=== PATIENT | female | born 1940 | race Caucasian/White ===

== ENCOUNTER 2017-01-16 04:03 | Inpatient (IN) | payer MEDICARE, BC ==
--- NOTE | 2017-01-16 04:16 | ED ---
GI Bleed HPI - General Stated complaint: Vertigo Time Seen by Provider: 01/16/17 04:13 Source: patient, EMS Limitations: no limitations - History of Present Illness Initial comments: This patient is a 76-year-old woman with history of previous stroke and atrial fibrillation who presents today after she had an episode of blood with her last bowel movement this morning. The patient states that she had gone to bed as usual around 10:30. She woke up and had the urge to have bowel movement this morning. When she got up she noted that she was somewhat lightheaded and dizzy. The bowel movement then had some blood with it, and the patient did phone EMS. Patient denies chest pain, dyspnea, abdominal pain, nausea or vomiting, diaphoresis. MD complaint: gross hematochezia -: minutes(s) Quality: painless Improves with: none Worsens with: none Associated Symptoms: other (Dizziness) Treatments Prior to Arrival: none - Related Data Home Medications Medication Instructions Recorded Confirmed Cholecalciferol [Vitamin D3] 1,000 unit PO DAILY 07/17/15 08/03/15 Albuterol Nebulized [Ventolin 2.5 mg INHALATION RT-Q6H 07/25/15 08/03/15 Nebulized] Atorvastatin [Lipitor] 40 mg PO HS 07/25/15 08/03/15 Nicotine 21Mg/24Hr Patch [Habitrol] 1 each TRANSDERM DAILY 07/25/15 08/03/15 Previous Rx's Medication Instructions Recorded Apixaban [Eliquis] 5 mg PO BID #60 tab 07/23/15 Aspirin EC [Ecotrin Low Dose] 81 mg PO DAILY #60 tablet.dr 07/23/15 Diltiazem Cd [Cardizem CD] 120 mg PO DAILY #60 cap.er.24h 07/23/15 Metoprolol Tartrate [Lopressor] 50 mg PO TID #90 tab 07/23/15 Budesonide-Formot 160-4.5 Mcg 2 puff INHALATION RT-BID #60 puff 07/29/15 [Symbicort 160-4.5 Mcg Inhaler] Tiotropium 18 Mcg/Puff [Spiriva] 1 puff INHALATION RT-DAILY #1 07/29/15 inhaler Allergies Allergy/AdvReac Type Severity Reaction Status Date / Time No Known Allergies Allergy Verified 01/16/17 04:17 Review of Systems ROS Statement: Those systems with pertinent positive or pertinent negative responses have been documented in the HPI. ROS Other: All systems not noted in ROS Statement are negative. Constitutional: Denies: fever, chills, weakness Respiratory: Denies: cough, dyspnea Cardiovascular: Denies: chest pain, palpitations, orthopnea, edema, syncope Gastrointestinal: Reports: hematochezia. Denies: abdominal pain, nausea, vomiting Genitourinary: Denies: dysuria Musculoskeletal: Denies: back pain Skin: Denies: rash Neurological: Denies: headache, weakness, numbness Past Medical History Past Medical History: Atrial Fibrillation, COPD, CVA/TIA, Hyperlipidemia, Hypertension, Osteoarthritis (OA), Pneumonia Additional Past Medical History / Comment(s): ETOH stated drinks 1-2 a day but has'nt drank in 1.5 weeks. 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 History of Any Multi-Drug Resistant Organisms: None Reported Past Surgical History: Back Surgery, Hysterectomy, Orthopedic Surgery, Tonsillectomy Additional Past Surgical History / Comment(s): BILATERAL HIP replacments, lt KNEE replacment, right SHOULDER SURGERY, hedy cataracts, enucleation of lt eye with implant Past Anesthesia/Blood Transfusion Reactions: No Reported Reaction Past Psychological History: Depression Smoking Status: Former smoker Past Alcohol Use History: None Reported Additional Past Alcohol Use History / Comment(s): STATES HAS 2 WHISKEY AND WATER DRINKS EACH EVENING Past Drug Use History: None Reported - Past Family History Mother Family Medical History: Myocardial Infarction ([place]) Father Family Medical History: Cancer General Exam General appearance: alert, in no apparent distress, obese Head exam: Present: atraumatic, normocephalic Eye exam: Present: normal appearance. Absent: scleral icterus, conjunctival injection Neck exam: Present: normal inspection Respiratory exam: Present: normal lung sounds bilaterally. Absent: respiratory distress, wheezes, rales, rhonchi, stridor Cardiovascular Exam: Present: irregular rhythm, normal heart sounds. Absent: systolic murmur, diastolic murmur, rubs, gallop GI/Abdominal exam: Present: soft. Absent: distended, tenderness, guarding, rebound, mass Extremities exam: Present: normal inspection, normal capillary refill. Absent: pedal edema, calf tenderness Back exam: Present: normal inspection. Absent: CVA tenderness (R), CVA tenderness (L) Neurological exam: Present: alert, oriented X3, other (Left facial droop). Absent: CN II-XII intact Skin exam: Present: warm, dry, intact, normal color. Absent: rash Course Vital Signs 01/16/17 01/16/17 04:08 04:50 Temperature 98.0 F Pulse Rate 105 H 105 H Respiratory 18 18 Rate Blood Pressure 94/54 97/52 O2 Sat by Pulse 97 98 Oximetry Medical Decision Making - Lab Data Result diagrams: 01/16/17 04:16 01/16/17 04:16 Lab Results 01/16/17 01/16/17 01/16/17 Range/Units 04:16 04:16 04:16 WBC 15.2 H (3.8-10.6) k/uL RBC 3.56 L (3.80-5.40) m/uL Hgb 10.2 L (11.4-16.0) gm/dL Hct 31.1 L (34.0-46.0) % MCV 87.5 (80.0-100.0) fL MCH 28.7 (25.0-35.0) pg MCHC 32.8 (31.0-37.0) g/dL RDW 15.9 H (11.5-15.5) % Plt Count 354 (150-450) k/uL Neutrophils % 79 % Lymphocytes % 11 % Monocytes % 6 % Eosinophils % 1 % Basophils % 2 % Neutrophils # 12.1 H (1.3-7.7) k/uL Lymphocytes # 1.6 (1.0-4.8) k/uL Monocytes # 0.9 (0-1.0) k/uL Eosinophils # 0.1 (0-0.7) k/uL Basophils # 0.3 H (0-0.2) k/uL PT (9.0-12.0) sec INR (<1.1) APTT (22.0-30.0) sec Sodium 136 L (137-145) mmol/L Potassium 5.3 H (3.5-5.1) mmol/L Chloride 101 (98-107) mmol/L Carbon Dioxide 26 (22-30) mmol/L Anion Gap 9 mmol/L BUN 58 H (7-17) mg/dL Creatinine 1.40 H (0.52-1.04) mg/dL Est GFR (MDRD) Af Amer 44 (>60 ml/min/1.73 sqM) Est GFR (MDRD) Non-Af 36 (>60 ml/min/1.73 sqM) Glucose 144 H (74-99) mg/dL POC Glucose (mg/dL) (75-99) mg/dL POC Glu Construction Engineer ID Plasma Lactic Acid Faisal (0.7-2.0) mmol/L Calcium 9.3 (8.4-10.2) mg/dL Total Bilirubin 0.4 (0.2-1.3) mg/dL AST 23 (14-36) U/L ALT 30 (9-52) U/L Alkaline Phosphatase 86 (38-126) U/L Total Creatine Kinase 57 (30-135) U/L CK-MB (CK-2) 2.6 H* (0.0-2.4) ng/mL CK-MB (CK-2) Rel Index 4.6 Troponin I <0.012 (0.000-0.034) ng/mL Total Protein 5.9 L (6.3-8.2) g/dL Albumin 3.4 L (3.5-5.0) g/dL Blood Type Blood Type Recheck Antibody Screen Spec Expiration Date 01/16/17 01/16/17 01/16/17 Range/Units 04:16 04:16 04:19 WBC (3.8-10.6) k/uL RBC (3.80-5.40) m/uL Hgb (11.4-16.0) gm/dL Hct (34.0-46.0) % MCV (80.0-100.0) fL MCH (25.0-35.0) pg MCHC (31.0-37.0) g/dL RDW (11.5-15.5) % Plt Count (150-450) k/uL Neutrophils % % Lymphocytes % % Monocytes % % Eosinophils % % Basophils % % Neutrophils # (1.3-7.7) k/uL Lymphocytes # (1.0-4.8) k/uL Monocytes # (0-1.0) k/uL Eosinophils # (0-0.7) k/uL Basophils # (0-0.2) k/uL PT 11.3 (9.0-12.0) sec INR 1.1 (<1.1) APTT 20.3 L (22.0-30.0) sec Sodium (137-145) mmol/L Potassium (3.5-5.1) mmol/L Chloride (98-107) mmol/L Carbon Dioxide (22-30) mmol/L Anion Gap mmol/L BUN (7-17) mg/dL Creatinine (0.52-1.04) mg/dL Est GFR (MDRD) Af Amer (>60 ml/min/1.73 sqM) Est GFR (MDRD) Non-Af (>60 ml/min/1.73 sqM) Glucose (74-99) mg/dL POC Glucose (mg/dL) 154 H (75-99) mg/dL POC Glu Construction Engineer ID [place], [place] Plasma Lactic Acid Faisal (0.7-2.0) mmol/L Calcium (8.4-10.2) mg/dL Total Bilirubin (0.2-1.3) mg/dL AST (14-36) U/L ALT (9-52) U/L Alkaline Phosphatase (38-126) U/L Total Creatine Kinase (30-135) U/L CK-MB (CK-2) (0.0-2.4) ng/mL CK-MB (CK-2) Rel Index Troponin I (0.000-0.034) ng/mL Total Protein (6.3-8.2) g/dL Albumin (3.5-5.0) g/dL Blood Type B Positive Blood Type Recheck No Antibody Screen NEGATIVE Spec Expiration Date 01/19/2017 - 231501/16/17 Range/Units 04:20 WBC (3.8-10.6) k/uL RBC (3.80-5.40) m/uL Hgb (11.4-16.0) gm/dL Hct (34.0-46.0) % MCV (80.0-100.0) fL MCH (25.0-35.0) pg MCHC (31.0-37.0) g/dL RDW (11.5-15.5) % Plt Count (150-450) k/uL Neutrophils % % Lymphocytes % % Monocytes % % Eosinophils % % Basophils % % Neutrophils # (1.3-7.7) k/uL Lymphocytes # (1.0-4.8) k/uL Monocytes # (0-1.0) k/uL Eosinophils # (0-0.7) k/uL Basophils # (0-0.2) k/uL PT (9.0-12.0) sec INR (<1.1) APTT (22.0-30.0) sec Sodium (137-145) mmol/L Potassium (3.5-5.1) mmol/L Chloride (98-107) mmol/L Carbon Dioxide (22-30) mmol/L Anion Gap mmol/L BUN (7-17) mg/dL Creatinine (0.52-1.04) mg/dL Est GFR (MDRD) Af Amer (>60 ml/min/1.73 sqM) Est GFR (MDRD) Non-Af (>60 ml/min/1.73 sqM) Glucose (74-99) mg/dL POC Glucose (mg/dL) (75-99) mg/dL POC Glu Construction Engineer ID Plasma Lactic Acid Faisal 1.3 (0.7-2.0) mmol/L Calcium (8.4-10.2) mg/dL Total Bilirubin (0.2-1.3) mg/dL AST (14-36) U/L ALT (9-52) U/L Alkaline Phosphatase (38-126) U/L Total Creatine Kinase (30-135) U/L CK-MB (CK-2) (0.0-2.4) ng/mL CK-MB (CK-2) Rel Index Troponin I (0.000-0.034) ng/mL Total Protein (6.3-8.2) g/dL Albumin (3.5-5.0) g/dL Blood Type Blood Type Recheck Antibody Screen Spec Expiration Date - EKG Data -: EKG Interpreted by Me EKG shows normal: axis (Normal), intervals (Normal), QRS complexes Rate: tachycardia Interpretation: other (Atrial fibrillation with rapid ventricular rate, rate approximate 110 bpm.) Disposition Clinical Impression: Atrial fibrillation with RVR, Gastrointestinal hemorrhage Disposition: ADMITTED IP TO THIS HOSP Condition: Fair Referrals: Alia Tobar MD [Primary Care Provider] - 1-2 days
[2017-01-16 04:34] LABS: Glucose,Whole Blood 154 mg/dL (75-99)
[2017-01-16 04:36] LABS: Basophils # (A) 0.3 k/uL (0-0.2); Basophils % (A) 2 %; CH 28.7; Eosinophils # (A) 0.1 k/uL (0-0.7); Eosinophils % (A) 1 %; HCT 31.1 % (34.0-46.0); HDW 2.69; HGB 10.2 gm/dL (11.4-16.0); Luc # (Auto) 0.27; Luc % (Auto) 2; Lymphocytes # (A) 1.6 k/uL (1.0-4.8); Lymphocytes % (A) 11 %; MCH 28.7 pg (25.0-35.0); MCHC 32.8 g/dL (31.0-37.0); MCV 87.5 fL (80.0-100.0); Mean Platelet Volume 8.1; Monocytes # (A) 0.9 k/uL (0-1.0); Monocytes % (A) 6 %; Neutrophils # (A) 12.1 k/uL (1.3-7.7); Neutrophils % (A) 79 %; RBC 3.56 m/uL (3.80-5.40); RDW 15.9 % (11.5-15.5); WBC 15.2 k/uL (3.8-10.6)
[2017-01-16] MEDS ORDERED: ONDANSETRON 4 MG/2 ML VIAL IVP STA (04:37)
[2017-01-16] MEDS ORDERED: PANTOPRAZOLE 40 MG/10 ML VIAL IVP STA (04:40)
[2017-01-16 04:45] LABS: INR 1.1 (<1.1); Prothrombin Time 11.3 sec (9.0-12.0)
[2017-01-16 04:49] LABS: Calcium 9.3 mg/dL (8.4-10.2); Potassium 5.3 mmol/L (3.5-5.1); Total Bilirubin 0.4 mg/dL (0.2-1.3); Total Protein 5.9 g/dL (6.3-8.2)
[2017-01-16 04:58] LABS: Creatine Kinase 57 U/L (30-135)
[2017-01-16 05:08] LABS: Partial Thromboplastin Time 20.3 sec (22.0-30.0)
[2017-01-16 05:10] LABS: Troponin I <0.012 ng/mL (0.000-0.034)
[2017-01-16 05:12] LABS: Creatine Kinase MB 2.6 ng/mL (0.0-2.4)
[2017-01-16] MEDS ORDERED: DILTIAZEM 5 MG/ML 5 ML VIAL IVP STA (06:33)
[2017-01-16] MEDS ORDERED: NALOXONE 0.4 MG/ML 1 ML VIAL IV PRN (06:34)
[2017-01-16] MEDS ORDERED: ONDANSETRON 4 MG/2 ML VIAL IVP PRN (06:34)
[2017-01-16] MEDS: SODIUM CHLORIDE 0.9% 1,000 ML IV SCH ×2 (07:05→20:24)
[2017-01-16] MEDS ORDERED: ASPIRIN 81 MG CHEW PO SCH (09:00)
[2017-01-16 09:13] LABS: Glucose,Whole Blood 178 mg/dL (75-99)
[2017-01-16] MEDS ORDERED: RX INFO: IV CONTRAST WAS GIVEN 1 EACH MISC MISCELLANE PRN (09:46)
[2017-01-16] MEDS: CHOLECALCIFEROL 1,000 UNIT TAB PO SCH (10:15)
[2017-01-16] MEDS: METOPROLOL TARTRATE 50 MG TAB PO SCH ×3 (10:15→20:07)
[2017-01-16] MEDS: DILTIAZEM CD 120 MG CAP.ER.24H PO SCH (10:15)
--- NOTE | 2017-01-16 10:18 | P.HPIM ---
History of Present Illness H&P Date: 01/16/17 Chief Complaint: Dizziness lightheadedness black tarry stool 76-year-old female who activated the EMS system after patient stated that she had gone to bed at her usual time at 10:30 at night woke up had a sudden urge to have a bowel movement got up felt dizzy lightheaded noted that there was blood in the toilet bowl with black stool. Patient states that during the day she had been feeling slightly dizzy and lightheaded with a sensation of nausea did not actually have a emesis had poor oral intake. Patient stated that she was not experiencing any chest pain or shortness of breath. Patient states that she does have a cardiac history and sees a automatic corn grinder operator in [facility] dr foote who reportedly treats patient for heart failure additionally patient states her primary ornamental plasterer helper is Dr. Mendez. Patient denies any prior episodes. Patient states that she is on a blood thinner elquist for irregular heartbeat. Patient denies any episodes of chest pain to suggest angina patient denies having any recent scopes done states that she's never had an upper scope done but had a colonoscopy done greater than 5 years ago to her knowledge there were no acute findings. Patient has not had any change in bowel habits no constipation no frequent stooling has not been experiencing any abdominal pain except on the day of the event had been having abdominal cramping. Currently patient did have a bowel movement black stool continues to report feeling dizzy and lightheaded with abdominal cramping persisting Review of Systems Essentially unremarkable except as mentioned in the present illness Past Medical History Past Medical History: Atrial Fibrillation, COPD, CVA/TIA, Hyperlipidemia, Hypertension, Osteoarthritis (OA), Pneumonia Additional Past Medical History / Comment(s): ETOH stated drinks 1-2 a day but has'nt drank in 1.5 weeks. 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 History of Any Multi-Drug Resistant Organisms: None Reported Past Surgical History: Back Surgery, Hysterectomy, Orthopedic Surgery, Tonsillectomy Additional Past Surgical History / Comment(s): BILATERAL HIP replacments, lt KNEE replacment, right SHOULDER SURGERY, hedy cataracts, enucleation of lt eye with implant Past Anesthesia/Blood Transfusion Reactions: No Reported Reaction Past Psychological History: Depression Smoking Status: Former smoker Past Alcohol Use History: None Reported Additional Past Alcohol Use History / Comment(s): STATES HAS 2 WHISKEY AND WATER DRINKS EACH EVENING Past Drug Use History: None Reported - Past Family History Mother Family Medical History: Myocardial Infarction ([place]) Father Family Medical History: Cancer Medications and Allergies Home Medications Medication Instructions Recorded Confirmed Type Cholecalciferol [Vitamin D3] 1,000 unit PO DAILY 07/17/15 08/03/15 History Albuterol Nebulized [Ventolin 2.5 mg INHALATION RT-Q6H 07/25/15 08/03/15 History Nebulized] Atorvastatin [Lipitor] 40 mg PO HS 07/25/15 08/03/15 History Nicotine 21Mg/24Hr Patch [Habitrol] 1 each TRANSDERM DAILY 07/25/15 08/03/15 History Allergies Allergy/AdvReac Type Severity Reaction Status Date / Time No Known Allergies Allergy Verified 01/16/17 04:17 Physical Exam Vitals: Vital Signs Temp Pulse Resp BP Pulse Ox 01/16/17 07:44 97.6 F 97 15 90/62 97 Intake and Output 01/15/17 01/16/17 01/16/17 22:59 06:59 14:59 Intake Total 480 Balance 480 Intake: Oral 480 GENERAL APPEARANCE: 76-year-old female patient is alert, oriented, in no acute distress. Currently is reportedly experiencing abdominal cramping states feels dizzy lightheaded systolic blood pressure in the 80s with heart [id number] VITAL SIGNS: Reviewed HEENT: Head is normocephalic and atraumatic. Pupils are equal and reactive. The nares are patent. Oropharynx is clear without lesions. NECK: Supple without lymphadenopathy. Traches midline. HEART: S1, S2. Irregular monitor currently showing atrial fibrillation heart rate in the 100 LUNGS: No crackles or wheezes are heard. Adequate air movement on room air sats were documented 97% no cough noted ABDOMEN: Obese Soft, slight tenderness, nondistended with good bowel sounds. No peritoneal signs. No palpable organomegaly or masses. A moderate black stool noted soft EXTREMITIES: Normal skin color and turgor. No cyanosis, rash, ulceration, clubbing or edema. Radial pedal pulses are 2/4 bilaterally. NEUROLOGICAL: No focal deficits. Strength and sensation are grossly intact. Results CBC & Chem 7: 01/16/17 04:16 03/26/17 04:16 Labs: Abnormal Lab Results - Last 24 Hours (Table) 01/16/17 Range/Units 08:53 POC Glucose (mg/dL) 178 H (75-99) mg/dL Assessment and Plan Plan: Impression Present on admission dizziness lightheadedness hypotensive systolic blood pressure in the 80s suspect due to episode of gross hematochezia Present on admission atrial fibrillation with a rapid ventricular response heart rate 110 Obesity BMI 43 Depressive disorder nonspecified Daily alcohol 2 whiskey last drink a week and half ago Present on admission leukocytosis Present on admission hyperkalemia suspect due to clinical dehydration poor oral intake Present on admission elevated BUN mildly elevated creatinine suspect due to clinical dehydration History of chronic bronchitis Present on admission abdominal pain unclear etiology History of prior CVA with no deficit 2014 congestive heart failure suspect systolic echocardiogram in 2014 EF 40-45 compensated Plan GI eval noted scheduled tomorrow for an EGD Cardiology eval pending CT abdomen and pelvis follow up on results Dr. Solomon surgical service eval for abdominal pain Pulmonary eval for pulmonary management history of bronchitis no evidence acute exacerbation noted bárbara on hold Resume home meds as appropriate Continue protonix 40 iv every 12 DVT and GI prophylaxis Further recommendations pending will follow IV fluid at 75 an hour to rehydrate repeat labs in the morning The above dictated assessment and findings were discussed with dr julius Duggan and the plan of care have been dictated as directed. Sherlyn Hdez nurse practitioner acting as a scribe for dr madrid
[2017-01-16] MEDS: ALBUTEROL NEBULIZED 2.5 MG/3 ML INHALATION SCH ×3 (10:43→19:35)
[2017-01-16] MEDS: SYMBICORT 160-4.5 MCG INHALER INHALATION SCH ×2 (10:43→19:35)
--- NOTE | 2017-01-16 10:50 | CT ---
EXAMINATION TYPE: CT abdomen pelvis w con DATE OF EXAM: 01/16/2017 10:33 AM COMPARISON: NONE HISTORY: Pain CT DLP: 1735.80 mGycm Automated exposure control for dose reduction was used. TECHNIQUE: Helical acquisition of images was performed from the lung bases through the pelvis. CONTRAST: Performed without Oral Contrast and with IV Contrast, patient injected with 80 ml mL of Visipaque 320 . FINDINGS: Lung bases are clear. There is no pleural effusion. There is no pericardial effusion. Heart is probably enlarged. Liver spleen pancreas appear normal. Stomach is large. There are calcified large gallstones. Bile christopher ts are not dilated. There is no adrenal mass. Kidneys show satisfactory contrast opacification. There is no hydronephrosis. There is a 2 cm cortical cyst on the posterior right kidney. There is no retro peritoneal adenopathy. There is no ascites. There is mild sigmoid diverticulosis. There is no sign of diverticulitis. There is a 5 cm cyst in the pelvis on the right side. Appendix appears normal. There are spondylotic changes in the lumbar spine. IMPRESSION: THE STOMACH IS LARGE AND COULD RELATE TO GASTROPARESIS OR PARTIAL GASTRIC OUTLET OBSTRUCTION. NORMAL APPENDIX. ATHEROSCLEROTIC VASCULAR DISEASE. 5 CM PELVIC CYST COULD BE AN OVARIAN CYST. MODERATE SIGMOID DIVERTICULOSIS WITHOUT EVIDENCE OF DIVERTICULITIS. LARGE CALCIFIED GALLSTONES. CARDIOMEGALY.
[2017-01-16] MEDS: TIOTROPIUM 18 MCG/PUFF INHALER INHALATION SCH (10:57)
--- NOTE | 2017-01-16 11:10 | P.CON ---
Consult Note - . Consult date: 01/16/17 Assessment/Plan:: Thank you very much for asking us to see this patient. She is a 76-year-old white female who awoke last night with the sensation to have a bowel movement. She states the bowel movement was fairly liquid and was dark almost black but also amount of bright red blood in it. She has not been taking while all day yesterday with the feeling of weakness and lethargy and had a dizzy spell last night. She presented to the emergency room. No past history of similar issue in terms of her bowels. Does have a history of constipation mostly. Has had occasional bright red blood on the toilet paper which she has attributed to hemorrhoids. She thinks she had a colonoscopy about 5 years ago with the as far she knows no significant abnormalities. She cannot recall who did it or where it was done was done. When admitted she was found to have rapid ventricular rate with a long history of atrial fibrillation. Past history reviewed and well-documented. Positive for atrial fibrillation with the rapid ventricular rate in the past. On the Eliquis and aspirin. Multiple orthopedic surgeries. History of CVA with the facial weakness. Left enucleation of the eye. Hysterectomy ALLERGIES none known. Social history positive for smoking in the past. Drinks alcohol are daily usually whiskey but states she hadn't had anything to drink more than a week. Systems review as above no definite chest pain or shortness of breath but she feels very lethargic week and tired. Has degenerative joint disease with the aches and pains and some back pain. Some lower abdominal discomfort. On examination the patient is awake alert oriented. Not particularly pale. Vitals are stable heart rate around 108 irregular.. No mass or lymphadenopathy. Heart irregular lungs are clear. Abdomen obese soft no definite tenderness guarding or rebound or rigidity no mass or organomegaly. Rectal reveals some liquid stool , no blood on the examining finger , stool is dark brown in color. No masses palpable. Has mild internal hemorrhoids. Laboratory studies reviewed. Her hemoglobin is stable. WBC slightly elevated. INR is normal. CT of the abdomen and pelvis shows a distended stomach with the possibility of gastroparesis. Large the gallstones. Diverticulosis without the complicating features. Impression GI bleed suspect colonic in view of bright red blood but also she reports it was dark stool as well. Should the rule out upper GI source. Prone to bleeding being on Eliquis.. Suspect asymptomatic cholelithiasis. Possible gastroparesis. Multiple medical issues including atrial fibrillation history of CVA degenerative joint disease obesity. Recommendation continued monitoring medically as well as her hemoglobin. Agree with plans for EGD. Dr. Lopez we will continue to follow .
--- NOTE | 2017-01-16 12:53 | CONS ---
DATE OF CONSULTATION: 01/16/2017 REASON FOR CONSULTATION: Acute GI bleed. HISTORY OF PRESENT ILLNESS: The patient is a 76-year-old pleasant lady who was admitted to the hospital with abdominal pain, nausea and vomiting that started yesterday evening followed by dark-colored stool. She had about 3 episodes of dark-colored stools but denies any melena. Prior to that she had a couple of occasions of mild intermittent bright red blood per rectum that happens when she is constipated. At the time of admission to the hospital her hemoglobin was from 10.4 g/dL. In June of last year she was diagnosed with a CVA as well as atrial fibrillation and since then has been on aspirin and Eliquis. Her last dose of Eliquis was yesterday. She denies any coffee-ground emesis. No prior history of peptic ulcer disease or recent NSAID use. Her past medical history is significant for A. fib, CVA, hypertension, hyperlipidemia, COPD. Medications at home include: 1. Spiriva. 2. Habitrol. 3. Lopressor. 4. Cardizem. 5. Vitamin D3. 6. Symbicort. 7. Eliquis. 8. Ecotrin. 9. Lipitor. 10. Ventolin. ALLERGIES: None. PAST SURGICAL HISTORY: Colonoscopy about 5 years ago, bilateral hip replacement, tonsillectomy, right knee replacement, right shoulder surgery, hysterectomy, back surgery. SOCIAL HISTORY: Occasional alcohol. Former smoker. FAMILY HISTORY: Mother had CO and father had some kind of cancer. REVIEW OF SYSTEMS: CARDIOPULMONARY: No chest pain, shortness of breath. GENITOURINARY: No dysuria or hematuria. MUSCULOSKELETAL: Unremarkable. SKIN: Unremarkable. ENDOCRINE: Unremarkable. PSYCHIATRIC: Unremarkable. NEUROLOGY: Unremarkable. ENT: Vision unremarkable. CONSTITUTIONAL: No recent weight loss. No fever, chills, night sweats. On physical examination, she appears comfortable in no apparent distress. Vitals as are stable. Blood pressure is 94/54, pulse rate 105, temperature 98. HEENT: Unremarkable. Conjunctivae pink. Sclerae anicteric. Oral cavity, no lesions. NECK: No JVD or lymph node enlargement. CHEST: Clear to auscultation. HEART: Regular rate and rhythm. ABDOMEN: Soft. There was tenderness in the epigastric and periumbilical area. Bowel sounds are positive. No organomegaly. EXTREMITIES: No pedal edema. SKIN: No rashes. NEURO: She is alert and oriented x3. No focal deficits. LABS: WBC 15.2, hemoglobin 10.2, platelets are 354, PT 11.3, INR 1.1. BUN is 58, creatinine 1.4, troponin less than 0.12. IMPRESSION: This is a lady who presents with acute onset of abdominal pain followed by nausea and vomiting and since then had 3 episodes of dark-colored stools which started last night. She became somewhat dizzy and hypertensive. Last hemoglobin was 10.4 g/dL. She has been on aspirin and Eliquis for atrial fibrillation/cerebrovascular accident that was diagnosed in June 2016. Most likely we are dealing with an upper gastrointestinal source of bleeding at the present time. Clinically and hemodynamically she is stable, somewhat tachycardic. RECOMMENDATIONS: 1. Start her on Protonix 40 mg every 2 hours. 2. CBC every 8 hours. 3. Clear liquid diet. 4. Proceed with an upper endoscopy tomorrow. 5. Hold off on the Eliquis and aspirin. 6. We will follow the patient closely during her hospital stay. Thank you for this consultation.
[2017-01-16] MEDS: PANTOPRAZOLE 40 MG/10 ML VIAL IVP SCH ×2 (13:55→20:07)
[2017-01-16 20:06] LABS: CH 28.5; CHCM 32.5; HCT 21.7 % (34.0-46.0); HDW 2.61; MCV 87.9 fL (80.0-100.0); Mean Platelet Volume 8.9; RBC 2.47 m/uL (3.80-5.40); RDW 15.9 % (11.5-15.5); WBC 16.9 k/uL (3.8-10.6)
[2017-01-16] MEDS: ATORVASTATIN 40 MG TAB PO SCH (20:07)
[2017-01-16 20:08] LABS: HGB 7.2 gm/dL (11.4-16.0)
[2017-01-16] MEDS ORDERED: ALBUTEROL NEBULIZED 2.5 MG/3 ML INHALATION PRN (20:18)
[2017-01-16 20:51] LABS: Calcium 8.7 mg/dL (8.4-10.2); Potassium 5.7 mmol/L (3.5-5.1)
[2017-01-16] MEDS ORDERED: FUROSEMIDE 10 MG/ML 2 ML VIAL IV ONE (21:15)
[2017-01-16] MEDS: HYDROmorphone 1 MG/ML 1 ML SYRINGE IVP PRN (22:23)
[2017-01-17 03:46] LABS: Glucose,Whole Blood 166 mg/dL (75-99)
[2017-01-17] MEDS: HYDROmorphone 1 MG/ML 1 ML SYRINGE IVP PRN ×3 (06:38→21:18)
[2017-01-17] MEDS: DILTIAZEM CD 120 MG CAP.ER.24H PO SCH (06:52)
--- NOTE | 2017-01-17 06:55 | XR ---
EXAMINATION TYPE: XR chest 1V DATE OF EXAM: 01/17/2017 6:38 AM HISTORY: bronchitis. REFERENCE: Previous study dated 08/03/2015. FINDINGS: There is a right shoulder hemiarthroplasty in place. Heart size is upper limits of normal. The lungs are clear. Pleural spaces are clear. IMPRESSION: BORDERLINE CARDIOMEGALY.
[2017-01-17] MEDS: TIOTROPIUM 18 MCG/PUFF INHALER INHALATION SCH (07:20)
[2017-01-17] MEDS: SYMBICORT 160-4.5 MCG INHALER INHALATION SCH ×2 (07:20→19:34)
[2017-01-17 08:38] LABS: INR 1.2 (<1.1); Prothrombin Time 11.7 sec (9.0-12.0)
[2017-01-17 08:38] LABS: Appearance,Urine Clear (Clear); Bilirubin,Urine Negative (Negative); Glucose,Urine (UA) Negative (Negative); Ketones,Urine Negative (Negative); Leukocyte Esterase,Urine Negative (Negative); Nitrite,Urine Negative (Negative); PH, Urine 6.5 (5.0-8.0); Protein,Urine Negative (Negative); Specific Gravity,Urine 1.009 (1.001-1.035); UA Billing (MACRO vs. MICRO) CHEM; Urobilinogen,Urine <2.0 mg/dL (<2.0)
[2017-01-17] MEDS: METOPROLOL TARTRATE 50 MG TAB PO SCH ×3 (08:49→21:38)
[2017-01-17] MEDS: CHOLECALCIFEROL 1,000 UNIT TAB PO SCH (08:49)
[2017-01-17] MEDS: PANTOPRAZOLE 40 MG/10 ML VIAL IVP SCH ×2 (08:49→21:10)
[2017-01-17 08:53] LABS: Anisocytosis Slight; Basophils % (A) 0 %; CH 28.4; CHCM 33.4; Eosinophils # (A) 0.1 k/uL (0-0.7); Eosinophils % (A) 1 %; HCT 27.5 % (34.0-46.0); HDW 2.95; Luc % (Auto) 1; Lymphocytes # (A) 1.5 k/uL (1.0-4.8); Lymphocytes % (A) 11 %; MCH 28.3 pg (25.0-35.0); MCV 85.8 fL (80.0-100.0); Mean Platelet Volume 8.4; Monocytes # (A) 0.7 k/uL (0-1.0); Monocytes % (A) 5 %; Neutrophils % (A) 81 %; RBC 3.21 m/uL (3.80-5.40); RDW 16.9 % (11.5-15.5); WBC 13.5 k/uL (3.8-10.6)
[2017-01-17 09:03] LABS: HGB 9.1 gm/dL (11.4-16.0)
[2017-01-17 09:05] LABS: Calcium 8.3 mg/dL (8.4-10.2); Phosphorous 4.4 mg/dL (2.5-4.5); Potassium 4.4 mmol/L (3.5-5.1); Total Bilirubin 0.9 mg/dL (0.2-1.3); Total Protein 5.1 g/dL (6.3-8.2)
[2017-01-17] MEDS: SODIUM CHLORIDE 0.9% 1,000 ML IV SCH ×2 (10:00→23:26)
[2017-01-17] MEDS: DILTIAZEM 125 MG in SODIUM CHLORIDE 0.9% 100 ML IV SCH ×2 (10:01→18:55)
[2017-01-17] MEDS ORDERED: LEVALBUTEROL NEB 1.25 MG/3 ML AMP INHALATION PRN (10:15)
--- NOTE | 2017-01-17 10:15 | P.CNPUL ---
History of Present Illness Consult date: 01/17/17 Requesting physician: Nilsa Arellano Reason for consult: other (Critical care management) Chief complaint: Abdominal pain, black tarry stools History of present illness: This is a very pleasant 76-year-old female patient who follows with Dr. Tobar as her primary care physician. She has a history of CVA/TIA with right-sided facial droop, atrial fibrillation, hyperlipidemia, hypertension, chronic obstructive pulmonary disease with a significant smoking history. She is maintained on Symbicort and Spiriva in the outpatient setting. She had presented here yesterday following a episode of nausea vomiting and diarrhea. Her stools were black and tarry. She was also found to be in atrial fibrillation with rapid ventricular response and is treated with liquid as an aspirin in the outpatient setting. She was also dizzy and lightheaded and felt as though this may be related to her previous stroke symptoms and took additional aspirin. Her initial hemoglobin was 10.2 subsequent dropped to 7.2. She was transfused with 2 units of packed red blood cells and her current hemoglobin is 9.1. She has not had any further episodes of active GI bleeding noted thus far. She does remain in atrial fibrillation with a rapid ventricular response and was on Cardizem orally in the outpatient setting. She is on 2 L/m per nasal cannula to maintain O2 saturations in the 90s. She is a 0.9 normal saline at 75 ML's per hour. Her initial creatinine 1.50 improved to 1.25. Stool for occult blood is positive. The plan is for EGD today. Review of Systems 14 point review of system was conducted. All negative other than as mentioned in HPI. Past Medical History Past Medical History: Atrial Fibrillation, COPD, CVA/TIA, Hyperlipidemia, Hypertension, Osteoarthritis (OA), Pneumonia Additional Past Medical History / Comment(s): ETOH stated drinks 1-2 a day but has'nt drank in 1.5 weeks. 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 History of Any Multi-Drug Resistant Organisms: None Reported Past Surgical History: Back Surgery, Hysterectomy, Orthopedic Surgery, Tonsillectomy Additional Past Surgical History / Comment(s): BILATERAL HIP replacments, lt KNEE replacment, right SHOULDER SURGERY, hedy cataracts, enucleation of lt eye with implant Past Anesthesia/Blood Transfusion Reactions: No Reported Reaction Past Psychological History: Depression Smoking Status: Former smoker Past Alcohol Use History: None Reported Additional Past Alcohol Use History / Comment(s): STATES HAS 2 WHISKEY AND WATER DRINKS EACH EVENING Past Drug Use History: None Reported - Past Family History Mother Family Medical History: Myocardial Infarction (NH) Father Family Medical History: Cancer Medications and Allergies Home Medications Medication Instructions Recorded Confirmed Type Cholecalciferol [Vitamin D3] 1,000 unit PO DAILY 07/17/15 01/16/17 History Albuterol Nebulized [Ventolin 2.5 mg INHALATION RT-QID PRN 07/25/15 01/16/17 History Nebulized] Atorvastatin [Lipitor] 40 mg PO HS 07/25/15 01/16/17 History Acetaminophen/Diphenhydramine 1 tab PO HS PRN 01/16/17 01/16/17 History [Tylenol PM 500-25mg] Furosemide [Lasix] 20 mg PO QID 01/16/17 01/16/17 History Gabapentin [Neurontin] 200 mg PO DAILY 01/16/17 01/16/17 History LORazepam [Ativan] 0.5 mg PO Q6H PRN 01/16/17 01/16/17 History Lisinopril [Zestril] 5 mg PO DAILY 01/16/17 01/16/17 History Melatonin 3 mg PO HS 01/16/17 01/16/17 History Potassium Chloride [Klor-Con 10] 10 meq PO MOWEFR@0900,2100 01/16/17 01/16/17 History Potassium Chloride [Klor-Con 10] 10 meq PO SUTUTHSA@0900 01/16/17 01/16/17 History Sulfamethox-Tmp 800-160Mg [Bactrim 1 tab PO Q12HR 01/16/17 01/16/17 History DS 800-160 mg] Tiotropium 18 Mcg/Puff [Spiriva] 1 cap INHALATION RT-DAILY 01/16/17 01/16/17 History predniSONE See Taper PO DAILY 01/16/17 01/17/17 History rOPINIRole HCL [Requip] 0.5 mg PO HS 01/16/17 01/16/17 History Allergies Allergy/AdvReac Type Severity Reaction Status Date / Time No Known Allergies Allergy Verified 01/16/17 11:41 Physical Exam Vitals: Vital Signs Temp Pulse Pulse Pulse Resp BP BP 01/17/17 09:00 161 H 18 101/68 01/17/17 08:00 150 H 31 H 77/50 01/17/17 07:00 98.4 F 163 H 25 H 117/69 01/17/17 06:00 138 H 15 108/60 01/17/17 05:50 145 H 21 108/60 01/17/17 05:41 99.2 F 137 H 20 94/57 01/17/17 05:40 136 H 12 108/60 01/17/17 05:00 99.2 F 147 H 112/76 01/17/17 04:26 141 H 10 L 112/76 01/17/17 03:18 97.2 F L 118 H 18 116/57 01/17/17 02:48 97.7 F 120 H 18 106/63 01/17/17 02:38 98.9 F 129 H 18 104/72 01/17/17 02:28 98.3 F 113 H 18 110/57 01/17/17 02:10 98.6 F 126 H 18 101/78 01/17/17 00:00 136 H 18 01/16/17 23:08 98.6 F 95 95 18 104/55 104/55 01/16/17 22:38 97.7 F 129 H 18 104/57 01/16/17 22:28 98.2 F 134 H 18 101/50 01/16/17 22:10 98.1 F 138 H 18 100/52 01/16/17 20:00 97.2 F L 105 H 18 105/57 01/16/17 15:59 124 H 18 01/16/17 12:00 90 18 BP Pulse Ox 01/17/17 09:00 94 L 01/17/17 08:00 94 L 01/17/17 07:00 94 L 01/17/17 06:00 93 L 01/17/17 05:50 95 01/17/17 05:41 95 01/17/17 05:40 98 01/17/17 05:00 95 01/17/17 04:26 97 01/17/17 03:18 98 01/17/17 02:48 95 01/17/17 02:38 98 01/17/17 02:28 98 01/17/17 02:10 98 01/17/17 00:00 01/16/17 23:08 98 01/16/17 22:38 97 01/16/17 22:28 98 01/16/17 22:10 98 01/16/17 20:00 100 01/16/17 15:59 92/59 96 01/16/17 12:00 89/51 92 L Intake and Output 01/16/17 01/17/17 01/17/17 22:59 06:59 14:59 Intake Total 375 1530 650 Output Total 750 Balance 375 1530 -100 Intake: Intake, IV Titration 375 600 650 Amount Sodium Chloride 0.9% 1, 375 600 650 000 ml @ 75 mls/hr IV . [id number] [facility] Rx#:[id number] Blood Product 0 930 Rc As-1 Unit 310 [id number] Rc As-3 Unit 0 310 [id number] Output: Urine 250 Stool 500 Other: Voiding Method Bedpan Bedpan # Voids 2 1 1 # Bowel Movements 1 Weight 107.9 kg GENERAL EXAM: Alert, active, comfortable in no apparent distress. HEAD: Normocephalic. EYES: Left eye enucleated, implant in place. NOSE: Clear with pink turbinates. THROAT: There is right-sided facial droop. No erythema or exudates. NECK: No masses, no JVD. CHEST: No chest wall deformity. LUNGS: Equal air entry with no crackles, wheeze, rhonchi or dullness. CVS: S1 and S2 normal with no audible murmurs, irregular rhythm. Tachycardic. ABDOMEN: No hepatosplenomegaly, normal bowel sounds, tender to palpation. SPINE: No scoliosis or deformity SKIN: No rashes Extremities: There is trace peripheral edema. No clubbing, no cyanosis. Peripheral pulses are intact. Results - Laboratory Findings CBC and BMP: 01/17/17 08:26 01/17/17 08:26 PT/INR, D-dimer PT 11.7 sec (9.0-12.0) 01/17/17 08:26 INR 1.2 (<1.1) 01/17/17 08:26 Abnormal lab findings: Abnormal Labs 01/16/17 01/16/17 01/16/17 08:53 19:46 19:46 WBC 16.9 H RBC 2.47 L Hgb 7.2 L D Hct 21.7 L RDW 15.9 H Neutrophils # Sodium 136 L Potassium 5.7 H BUN 92 H* Creatinine 1.50 H Glucose 158 H POC Glucose (mg/dL) 178 H Calcium Total Protein Albumin Stool Occult Blood 01/17/17 01/17/17 01/17/17 02:15 03:43 08:26 WBC RBC Hgb Hct RDW Neutrophils # Sodium Potassium BUN 77 H Creatinine 1.25 H Glucose 115 H POC Glucose (mg/dL) 166 H Calcium 8.3 L Total Protein 5.1 L Albumin 2.8 L Stool Occult Blood Positive H 01/17/17 08:26 WBC 13.5 H RBC 3.21 L Hgb 9.1 L D Hct 27.5 L RDW 16.9 H Neutrophils # 11.0 H Sodium Potassium BUN Creatinine Glucose POC Glucose (mg/dL) Calcium Total Protein Albumin Stool Occult Blood - Diagnostic Findings Chest x-ray: image reviewed (No acute cardiopulmonary process) Assessment and Plan Plan: Impression: #1 Acute gastrointestinal bleed in a patient with a known history of diverticulosis, atrial fibrillation anticoagulated with Eliquis and aspirin, daily alcohol use. #2 Acute anemia secondary to above, status post 2 units of packed red blood cell transfusion #3 Atrial fibrillation with a rapid ventricular response, anticoagulated with Eliquis and aspirin in the outpatient setting. #4 History of CVA/TIA with right-sided facial droop. #5 Chronic obstructive pulmonary disease, currently inactive and stable. #6 Chronic tobacco dependence. #7 History of daily alcohol use. #8 Acute renal failure. 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 #10 Hypertension. #11 Hyperlipidemia. #12 Osteoarthritis with multiple joint replacements. Plan: The patient was seen and evaluated by Dr. Mendez. Her chest x-ray and labs were reviewed. We feel the patient is not stable enough for EGD today and will cancel the procedure. We will continue to monitor her here closely in the intensive care unit. We will initiate a Cardizem drip at 10 mg per hour based on her continued A. fib with RVR. We will discontinue the albuterol and initiate Xopenex when necessary. We'll continue to hold the Eliquis and aspirin. We will continue to follow her here closely in the intensive care unit. We'll make further recommendations based on her clinical status. Time with Patient: Greater than 30
--- NOTE | 2017-01-17 11:29 | P.PN ---
Subjective Patient is doing fairly well today. Her heart rate was up in the 150 range this morning and currently in 120s. Patient is hemodynamically stable but blood pressure on the lower side. She is currently on IV Cardizem. She denies any dizziness or lightheadedness at this time. Objective - Vital Signs Vital signs: Vital Signs Temp 98.4 F 01/17/17 07:00 Pulse 124 H 01/17/17 10:00 Resp 14 01/17/17 10:00 BP 98/61 01/17/17 10:00 Pulse Ox 98 01/17/17 10:00 Intake & Output 01/16/17 01/17/17 01/17/17 18:59 06:59 18:59 Intake Total 895 1530 735 Output Total 2150 Balance 895 1530 -1415 Weight 107.9 kg 107.9 kg Intake: Intake, IV Titration 415 600 735 Amount Diltiazem 125 mg In 10 Sodium Chloride 0.9% 100 ml @ 10 MG/HR 10 mls/hr IV .[id number] [facility] Rx#: [id number] Sodium Chloride 0.9% 1, 415 600 725 000 ml @ 75 mls/hr IV . [id number] [facility] Rx#:[id number] Oral 480 0 Blood Product 930 Rc As-1 Unit 310 [id number] Rc As-3 Unit 310 [id number] Output: Urine 650 Stool 1500 Other: Voiding Method Bedpan Indwelling Catheter # Voids 2 1 1 # Bowel Movements 1 - Exam General: The patient is awake and alert, in no distress Eye: there is normal conjunctiva bilaterally. Neck: The neck is supple, there is no JVD. Cardiovascular: Normal S1-S2, no S3-S4, no murmurs. Respiratory: Lungs clear to auscultation bilaterally Gastrointestinal: Abdomen is soft, nontender Musculoskeletal: There is no pedal edema. Neurological:. Speech is normal. Skin: Skin is warm and dry - Labs CBC & Chem 7: 01/17/17 08:26 01/17/17 08:26 Labs: Abnormal Lab Results - Last 24 Hours (Table) 01/16/17 01/16/17 01/17/17 Range/Units 19:46 19:46 02:15 WBC 16.9 H (3.8-10.6) k/uL RBC 2.47 L (3.80-5.40) m/uL Hgb 7.2 L D (11.4-16.0) gm/dL Hct 21.7 L (34.0-46.0) % RDW 15.9 H (11.5-15.5) % Neutrophils # (1.3-7.7) k/uL Sodium 136 L (137-145) mmol/L Potassium 5.7 H (3.5-5.1) mmol/L BUN 92 H* (7-17) mg/dL Creatinine 1.50 H (0.52-1.04) mg/dL Glucose 158 H (74-99) mg/dL POC Glucose (mg/dL) (75-99) mg/dL Calcium (8.4-10.2) mg/dL Total Protein (6.3-8.2) g/dL Albumin (3.5-5.0) g/dL Stool Occult Blood Positive H (Negative) 01/17/17 01/17/17 01/17/17 Range/Units 03:43 08:26 08:26 WBC 13.5 H (3.8-10.6) k/uL RBC 3.21 L (3.80-5.40) m/uL Hgb 9.1 L D (11.4-16.0) gm/dL Hct 27.5 L (34.0-46.0) % RDW 16.9 H (11.5-15.5) % Neutrophils # 11.0 H (1.3-7.7) k/uL Sodium (137-145) mmol/L Potassium (3.5-5.1) mmol/L BUN 77 H (7-17) mg/dL Creatinine 1.25 H (0.52-1.04) mg/dL Glucose 115 H (74-99) mg/dL POC Glucose (mg/dL) 166 H (75-99) mg/dL Calcium 8.3 L (8.4-10.2) mg/dL Total Protein 5.1 L (6.3-8.2) g/dL Albumin 2.8 L (3.5-5.0) g/dL Stool Occult Blood (Negative) Assessment and Plan Plan: Impression Present on admission dizziness lightheadedness hypotensive systolic blood pressure in the 80s suspect due to episode of gross hematochezia and intravascular depletion Present on admission atrial fibrillation with a rapid ventricular response Obesity BMI 43 Depressive disorder nonspecified Daily alcohol 2 whiskey last drink a week and half ago Present on admission leukocytosis Present on admission hyperkalemia suspect due to clinical dehydration poor oral intake Present on admission elevated BUN mildly elevated creatinine suspect due to clinical dehydration History of chronic bronchitis Present on admission abdominal pain unclear etiology History of prior CVA with no deficit 2014 congestive heart failure suspect systolic echocardiogram in 2014 EF 40-45 compensated Acute on chronic anemia Acute blood loss anemia requiring 2 units of packed RBC during this admission Plan GI eval noted scheduled for an EGD Cardiology eval appreciated CT abdomen and pelvis reviewed revealing enlarged stomach with possible gastroparesis or partial outlet obstruction. bárbara on hold Resume home meds as appropriate Continue protonix 40 iv every 12 DVT and GI prophylaxis Further recommendations pending will follow IV fluid at 75 an hour to rehydrate repeat labs in the morning
[2017-01-17 12:03] LABS: Hemoglobin A1C 6.3 % (4.2-6.1)
[2017-01-17] MEDS ORDERED: PROPOFOL 10 MG/ML 20 ML VIAL IV ONE (12:54)
--- NOTE | 2017-01-17 13:18 | P.PCN ---
Date of Procedure: 01/17/17 Procedure(s) Performed: BRIEF HISTORY: Patient is a 76-year-old, pleasant, white female, admitted hospital with black tarry stools of 2 days' duration. She dropped her hemoglobin 27.5 requiring 2 units of PRBC transfusion and over the night became hypotensive and tachycardic and was transferred to the intensive care unit. She is scheduled for an upper endoscopy was suspected upper GI bleed. PROCEDURE PERFORMED: Esophagogastroduodenoscopy with injection epinephrine and cautery and biopsy. PREOPERATIVE DIAGNOSIS: Acute GI bleed. IV sedation per anesthesia. PROCEDURE: After informed consent was obtained, the patient was brought into the endoscopy unit. IV conscious sedation was administered by Anesthesia under continuous monitoring. Initially the Olympus GIF-140 video endoscope was inserted into the mouth. Esophagus intubated without any difficulty. It was gradually advanced into the stomach and duodenum and carefully examined. The bulb and the second part of the duodenum appeared normal. The scope at this time was withdrawn to the stomach, adequately insufflated with air, and upon careful examination, mucosa of the antrum had multiple small superficial ulcerations measuring between 5 mm to 1 cm in size. There was one ulcer along the greater curvature in the antrum of the stomach which measured 2 cm, deep and a small visible vessel in the middle but no active bleeding. This area was injected with epinephrine 1 in 10,000 for a total of 8 mL followed by cautery to ablate. The visible vessel noted in the middle of the ulcer. Also biopsies were done from the antrum to rule out H. pylori infection. The body, cardia and the fundus appeared normal. The scope was then withdrawn into the esophagus. The GE junction was located at 39 cm from the incisors. Therest of thes appeared normal. There weresuperficial erosionsin the distal esophagus consistent with LA grade B reflux esophagitis and the patient tolerated the procedure well. IMPRESSION: 1. Multiple superficial gastric antral ulcers, but one ulcer was 2 cm deep in the antrum with a visible vessel but no active bleeding status post injection epinephrine and cautery as described above . 2. LA grade B reflux esophagitis. RECOMMENDATIONS: The findings of this examination were discussed with the patient patient. At this time will start her on clear liquid diet, continue to monitor hemoglobin every 6 hours and transfuse as needed. Continue Protonix 40 mg every 12 hours..
[2017-01-17] MEDS ORDERED: HYDROmorphone 1 MG/ML 1 ML SYRINGE IVP STA (13:52)
[2017-01-17 14:08] LABS: Anisocytosis Slight; CH 28.7; CHCM 33.4; HCT 28.5 % (34.0-46.0); HDW 3.07; HGB 9.4 gm/dL (11.4-16.0); MCH 28.7 pg (25.0-35.0); MCHC 33.2 g/dL (31.0-37.0); MCV 86.5 fL (80.0-100.0); RBC 3.29 m/uL (3.80-5.40); RDW 17.1 % (11.5-15.5); WBC 14.9 k/uL (3.8-10.6)
--- NOTE | 2017-01-17 17:41 | P.PN ---
Subjective Principal diagnosis: Upper GI bleed Patient underwent upper endoscopy today. She is found have multiple small ulcerations one of which appeared to have a visible vessel. This was in the antrum. This was treated with coagulation and injection. She is doing well at this time. Denies abdominal pain. Labs have been reviewed. Objective - Vital Signs Vital signs: Vital Signs Temp 98.3 F 01/17/17 16:15 Pulse 107 H 01/17/17 16:15 Resp 17 01/17/17 16:15 BP 103/62 01/17/17 16:15 Pulse Ox 97 01/17/17 16:15 Intake & Output 01/16/17 01/17/17 01/17/17 18:59 06:59 18:59 Intake Total 895 1530 1574 Output Total 4550 Balance 895 1530 -2976 Weight 107.9 kg 107.9 kg Intake: Intake, IV Titration 604 987 7762 Amount Diltiazem 125 mg In 99 Sodium Chloride 0.9% 100 ml @ 15 MG/HR 15 mls/hr IV .[id number] [facility] Rx#: [id number] Sodium Chloride 0.9% 1, 538 324 8882 000 ml @ 75 mls/hr IV . [id number] [facility] Rx#:[id number] Oral 480 0 Blood Product 930 Rc As-1 Unit 310 [id number] Rc As-3 Unit 310 [id number] Output: Urine 1550 Stool 3000 Other: Voiding Method Bedpan Indwelling Catheter # Voids 2 1 1 # Bowel Movements 1 1 - Exam Abdomen: Soft, nontender, nondistended - Labs CBC & Chem 7: 01/17/17 14:01 01/17/17 08:26 Labs: Abnormal Lab Results - Last 24 Hours (Table) 01/16/17 01/16/17 01/16/17 Range/Units 19:46 19:46 21:47 WBC 16.9 H (3.8-10.6) k/uL RBC 2.47 L (3.80-5.40) m/uL Hgb 7.2 L D (11.4-16.0) gm/dL Hct 21.7 L (34.0-46.0) % RDW 15.9 H (11.5-15.5) % Neutrophils # (1.3-7.7) k/uL Sodium 136 L (137-145) mmol/L Potassium 5.7 H (3.5-5.1) mmol/L BUN 92 H* (7-17) mg/dL Creatinine 1.50 H (0.52-1.04) mg/dL Glucose 158 H (74-99) mg/dL POC Glucose (mg/dL) (75-99) mg/dL Hemoglobin A1c 6.3 H (4.2-6.1) % Calcium (8.4-10.2) mg/dL Total Protein (6.3-8.2) g/dL Albumin (3.5-5.0) g/dL Stool Occult Blood (Negative) 01/17/17 01/17/17 01/17/17 Range/Units 02:15 03:43 08:26 WBC (3.8-10.6) k/uL RBC (3.80-5.40) m/uL Hgb (11.4-16.0) gm/dL Hct (34.0-46.0) % RDW (11.5-15.5) % Neutrophils # (1.3-7.7) k/uL Sodium (137-145) mmol/L Potassium (3.5-5.1) mmol/L BUN 77 H (7-17) mg/dL Creatinine 1.25 H (0.52-1.04) mg/dL Glucose 115 H (74-99) mg/dL POC Glucose (mg/dL) 166 H (75-99) mg/dL Hemoglobin A1c (4.2-6.1) % Calcium 8.3 L (8.4-10.2) mg/dL Total Protein 5.1 L (6.3-8.2) g/dL Albumin 2.8 L (3.5-5.0) g/dL Stool Occult Blood Positive H (Negative) 01/17/17 01/17/17 Range/Units 08:26 14:01 WBC 13.5 H 14.9 H (3.8-10.6) k/uL RBC 3.21 L 3.29 L (3.80-5.40) m/uL Hgb 9.1 L D 9.4 L (11.4-16.0) gm/dL Hct 27.5 L 28.5 L (34.0-46.0) % RDW 16.9 H 17.1 H (11.5-15.5) % Neutrophils # 11.0 H (1.3-7.7) k/uL Sodium (137-145) mmol/L Potassium (3.5-5.1) mmol/L BUN (7-17) mg/dL Creatinine (0.52-1.04) mg/dL Glucose (74-99) mg/dL POC Glucose (mg/dL) (75-99) mg/dL Hemoglobin A1c (4.2-6.1) % Calcium (8.4-10.2) mg/dL Total Protein (6.3-8.2) g/dL Albumin (3.5-5.0) g/dL Stool Occult Blood (Negative) Microbiology - Last 24 Hours (Table) 01/17/17 08:00 Urine Culture - Preliminary Urine,Catheterized Assessment and Plan (1) Gastric ulcer Narrative/Plan: Continue to follow hemoglobin closely. Continue liquid diet for now. Will remain on surgical standby. Status: Acute
[2017-01-17 19:13] LABS: Anisocytosis Slight; CH 28.6; CHCM 33.5; HDW 3.12; HGB 8.5 gm/dL (11.4-16.0); MCH 28.2 pg (25.0-35.0); MCHC 32.8 g/dL (31.0-37.0); RBC 3.02 m/uL (3.80-5.40)
--- NOTE | 2017-01-17 19:43 | CONS ---
DATE OF CONSULTATION: 76-year-old female. Patient admitted to the hospital with dizziness, lightheadedness and black, tarry stools and sometimes bright red blood per rectum. Patient is known to have chronic atrial fibrillation and history of COPD, history of CVA/TIA, hyperlipidemia, hypertension, morbid exogenous obesity, admitted to the hospital with bright red dark blood per rectum. The patient had an endoscopy, going for an endoscopy to find out the source of the bleeding. Patient is on Eliquis that has been on hold, aspirin has been on hold. Patient is in atrial fibrillation with fast ventricular rate. Patient is on Cardizem drip, running at 10 mg p.o. hour. We will increase it to 15 if necessary as long as the blood pressure remains over 100 mmHg. The patient denies any other symptoms other than some cramping in the abdomen. Past medical history remarkable for chronic atrial fibrillation, COPD, TIAs. CVA, hyperlipidemia, hypertension, osteoarthritis and history of pneumonias in the past. The patient has a history of alcohol use 1 to 2 drinks per day for about 10 days. PAST SURGICAL HISTORY: Includes back surgery, hysterectomy, orthopedic surgery, tonsillectomy. Bilateral hip replacements, left knee replacement. Smoking: Former smoker. Patient's medications at the present time prior to admission include: 1. ( ) 1000 units daily. 2. Albuterol nebulizer q.6 hours. 3. Atorvastatin 40 mg p.o. daily. 4. Nicotine 21 mg patch 24 hours. ALLERGIES: None mentioned. Physical examination revealed a morbidly obese female not in acute distress, oriented x3 with a pulse rate 110 beats per minute, irregularly irregular with a blood pressure of 110/70 mmHg. Respirations 20. Head normocephalic. HEENT unremarkable. Neck is supple. No JVD. CARDIAC EXAMINATION: S1 and S2 with regular rate and rhythm. LUNGS: Clinically clear to auscultation and percussion. ABDOMEN: Soft, no organomegaly. Active bowel sounds. EXTREMITIES: Decreased pedal pulses. No pedal edema. Patient's laboratory data: Creatinine of 1.4, BUN 58 and potassium of 5.3. Random blood glucose is 178. IMPRESSION: 1. Dizziness, lightheadedness secondary to hypotension secondary to gastrointestinal bleed. 2. Chronic atrial fibrillation with rapid ventricular rate, reasonably controlled. 3. Patient's morbid obesity with a BMI of 43. 4. History of alcohol use. 5. Patient had hypokalemia which has been corrected. 6. Patient elevated BUN and creatinine is probably aggravated by gastrointestinal bleeding. 7. History of cerebrovascular accident with no deficits in 2015. 8. Patient history of congestive heart failure ejection fraction around 40% to 45%. RECOMMENDATIONS: Concur with current therapy. We will try to control the ventricular rate with ( ) and the patient is off of the blood thinners Eliquis and aspirin. Continue IV fluids. Thanks again for this kind referral. Will follow with interest.
[2017-01-17] MEDS: ATORVASTATIN 40 MG TAB PO SCH (21:10)
[2017-01-18 00:33] LABS: Anisocytosis Slight; CH 28.2; CHCM 33.2; HCT 23.4 % (34.0-46.0); HDW 3.08; HGB 7.9 gm/dL (11.4-16.0); MCHC 33.9 g/dL (31.0-37.0); MCV 85.6 fL (80.0-100.0); Mean Platelet Volume 7.7; RBC 2.73 m/uL (3.80-5.40); RDW 16.7 % (11.5-15.5); WBC 13.6 k/uL (3.8-10.6)
[2017-01-18] MEDS: HYDROmorphone 1 MG/ML 1 ML SYRINGE IVP PRN ×2 (00:58→22:54)
[2017-01-18] MEDS: SODIUM CHLORIDE 0.9% 1,000 ML IV SCH ×2 (00:58→11:03)
[2017-01-18 04:47] LABS: Anisocytosis Slight; Basophils % (A) 0 %; CH 28.3; CHCM 32.8; Eosinophils # (A) 0.4 k/uL (0-0.7); Eosinophils % (A) 3 %; HCT 24.2 % (34.0-46.0); HDW 3.11; HGB 7.8 gm/dL (11.4-16.0); Luc # (Auto) 0.17; Luc % (Auto) 2; Lymphocytes # (A) 1.4 k/uL (1.0-4.8); Lymphocytes % (A) 12 %; MCH 28.1 pg (25.0-35.0); MCHC 32.3 g/dL (31.0-37.0); Mean Platelet Volume 7.9; Monocytes # (A) 0.6 k/uL (0-1.0); Monocytes % (A) 5 %; Neutrophils # (A) 8.8 k/uL (1.3-7.7); Neutrophils % (A) 78 %; RBC 2.78 m/uL (3.80-5.40); WBC 11.3 k/uL (3.8-10.6); WBC (Perox) 11.85
[2017-01-18 04:53] LABS: INR 1.1 (<1.1); Prothrombin Time 10.9 sec (9.0-12.0)
[2017-01-18 04:57] LABS: ALT 27 U/L (9-52); AST 17 U/L (14-36); Alkaline Phosphatase 47 U/L (38-126); Anion Gap 5 mmol/L; Blood Urea Nitrogen 38 mg/dL (7-17); Calcium 8.1 mg/dL (8.4-10.2); Carbon Dioxide 25 mmol/L (22-30); Chloride 108 mmol/L (98-107); Glucose 92 mg/dL (74-99); Magnesium 2.1 mg/dL (1.6-2.3); Non-African American GFR(MDRD) >60 (>60 ml/min/1.73 sqM); Phosphorous 3.3 mg/dL (2.5-4.5); Potassium 4.3 mmol/L (3.5-5.1); Sodium 138 mmol/L (137-145); Total Bilirubin 0.5 mg/dL (0.2-1.3); Total Protein 4.6 g/dL (6.3-8.2)
[2017-01-18] MEDS: SYMBICORT 160-4.5 MCG INHALER INHALATION SCH ×2 (07:28→19:03)
[2017-01-18] MEDS: TIOTROPIUM 18 MCG/PUFF INHALER INHALATION SCH (07:28)
--- NOTE | 2017-01-18 07:54 | XR ---
EXAMINATION TYPE: XR chest 1V DATE OF EXAM: 01/18/2017 6:22 AM COMPARISON: 01/17/2017 HISTORY: Cough, bronchitis TECHNIQUE: Single frontal view of the chest is obtained. FINDINGS: There is no focal air space opacity, pleural effusion, or pneumothorax seen. The cardiac silhouette size is within normal limits. The osseous structures are intact. Heart size is borderlin e enlarged. Postsurgical change involving the right shoulder. IMPRESSION: No acute process.
[2017-01-18] MEDS: PANTOPRAZOLE 40 MG/10 ML VIAL IVP SCH ×2 (08:21→21:06)
[2017-01-18] MEDS: CHOLECALCIFEROL 1,000 UNIT TAB PO SCH (08:22)
[2017-01-18] MEDS: METOPROLOL TARTRATE 50 MG TAB PO SCH ×3 (08:22→22:54)
--- NOTE | 2017-01-18 09:48 | P.PN ---
Subjective Principal diagnosis: Upper GI bleed Status post EGD yesterday for evaluation of upper GI bleed black tarry stools with findings of multiple superficial gastric antral ulcers 1 measuring 2cm and deep with visible vessel status post injection and cautery/biopsy. Nursing staff reports one small old blood bowel movement last night. Tolerating clear liquids. Denies epigastric pain. Afebrile. Hemoglobin 7.8 and stable over the last 6 hours. Objective - Vital Signs Vital signs: Vital Signs Temp 97.8 F 01/18/17 08:00 Pulse 95 01/18/17 08:00 Resp 21 01/18/17 08:00 BP 95/59 01/18/17 08:00 Pulse Ox 94 L 01/18/17 08:00 Intake & Output 01/17/17 01/18/17 01/18/17 18:59 06:59 18:59 Intake Total 1784 1500 390 Output Total 4825 1910 330 Balance -3041 -410 60 Weight 107.9 kg 108.3 kg 108.3 kg Intake: Intake, IV Titration 1784 900 150 Amount Diltiazem 125 mg In 159 Sodium Chloride 0.9% 100 ml @ 15 MG/HR 15 mls/hr IV .Q8H20M BOO Rx#: [id number] Sodium Chloride 0.9% 1, 1625 900 150 000 ml @ 75 mls/hr IV . [id number] BOO Rx#:[id number] Oral 0 600 240 Output: Urine 1825 1910 330 Stool 3000 Other: Voiding Method Indwelling Catheter Indwelling Catheter Indwelling Catheter # Voids 1 1 # Bowel Movements 1 1 1 - Exam General appearance: The patient is alert, oriented, in no acute distress. Appears pale. HET: Head is normocephalic and atraumatic. Pupils are equal and reactive. Oropharynx is clear without lesions. Neck: Supple without lymphadenopathy. Trachea midline. Heart: S1 S2. Regular rate and rhythm. Lungs: No crackles or wheezes are heard. Abdomen: Soft, very mild midepigastric tenderness, nondistended with bowel sounds. No peritoneal signs. No palpable organomegaly or masses. Extremities: Normal skin color and turgor. No cyanosis, rash, ulceration, clubbing, or edema. Radial and pedal pulses are 2/4 bilaterally. Islas with clear yellow urine. Neurological: No focal deficits. Strength and sensation are grossly intact. - Labs CBC & Chem 7: 01/18/17 04:31 01/18/17 04:31 Labs: Abnormal Lab Results - Last 24 Hours (Table) 01/16/17 01/17/17 01/17/17 Range/Units 21:47 14:01 18:55 WBC 14.9 H 15.0 H (3.8-10.6) k/uL RBC 3.29 L 3.02 L (3.80-5.40) m/uL Hgb 9.4 L 8.5 L (11.4-16.0) gm/dL Hct 28.5 L 26.0 L (34.0-46.0) % RDW 17.1 H 17.0 H (11.5-15.5) % Neutrophils # (1.3-7.7) k/uL Chloride (98-107) mmol/L BUN (7-17) mg/dL Hemoglobin A1c 6.3 H (4.2-6.1) % Calcium (8.4-10.2) mg/dL Total Protein (6.3-8.2) g/dL Albumin (3.5-5.0) g/dL 01/17/17 01/18/17 01/18/17 Range/Units 23:58 04:31 04:31 WBC 13.6 H 11.3 H (3.8-10.6) k/uL RBC 2.73 L 2.78 L (3.80-5.40) m/uL Hgb 7.9 L 7.8 L (11.4-16.0) gm/dL Hct 23.4 L 24.2 L (34.0-46.0) % RDW 16.7 H 17.0 H (11.5-15.5) % Neutrophils # 8.8 H (1.3-7.7) k/uL Chloride 108 H (98-107) mmol/L BUN 38 H (7-17) mg/dL Hemoglobin A1c (4.2-6.1) % Calcium 8.1 L (8.4-10.2) mg/dL Total Protein 4.6 L (6.3-8.2) g/dL Albumin 2.6 L (3.5-5.0) g/dL Microbiology - Last 24 Hours (Table) 01/17/17 08:00 Urine Culture - Preliminary Urine,Catheterized Assessment and Plan (1) Acute upper GI bleed Narrative/Plan: Status post EGD with findings of multiple gastric antral ulcerations, one measuring 2 cm and deep status post injection cautery and biopsy. Status: Acute (2) Acute blood loss anemia Status: Acute Plan: 1. CBC at noon if stable may proceed with daily CBCs unless patient has active bleeding. 2. Continue clear liquid diet until noon CBC can be reviewed; if stable may advance to full liquid diet. 3. Continue with IV Protonix 40 mg twice daily. 4. Blood transfusions as indicated. 5. May transfer out of ICU if CBC remains stable and agreeable with general surgeon/ controls engineer. Assessment and plan a care discussed with Dr. Amaya
--- NOTE | 2017-01-18 10:25 | P.PN ---
Subjective Principal diagnosis: Gastrointestinal bleeding This is a very pleasant 76-year-old female patient who follows with Dr. Tobar as her primary care physician. She has a history of CVA/TIA with right-sided facial droop, atrial fibrillation, hyperlipidemia, hypertension, chronic obstructive pulmonary disease with a significant smoking history. She is maintained on Symbicort and Spiriva in the outpatient setting. She had presented here yesterday following a episode of nausea vomiting and diarrhea. Her stools were black and tarry. She was also found to be in atrial fibrillation with rapid ventricular response and is treated with liquid as an aspirin in the outpatient setting. She was also dizzy and lightheaded and felt as though this may be related to her previous stroke symptoms and took additional aspirin. Her initial hemoglobin was 10.2 subsequent dropped to 7.2. She was transfused with 2 units of packed red blood cells and her current hemoglobin is 9.1. She has not had any further episodes of active GI bleeding noted thus far. She does remain in atrial fibrillation with a rapid ventricular response and was on Cardizem orally in the outpatient setting. She is on 2 L/m per nasal cannula to maintain O2 saturations in the 90s. She is a 0.9 normal saline at 75 ML's per hour. Her initial creatinine 1.50 improved to 1.25. Stool for occult blood is positive. The plan is for EGD today however Dr. Mendez felt the patient was too unstable to proceed. The patient is seen again today 01/18/2017 in follow-up in the intensive care unit. She had undergone EGD with injection of epinephrine and cautery yesterday. Presently, she is resting quite comfortably in bed. Her heart rate is improved, she remains on Cardizem drip at 10 mg per hour. His appointment 9 normal saline at 75 mL per hour. She is maintaining good O2 saturations in the 90s on 2 L/m per nasal cannula. She's not had any further black tarry stools. Her hemoglobin is currently 7.8. She remains hemodynamically stable. Objective - Vital Signs Vital signs: Vital Signs Temp 97.8 F 01/18/17 08:00 Pulse 80 01/18/17 10:00 Resp 25 H 01/18/17 10:00 BP 106/58 01/18/17 10:00 Pulse Ox 96 01/18/17 10:00 Intake & Output 01/17/17 01/18/17 01/18/17 18:59 06:59 18:59 Intake Total 1784 1500 665 Output Total 4825 1910 400 Balance -3041 -410 265 Weight 107.9 kg 108.3 kg 108.3 kg Intake: Intake, IV Titration 178 900 425 Amount Diltiazem 125 mg In 159 125 Sodium Chloride 0.9% 100 ml @ 15 MG/HR 15 mls/hr IV .Q8H20M BOO Rx#: [id number] Sodium Chloride 0.9% 1, 1625 900 300 000 ml @ 75 mls/hr IV . [id number] BOO Rx#:[id number] Oral 0 600 240 Output: Urine 182 1910 400 Stool 3000 Other: Voiding Method Indwelling Catheter Indwelling Catheter Indwelling Catheter # Voids 1 1 # Bowel Movements 1 1 1 - Exam GENERAL EXAM: Alert, active, comfortable in no apparent distress. HEAD: Normocephalic. EYES: Left eye enucleated, implant in place. NOSE: Clear with pink turbinates. THROAT: There is right-sided facial droop. No erythema or exudates. NECK: No masses, no JVD. CHEST: No chest wall deformity. LUNGS: Equal air entry with no crackles, wheeze, rhonchi or dullness. CVS: S1 and S2 normal with no audible murmurs, irregular rhythm. Tachycardic. ABDOMEN: No hepatosplenomegaly, normal bowel sounds, tender to palpation. SPINE: No scoliosis or deformity SKIN: No rashes Extremities: There is trace peripheral edema. No clubbing, no cyanosis. Peripheral pulses are intact. - Labs CBC & Chem 7: 01/18/17 04:31 01/18/17 04:31 Labs: Abnormal Lab Results - Last 24 Hours (Table) 01/16/17 01/17/17 01/17/17 Range/Units 21:47 14:01 18:55 WBC 14.9 H 15.0 H (3.8-10.6) k/uL RBC 3.29 L 3.02 L (3.80-5.40) m/uL Hgb 9.4 L 8.5 L (11.4-16.0) gm/dL Hct 28.5 L 26.0 L (34.0-46.0) % RDW 17.1 H 17.0 H (11.5-15.5) % Neutrophils # (1.3-7.7) k/uL Chloride (98-107) mmol/L BUN (7-17) mg/dL Hemoglobin A1c 6.3 H (4.2-6.1) % Calcium (8.4-10.2) mg/dL Total Protein (6.3-8.2) g/dL Albumin (3.5-5.0) g/dL 01/17/17 01/18/17 01/18/17 Range/Units 23:58 04:31 04:31 WBC 13.6 H 11.3 H (3.8-10.6) k/uL RBC 2.73 L 2.78 L (3.80-5.40) m/uL Hgb 7.9 L 7.8 L (11.4-16.0) gm/dL Hct 23.4 L 24.2 L (34.0-46.0) % RDW 16.7 H 17.0 H (11.5-15.5) % Neutrophils # 8.8 H (1.3-7.7) k/uL Chloride 108 H (98-107) mmol/L BUN 38 H (7-17) mg/dL Hemoglobin A1c (4.2-6.1) % Calcium 8.1 L (8.4-10.2) mg/dL Total Protein 4.6 L (6.3-8.2) g/dL Albumin 2.6 L (3.5-5.0) g/dL Microbiology - Last 24 Hours (Table) 01/17/17 08:00 Urine Culture - Preliminary Urine,Catheterized Assessment and Plan Plan: Impression: #1 Acute gastrointestinal bleed in a patient with a known history of diverticulosis, atrial fibrillation anticoagulated with Eliquis and aspirin, daily alcohol use. She is status post EGD with epinephrine injection and cautery on 01/17/2017. #2 Acute anemia secondary to above, status post 2 units of packed red blood cell transfusion #3 Atrial fibrillation with a rapid ventricular response, anticoagulated with Eliquis and aspirin in the outpatient setting. #4 History of CVA/TIA with right-sided facial droop. #5 Chronic obstructive pulmonary disease, currently inactive and stable. #6 Chronic tobacco dependence. #7 History of daily alcohol use. #8 Acute renal failure. 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 #10 Hypertension. #11 Hyperlipidemia. #12 Osteoarthritis with multiple joint replacements. Plan: The patient was seen and evaluated by Dr. Mendez. He is currently stable from the pulmonary and critical care standpoint. We'll continue to monitor her hemoglobin. Cardiology is on regarding the A. fib with RVR and will reconsider the anticoagulation. We will continue to monitor her here closely in the intensive care unit. We will continue with her Spiriva, Symbicort and Xopenex when necessary. We will continue to follow and make further recommendations based on her clinical status.
[2017-01-18] MEDS: DILTIAZEM 125 MG in SODIUM CHLORIDE 0.9% 100 ML IV SCH ×3 (11:03→21:06)
--- NOTE | 2017-01-18 12:16 | P.PN ---
Subjective Patient is doing fairly well today. She had a small bowel movement earlier that was tarry black. No abdominal pain. Objective - Vital Signs Vital signs: Vital Signs Temp 98.4 F 01/18/17 10:30 Pulse 95 01/18/17 11:59 Resp 14 01/18/17 11:59 BP 111/52 01/18/17 11:30 Pulse Ox 100 01/18/17 11:30 Intake & Output 01/17/17 01/18/17 01/18/17 18:59 06:59 18:59 Intake Total 1784 1500 815 Output Total 4825 1910 1095 Balance -3041 -410 -280 Weight 107.9 kg 108.3 kg 108.3 kg Intake: Intake, IV Titration 1784 900 575 Amount Diltiazem 125 mg In 159 125 Sodium Chloride 0.9% 100 ml @ 15 MG/HR 15 mls/hr IV .Q8H20M BOO Rx#: [id number] Sodium Chloride 0.9% 1, 1625 900 450 000 ml @ 75 mls/hr IV . [id number] BOO Rx#:[id number] Oral 0 600 240 Output: Urine 1825 1910 595 Stool 3000 500 Other: Voiding Method Indwelling Catheter Indwelling Catheter Indwelling Catheter # Voids 1 1 # Bowel Movements 1 1 1 - Exam General: The patient is awake and alert, in no distress Eye: there is normal conjunctiva bilaterally. Neck: The neck is supple, there is no JVD. Cardiovascular: Normal S1-S2, no S3-S4, no murmurs. Respiratory: Lungs clear to auscultation bilaterally Gastrointestinal: Abdomen is soft, nontender Musculoskeletal: There is no pedal edema. Neurological:. Speech is normal. Skin: Skin is warm and dry - Labs CBC & Chem 7: 01/18/17 04:31 01/18/17 04:31 Labs: Abnormal Lab Results - Last 24 Hours (Table) 01/17/17 01/17/17 01/17/17 Range/Units 14:01 18:55 23:58 WBC 14.9 H 15.0 H 13.6 H (3.8-10.6) k/uL RBC 3.29 L 3.02 L 2.73 L (3.80-5.40) m/uL Hgb 9.4 L 8.5 L 7.9 L (11.4-16.0) gm/dL Hct 28.5 L 26.0 L 23.4 L (34.0-46.0) % RDW 17.1 H 17.0 H 16.7 H (11.5-15.5) % Neutrophils # (1.3-7.7) k/uL Chloride (98-107) mmol/L BUN (7-17) mg/dL Calcium (8.4-10.2) mg/dL Total Protein (6.3-8.2) g/dL Albumin (3.5-5.0) g/dL 01/18/17 01/18/17 Range/Units 04:31 04:31 WBC 11.3 H (3.8-10.6) k/uL RBC 2.78 L (3.80-5.40) m/uL Hgb 7.8 L (11.4-16.0) gm/dL Hct 24.2 L (34.0-46.0) % RDW 17.0 H (11.5-15.5) % Neutrophils # 8.8 H (1.3-7.7) k/uL Chloride 108 H (98-107) mmol/L BUN 38 H (7-17) mg/dL Calcium 8.1 L (8.4-10.2) mg/dL Total Protein 4.6 L (6.3-8.2) g/dL Albumin 2.6 L (3.5-5.0) g/dL Microbiology - Last 24 Hours (Table) 01/17/17 08:00 Urine Culture - Preliminary Urine,Catheterized Assessment and Plan Plan: Impression Upper GI bleed secondary to multiple superficial gastric antral ulcers noted on EGD status post epinephrine injection and cautery Present on admission dizziness lightheadedness hypotensive systolic blood pressure in the 80s suspect due to episode of gross hematochezia and intravascular depletion Present on admission atrial fibrillation with a rapid ventricular response Obesity BMI 43 Depressive disorder nonspecified Daily alcohol 2 whiskey last drink a week and half ago Present on admission elevated BUN mildly elevated creatinine suspect due to clinical dehydration History of chronic bronchitis History of prior CVA with residual right facial weakness in 2014 congestive heart failure suspect systolic echocardiogram in 2014 EF 40-45 compensated Acute on chronic anemia Acute blood loss anemia requiring 2 units of packed RBC during this admission Plan Continue ICU care Continue IV Protonix as ordered Wean off IV Cardizem as recommended per cardiology Cardiology eval appreciated CT abdomen and pelvis reviewed revealing enlarged stomach with possible gastroparesis or partial outlet obstruction. Elquis on hold DVT and GI prophylaxis Further recommendations pending will follow IV fluid at 75 an hour to rehydrate repeat labs in the morning
--- NOTE | 2017-01-18 16:22 | P.PN ---
Subjective Principal diagnosis: Upper GI bleed Patient feels well. Hemoglobin did drift down. Additional blood was ordered. Small bowel movement last night. No abdominal pain. Objective - Vital Signs Vital signs: Vital Signs Temp 97.7 F 01/18/17 16:00 Pulse 95 01/18/17 16:00 Resp 18 01/18/17 16:00 BP 120/81 01/18/17 16:00 Pulse Ox 97 01/18/17 16:00 Intake & Output 01/17/17 01/18/17 01/18/17 18:59 06:59 18:59 Intake Total 1784 1500 1115 Output Total 4825 1910 2195 Balance -9378 -841 -6087 Weight 107.9 kg 108.3 kg 108.3 kg Intake: Intake, IV Titration 1784 900 875 Amount Diltiazem 125 mg In 159 125 Sodium Chloride 0.9% 100 ml @ 15 MG/HR 15 mls/hr IV .Q8H20M BOO Rx#: [id number] Sodium Chloride 0.9% 1, 1625 900 750 000 ml @ 75 mls/hr IV . [id number] BOO Rx#:[id number] Oral 0 600 240 Output: Urine 1825 1910 1195 Stool 3000 1000 Other: Voiding Method Indwelling Catheter Indwelling Catheter Indwelling Catheter # Voids 1 1 # Bowel Movements 1 1 1 - Exam Abdomen: Soft, nontender, nondistended - Labs CBC & Chem 7: 01/18/17 04:31 01/18/17 04:31 Labs: Abnormal Lab Results - Last 24 Hours (Table) 01/17/17 01/17/17 01/18/17 Range/Units 18:55 23:58 04:31 WBC 15.0 H 13.6 H (3.8-10.6) k/uL RBC 3.02 L 2.73 L (3.80-5.40) m/uL Hgb 8.5 L 7.9 L (11.4-16.0) gm/dL Hct 26.0 L 23.4 L (34.0-46.0) % RDW 17.0 H 16.7 H (11.5-15.5) % Neutrophils # (1.3-7.7) k/uL Chloride 108 H (98-107) mmol/L BUN 38 H (7-17) mg/dL Calcium 8.1 L (8.4-10.2) mg/dL Total Protein 4.6 L (6.3-8.2) g/dL Albumin 2.6 L (3.5-5.0) g/dL 01/18/17 Range/Units 04:31 WBC 11.3 H (3.8-10.6) k/uL RBC 2.78 L (3.80-5.40) m/uL Hgb 7.8 L (11.4-16.0) gm/dL Hct 24.2 L (34.0-46.0) % RDW 17.0 H (11.5-15.5) % Neutrophils # 8.8 H (1.3-7.7) k/uL Chloride (98-107) mmol/L BUN (7-17) mg/dL Calcium (8.4-10.2) mg/dL Total Protein (6.3-8.2) g/dL Albumin (3.5-5.0) g/dL Microbiology - Last 24 Hours (Table) 01/17/17 08:00 Urine Culture - Preliminary Urine,Catheterized Assessment and Plan (1) Gastric ulcer Narrative/Plan: Continue liquid diet. Continue antacid therapy. Repeat CBC tomorrow. Status: Acute
[2017-01-18 16:37] LABS: Anisocytosis Slight; Basophils % (A) 0 %; CH 28.3; CHCM 33.3; Eosinophils # (A) 0.3 k/uL (0-0.7); Eosinophils % (A) 3 %; HCT 22.5 % (34.0-46.0); HDW 3.12; HGB 7.5 gm/dL (11.4-16.0); Luc # (Auto) 0.14; Luc % (Auto) 1; Lymphocytes # (A) 1.4 k/uL (1.0-4.8); Lymphocytes % (A) 13 %; MCH 28.6 pg (25.0-35.0); MCHC 33.5 g/dL (31.0-37.0); MCV 85.4 fL (80.0-100.0); Monocytes # (A) 0.6 k/uL (0-1.0); Monocytes % (A) 6 %; Neutrophils # (A) 8.4 k/uL (1.3-7.7); Neutrophils % (A) 77 %; RBC 2.63 m/uL (3.80-5.40); RDW 16.8 % (11.5-15.5); WBC 10.9 k/uL (3.8-10.6); WBC (Perox) 11.34
[2017-01-18] MEDS: SUCRALFATE 1 GM TAB PO SCH (17:11)
[2017-01-18] MEDS: ATORVASTATIN 40 MG TAB PO SCH (21:06)
[2017-01-19] MEDS: HYDROmorphone 1 MG/ML 1 ML SYRINGE IVP PRN (02:07)
[2017-01-19] MEDS: DILTIAZEM 125 MG in SODIUM CHLORIDE 0.9% 100 ML IV SCH ×2 (03:50→12:02)
[2017-01-19 04:47] LABS: Anisocytosis Slight; Basophils % (A) 0 %; CH 28.3; CHCM 31.3; Eosinophils # (A) 0.2 k/uL (0-0.7); Eosinophils % (A) 2 %; HCT 23.8 % (34.0-46.0); HDW 2.96; HGB 7.7 gm/dL (11.4-16.0); Hypochromasia Slight; Luc # (Auto) 0.13; Luc % (Auto) 1; Lymphocytes # (A) 1.5 k/uL (1.0-4.8); Lymphocytes % (A) 15 %; MCH 29.6 pg (25.0-35.0); MCHC 32.6 g/dL (31.0-37.0); Monocytes # (A) 0.5 k/uL (0-1.0); Monocytes % (A) 5 %; Neutrophils # (A) 7.1 k/uL (1.3-7.7); Neutrophils % (A) 76 %; RBC 2.62 m/uL (3.80-5.40); RDW 17.1 % (11.5-15.5); WBC 9.5 k/uL (3.8-10.6); WBC (Perox) 10.08
[2017-01-19 04:48] LABS: INR 1.1 (<1.1); Prothrombin Time 10.8 sec (9.0-12.0)
[2017-01-19 04:52] LABS: MCV 90.7 fL (80.0-100.0)
[2017-01-19 05:00] LABS: ALT 28 U/L (9-52); AST 22 U/L (14-36); Alkaline Phosphatase 49 U/L (38-126); Anion Gap 6 mmol/L; Blood Urea Nitrogen 17 mg/dL (7-17); Carbon Dioxide 23 mmol/L (22-30); Chloride 109 mmol/L (98-107); Glucose 95 mg/dL (74-99); Magnesium 2.1 mg/dL (1.6-2.3); Non-African American GFR(MDRD) >60 (>60 ml/min/1.73 sqM); Phosphorous 3.2 mg/dL (2.5-4.5); Potassium 4.2 mmol/L (3.5-5.1); Sodium 138 mmol/L (137-145); Total Bilirubin 0.6 mg/dL (0.2-1.3); Total Protein 5.1 g/dL (6.3-8.2)
--- NOTE | 2017-01-19 07:26 | XR ---
EXAMINATION TYPE: XR chest 1V DATE OF EXAM: 01/19/2017 6:12 AM HISTORY: Shortness of breath. COMPARISON: 01/10/2017 TECHNIQUE: Single view of the chest is submitted. FINDINGS: Demonstrated are scattered senescent parenchymal change. There is no evidence for focal infiltrate. The heart is stable. Hilar and mediastinal structures are within normal limits. Degenerative changes are seen of the dorsal spine. IMPRESSION: 1. Chronic changes without evidence for acute pulmonary disease.
[2017-01-19] MEDS: TIOTROPIUM 18 MCG/PUFF INHALER INHALATION SCH (07:46)
[2017-01-19] MEDS: SYMBICORT 160-4.5 MCG INHALER INHALATION SCH ×2 (07:46→20:24)
[2017-01-19] MEDS: PANTOPRAZOLE 40 MG/10 ML VIAL IVP SCH ×2 (08:46→21:10)
[2017-01-19] MEDS: CHOLECALCIFEROL 1,000 UNIT TAB PO SCH (08:46)
[2017-01-19] MEDS: SUCRALFATE 1 GM TAB PO SCH ×3 (08:46→17:14)
--- NOTE | 2017-01-19 09:55 | P.PN ---
Subjective Principal diagnosis: Upper GI bleed Status post EGD for evaluation of upper GI bleed black tarry stools with findings of multiple superficial gastric antral ulcers 1 measuring 2cm and deep with visible vessel status post injection and cautery/biopsy. No active GI bleeding. Tolerating clear liquids. Denies epigastric pain. Afebrile. HGB stable x 24 hours.. Objective - Vital Signs Vital signs: Vital Signs Temp 98.1 F 01/19/17 08:00 Pulse 108 H 01/19/17 08:00 Resp 25 H 01/19/17 07:00 BP 146/98 01/19/17 08:00 Pulse Ox 96 01/19/17 08:00 Intake & Output 01/18/17 01/19/17 01/19/17 18:59 06:59 18:59 Intake Total 3574.167 8384 150 Output Total 2495 1925 200 Balance -1199.333 -305 -50 Weight 108.3 kg 109.6 kg Intake: IV 75 0.9 nacl 75 Intake, IV Titration 1055.667 900 75 Amount Diltiazem 125 mg In 155.667 0 Sodium Chloride 0.9% 100 ml @ 15 MG/HR 15 mls/hr IV .Q8H20M BOO Rx#: [id number] Sodium Chloride 0.9% 1, 900 900 75 000 ml @ 75 mls/hr IV . [id number] BOO Rx#:[id number] Oral 240 720 Output: Urine 1495 1925 200 Stool 1000 Other: Voiding Method Indwelling Catheter Indwelling Catheter # Voids 1 # Bowel Movements 1 - Exam General appearance: The patient is alert, oriented, in no acute distress. Appears pale. HET: Head is normocephalic and atraumatic. Pupils are equal and reactive. Oropharynx is clear without lesions. Neck: Supple without lymphadenopathy. Trachea midline. Heart: S1 S2. Regular rate and rhythm. Lungs: No crackles or wheezes are heard. Abdomen: Soft, very mild midepigastric tenderness, nondistended with bowel sounds. No peritoneal signs. No palpable organomegaly or masses. Extremities: Normal skin color and turgor. No cyanosis, rash, ulceration, clubbing, or edema. Radial and pedal pulses are 2/4 bilaterally. Islas with clear yellow urine. Neurological: No focal deficits. Strength and sensation are grossly intact. - Labs CBC & Chem 7: 01/19/17 04:15 01/19/17 04:15 Labs: Abnormal Lab Results - Last 24 Hours (Table) 01/18/17 01/19/17 01/19/17 Range/Units 15:52 04:15 04:15 WBC 10.9 H (3.8-10.6) k/uL RBC 2.63 L 2.62 L (3.80-5.40) m/uL Hgb 7.5 L 7.7 L (11.4-16.0) gm/dL Hct 22.5 L 23.8 L (34.0-46.0) % RDW 16.8 H 17.1 H (11.5-15.5) % Neutrophils # 8.4 H (1.3-7.7) k/uL Chloride 109 H (98-107) mmol/L Calcium 8.0 L (8.4-10.2) mg/dL Total Protein 5.1 L (6.3-8.2) g/dL Albumin 2.8 L (3.5-5.0) g/dL Microbiology - Last 24 Hours (Table) 01/17/17 08:00 Urine Culture - Final Urine,Catheterized Assessment and Plan (1) Acute upper GI bleed Narrative/Plan: Status post EGD with findings of multiple gastric antral ulcerations, one measuring 2 cm and deep status post injection cautery and biopsy. Status: Acute (2) Acute blood loss anemia Status: Acute Plan: 1. Daily CBCs unless patient has active bleeding. 2. Full liquid diet. 3. Continue with IV Protonix 40 mg twice daily. 4. Transfer out of ICU. Assessment and plan a care discussed with Dr. Amaya
--- NOTE | 2017-01-19 10:21 | P.PN ---
Subjective Principal diagnosis: Gastrointestinal bleeding This is a very pleasant 76-year-old female patient who follows with Dr. Tobar as her primary care physician. She has a history of CVA/TIA with right-sided facial droop, atrial fibrillation, hyperlipidemia, hypertension, chronic obstructive pulmonary disease with a significant smoking history. She is maintained on Symbicort and Spiriva in the outpatient setting. She had presented here yesterday following a episode of nausea vomiting and diarrhea. Her stools were black and tarry. She was also found to be in atrial fibrillation with rapid ventricular response and is treated with liquid as an aspirin in the outpatient setting. She was also dizzy and lightheaded and felt as though this may be related to her previous stroke symptoms and took additional aspirin. Her initial hemoglobin was 10.2 subsequent dropped to 7.2. She was transfused with 2 units of packed red blood cells and her current hemoglobin is 9.1. She has not had any further episodes of active GI bleeding noted thus far. She does remain in atrial fibrillation with a rapid ventricular response and was on Cardizem orally in the outpatient setting. She is on 2 L/m per nasal cannula to maintain O2 saturations in the 90s. She is a 0.9 normal saline at 75 ML's per hour. Her initial creatinine 1.50 improved to 1.25. Stool for occult blood is positive. The plan is for EGD today however Dr. Mendez felt the patient was too unstable to proceed. The patient is seen again today 01/18/2017 in follow-up in the intensive care unit. She had undergone EGD with injection of epinephrine and cautery yesterday. Presently, she is resting quite comfortably in bed. Her heart rate is improved, she remains on Cardizem drip at 10 mg per hour. His appointment 9 normal saline at 75 mL per hour. She is maintaining good O2 saturations in the 90s on 2 L/m per nasal cannula. She's not had any further black tarry stools. Her hemoglobin is currently 7.8. She remains hemodynamically stable. She is seen again today 01/19/2017 in follow-up in the intensive care unit. She is currently sitting up in a chair at the bedside. She denies any worsening shortness of breath, cough or congestion. No chest pain palpitations lightheadedness or dizziness. She remains in atrial fibrillation. Currently off the Cardizem drip. No further bleeding. Her hemoglobin remains stable at 7.7. We'll continue to follow. Objective - Vital Signs Vital signs: Vital Signs Temp 98.1 F 01/19/17 08:00 Pulse 108 H 01/19/17 08:00 Resp 25 H 01/19/17 07:00 BP 146/98 01/19/17 08:00 Pulse Ox 96 01/19/17 08:00 Intake & Output 01/18/17 01/19/17 01/19/17 18:59 06:59 18:59 Intake Total 5831.342 2525 150 Output Total 2495 1925 200 Balance -1199.333 -305 -50 Weight 108.3 kg 109.6 kg Intake: IV 75 0.9 nacl 75 Intake, IV Titration 1055.667 900 75 Amount Diltiazem 125 mg In 155.667 0 Sodium Chloride 0.9% 100 ml @ 15 MG/HR 15 mls/hr IV .Q8H20M BOO Rx#: [id number] Sodium Chloride 0.9% 1, 900 900 75 000 ml @ 75 mls/hr IV . [id number] BOO Rx#:[id number] Oral 240 720 Output: Urine 1495 1925 200 Stool 1000 Other: Voiding Method Indwelling Catheter Indwelling Catheter # Voids 1 # Bowel Movements 1 - Exam GENERAL EXAM: Alert, active, comfortable in no apparent distress. HEAD: Normocephalic. EYES: Left eye enucleated, implant in place. NOSE: Clear with pink turbinates. THROAT: There is right-sided facial droop. No erythema or exudates. NECK: No masses, no JVD. CHEST: No chest wall deformity. LUNGS: Equal air entry with no crackles, wheeze, rhonchi or dullness. CVS: S1 and S2 normal with no audible murmurs, irregular rhythm. Tachycardic. ABDOMEN: No hepatosplenomegaly, normal bowel sounds, tender to palpation. SPINE: No scoliosis or deformity SKIN: No rashes Extremities: There is trace peripheral edema. No clubbing, no cyanosis. Peripheral pulses are intact. - Labs CBC & Chem 7: 01/19/17 04:15 01/19/17 04:15 Labs: Abnormal Lab Results - Last 24 Hours (Table) 01/18/17 01/19/17 01/19/17 Range/Units 15:52 04:15 04:15 WBC 10.9 H (3.8-10.6) k/uL RBC 2.63 L 2.62 L (3.80-5.40) m/uL Hgb 7.5 L 7.7 L (11.4-16.0) gm/dL Hct 22.5 L 23.8 L (34.0-46.0) % RDW 16.8 H 17.1 H (11.5-15.5) % Neutrophils # 8.4 H (1.3-7.7) k/uL Chloride 109 H (98-107) mmol/L Calcium 8.0 L (8.4-10.2) mg/dL Total Protein 5.1 L (6.3-8.2) g/dL Albumin 2.8 L (3.5-5.0) g/dL Microbiology - Last 24 Hours (Table) 01/17/17 08:00 Urine Culture - Final Urine,Catheterized Assessment and Plan Plan: Impression: #1 Acute gastrointestinal bleed in a patient with a known history of diverticulosis, atrial fibrillation anticoagulated with Eliquis and aspirin, daily alcohol use. She is status post EGD with epinephrine injection and cautery on 01/17/2017. #2 Acute anemia secondary to above, status post 2 units of packed red blood cell transfusion #3 Atrial fibrillation with a rapid ventricular response, anticoagulated with Eliquis and aspirin in the outpatient setting. #4 History of CVA/TIA with right-sided facial droop. #5 Chronic obstructive pulmonary disease, currently inactive and stable. #6 Chronic tobacco dependence. #7 History of daily alcohol use. #8 Acute renal failure. 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 #10 Hypertension. #11 Hyperlipidemia. #12 Osteoarthritis with multiple joint replacements. Plan: The patient was seen and evaluated by Dr. Mendez. She is currently stable from the pulmonary and critical care standpoint. We'll continue to monitor her hemoglobin. Cardiology is on regarding the A. fib with RVR and will reconsider the anticoagulation. She is cleared for transfer out of the intensive care unit. We'll continue to follow.
--- NOTE | 2017-01-19 11:38 | P.PN ---
Subjective Principal diagnosis: Upper GI bleed Patient doing well today. No further bleeding. Her hemoglobin is stable. She is tolerating clear liquids. She's being transferred out of the ICU today. Objective - Vital Signs Vital signs: Vital Signs Temp 98.1 F 01/19/17 08:00 Pulse 128 H 01/19/17 10:00 Resp 18 01/19/17 10:00 BP 112/64 01/19/17 10:00 Pulse Ox 94 L 01/19/17 10:00 Intake & Output 01/18/17 01/19/17 01/19/17 18:59 06:59 18:59 Intake Total 7923.951 4379 375 Output Total 2495 1925 450 Balance -1199.333 -305 -75 Weight 108.3 kg 109.6 kg Intake: IV 300 0.9 nacl 300 Intake, IV Titration 1055.667 900 75 Amount Diltiazem 125 mg In 155.667 0 Sodium Chloride 0.9% 100 ml @ 15 MG/HR 15 mls/hr IV .Q8H20M [facility]OO Rx#: [id number] Sodium Chloride 0.9% 1, 900 900 75 000 ml @ 75 mls/hr IV . [id number] BOO Rx#:[id number] Oral 240 720 Output: Urine 1495 1925 450 Stool 1000 Other: Voiding Method Indwelling Catheter Indwelling Catheter Indwelling Catheter # Voids 1 # Bowel Movements 1 - Exam Abdomen: Soft, nontender, nondistended - Labs CBC & Chem 7: 01/19/17 04:15 01/19/17 04:15 Labs: Abnormal Lab Results - Last 24 Hours (Table) 01/18/17 01/19/17 01/19/17 Range/Units 15:52 04:15 04:15 WBC 10.9 H (3.8-10.6) k/uL RBC 2.63 L 2.62 L (3.80-5.40) m/uL Hgb 7.5 L 7.7 L (11.4-16.0) gm/dL Hct 22.5 L 23.8 L (34.0-46.0) % RDW 16.8 H 17.1 H (11.5-15.5) % Neutrophils # 8.4 H (1.3-7.7) k/uL Chloride 109 H (98-107) mmol/L Calcium 8.0 L (8.4-10.2) mg/dL Total Protein 5.1 L (6.3-8.2) g/dL Albumin 2.8 L (3.5-5.0) g/dL Microbiology - Last 24 Hours (Table) 01/17/17 08:00 Urine Culture - Final Urine,Catheterized Assessment and Plan (1) Gastric ulcer Narrative/Plan: Advance to full liquid diet. Continue antiacids. Status: Acute
[2017-01-19] MEDS: METOPROLOL TARTRATE 50 MG TAB PO SCH ×4 (12:02→21:09)
--- NOTE | 2017-01-19 16:55 | P.PN ---
Subjective Principal diagnosis: gastrointestinal bleeding patient is a 76-year-old female with multiple medical problems, who was admitted to intensive care unit, had gastrointestinal bleeding, underwent EGD was Dr. Singh, was found to had a 2 cm deep ulcer in the stomach and underwent cautery and epinephrine injection. Hemoglobin has been stable since yesterday. Patient was also having significant shortness of breath she has atrial fibrillation she had the rapid ventricular response on presentation currently her heart rate is well-controlled. Today patient is feeling better she was transferred to medical floor she is able to ambulate with minimal shortness of breath She denies any vomiting diarrhea hematemesis or any blood in her stools Objective - Vital Signs Vital signs: Vital Signs Temp 96.7 F L 01/19/17 15:00 Pulse 100 01/19/17 15:00 Resp 18 01/19/17 15:33 BP 132/73 01/19/17 15:00 Pulse Ox 100 01/19/17 15:00 Intake & Output 01/18/17 01/19/17 01/19/17 18:59 06:59 18:59 Intake Total 5453.239 6506 515 Output Total 2495 1925 525 Balance -1199.333 -305 -10 Weight 108.3 kg 109.6 kg Intake: IV 320 0.9 nacl 320 Intake, IV Titration 1055.667 900 75 Amount Diltiazem 125 mg In 155.667 0 Sodium Chloride 0.9% 100 ml @ 15 MG/HR 15 mls/hr IV .Q8H20M [facility]OO Rx#: [id number] Sodium Chloride 0.9% 1, 900 900 75 000 ml @ 75 mls/hr IV . [id number] BOO Rx#:[id number] Oral 240 720 120 Output: Urine 1495 1925 525 Stool 1000 Other: Voiding Method Indwelling Catheter Indwelling Catheter Indwelling Catheter # Voids 1 # Bowel Movements 1 - Exam HEENT head normocephalic and atraumatic Neck is supple no JVD no goiter no lymphadenopathy Chest exam reveals a few scattered rhonchi no wheezing Cardiac exam reveals regular heart sounds no gallops no murmurs Abdomen is soft nontender no organomegaly Extremity exam reveals no edema no cyanosis or clubbing - Labs CBC & Chem 7: 01/19/17 04:15 01/19/17 04:15 Labs: Abnormal Lab Results - Last 24 Hours (Table) 01/19/17 01/19/17 Range/Units 04:15 04:15 RBC 2.62 L (3.80-5.40) m/uL Hgb 7.7 L (11.4-16.0) gm/dL Hct 23.8 L (34.0-46.0) % RDW 17.1 H (11.5-15.5) % Chloride 109 H (98-107) mmol/L Calcium 8.0 L (8.4-10.2) mg/dL Total Protein 5.1 L (6.3-8.2) g/dL Albumin 2.8 L (3.5-5.0) g/dL Microbiology - Last 24 Hours (Table) 01/17/17 08:00 Urine Culture - Final Urine,Catheterized Assessment and Plan Plan: #1 Acute gastrointestinal bleed in a patient with a known history of diverticulosis, atrial fibrillation anticoagulated with Eliquis and aspirin, daily alcohol use. She is status post EGD with epinephrine injection and cautery on 01/17/2017. #2 Acute anemia secondary to above, status post 2 units of packed red blood cell transfusion #3 Atrial fibrillation with a rapid ventricular response, anticoagulated with Eliquis and aspirin in the outpatient setting. now heart rate is well-controlled #4 History of CVA/TIA with right-sided facial droop. #5 Chronic obstructive pulmonary disease, currently inactive and stable. #6 Chronic tobacco dependence. counseled regarding smoking cessation during this admission #7 History of daily alcohol use. #8 Acute renal failure. 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 #10 underlying history of Hypertension. #11 underlying history of Hyperlipidemia. patient is improving continue was current management possible discharge to home in the next 1-2 days
[2017-01-19] MEDS: ATORVASTATIN 40 MG TAB PO SCH (21:10)
[2017-01-19] MEDS: ALPRAZolam 0.5 MG TAB PO PRN (22:34)
[2017-01-20] MEDS: PANTOPRAZOLE 40 MG/10 ML VIAL IVP SCH ×2 (08:27→21:05)
[2017-01-20] MEDS: SUCRALFATE 1 GM TAB PO SCH ×3 (08:27→17:33)
[2017-01-20] MEDS: METOPROLOL TARTRATE 50 MG TAB PO SCH ×3 (08:27→23:12)
[2017-01-20] MEDS: SYMBICORT 160-4.5 MCG INHALER INHALATION SCH ×2 (08:55→20:02)
[2017-01-20] MEDS: TIOTROPIUM 18 MCG/PUFF INHALER INHALATION SCH (08:55)
[2017-01-20 09:16] LABS: Anisocytosis Slight; Basophils % (A) 0 %; CH 28.3; CHCM 31.4; Eosinophils # (A) 0.2 k/uL (0-0.7); Eosinophils % (A) 2 %; HDW 3.07; HGB 8.6 gm/dL (11.4-16.0); Hypochromasia Slight; Luc # (Auto) 0.15; Luc % (Auto) 2; Lymphocytes # (A) 1.4 k/uL (1.0-4.8); Lymphocytes % (A) 14 %; MCHC 32.1 g/dL (31.0-37.0); MCV 90.5 fL (80.0-100.0); Mean Platelet Volume 7.3; Monocytes # (A) 0.5 k/uL (0-1.0); Monocytes % (A) 5 %; Neutrophils # (A) 7.6 k/uL (1.3-7.7); Neutrophils % (A) 77 %; RBC 2.98 m/uL (3.80-5.40); RDW 17.1 % (11.5-15.5); WBC 9.9 k/uL (3.8-10.6); WBC (Perox) 10.36
[2017-01-20 09:21] LABS: Magnesium 2.1 mg/dL (1.6-2.3); Phosphorous 3.3 mg/dL (2.5-4.5)
--- NOTE | 2017-01-20 10:07 | P.PN ---
Subjective Principal diagnosis: Upper GI bleed Status post EGD for evaluation of upper GI bleed black tarry stools with findings of multiple superficial gastric antral ulcers 1 measuring 2cm and deep with visible vessel status post injection and cautery/biopsy. No active GI bleeding. Tolerating full liquids. Denies epigastric pain. Afebrile. Hemoglobin improved today 8.6. Objective - Vital Signs Vital signs: Vital Signs Temp 97.3 F L 01/20/17 07:00 Pulse 99 01/20/17 07:00 Resp 20 01/20/17 07:00 BP 118/64 01/20/17 07:00 Pulse Ox 92 L 01/20/17 07:00 Intake & Output 01/19/17 01/20/17 01/20/17 18:59 06:59 18:59 Intake Total 515 240 Output Total 525 Balance -10 240 Intake: IV 320 0.9 nacl 320 Intake, IV Titration 75 Amount Sodium Chloride 0.9% 1, 75 000 ml @ 75 mls/hr IV . [id number] BOO Rx#:[id number] Oral 120 240 Output: Urine 525 Other: Voiding Method Indwelling Catheter # Voids 2 # Bowel Movements 0 - Exam General appearance: The patient is alert, oriented, in no acute distress. Appears pale. HET: Head is normocephalic and atraumatic. Pupils are equal and reactive. Oropharynx is clear without lesions. Neck: Supple without lymphadenopathy. Trachea midline. Heart: S1 S2. Regular rate and rhythm. Lungs: No crackles or wheezes are heard. Abdomen: Soft, nontender, nondistended with bowel sounds. No peritoneal signs. No palpable organomegaly or masses. Extremities: Normal skin color and turgor. No cyanosis, rash, ulceration, clubbing, or edema. Radial and pedal pulses are 2/4 bilaterally. Neurological: No focal deficits. Strength and sensation are grossly intact. - Labs CBC & Chem 7: 01/20/17 08:24 01/19/17 04:15 Labs: Abnormal Lab Results - Last 24 Hours (Table) 01/20/17 Range/Units 08:24 RBC 2.98 L (3.80-5.40) m/uL Hgb 8.6 L (11.4-16.0) gm/dL Hct 27.0 L (34.0-46.0) % RDW 17.1 H (11.5-15.5) % Assessment and Plan (1) Acute upper GI bleed Narrative/Plan: Status post EGD with findings of multiple gastric antral ulcerations, one measuring 2 cm and deep status post injection cautery and biopsy. Status: Acute (2) Acute blood loss anemia Status: Acute Plan: 1. Daily CBCs unless patient has active bleeding. 2. Low-residue soft diet. 3. Continue with Protonix 40 mg twice daily. 4. Return to GI office 2 weeks after discharge. We'll follow as needed. Assessment and plan of care discussed with Dr. Amaya
[2017-01-20] MEDS: CHOLECALCIFEROL 1,000 UNIT TAB PO SCH (10:32)
--- NOTE | 2017-01-20 12:43 | P.PN ---
Subjective gastrointestinal bleeding patient is a 76-year-old female with multiple medical problems, who was admitted to intensive care unit, had gastrointestinal bleeding, underwent EGD was Dr. Singh, was found to had a 2 cm deep ulcer in the stomach and underwent cautery and epinephrine injection. Hemoglobin has been stable since yesterday. Patient was also having significant shortness of breath she has atrial fibrillation she had the rapid ventricular response on presentation currently her heart rate is well-controlled. Patient was transferred out of the ICU yesterday. GI has evaluated patient and advance diet to soft. Patient denies any nausea or vomiting. She's had no bowel movement since the EGD. She denies any chest pain. Does admit to some shortness of breath that is improving Objective - Vital Signs Vital signs: Vital Signs Temp 97.3 F L 01/20/17 07:00 Pulse 99 01/20/17 07:00 Resp 20 01/20/17 08:00 BP 118/64 01/20/17 07:00 Pulse Ox 92 L 01/20/17 07:00 Intake & Output 01/19/17 01/20/17 01/20/17 18:59 06:59 18:59 Intake Total 515 240 Output Total 525 Balance -10 240 Intake: IV 320 0.9 nacl 320 Intake, IV Titration 75 Amount Sodium Chloride 0.9% 1, 75 000 ml @ 75 mls/hr IV . [id number] BOO Rx#:[id number] Oral 120 240 Output: Urine 525 Other: Voiding Method Indwelling Catheter Indwelling Catheter # Voids 2 # Bowel Movements 0 - Exam Head normocephalic Neck supple Lungs clear to auscultation bilaterally no wheezing or crackles Heart regular rate and rhythm S1-S2, no rub or gallop Abdomen is soft nontender nondistended positive bowel sounds no hepatosplenomegaly Extremities no edema Neuro alert and orientated to 3 - Labs CBC & Chem 7: 01/20/17 08:24 01/19/17 04:15 Labs: Abnormal Lab Results - Last 24 Hours (Table) 01/20/17 Range/Units 08:24 RBC 2.98 L (3.80-5.40) m/uL Hgb 8.6 L (11.4-16.0) gm/dL Hct 27.0 L (34.0-46.0) % RDW 17.1 H (11.5-15.5) % Assessment and Plan Plan: #1 Acute gastrointestinal bleed : Secondary to gastric antral ulcers. Patient is status post EGD showing multiple gastric antral ulcers which required cautery and biopsy. GI service has advanced diet to us low residual soft diet. Continue Protonix. Continue monitoring hemoglobin. Anticipate discharge possibly tomorrow. Patient's with a known history of diverticulosis, atrial fibrillation anticoagulated with Eliquis and aspirin, daily alcohol use. She is status post EGD with epinephrine injection and cautery on 01/17/2017. Eliquis and aspirin currently on hold #2 Acute anemia secondary to above, status post 2 units of packed red blood cell transfusion #3 Atrial fibrillation with a rapid ventricular response, anticoagulated with Eliquis and aspirin in the outpatient setting. now heart rate is well-controlled #4 History of CVA/TIA with right-sided facial droop. #5 Chronic obstructive pulmonary disease, currently inactive and stable. #6 Chronic tobacco dependence. counseled regarding smoking cessation during this admission #7 History of daily alcohol use. #8 Acute renal failure. 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 #10 underlying history of Hypertension. #11 underlying history of Hyperlipidemia. Discharge possibly tomorrow
--- NOTE | 2017-01-20 13:16 | P.PN ---
Subjective 76-year-old female who was admitted to the hospital with a diagnosis of GI bleed. Doing much better. Had an EGD in the ICU. She has gastric ulcers. They were treated with injections of epinephrine and thermocoagulation. She also has a history of CVA COPD and also history of atrial fibrillation with RVR. Doing much better today. She got on the fourth floor for 16. Possible discharge tomorrow. She does have an appointment to see me in the office. The patient ask about a sleep study. Apparently she snores at night and she stops breathing. Objective - Vital Signs Vital signs: Vital Signs Temp 97.3 F L 01/20/17 07:00 Pulse 99 01/20/17 07:00 Resp 20 01/20/17 08:00 BP 118/64 01/20/17 07:00 Pulse Ox 92 L 01/20/17 07:00 Intake & Output 01/19/17 01/20/17 01/20/17 18:59 06:59 18:59 Intake Total 515 240 Output Total 525 Balance -10 240 Intake: IV 320 0.9 nacl 320 Intake, IV Titration 75 Amount Sodium Chloride 0.9% 1, 75 000 ml @ 75 mls/hr IV . [id number] BOO Rx#:[id number] Oral 120 240 Output: Urine 525 Other: Voiding Method Indwelling Catheter Indwelling Catheter # Voids 2 # Bowel Movements 0 - Exam No acute distress, oriented 3. Sitting at the bedside. Nasal O2 in place. HEENT examination is grossly unremarkable. She has a left facial droop from her previous CVA. Neck supple. Full range of motion. No adenopathy. Cardiovascular examination reveals a irregular rhythm and rate. S1 and S2 normal. No murmur. Lungs reveal few scattered wheezes. No rhonchi. No crackles. Breath sounds equal. Abdomen soft bowel sounds are heard. Extremities are intact. - Labs CBC & Chem 7: 01/20/17 08:24 01/19/17 04:15 Labs: Abnormal Lab Results - Last 24 Hours (Table) 01/20/17 Range/Units 08:24 RBC 2.98 L (3.80-5.40) m/uL Hgb 8.6 L (11.4-16.0) gm/dL Hct 27.0 L (34.0-46.0) % RDW 17.1 H (11.5-15.5) % Assessment and Plan (1) COPD (chronic obstructive pulmonary disease) Status: Acute (2) Acute upper GI bleed Status: Acute (3) Atrial fibrillation with RVR Status: Acute (4) Gastrointestinal hemorrhage Status: Acute (5) CVA (cerebral infarction) Status: Acute (6) Hyperlipidemia Status: Acute (7) Obesity Status: Acute Plan: Plan dated 01/20/2017 Pulp full discharge in the morning. No additional recommendations are made. We 'll continue to follow. The patient doesn't need to see me in the office for follow-up. In addition, we'll get the patient to see Dr. Mcneal for evaluation of potential sleep apnea syndrome. She gets typical symptoms including excessive daytime sleepiness and loud snoring and stopping breathing at nighttime. Time with Patient: Less than 30
--- NOTE | 2017-01-20 15:29 | P.PN ---
Subjective Principal diagnosis: Upper GI bleed Patient doing well today. No abdominal pain. No Stools. Tolerating her soft diet. Objective - Vital Signs Vital signs: Vital Signs Temp 97.3 F L 01/20/17 07:00 Pulse 99 01/20/17 07:00 Resp 20 01/20/17 08:00 BP 118/64 01/20/17 07:00 Pulse Ox 92 L 01/20/17 07:00 Intake & Output 01/19/17 01/20/17 01/20/17 18:59 06:59 18:59 Intake Total 515 240 Output Total 525 Balance -10 240 Intake: IV 320 0.9 nacl 320 Intake, IV Titration 75 Amount Sodium Chloride 0.9% 1, 75 000 ml @ 75 mls/hr IV . [id number] [facility] Rx#:[id number] Oral 120 240 Output: Urine 525 Other: Voiding Method Indwelling Catheter Indwelling Catheter # Voids 2 3 # Bowel Movements 0 - Exam Abdomen: Soft, nondistended, nontender - Labs CBC & Chem 7: 01/20/17 08:24 01/19/17 04:15 Labs: Abnormal Lab Results - Last 24 Hours (Table) 01/20/17 Range/Units 08:24 RBC 2.98 L (3.80-5.40) m/uL Hgb 8.6 L (11.4-16.0) gm/dL Hct 27.0 L (34.0-46.0) % RDW 17.1 H (11.5-15.5) % Assessment and Plan (1) Gastric ulcer Narrative/Plan: Hemoglobin has remained stable. No evidence of bleeding. We'll sign off at this point. Continue antiacid therapy. Status: Acute
[2017-01-20] MEDS: ATORVASTATIN 40 MG TAB PO SCH (20:49)
[2017-01-20] MEDS: ALPRAZolam 0.5 MG TAB PO PRN (23:10)
[2017-01-21 07:43] VITALS: RESP 20
[2017-01-21] MEDS: PANTOPRAZOLE 40 MG/10 ML VIAL IVP SCH (07:54)
[2017-01-21] MEDS: METOPROLOL TARTRATE 50 MG TAB PO SCH (07:54)
[2017-01-21] MEDS: CHOLECALCIFEROL 1,000 UNIT TAB PO SCH (07:54)
[2017-01-21] MEDS: SUCRALFATE 1 GM TAB PO SCH ×2 (07:54→11:10)
[2017-01-21] MEDS: TIOTROPIUM 18 MCG/PUFF INHALER INHALATION SCH (08:38)
[2017-01-21] MEDS: SYMBICORT 160-4.5 MCG INHALER INHALATION SCH (08:38)
[2017-01-21 08:57] LABS: ALT 31 U/L (9-52); AST 26 U/L (14-36); Alkaline Phosphatase 66 U/L (38-126); Anion Gap 11 mmol/L; Blood Urea Nitrogen 14 mg/dL (7-17); Calcium 8.8 mg/dL (8.4-10.2); Carbon Dioxide 21 mmol/L (22-30); Chloride 110 mmol/L (98-107); Glucose 138 mg/dL (74-99); Non-African American GFR(MDRD) >60 (>60 ml/min/1.73 sqM); Phosphorous 3.4 mg/dL (2.5-4.5); Potassium 3.9 mmol/L (3.5-5.1); Sodium 142 mmol/L (137-145); Total Bilirubin 0.5 mg/dL (0.2-1.3); Total Protein 5.5 g/dL (6.3-8.2)
[2017-01-21 09:22] LABS: Anisocytosis Slight; Basophils % (A) 0 %; CH 28.5; CHCM 31.5; Eosinophils # (A) 0.2 k/uL (0-0.7); Eosinophils % (A) 2 %; HCT 25.7 % (34.0-46.0); HDW 3.17; HGB 8.2 gm/dL (11.4-16.0); Hypochromasia Slight; Luc # (Auto) 0.14; Luc % (Auto) 2; Lymphocytes # (A) 1.4 k/uL (1.0-4.8); Lymphocytes % (A) 15 %; MCHC 31.8 g/dL (31.0-37.0); MCV 91.1 fL (80.0-100.0); Monocytes # (A) 0.4 k/uL (0-1.0); Monocytes % (A) 5 %; Neutrophils # (A) 7.1 k/uL (1.3-7.7); Neutrophils % (A) 77 %; RBC 2.82 m/uL (3.80-5.40); RDW 17.3 % (11.5-15.5); WBC 9.2 k/uL (3.8-10.6); WBC (Perox) 9.32
--- NOTE | 2017-01-21 10:39 | P.PN ---
Subjective 76-year-old female who was admitted to the hospital with a diagnosis of GI bleed. Doing much better. Had an EGD in the ICU. She has gastric ulcers. They were treated with injections of epinephrine and thermocoagulation. She also has a history of CVA COPD and also history of atrial fibrillation with RVR. Doing much better today. She got on the fourth floor for 16. Possible discharge tomorrow. She does have an appointment to see me in the office. The patient ask about a sleep study. Apparently she snores at night and she stops breathing. Progress note dated 01/21/2017 This is a 76-year-old female admitted to the ICU with a diagnosis of GI bleed. Had an EGD which revealed evidence of some gastric ulcers. There were treated with epinephrine injections and thermal cautery. No additional GI bleeding. Also has a history of COPD CVA and atrial fibrillation. Doing much better now. She was told by her primary doctor that she might be discharged home today. From the pulmonary standpoint, certainly stable. Shesee me back in the office. Objective - Vital Signs Vital signs: Vital Signs Temp 96.8 F L 01/21/17 07:00 Pulse 98 01/21/17 07:00 Resp 20 01/21/17 07:00 BP 97/64 01/21/17 07:00 Pulse Ox 94 L 01/21/17 07:00 Intake & Output 01/20/17 01/21/17 01/21/17 18:59 06:59 18:59 Intake Total 240 480 Output Total 575 Balance -335 480 Weight 109.6 kg Intake: Oral 240 480 Output: Urine 75 Stool 500 Other: Voiding Method Indwelling Catheter Toilet # Voids 3 1 # Bowel Movements 0 0 - Exam No acute distress, oriented 3. Sitting at the bedside. Nasal O2 in place. HEENT examination is grossly unremarkable. She has a left facial droop from her previous CVA. Neck supple. Full range of motion. No adenopathy. Cardiovascular examination reveals a irregular rhythm and rate. S1 and S2 normal. No murmur. Lungs reveal few scattered wheezes. No rhonchi. No crackles. Breath sounds equal. Abdomen soft bowel sounds are heard. Extremities are intact. - Labs CBC & Chem 7: 01/21/17 08:25 01/21/17 08:28 Labs: Abnormal Lab Results - Last 24 Hours (Table) 01/21/17 01/21/17 Range/Units 08:25 08:28 RBC 2.82 L (3.80-5.40) m/uL Hgb 8.2 L (11.4-16.0) gm/dL Hct 25.7 L (34.0-46.0) % RDW 17.3 H (11.5-15.5) % Chloride 110 H (98-107) mmol/L Carbon Dioxide 21 L (22-30) mmol/L Glucose 138 H (74-99) mg/dL Total Protein 5.5 L (6.3-8.2) g/dL Albumin 3.1 L (3.5-5.0) g/dL Assessment and Plan (1) COPD (chronic obstructive pulmonary disease) Status: Acute (2) Acute upper GI bleed Status: Acute (3) Atrial fibrillation with RVR Status: Acute (4) Gastrointestinal hemorrhage Status: Acute (5) CVA (cerebral infarction) Status: Acute (6) Hyperlipidemia Status: Acute (7) Obesity Status: Acute Plan: Plan dated 01/20/2017 Pulp full discharge in the morning. No additional recommendations are made. We 'll continue to follow. The patient doesn't need to see me in the office for follow-up. In addition, we'll get the patient to see Dr. Mcneal for evaluation of potential sleep apnea syndrome. She gets typical symptoms including excessive daytime sleepiness and loud snoring and stopping breathing at nighttime. Plan dated 01/21/2017 The patient's doing well. Her diet has been advanced. A bit constipated stay. Possible discharge home today. She'll follow with me in the office for her COPD. Also has a history of atrial fibrillation CVA and of course a GI bleed. We'll continue to follow as needed. Time with Patient: Less than 30
--- NOTE | 2017-01-21 14:35 | P.DS ---
Providers Date of admission: 01/16/17 06:45 Expected date of discharge: 01/21/17 Attending physician: Dar Sung Consults: 01/16/17 09:24 Consult Physician Routine Consulting Provider: Dary Lott Consult Reason/Comments: Broncitis Do you want consulting provider notified?: Yes Consult Physician Urgent Consulting Provider: Thuy Conde Consult Reason/Comments: A. Fib RVR Do you want consulting provider notified?: Yes 01/16/17 09:48 Consult Physician Urgent Consulting Provider: Sergey Solomon Consult Reason/Comments: adb pain Do you want consulting provider notified?: Yes Primary care physician: Alia Tobar Hospital Course: Discharge diagnosis #1 Acute gastrointestinal bleed : Secondary to gastric antral ulcers. Patient is status post EGD showing multiple gastric antral ulcers which required cautery and biopsy. GI service has advanced diet to us low residual soft diet. Continue Protonix. Continue monitoring hemoglobin. Anticipate discharge possibly tomorrow. Patient's with a known history of diverticulosis, atrial fibrillation anticoagulated with Eliquis and aspirin, daily alcohol use. She is status post EGD with epinephrine injection and cautery on 01/17/2017. #2 Acute anemia secondary to above, status post 2 units of packed red blood cell transfusion #3 Atrial fibrillation with a rapid ventricular response, anticoagulated with Eliquis and aspirin in the outpatient setting. now heart rate is well-controlled #4 History of CVA/TIA with right-sided facial droop. #5 Chronic obstructive pulmonary disease, currently inactive and stable. #6 Chronic tobacco dependence. counseled regarding smoking cessation during this admission #7 History of daily alcohol use. #8 Acute renal failure related to dehydration and diuretics. 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 #10 underlying history of Hypertension. #11 underlying history of Hyperlipidemia. Hospital course patient is a 76-year-old female with multiple medical problems, who was admitted to intensive care unit, had gastrointestinal bleeding, underwent EGD was Dr. Amaya, was found to had a 2 cm deep ulcer in the stomach and underwent cautery and epinephrine injection. Hemoglobin has been stable since yesterday.Patient was also having significant shortness of breath she has atrial fibrillation she had the rapid ventricular response on presentation currently her heart rate is well-controlled. Patient did have evidence of acute kidney injury as well as hypotension on admission. Did require a stay in the ICU. Patient GI bleed did improve. She was tolerating advancement of diet. GI services recommending Protonix and Carafate. Also low fiber diet. She'll follow-up with GI service in 2 weeks. Patient will have her Lasix decreased to 20 g twice a day she presented with dehydration on admission. She' s also having lower blood pressures. Heart rate is controlled we'll continue metoprolol and discontinue the Cardizem. We'll patient follow-up with her PCP for a CBC and BMP as well as check on blood pressure and heart rate in the office on Tuesday. Patient is stable for discharge. She'll follow-up with consulting physicians in the outpatient setting. Please refer to chart for any further details. Also note she is following up with Dr. Mcneal for sleep study. Patient Condition at Discharge: Stable Plan - Discharge Summary New Discharge Prescriptions: Furosemide [Lasix] 20 mg PO BID #60 tablet Pantoprazole [Protonix] 40 mg PO BID #60 tablet. Potassium Chloride ER [K-Dur 20] 20 meq PO DAILY #30 tab Sucralfate [Carafate] 1 gm PO AC-TID #42 tab Discharge Medication List Cholecalciferol [Vitamin D3] 1,000 unit PO DAILY 07/17/15 [History] Aspirin EC [Ecotrin Low Dose] 81 mg PO DAILY #60 tablet. 07/23/15 [Rx] Metoprolol Tartrate [Lopressor] 50 mg PO TID #90 tab 07/23/15 [Rx] Albuterol Nebulized [Ventolin Nebulized] 2.5 mg INHALATION RT-QID PRN 07/25/15 [ History] Atorvastatin [Lipitor] 40 mg PO HS 07/25/15 [History] Budesonide-Formot 160-4.5 Mcg [Symbicort 160-4.5 Mcg Inhaler] 2 puff INHALATION RT-BID #60 puff 07/29/15 [Rx] Acetaminophen/Diphenhydramine [Tylenol PM 500-25mg] 1 tab PO HS PRN 01/16/17 [ History] Gabapentin [Neurontin] 200 mg PO DAILY 01/16/17 [History] LORazepam [Ativan] 0.5 mg PO Q6H PRN 01/16/17 [History] Lisinopril [Zestril] 5 mg PO DAILY 01/16/17 [History] Melatonin 3 mg PO HS 01/16/17 [History] Tiotropium 18 Mcg/Puff [Spiriva] 1 cap INHALATION RT-DAILY 01/16/17 [History] rOPINIRole HCL [Requip] 0.5 mg PO HS 01/16/17 [History] Furosemide [Lasix] 20 mg PO BID #60 tablet 01/21/17 [Rx] Pantoprazole [Protonix] 40 mg PO BID #60 tablet. 01/21/17 [Rx] Potassium Chloride ER [K-Dur 20] 20 meq PO DAILY #30 tab 01/21/17 [Rx] Sucralfate [Carafate] 1 gm PO AC-TID #42 tab 01/21/17 [Rx] Tiotropium 18 Mcg/Puff [Spiriva] 1 puff INHALATION RT-DAILY inhaler 01/21/17 [ Rx] Follow up Appointment(s)/Referral(s): Suzy Amaya MD [STAFF PHYSICIAN] - 2 Weeks [facility], [NON-STAFF] - Alia Tobar MD [Primary Care Provider] - 3 Days Barbara Mcneal MD [STAFF PHYSICIAN] - 1 Week Patient Instructions/Handouts: Gastrointestinal Bleeding (DC), Diet for Stomach Ulcers and Gastritis (GEN), Anemia (DC) Activity/Diet/Wound Care/Special Instructions: Diet: low fiber, soft Activity: as tolerated Do no take Eliquis for 2 weeks Discharge Disposition: HOME SELF-CARE
[2017-01-21 14:45] VITALS: BP 121/66; PULSE 95; TEMP 97
[2017-01-22] MEDS ORDERED: PANTOPRAZOLE 40 MG TABLET PO SCH (09:00)
== END 2017-01-21 15:39 | disposition home health service (06) | DRG 378 ==
LOC: EC 04:03 → 6SEL 06:45 → 6ICU 01-17 04:31 → 4MS4W 01-19 13:05
PROVIDERS: ADMIT Internal Medicine; ATTEND Internal Medicine
PROC: 30233N1 Transfusion of Nonautologous Red Blood Cells into Peripheral Vein, Percutaneous Approach (ICD-10-PCS; principal; 2017-01-16)
PROC: 0DB68ZX Excision of Stomach, Via Natural or Artificial Opening Endoscopic, Diagnostic (ICD-10-PCS; 2017-01-17 07:30)
PROC: 3E0G8GC Introduction of Other Therapeutic Substance into Upper GI, Via Natural or Artificial Opening Endoscopic (ICD-10-PCS; 2017-01-17 07:30)
DX: K25.4 Chronic or unspecified gastric ulcer with hemorrhage (principal); D62 Acute posthemorrhagic anemia; N17.9 Acute kidney failure, unspecified; I50.22 Chronic systolic (congestive) heart failure; Z68.41 Body mass index [BMI] 40.0-44.9, adult; E66.01 Morbid (severe) obesity due to excess calories; I95.9 Hypotension, unspecified; E87.5 Hyperkalemia; I11.0 Hypertensive heart disease with heart failure; I48.2 Chronic atrial fibrillation; E86.0 Dehydration; J44.9 Chronic obstructive pulmonary disease, unspecified; E78.5 Hyperlipidemia, unspecified; F32.9 Major depressive disorder, single episode, unspecified; F17.200 Nicotine dependence, unspecified, uncomplicated; I69.392 Facial weakness following cerebral infarction; K64.8 Other hemorrhoids; K80.20 Calculus of gallbladder without cholecystitis without obstruction; K21.0 Gastro-esophageal reflux disease with esophagitis; M19.91 Primary osteoarthritis, unspecified site; Z90.710 Acquired absence of both cervix and uterus; Z96.653 Presence of artificial knee joint, bilateral; Z96.643 Presence of artificial hip joint, bilateral; Z98.49 Cataract extraction status, unspecified eye; Z96.611 Presence of right artificial shoulder joint; Z90.01 Acquired absence of eye; Z79.01 Long term (current) use of anticoagulants; Z79.82 Long term (current) use of aspirin; Z79.51 Long term (current) use of inhaled steroids; Z79.52 Long term (current) use of systemic steroids; Z79.899 Other long term (current) drug therapy
CPT/HCPCS: 36415; 43239; 43243; 43270; 71010; 74177; 80048; 80053; 81003; 82272; 82550; 82553; 83036; 83605; 83735; 84100; 84484; 85025; 85027; 85610; 85730; 86850; 86900; 86901; 86920; 87086; 88305; 88342; 93005; 94640; 94760; 96361; 96374; 96375; 99285

== ENCOUNTER 2018-11-17 14:36 | Emergency (ER) | payer MEDICARE, BC ==
[2018-11-17 14:41] VITALS: TEMP 97.7
--- NOTE | 2018-11-17 15:33 | XR ---
EXAMINATION TYPE: XR knee 4V RT DATE OF EXAM: 11/17/2018 CLINICAL HISTORY: pain TECHNIQUE: Three views of the right knee are obtained. Patellar sunrise views also submitted. COMPARISON: None. FINDINGS: There is no acute fracture/dislocation. Severe degenerative narrowing involving all compar tments of the right knee. Bony spur formation. Bone infarct distal right femur. The overlying soft ti ssue appears unremarkable. IMPRESSION: There is no acute fracture or dislocation. ICD 10 NO FRACTURE, INITIAL EVALUATION
--- NOTE | 2018-11-17 15:39 | ED ---
Fall HPI - General Chief Complaint: Fall Stated Complaint: Fall Time Seen by Provider: 11/17/18 14:47 Source: patient, RN notes reviewed Mode of arrival: wheelchair Limitations: no limitations - History of Present Illness Initial Comments: 78-year-old female presents emergency Department chief complaint trip and fall, right knee pain. Patient states she tripped in her house yesterday fell onto her right knee. She's had increased swelling, bruising noted today. She states it has been more painful. She also states that she noticed some blistering on her knee. She states are clear in nature. Patient states she did ice it for a long period time yesterday. Denies any other complaints from the fall. Denies head, neck pain. Patient denies any loss conscious. - Related Data Home Medications Medication Instructions Recorded Confirmed Cholecalciferol [Vitamin D3] 1,000 unit PO DAILY 07/17/15 01/16/17 Albuterol Nebulized [Ventolin 2.5 mg INHALATION RT-QID PRN 07/25/15 01/16/17 Nebulized] Atorvastatin [Lipitor] 40 mg PO HS 07/25/15 01/16/17 Acetaminophen/Diphenhydramine 1 tab PO HS PRN 01/16/17 01/16/17 [Tylenol PM 500-25mg] Gabapentin [Neurontin] 200 mg PO DAILY 01/16/17 01/16/17 LORazepam [Ativan] 0.5 mg PO Q6H PRN 01/16/17 01/16/17 Lisinopril [Zestril] 5 mg PO DAILY 01/16/17 01/16/17 Melatonin 3 mg PO HS 01/16/17 01/16/17 Tiotropium 18 Mcg/Puff [Spiriva] 1 cap INHALATION RT-DAILY 01/16/17 01/16/17 rOPINIRole HCL [Requip] 0.5 mg PO HS 01/16/17 01/16/17 Previous Rx's Medication Instructions Recorded Aspirin EC [Ecotrin Low Dose] 81 mg PO DAILY #60 tablet. 07/23/15 Metoprolol Tartrate [Lopressor] 50 mg PO TID #90 tab 07/23/15 Budesonide-Formot 160-4.5 Mcg 2 puff INHALATION RT-BID #60 puff 07/29/15 [Symbicort 160-4.5 Mcg Inhaler] Furosemide [Lasix] 20 mg PO BID #60 tablet 01/21/17 Pantoprazole [Protonix] 40 mg PO BID #60 tablet. 01/21/17 Potassium Chloride ER [K-Dur 20] 20 meq PO DAILY #30 tab 01/21/17 Sucralfate [Carafate] 1 gm PO AC-TID #42 tab 01/21/17 Tiotropium 18 Mcg/Puff [Spiriva] 1 puff INHALATION RT-DAILY inhaler 01/21/17 Allergies Allergy/AdvReac Type Severity Reaction Status Date / Time No Known Allergies Allergy Verified 11/17/18 14:41 Review of Systems ROS Statement: Those systems with pertinent positive or pertinent negative responses have been documented in the HPI. ROS Other: All systems not noted in ROS Statement are negative. Past Medical History Past Medical History: Atrial Fibrillation, COPD, CVA/TIA, Hyperlipidemia, Hypertension, Osteoarthritis (OA), Pneumonia Additional Past Medical History / Comment(s): ETOH stated drinks 1-2 a day but has'nt drank in 1.5 weeks. 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 History of Any Multi-Drug Resistant Organisms: None Reported Past Surgical History: Back Surgery, Hysterectomy, Orthopedic Surgery, Tonsillectomy Additional Past Surgical History / Comment(s): BILATERAL HIP replacments, lt KNEE replacment, right SHOULDER SURGERY, hedy cataracts, enucleation of lt eye with implant Past Anesthesia/Blood Transfusion Reactions: No Reported Reaction Past Psychological History: Depression Smoking Status: Former smoker Past Alcohol Use History: None Reported Past Drug Use History: None Reported - Past Family History Mother Family Medical History: Myocardial Infarction ([place]) Father Family Medical History: Cancer General Exam Limitations: no limitations General appearance: alert, in no apparent distress Head exam: Present: atraumatic, normocephalic, normal inspection Respiratory exam: Present: normal lung sounds bilaterally. Absent: respiratory distress, wheezes, rales, rhonchi, stridor Cardiovascular Exam: Present: regular rate, normal rhythm, normal heart sounds. Absent: systolic murmur, diastolic murmur, rubs, gallop, clicks Extremities exam: Present: other (Right knee ecchymotic, edematous, limited range of motion secondary to pain. Leg is neurovascularly intact there is no proximal or distal leg tenderness, there are clear vesicles noted on anterior surface of the knee.) Skin exam: Present: warm, dry, intact, normal color. Absent: rash Course Vital Signs 11/17/18 14:38 Temperature 97.7 F Pulse Rate 78 Respiratory 22 Rate Blood Pressure 140/89 O2 Sat by Pulse 99 Oximetry Medical Decision Making - Medical Decision Making 78-year-old female presented for a fall, right knee pain. X-ray was obtained no acute fracture there is evidence of old bony infarct. Patient will be given pain medication and discharge. Disposition Clinical Impression: Fall, Contusion of right knee Disposition: HOME SELF-CARE Condition: Stable Instructions (If sedation given, give patient instructions): Knee Pain (ED) Additional Instructions: Please return to the Emergency Department if symptoms worsen or any other concerns. Is patient prescribed a controlled substance at d/c from ED?: No Referrals: Alia Tobar MD [Primary Care Provider] - 1-2 days Kris Hurtado DO [Medical Doctor] - 1-2 days Time of Disposition: 16:05
[2018-11-17] MEDS ORDERED: ACET/COD 300 MG/30 MG STARTER PACK 6 TAB BTL PO STA (16:03)
[2018-11-17] MEDS ORDERED: HYDROcodone/APAP 5-325MG 1 EACH TAB PO STA (16:03)
[2018-11-17 16:26] VITALS: BP 152/72; PULSE 68; RESP 18
== END 2018-11-17 16:22 | disposition home or self-care (01) ==
LOC: EC 14:36
DX: S80.01XA Contusion of right knee, initial encounter (principal); R93.7 Abnormal findings on diagnostic imaging of other parts of musculoskeletal system; Q13.81 Rieger anomaly; E78.5 Hyperlipidemia, unspecified; I10 Essential (primary) hypertension; J44.9 Chronic obstructive pulmonary disease, unspecified; I69.392 Facial weakness following cerebral infarction; M19.90 Unspecified osteoarthritis, unspecified site; Z87.891 Personal history of nicotine dependence; Z79.899 Other long term (current) drug therapy; Z96.643 Presence of artificial hip joint, bilateral; Z96.652 Presence of left artificial knee joint; Z86.69 Personal history of other diseases of the nervous system and sense organs; Z96.89 Presence of other specified functional implants; W01.0XXA Fall on same level from slipping, tripping and stumbling without subsequent striking against object, initial encounter; Y92.009 Unspecified place in unspecified non-institutional (private) residence as the place of occurrence of the external cause
CPT/HCPCS: 99283

== ENCOUNTER 2018-11-25 15:14 | Emergency (ER) | payer MEDICARE, BC ==
[2018-11-25] MEDS ORDERED: IPRATROPIUM-ALBUTEROL 3 ML NEB INHALATION STA (16:08)
--- NOTE | 2018-11-25 16:13 | ED ---
General Adult HPI - General Chief complaint: Recheck/Abnormal Lab/Rx Stated complaint: Fell-knee pain Time Seen by Provider: 11/25/18 16:00 Source: patient, family, RN notes reviewed Mode of arrival: wheelchair Limitations: physical limitation - History of Present Illness Initial comments: Patient is a pleasant 78-year-old female presenting to the emergency Department with complaints of right lower leg pain. Patient states she fell proximal 1 week ago. Patient states he had x-rays that were reported as normal. Patient has had increased pain and swelling since that time. Patient has increase her Lasix without improvement. Patient does agree that appears somewhat red and is warm. Patient does admit to having some discomfort on Exam. No fevers. Patient does have cough and dyspnea however this is chronic and unchanged for her. Patient does have history of COPD. - Related Data Home Medications Medication Instructions Recorded Confirmed Albuterol Nebulized [Ventolin 2.5 mg INHALATION RT-QID PRN 07/25/15 11/25/18 Nebulized] Atorvastatin [Lipitor] 40 mg PO HS 07/25/15 11/25/18 Acetaminophen/Diphenhydramine 1 tab PO HS PRN 01/16/17 11/25/18 [Tylenol PM 500-25mg] Lisinopril [Zestril] 5 mg PO DAILY 01/16/17 11/25/18 Melatonin 3 mg PO HS 01/16/17 11/25/18 Apixaban [Eliquis] 5 mg PO BID 11/17/18 11/25/18 Cholecalciferol [Vitamin D3] 1,000 unit PO DAILY 11/17/18 11/25/18 Ferrous Sulfate [Feosol] 325 mg PO DAILY 11/17/18 11/25/18 Montelukast [Singulair] 10 mg PO HS 11/17/18 11/25/18 Furosemide [Lasix] 40 mg PO BID 11/25/18 11/25/18 traMADol HCL [Ultram] 50 mg PO Q6HR PRN 11/25/18 11/25/18 Previous Rx's Medication Instructions Recorded Aspirin EC [Ecotrin Low Dose] 81 mg PO DAILY #60 tablet. 07/23/15 Metoprolol Tartrate [Lopressor] 50 mg PO TID #90 tab 07/23/15 Budesonide-Formot 160-4.5 Mcg 2 puff INHALATION RT-BID #60 puff 07/29/15 [Symbicort 160-4.5 Mcg Inhaler] Pantoprazole [Protonix] 40 mg PO BID #60 tablet. 01/21/17 Potassium Chloride ER [K-Dur 20] 20 meq PO DAILY #30 tab 01/21/17 Tiotropium 18 Mcg/Puff [Spiriva] 1 puff INHALATION RT-DAILY inhaler 01/21/17 Sulfamethox-Tmp 800-160Mg [Bactrim 2 each PO Q12HR #40 tab 11/25/18 DS 800-160 mg] Allergies Allergy/AdvReac Type Severity Reaction Status Date / Time No Known Allergies Allergy Verified 11/25/18 15:58 Review of Systems ROS Statement: Those systems with pertinent positive or pertinent negative responses have been documented in the HPI. ROS Other: All systems not noted in ROS Statement are negative. Constitutional: Denies: fever, chills Eyes: Denies: eye pain ENT: Denies: ear pain Respiratory: Reports: as per HPI Cardiovascular: Denies: chest pain, palpitations Endocrine: Denies: fatigue Gastrointestinal: Denies: abdominal pain Genitourinary: Denies: dysuria Musculoskeletal: Denies: back pain Skin: Reports: as per HPI, rash Neurological: Denies: headache Past Medical History Past Medical History: Atrial Fibrillation, COPD, CVA/TIA, Hyperlipidemia, Hypertension, Osteoarthritis (OA), Pneumonia Additional Past Medical History / Comment(s): ETOH stated drinks 1-2 a day but has'nt drank in 1.5 weeks. 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 History of Any Multi-Drug Resistant Organisms: None Reported Past Surgical History: Back Surgery, Hysterectomy, Orthopedic Surgery, Tonsillectomy Additional Past Surgical History / Comment(s): BILATERAL HIP replacments, lt KNEE replacment, right SHOULDER SURGERY, hedy cataracts, enucleation of lt eye with implant Past Anesthesia/Blood Transfusion Reactions: No Reported Reaction Past Psychological History: No Psychological Hx Reported Smoking Status: Former smoker Past Alcohol Use History: None Reported Past Drug Use History: None Reported - Past Family History Mother Family Medical History: Myocardial Infarction ([place]) Father Family Medical History: Cancer General Exam Limitations: physical limitation General appearance: alert, in no apparent distress Head exam: Present: atraumatic Eye exam: Present: other (Prosthetic left eye) ENT exam: Present: normal oropharynx Neck exam: Present: normal inspection Respiratory exam: Present: wheezes (Mild expiratory wheeze) Cardiovascular Exam: Present: regular rate, normal rhythm Expanded Peripheral pulses: 2+: Dorsalis Pedis (R), Dorsalis Pedis (L) GI/Abdominal exam: Present: soft. Absent: tenderness Extremities exam: Present: other (Right leg from the ankle to the knee with swelling and mild erythema. Mild warmth is present. There is associated calf tenderness. There are 2 areas of blister type formation is below the knee.) Neurological exam: Present: alert Psychiatric exam: Present: normal affect, normal mood Skin exam: Present: erythema Course Vital Signs 11/25/18 11/25/18 11/25/18 15:24 17:26 17:32 Temperature 98 F Pulse Rate 102 H 96 99 Respiratory 18 Rate Blood Pressure 118/79 O2 Sat by Pulse 93 L Oximetry Medical Decision Making - Medical Decision Making Patient reevaluated and resting comfortably in bed. Patient and family updated on results. Patient would like to try outpatient treatment. Patient will be started on antibiotics and provided prescription to get filled in the morning. Patient is advised to return for worsening symptoms or fevers or other concerns. Patient is advised follow-up on Tuesday. - Lab Data Result diagrams: 11/25/18 17:07 11/25/18 17:07 Lab Results 11/25/18 11/25/18 11/25/18 Range/Units 16:58 17:07 17:07 WBC 9.0 (3.8-10.6) k/uL RBC 3.64 L (3.80-5.40) m/uL Hgb 11.5 (11.4-16.0) gm/dL Hct 35.1 (34.0-46.0) % MCV 96.4 (80.0-100.0) fL MCH 31.6 (25.0-35.0) pg MCHC 32.7 (31.0-37.0) g/dL RDW 14.9 (11.5-15.5) % Plt Count 407 (150-450) k/uL Neutrophils % 70 % Lymphocytes % 18 % Monocytes % 6 % Eosinophils % 3 % Basophils % 0 % Neutrophils # 6.3 (1.3-7.7) k/uL Lymphocytes # 1.6 (1.0-4.8) k/uL Monocytes # 0.6 (0-1.0) k/uL Eosinophils # 0.3 (0-0.7) k/uL Basophils # 0.0 (0-0.2) k/uL PT 10.8 (9.0-12.0) sec INR 1.0 (<1.2) APTT 25.5 (22.0-30.0) sec Sodium (137-145) mmol/L Potassium (3.5-5.1) mmol/L Chloride (98-107) mmol/L Carbon Dioxide (22-30) mmol/L Anion Gap mmol/L BUN (7-17) mg/dL Creatinine (0.52-1.04) mg/dL Est GFR (CKD-EPI)AfAm (>60 ml/min/1.73 sqM) Est GFR (CKD-EPI)NonAf (>60 ml/min/1.73 sqM) Glucose (74-99) mg/dL Plasma Lactic Acid Faisal 1.2 (0.7-2.0) mmol/L Calcium (8.4-10.2) mg/dL Total Bilirubin (0.2-1.3) mg/dL AST (14-36) U/L ALT (9-52) U/L Alkaline Phosphatase (38-126) U/L Total Protein (6.3-8.2) g/dL Albumin (3.5-5.0) g/dL 11/25/18 Range/Units 17:07 WBC (3.8-10.6) k/uL RBC (3.80-5.40) m/uL Hgb (11.4-16.0) gm/dL Hct (34.0-46.0) % MCV (80.0-100.0) fL MCH (25.0-35.0) pg MCHC (31.0-37.0) g/dL RDW (11.5-15.5) % Plt Count (150-450) k/uL Neutrophils % % Lymphocytes % % Monocytes % % Eosinophils % % Basophils % % Neutrophils # (1.3-7.7) k/uL Lymphocytes # (1.0-4.8) k/uL Monocytes # (0-1.0) k/uL Eosinophils # (0-0.7) k/uL Basophils # (0-0.2) k/uL PT (9.0-12.0) sec INR (<1.2) APTT (22.0-30.0) sec Sodium 137 (137-145) mmol/L Potassium 4.3 (3.5-5.1) mmol/L Chloride 96 L (98-107) mmol/L Carbon Dioxide 33 H (22-30) mmol/L Anion Gap 8 mmol/L BUN 24 H (7-17) mg/dL Creatinine 0.98 (0.52-1.04) mg/dL Est GFR (CKD-EPI)AfAm 63 (>60 ml/min/1.73 sqM) Est GFR (CKD-EPI)NonAf 55 (>60 ml/min/1.73 sqM) Glucose 103 H (74-99) mg/dL Plasma Lactic Acid Faisal (0.7-2.0) mmol/L Calcium 9.1 (8.4-10.2) mg/dL Total Bilirubin 1.5 H (0.2-1.3) mg/dL AST 37 H (14-36) U/L ALT 32 (9-52) U/L Alkaline Phosphatase 95 (38-126) U/L Total Protein 6.5 (6.3-8.2) g/dL Albumin 3.8 (3.5-5.0) g/dL - Radiology Data Radiology results: report reviewed (Ultrasound negative for DVT.), image reviewed (Right leg x-ray shows some soft tissue edema, otherwise no acute abnormality. Chest x-ray shows no acute process.) Disposition Clinical Impression: Cellulitis Disposition: HOME SELF-CARE Condition: Stable Instructions (If sedation given, give patient instructions): Cellulitis (ED) Additional Instructions: Please follow-up with primary care physician Tuesday. Return for fever, increased redness, increased swelling, pain, worsening symptoms or other concerns. Prescriptions: Sulfamethox-Tmp 800-160Mg [Bactrim DS 800-160 mg] 2 each PO Q12HR #40 tab Is patient prescribed a controlled substance at d/c from ED?: No Referrals: Alia Tobar MD [Primary Care Provider] - 1-2 days Time of Disposition: 19:11
--- NOTE | 2018-11-25 16:58 | US ---
EXAMINATION TYPE: US venous doppler duplex LE RT DATE OF EXAM: 11/25/2018 4:09 PM COMPARISON: NONE CLINICAL HISTORY: Pain. Pt fell, having rt leg/knee pain SIDE PERFORMED: Right TECHNIQUE: The lower extremity deep venous system is examined utilizing real time linear array sonog russell with graded compression, doppler sonography and color-flow sonography. VESSELS IMAGED: External Iliac Vein (EIV) Common Femoral Vein Deep Femoral Vein Greater Saphenous Vein * Femoral Vein Popliteal Vein Small Saphenous Vein * Proximal Calf Veins (* superficial vessels) Right Leg: Negative for DVT, only color and doppler images obtained, pt unable to tolerate compressions entire right leg IMPRESSION: Suboptimal study without convincing evidence of acute DVT in the right lower extremity, s ubcutaneous edema is noted popliteal region towards end of study.
[2018-11-25 17:37] LABS: Basophils % (A) 0 %; Eosinophils # (A) 0.3 k/uL (0-0.7); Eosinophils % (A) 3 %; HCT 35.1 % (34.0-46.0); HGB 11.5 gm/dL (11.4-16.0); Lymphocytes # (A) 1.6 k/uL (1.0-4.8); Lymphocytes % (A) 18 %; MCH 31.6 pg (25.0-35.0); MCHC 32.7 g/dL (31.0-37.0); MCV 96.4 fL (80.0-100.0); Mean Platelet Volume 6.3; Monocytes # (A) 0.6 k/uL (0-1.0); Monocytes % (A) 6 %; Neutrophils # (A) 6.3 k/uL (1.3-7.7); Neutrophils % (A) 70 %; Platelet Count 407 k/uL (150-450); RBC 3.64 m/uL (3.80-5.40); RDW 14.9 % (11.5-15.5)
[2018-11-25 17:45] LABS: Partial Thromboplastin Time 25.5 sec (22.0-30.0); Prothrombin Time 10.8 sec (9.0-12.0)
[2018-11-25 17:50] LABS: Albumin 3.8 g/dL (3.5-5.0); Calcium 9.1 mg/dL (8.4-10.2); Potassium 4.3 mmol/L (3.5-5.1); Total Bilirubin 1.5 mg/dL (0.2-1.3); Total Protein 6.5 g/dL (6.3-8.2)
--- NOTE | 2018-11-25 18:13 | XR ---
EXAMINATION TYPE: XR tibia fibula RT DATE OF EXAM: 11/25/2018 CLINICAL HISTORY: Right leg pain. TECHNIQUE: Two views of the right leg are obtained. COMPARISON: Right knee x-ray November 17, 2018. FINDINGS: There is no acute fracture or dislocation seen in the right tibia or fibula. Severe medial tibiofemoral compartment narrowing with moderate spurring is redemonstrated. There is mild to modera te lateral tibiofemoral compartment narrowing with moderate spurring redemonstrated. Moderate diffuse subcutaneous edema is again seen. Visualized portion of right ankle joint is unremarkable. IMPRESSION: As above.
--- NOTE | 2018-11-25 18:14 | XR ---
EXAMINATION TYPE: XR chest 2V DATE OF EXAM: 11/25/2018 COMPARISON: Chest x-ray January 19, 2017 HISTORY: COPD and heart failure with cough. TECHNIQUE: Frontal and lateral views of the chest are obtained. FINDINGS: There is some chronic parenchymal change without suspicious new focal air space opacity, p leural effusion, or pneumothorax seen. The cardiac silhouette size remains enlarged. Metallic hardwa re from right shoulder surgery is partially imaged. Chronic deformity left shoulder level is noted. IMPRESSION: Cardiomegaly without acute pulmonary process.
[2018-11-25] MEDS ORDERED: SULFAMETH-TMP DS STARTER PACK 2 TAB BTL PO STA (19:07)
[2018-11-25 19:43] VITALS: BP 112/79; PULSE 87; RESP 22; TEMP 98.3
== END 2018-11-25 19:20 | disposition home or self-care (01) ==
LOC: EC 15:14
DX: L03.115 Cellulitis of right lower limb (principal); J44.9 Chronic obstructive pulmonary disease, unspecified; I48.91 Unspecified atrial fibrillation; E78.5 Hyperlipidemia, unspecified; I10 Essential (primary) hypertension; I69.392 Facial weakness following cerebral infarction; Q13.81 Rieger anomaly; M19.90 Unspecified osteoarthritis, unspecified site; Z87.891 Personal history of nicotine dependence; Z79.01 Long term (current) use of anticoagulants; Z79.899 Other long term (current) drug therapy; Z87.01 Personal history of pneumonia (recurrent); Z97.0 Presence of artificial eye; Z86.69 Personal history of other diseases of the nervous system and sense organs; Z96.643 Presence of artificial hip joint, bilateral; Z96.652 Presence of left artificial knee joint; Z91.81 History of falling
CPT/HCPCS: 36415; 71046; 80053; 83605; 85025; 85610; 85730; 87040; 94640; 99284

== ENCOUNTER 2018-11-27 12:29 | Inpatient (IN) | payer MEDICARE, BC ==
--- NOTE | 2018-11-27 14:09 | ED ---
General Adult HPI <Emerson Kemp - Last Filed: 11/27/18 16:08> - General Source: patient, RN notes reviewed, old records reviewed Mode of arrival: ambulatory Limitations: no limitations <Marty Raines - Last Filed: 11/28/18 00:15> - General Chief complaint: Extremity Injury, Lower Stated complaint: bilat leg swelling Time Seen by Provider: 11/27/18 13:54 - History of Present Illness Initial comments: 78-year-old female patient presents to ED for right lower extremity swelling, redness. Patient states this has been present for approximately 10 days, stemming from a mechanical fall in which she is evaluated in the ED and shown to have no osseous abnormality. Patient has had persistent right lower extremity swelling and redness for this time. Patient is a past history of CVA , CHF, atrial fibrillation on eliquis. Patient was seen on 11/25/18 for this problem and diagnosed with cellulitis and started on Bactrim. Patient has been taking Bactrim and states that the redness has not improved. Patient states that otherwise her symptoms have been the same approximately 10 days including her right lower extremity swelling and pain. Patient has increased her Lasix per her primary care providers recommendation, however has not been seen by her primary care provider. Patient did have a negative lower extremity venous duplex ultrasound at the visit on 11/25. Patient denies other complaints. Systemic: Pt denies fatigue, myalgia, fever/chills. Pt denies weakness, night sweats, weight loss. Neuro: Pt denies headache, visual disturbances, syncope or pre-syncope. HEENT: Pt denies ocular discharge or irritation, otalgia, rhinorrhea, pharyngitis or notable lymphadenopathy. Cardiopulmonary: Pt denies chest pain, SOB, heart palpitations, dyspnea on exertion. Abdominal/GI: Pt denies abdominal pain, n/v/d. : Pt denies dysuria, burning w/ urination, frequency/urgency. Denies new onset urinary or bowel incontinence. MSK: Pt denies myalgia, loss of strength or function in extremities. Neuro: Pt denies new onset weakness, paresthesias. (Marty Raines) - Related Data Home Medications Medication Instructions Recorded Confirmed Albuterol Nebulized [Ventolin 2.5 mg INHALATION RT-QID PRN 07/25/15 11/27/18 Nebulized] Atorvastatin [Lipitor] 40 mg PO HS 07/25/15 11/27/18 Acetaminophen/Diphenhydramine 1 tab PO HS PRN 01/16/17 11/27/18 [Tylenol PM 500-25mg] Lisinopril [Zestril] 5 mg PO DAILY 01/16/17 11/27/18 Melatonin 3 mg PO HS 01/16/17 11/27/18 Apixaban [Eliquis] 5 mg PO BID 11/17/18 11/27/18 Cholecalciferol [Vitamin D3] 1,000 unit PO DAILY 11/17/18 11/27/18 Ferrous Sulfate [Feosol] 325 mg PO DAILY 11/17/18 11/27/18 Montelukast [Singulair] 10 mg PO HS 11/17/18 11/27/18 Furosemide [Lasix] 40 mg PO BID 11/25/18 11/27/18 traMADol HCL [Ultram] 50 mg PO Q6HR PRN 11/25/18 11/27/18 Previous Rx's Medication Instructions Recorded Aspirin EC [Ecotrin Low Dose] 81 mg PO DAILY #60 tablet. 07/23/15 Metoprolol Tartrate [Lopressor] 50 mg PO TID #90 tab 07/23/15 Budesonide-Formot 160-4.5 Mcg 2 puff INHALATION RT-BID #60 puff 07/29/15 [Symbicort 160-4.5 Mcg Inhaler] Pantoprazole [Protonix] 40 mg PO BID #60 tablet. 01/21/17 Potassium Chloride ER [K-Dur 20] 20 meq PO DAILY #30 tab 01/21/17 Tiotropium 18 Mcg/Puff [Spiriva] 1 puff INHALATION RT-DAILY inhaler 01/21/17 Sulfamethox-Tmp 800-160Mg [Bactrim 2 each PO Q12HR #40 tab 11/25/18 DS 800-160 mg] Allergies Allergy/AdvReac Type Severity Reaction Status Date / Time No Known Allergies Allergy Verified 11/25/18 15:58 Review of Systems ROS Other: All systems not noted in ROS Statement are negative. <Emerson Kemp - Last Filed: 11/27/18 16:08> ROS Other: All systems not noted in ROS Statement are negative. <Marty Raines - Last Filed: 11/28/18 00:15> ROS Statement: Those systems with pertinent positive or pertinent negative responses have been documented in the HPI. Past Medical History Past Medical History: Atrial Fibrillation, COPD, CVA/TIA, Hyperlipidemia, Hypertension, Osteoarthritis (OA), Pneumonia Additional Past Medical History / Comment(s): ETOH stated drinks 1-2 a day but has'nt drank in 1.5 weeks. 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 History of Any Multi-Drug Resistant Organisms: None Reported Past Surgical History: Back Surgery, Hysterectomy, Orthopedic Surgery, Tonsillectomy Additional Past Surgical History / Comment(s): BILATERAL HIP replacments, lt KNEE replacment, right SHOULDER SURGERY, hedy cataracts, enucleation of lt eye with implant Past Anesthesia/Blood Transfusion Reactions: No Reported Reaction Past Psychological History: No Psychological Hx Reported Smoking Status: Former smoker Past Alcohol Use History: Rare Past Drug Use History: None Reported - Past Family History Mother Family Medical History: Myocardial Infarction ([place]) Father Family Medical History: Cancer <Marty Raines - Last Filed: 11/28/18 00:15> General Exam <Emerson Kemp - Last Filed: 11/27/18 16:08> Limitations: no limitations <Marty Raines - Last Filed: 11/28/18 00:15> - General Exam Comments Initial Comments: Constitutional: NAD, AOX3, Pt has pleasant affect. HEENT: NC/AT, trachea midline, neck supple, no lymphadenopathy. Posterior pharynx non erythematous, without exudates. External ears appear normal, without discharge. Mucous membranes moist. Eyes PERRLA, EOM intact. There is no scleral icterus. No pallor noted. Cardiopulmonary: RRR, no murmurs, rubs or gallops, no JVD noted. Lungs CTAB in anterior and posterior partida. Abdominal exam: Abdomen soft and non-distended. Abdomen non-tender to palpation in all 4 quadrants. Bowel sounds active in LLQ. No hepatosplenomegaly. No ecchymosis Neuro: CN II-XII grossly intact. No nuchal rigidity. MSK: Right lower extremity swelling, +1 pitting edema. Anterior aspect of tibia is mildly erythematous. Mildly warm to touch. Healing ecchymosis from fall. Posterior calf is nontender to palpation. Posterior knee mildly tender to palpation. Anterior tibia mildly tender to palpation. Patient has a full range of motion right lower extremity. Patient is ambulatory. Distal pulses intact. Sensation intact. (Marty Raines) Vital Signs 11/27/18 11/27/18 11/27/18 12:54 15:33 20:11 Temperature 97.9 F Pulse Rate 100 97 94 Respiratory 18 18 20 Rate Blood Pressure 107/67 120/58 154/89 O2 Sat by Pulse 98 100 94 L Oximetry Medical Decision Making - Lab Data Result diagrams: 11/27/18 14:27 11/27/18 14:27 <Emerson Kemp - Last Filed: 11/27/18 16:08> - Lab Data Result diagrams: 11/27/18 14:27 11/27/18 14:27 <Marty Raines - Last Filed: 11/28/18 00:15> - Medical Decision Making Chart reviewed. Case discussed in detail with Dr. Sung, covering for Dr. nicole, who will admit. (Emerson Kemp) 78-year-old female patient presents to ED for right lower extremity swelling, redness. Patient states this has been present for approximately 10 days, stemming from a mechanical fall in which she is evaluated in the ED and shown to have no osseous abnormality. Patient has had persistent right lower extremity swelling and redness for this time. Patient is a past history of CVA , CHF, atrial fibrillation on eliquis. Patient was seen on 11/25/18 for this problem and diagnosed with cellulitis and started on Bactrim. Patient has been taking Bactrim and states that the redness has not improved. She denies other symptoms. Patient vital signs stable afebrile. Physical exam displayed: Right lower extremity swelling, +1 pitting edema. Anterior aspect of tibia is mildly erythematous. Mildly warm to touch. Healing ecchymosis from fall. Posterior calf is nontender to palpation. Posterior knee mildly tender to palpation. Anterior tibia mildly tender to palpation. Patient states that symptoms have remained the same since her last visit the hospital, did not worsen. O2 investigations revealed a mild increase in white blood cell count of 11.4. Coagulation studies were within normal limits. CMP revealed a mildly increased creatinine from prior visit. BNP was wnl. UA displayed UTI. Patient to be admitted for cellulitis. Patient began on 1 g 3 times a day. This will also cover patient urinary tract infection. Case discussed in depth with Dr. Kemp and pt admissted to Dr. Sims. (Marty Raines) - Lab Data Lab Results 11/27/18 11/27/18 11/27/18 Range/Units 14:27 14:27 14:27 WBC 11.4 H (3.8-10.6) k/uL RBC 3.62 L (3.80-5.40) m/uL Hgb 11.2 L (11.4-16.0) gm/dL Hct 34.3 (34.0-46.0) % MCV 94.8 (80.0-100.0) fL MCH 30.8 (25.0-35.0) pg MCHC 32.5 (31.0-37.0) g/dL RDW 14.8 (11.5-15.5) % Plt Count 462 H (150-450) k/uL Neutrophils % 79 % Lymphocytes % 12 % Monocytes % 6 % Eosinophils % 2 % Basophils % 0 % Neutrophils # 8.9 H (1.3-7.7) k/uL Lymphocytes # 1.4 (1.0-4.8) k/uL Monocytes # 0.6 (0-1.0) k/uL Eosinophils # 0.2 (0-0.7) k/uL Basophils # 0.0 (0-0.2) k/uL PT (9.0-12.0) sec INR (<1.2) APTT (22.0-30.0) sec Sodium 136 L (137-145) mmol/L Potassium 4.0 (3.5-5.1) mmol/L Chloride 97 L (98-107) mmol/L Carbon Dioxide 29 (22-30) mmol/L Anion Gap 10 mmol/L BUN 21 H (7-17) mg/dL Creatinine 1.21 H (0.52-1.04) mg/dL Est GFR (CKD-EPI)AfAm 49 (>60 ml/min/1.73 sqM) Est GFR (CKD-EPI)NonAf 43 (>60 ml/min/1.73 sqM) Glucose 111 H (74-99) mg/dL Calcium 9.2 (8.4-10.2) mg/dL Total Bilirubin 1.1 (0.2-1.3) mg/dL AST 43 H (14-36) U/L ALT 25 (9-52) U/L Alkaline Phosphatase 93 (38-126) U/L NT-Pro-B Natriuret Pep 3210 pg/mL Total Protein 6.5 (6.3-8.2) g/dL Albumin 3.8 (3.5-5.0) g/dL 11/27/18 Range/Units 14:27 WBC (3.8-10.6) k/uL RBC (3.80-5.40) m/uL Hgb (11.4-16.0) gm/dL Hct (34.0-46.0) % MCV (80.0-100.0) fL MCH (25.0-35.0) pg MCHC (31.0-37.0) g/dL RDW (11.5-15.5) % Plt Count (150-450) k/uL Neutrophils % % Lymphocytes % % Monocytes % % Eosinophils % % Basophils % % Neutrophils # (1.3-7.7) k/uL Lymphocytes # (1.0-4.8) k/uL Monocytes # (0-1.0) k/uL Eosinophils # (0-0.7) k/uL Basophils # (0-0.2) k/uL PT 10.9 (9.0-12.0) sec INR 1.0 (<1.2) APTT 25.7 (22.0-30.0) sec Sodium (137-145) mmol/L Potassium (3.5-5.1) mmol/L Chloride (98-107) mmol/L Carbon Dioxide (22-30) mmol/L Anion Gap mmol/L BUN (7-17) mg/dL Creatinine (0.52-1.04) mg/dL Est GFR (CKD-EPI)AfAm (>60 ml/min/1.73 sqM) Est GFR (CKD-EPI)NonAf (>60 ml/min/1.73 sqM) Glucose (74-99) mg/dL Calcium (8.4-10.2) mg/dL Total Bilirubin (0.2-1.3) mg/dL AST (14-36) U/L ALT (9-52) U/L Alkaline Phosphatase (38-126) U/L NT-Pro-B Natriuret Pep pg/mL Total Protein (6.3-8.2) g/dL Albumin (3.5-5.0) g/dL Disposition <Emerson Kemp - Last Filed: 11/27/18 16:08> Is patient prescribed a controlled substance at d/c from ED?: No <Marty Raines - Last Filed: 11/28/18 00:15> Clinical Impression: Cellulitis Disposition: ADMITTED IP TO THIS HOSP Condition: Serious
[2018-11-27] MEDS ORDERED: ceFAZolin 1,000 MG in DEXTROSE/WATER 1 50ML.BAG IVPB STA (14:10)
[2018-11-27 14:54] LABS: Basophils % (A) 0 %; Eosinophils # (A) 0.2 k/uL (0-0.7); Eosinophils % (A) 2 %; HCT 34.3 % (34.0-46.0); HGB 11.2 gm/dL (11.4-16.0); Lymphocytes # (A) 1.4 k/uL (1.0-4.8); Lymphocytes % (A) 12 %; MCH 30.8 pg (25.0-35.0); MCHC 32.5 g/dL (31.0-37.0); MCV 94.8 fL (80.0-100.0); Mean Platelet Volume 6.8; Monocytes # (A) 0.6 k/uL (0-1.0); Monocytes % (A) 6 %; Neutrophils # (A) 8.9 k/uL (1.3-7.7); Neutrophils % (A) 79 %; Platelet Count 462 k/uL (150-450); RBC 3.62 m/uL (3.80-5.40); RDW 14.8 % (11.5-15.5); WBC 11.4 k/uL (3.8-10.6)
[2018-11-27 15:04] LABS: Albumin 3.8 g/dL (3.5-5.0); Calcium 9.2 mg/dL (8.4-10.2); Total Bilirubin 1.1 mg/dL (0.2-1.3); Total Protein 6.5 g/dL (6.3-8.2)
[2018-11-27 15:05] LABS: Partial Thromboplastin Time 25.7 sec (22.0-30.0); Prothrombin Time 10.9 sec (9.0-12.0)
--- NOTE | 2018-11-27 15:07 | XR ---
EXAMINATION TYPE: XR chest 2V DATE OF EXAM: 11/27/2018 COMPARISON: Chest x-ray from 2 days ago. HISTORY: Chest pain with bilateral leg swelling TECHNIQUE: Frontal and lateral views of the chest are obtained. FINDINGS: There is chronic change without suspicious new focal air space opacity, pleural effusion, or pneumothorax seen. The cardiac silhouette size remains enlarged. The osseous structures remain demineralized. There is partial visualization of surgical change right shoulder level. Degenerative c hanges left shoulder are noted. IMPRESSION: Chronic parenchymal change and cardiomegaly without acute pulmonary process. No signific ant change from prior.
--- NOTE | 2018-11-27 16:49 | US ---
EXAMINATION TYPE: US venous doppler duplex LE DATE OF EXAM: 11/27/2018 4:35 PM COMPARISON: US 2019 CLINICAL HISTORY: Pain. Right leg pain, patient on blood thinners SIDE PERFORMED: Bilateral TECHNIQUE: The lower extremity deep venous system is examined utilizing real time linear array sonog russell with graded compression, doppler sonography and color-flow sonography. VESSELS IMAGED: External Iliac Vein (EIV) Common Femoral Vein Deep Femoral Vein Greater Saphenous Vein * Femoral Vein Popliteal Vein Small Saphenous Vein * Proximal Calf Veins (* superficial vessels) Difficult and limited study due to patient body habitus Right and left mid and distal femoral vein compression images not done due to patient unable to jose a ate probe pressure. Right popliteal vein only imaged with transverse color images due to swelling behind knee unable to t urn probe into sagittal plane and right popliteal vein compression images not done due to patient deborah ble to tolerate probe pressure. Right Leg: Visualized portions appear negative for DVT Left Leg: Visualized portions appear negative for DVT IMPRESSION: Suboptimal exam as the patient was unable to tolerate compression on the right. Otherwis e the exam demonstrates no evidence of deep venous thrombosis within the bilateral lower extremities.
[2018-11-27] MEDS ORDERED: NALOXONE 0.4 MG/ML 1 ML VIAL IV PRN (16:56)
[2018-11-27] MEDS ORDERED: ACETAMINOPHEN TAB 325 MG TAB PO PRN (16:56)
[2018-11-27 18:09] LABS: Appearance,Urine Clear (Clear); Bilirubin,Urine Negative (Negative); Blood,Urine Negative (Negative); Color,Urine Yellow; Glucose,Urine (UA) Negative (Negative); Ketones,Urine Negative (Negative); Leukocyte Esterase,Urine Large (Negative); Nitrite,Urine Negative (Negative); PH, Urine 6.5 (5.0-8.0); Protein,Urine Negative (Negative); RBC,Urine 2 /hpf (0-5); Squamous Epithelial Cell,Urine 1 /hpf (0-4)
[2018-11-27] MEDS: SODIUM CHLORIDE 0.9% 1,000 ML IV SCH (23:36)
[2018-11-27] MEDS: ceFAZolin 1,000 MG in DEXTROSE/WATER 1 50ML.BAG IVPB SCH (23:36)
[2018-11-28] MEDS ORDERED: ALBUTEROL NEBULIZED 2.5 MG/3 ML INHALATION PRN (01:35)
[2018-11-28] MEDS: METOPROLOL TARTRATE 50 MG TAB PO SCH ×4 (02:04→22:24)
[2018-11-28] MEDS: MONTELUKAST 10 MG TAB PO SCH ×2 (02:04→22:27)
[2018-11-28] MEDS: MELATONIN 3 MG TABLET PO SCH ×2 (02:04→22:26)
[2018-11-28] MEDS: traMADol 50 MG TAB PO PRN ×3 (02:05→22:04)
[2018-11-28] MEDS: LISINOPRIL 5 MG TAB PO SCH (07:17)
[2018-11-28] MEDS: APIXABAN 5 MG TAB PO SCH ×2 (07:17→22:26)
[2018-11-28] MEDS: PANTOPRAZOLE 40 MG TABLET PO SCH ×2 (07:18→22:24)
[2018-11-28] MEDS: CHOLECALCIFEROL 1,000 UNIT TAB PO SCH (07:18)
[2018-11-28] MEDS: POTASSIUM CHLORIDE ER 20 MEQ TAB.ER PO SCH (07:18)
[2018-11-28] MEDS: ASPIRIN 81 MG PO SCH (07:19)
[2018-11-28] MEDS: FERROUS SULFATE 325 MG TAB PO SCH (07:19)
[2018-11-28] MEDS: ceFAZolin 1,000 MG in DEXTROSE/WATER 1 50ML.BAG IVPB SCH ×2 (07:24→16:28)
[2018-11-28 07:48] LABS: Basophils % (A) 0 %; Eosinophils # (A) 0.2 k/uL (0-0.7); Eosinophils % (A) 2 %; HCT 32.6 % (34.0-46.0); HGB 10.1 gm/dL (11.4-16.0); Lymphocytes % (A) 12 %; MCHC 31.1 g/dL (31.0-37.0); MCV 96.4 fL (80.0-100.0); Mean Platelet Volume 6.8; Monocytes # (A) 0.6 k/uL (0-1.0); Monocytes % (A) 7 %; Neutrophils # (A) 6.5 k/uL (1.3-7.7); Neutrophils % (A) 77 %; Platelet Count 412 k/uL (150-450); RBC 3.38 m/uL (3.80-5.40); RDW 14.8 % (11.5-15.5); WBC 8.5 k/uL (3.8-10.6)
[2018-11-28 07:49] LABS: Albumin 3.3 g/dL (3.5-5.0); Potassium 4.1 mmol/L (3.5-5.1); Total Protein 5.7 g/dL (6.3-8.2)
[2018-11-28] MEDS: SYMBICORT 160-4.5 MCG INHALER INHALATION SCH ×2 (08:44→19:26)
[2018-11-28] MEDS ORDERED: FUROSEMIDE 40 MG TAB PO SCH (09:00)
--- NOTE | 2018-11-28 12:51 | P.HPIM ---
History of Present Illness H&P Date: 11/28/18 Chief Complaint: Right leg cellulitis and bruising This is a 78-year-old female, patient of Dr. Tobar. 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 Patient presents to the emergency room with complaints of right leg pain and swelling. Patient reports symptoms started about 2 weeks ago after a fall. She reports she was walking in her house and was rushing to get her things together to go visit her son in the hospital. She fell landing on her right knee. She initially went to the ER and had x-rays obtained which were negative for any fracture. And then she had to go back to the ER because she started having increasing's redness in the area as well as bruising and blisterlike formation with edema. At that time they started her on Bactrim also her PCP had given her increase in her Lasix. Patient took the Bactrim for 2 days with no improvement. She reports increase in swelling in her knee bruising and redness down in from the knee and into the tibia area. She came into the emergency room for further evaluation and treatment. Dopplers were obtained of the legs and there were negative bilaterally for any DVTs with suboptimal imaging. X-ray of the right tibia fibula every second showed no fracture. White count on admission was 11.4 which has normalized to 8.5. Hemoglobin is 11.2-10.1 and creatinine 1.21 down to 1.13. Bactrim was discontinued just was started on Kefzol in the ER. Infectious disease will be consulted. Patient does report a history of COPD and has been having a cough chest x-ray is negative for any acute changes. She is requesting pulmonary consult she usually sees Dr. Mendez in the office. Consult has been placed for Dr. Mcneal who is on-call this week. Patient denies any fever, chills, sweats, nausea or vomiting, bowel movement changes or urinary symptoms. Denies any chest pain or shortness of breath. She was found have evidence of a urinary tract infection culture has been obtained. Review of Systems Please refer to HPI otherwise unremarkable Past Medical History Past Medical History: Atrial Fibrillation, COPD, CVA/TIA, Hyperlipidemia, Hypertension, Osteoarthritis (OA), Pneumonia Additional Past Medical History / Comment(s): ETOH stated drinks 1-2 a day but has'nt drank in 1.5 weeks. 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 History of Any Multi-Drug Resistant Organisms: None Reported Past Surgical History: Back Surgery, Hysterectomy, Orthopedic Surgery, Tonsillectomy Additional Past Surgical History / Comment(s): BILATERAL HIP replacments, lt KNEE replacment, right SHOULDER SURGERY, hedy cataracts, enucleation of lt eye with implant Past Anesthesia/Blood Transfusion Reactions: No Reported Reaction Past Psychological History: No Psychological Hx Reported Smoking Status: Former smoker Past Alcohol Use History: Rare Past Drug Use History: None Reported - Past Family History Mother Family Medical History: Myocardial Infarction ([place]) Father Family Medical History: Cancer Medications and Allergies Home Medications Medication Instructions Recorded Confirmed Type Aspirin EC [Ecotrin Low Dose] 81 mg PO DAILY #60 tablet. 07/23/15 11/27/18 Rx Metoprolol Tartrate [Lopressor] 50 mg PO TID #90 tab 07/23/15 11/27/18 Rx Albuterol Nebulized [Ventolin 2.5 mg INHALATION RT-QID PRN 07/25/15 11/27/18 History Nebulized] Atorvastatin [Lipitor] 40 mg PO HS 07/25/15 11/27/18 History Budesonide-Formot 160-4.5 Mcg 2 puff INHALATION RT-BID #60 puff 07/29/15 Rx [Symbicort 160-4.5 Mcg Inhaler] Acetaminophen/Diphenhydramine 1 tab PO HS PRN 01/16/17 11/27/18 History [Tylenol PM 500-25mg] Lisinopril [Zestril] 5 mg PO DAILY 01/16/17 11/27/18 History Melatonin 3 mg PO HS 01/16/17 11/27/18 History Pantoprazole [Protonix] 40 mg PO BID #60 tablet. 01/21/17 11/27/18 Rx Potassium Chloride ER [K-Dur 20] 20 meq PO DAILY #30 tab 01/21/17 11/27/18 Rx Tiotropium 18 Mcg/Puff [Spiriva] 1 puff INHALATION RT-DAILY inhaler 01/21/17 Rx Apixaban [Eliquis] 5 mg PO BID 11/17/18 11/27/18 History Cholecalciferol [Vitamin D3] 1,000 unit PO DAILY 11/17/18 11/27/18 History Ferrous Sulfate [Feosol] 325 mg PO DAILY 11/17/18 11/27/18 History Montelukast [Singulair] 10 mg PO HS 11/17/18 11/27/18 History Furosemide [Lasix] 40 mg PO BID 11/25/18 11/27/18 History Sulfamethox-Tmp 800-160Mg [Bactrim 2 each PO Q12HR #40 tab 11/25/18 11/27/18 Rx DS 800-160 mg] traMADol HCL [Ultram] 50 mg PO Q6HR PRN 11/25/18 11/27/18 History Allergies Allergy/AdvReac Type Severity Reaction Status Date / Time No Known Allergies Allergy Verified 11/25/18 15:58 Physical Exam Vitals: Vital Signs Temp Pulse Pulse Resp BP BP Pulse Ox 11/28/18 09:03 98 11/28/18 08:45 100 11/28/18 08:00 17 11/28/18 07:00 97.7 F 105 H 17 130/87 94 L 11/27/18 23:00 98.1 F 118 H 18 113/74 93 L 11/27/18 21:35 97.9 F 117 H 14 111/70 94 L 11/27/18 20:11 94 20 154/89 94 L 11/27/18 15:33 97 18 120/58 100 11/27/18 12:54 97.9 F 100 18 107/67 98 Intake and Output 11/27/18 11/28/18 11/28/18 22:59 06:59 14:59 Intake Total 80 150 296 Balance 80 150 296 Intake: Amount of Fluid Infused ( 80 ml) Intake, IV Titration 150 Amount Sodium Chloride 0.9% 1, 100 000 ml @ 20 mls/hr IV . Q24H [facility] Rx#:[id number] ceFAZolin 1,000 mg In 50 Dextrose/Water 1 50ml.bag @ 100 mls/hr IVPB Q8HR [facility] Rx#:[id number] Oral 296 Other: Voiding Method Toilet Toilet # Voids 1 3 Head normocephalic Neck supple Lungs a few scattered wheezes noted bilaterally Heart regular rate and rhythm S1-S2, no rub or gallop Abdomen is soft nontender nondistended positive bowel sounds no hepatosplenomegaly Extremities right leg is edematous. Swelling noted in the right knee large hematoma on the right knee. Tender with palpation and movement. Neuro alert and orientated to 3 Results CBC & Chem 7: 11/28/18 06:57 11/28/18 06:57 Labs: Abnormal Lab Results - Last 24 Hours (Table) 11/27/18 11/27/18 11/27/18 Range/Units 14:27 14:27 17:43 WBC 11.4 H (3.8-10.6) k/uL RBC 3.62 L (3.80-5.40) m/uL Hgb 11.2 L (11.4-16.0) gm/dL Hct (34.0-46.0) % Plt Count 462 H (150-450) k/uL Neutrophils # 8.9 H (1.3-7.7) k/uL Sodium 136 L (137-145) mmol/L Chloride 97 L (98-107) mmol/L Carbon Dioxide (22-30) mmol/L BUN 21 H (7-17) mg/dL Creatinine 1.21 H (0.52-1.04) mg/dL Glucose 111 H (74-99) mg/dL AST 43 H (14-36) U/L Total Protein (6.3-8.2) g/dL Albumin (3.5-5.0) g/dL Ur Leukocyte Esterase Large H (Negative) Urine WBC 17 H (0-5) /hpf 11/28/18 11/28/18 Range/Units 06:57 06:57 WBC (3.8-10.6) k/uL RBC 3.38 L (3.80-5.40) m/uL Hgb 10.1 L (11.4-16.0) gm/dL Hct 32.6 L (34.0-46.0) % Plt Count (150-450) k/uL Neutrophils # (1.3-7.7) k/uL Sodium 135 L (137-145) mmol/L Chloride (98-107) mmol/L Carbon Dioxide 32 H (22-30) mmol/L BUN 18 H (7-17) mg/dL Creatinine 1.13 H (0.52-1.04) mg/dL Glucose (74-99) mg/dL AST 40 H (14-36) U/L Total Protein 5.7 L (6.3-8.2) g/dL Albumin 3.3 L (3.5-5.0) g/dL Ur Leukocyte Esterase (Negative) Urine WBC (0-5) /hpf Microbiology - Last 24 Hours (Table) 11/27/18 17:43 Urine Culture - Preliminary Urine,Voided Thrombosis Risk Factor Assmnt - Choose All That Apply Each Factor Represents 1 point: Abnormal pulmonary function (COPD), Obesity ( BMI >25), Swollen legs (current) Each Risk Factor Represents 3 Points: Age 75 years or older Thrombosis Risk Factor Assessment Total Risk Factor Score: 6 Thrombosis Risk Factor Assessment Level: High Risk Assessment and Plan Assessment: 1. Right leg cellulitis and hematoma of the knee after a fall: Keep legs elevated. Continue the IV Kefzol 1 g every 8 hours. Consult infectious disease. X-ray of the right tibia fibula on ferrous echo was negative for any fractures. Venous Doppler bilateral lower extremities was suboptimal, findings negative for DVT 2. Acute kidney injury: Creatinine 1.21 on admission down to 1.13. Likely related to increase in diuretics and Bactrim. Bactrim was discontinued. Continue to monitor closely while on her home dose of Lasix. Fluids are currently KVO 3. UTI: Continue current antibiotics. Check urine culture. Patient asymptomatic. 4. Mild COPD exacerbation: Patient does have wheezing on exam. She does report cough. Chest x-ray showing no acute changes. Patient requesting pulmonary consult. She is a patient of Dr. Mendez. Resume inhalers. Add nebulizer treatments 5. History of chronic atrial fibrillation: Anticoagulated with eliquis 6. History of CVA 7. Prior history of daily alcohol use. Patient reports she does not drink as often anymore. Last alcoholic beverage was around Dhiraj time per patient 8. Hypertension 9. Hyperlipidemia 10. History of gastric antral ulcers requiring cauterization. Continue Protonix GI prophylaxis Protonix and DVT prophylaxis Eliquis Time with Patient: Greater than 30 (Greater than 50% of the total time spent in counseling and coordination of care.I performed an examination of the patient and discussed their management with the physician Pipe Foreman. I have reviewed the Physician Pipe Foreman's notes and agree with the documented findings and plan of care)
[2018-11-28] MEDS: IPRATROPIUM-ALBUTEROL 3 ML NEB INHALATION SCH ×2 (16:16→19:26)
[2018-11-28] MEDS: DOCUSATE 100 MG CAP PO SCH (22:23)
[2018-11-28] MEDS: ATORVASTATIN 40 MG TAB PO SCH (22:26)
[2018-11-29] MEDS ORDERED: ceFAZolin 2,000 MG in DEXTROSE/WATER 1 50ML.BAG IVPB SCH
[2018-11-29] MEDS: ceFAZolin IN SWFI 2 GM/20 ML SYRINGE IVP SCH ×3 (00:16→16:45)
[2018-11-29] MEDS: HYDROmorphone 0.5 MG/0.5 ML SYRINGE IVP PRN ×3 (00:16→22:52)
[2018-11-29] MEDS: SODIUM CHLORIDE 0.9% 1,000 ML IV SCH ×2 (01:08→17:18)
[2018-11-29] MEDS: LISINOPRIL 5 MG TAB PO SCH (08:46)
[2018-11-29] MEDS: PANTOPRAZOLE 40 MG TABLET PO SCH ×2 (08:46→22:16)
[2018-11-29] MEDS: METOPROLOL TARTRATE 50 MG TAB PO SCH ×3 (08:46→22:15)
[2018-11-29] MEDS: FERROUS SULFATE 325 MG TAB PO SCH (08:46)
[2018-11-29] MEDS: FUROSEMIDE 40 MG TAB PO SCH (08:46)
[2018-11-29] MEDS: DOCUSATE 100 MG CAP PO SCH ×2 (08:46→22:14)
[2018-11-29] MEDS: CHOLECALCIFEROL 1,000 UNIT TAB PO SCH (08:46)
[2018-11-29] MEDS: ASPIRIN 81 MG PO SCH (08:47)
[2018-11-29] MEDS: APIXABAN 5 MG TAB PO SCH ×2 (08:47→22:16)
[2018-11-29] MEDS: POTASSIUM CHLORIDE ER 20 MEQ TAB.ER PO SCH (08:47)
[2018-11-29] MEDS: SYMBICORT 160-4.5 MCG INHALER INHALATION SCH ×2 (08:57→19:23)
[2018-11-29] MEDS: IPRATROPIUM-ALBUTEROL 3 ML NEB INHALATION SCH ×4 (08:57→19:23)
[2018-11-29 09:55] LABS: Basophils % (A) 0 %; Eosinophils # (A) 0.2 k/uL (0-0.7); Eosinophils % (A) 3 %; Hypochromasia Slight; Lymphocytes % (A) 14 %; MCH 30.9 pg (25.0-35.0); MCHC 31.4 g/dL (31.0-37.0); MCV 98.3 fL (80.0-100.0); Macrocytosis Slight; Mean Platelet Volume 6.7; Monocytes # (A) 0.4 k/uL (0-1.0); Monocytes % (A) 5 %; Neutrophils # (A) 5.5 k/uL (1.3-7.7); Neutrophils % (A) 76 %; Platelet Count 405 k/uL (150-450); RBC 3.55 m/uL (3.80-5.40); RDW 15.1 % (11.5-15.5); WBC 7.2 k/uL (3.8-10.6)
[2018-11-29 10:35] LABS: Albumin 3.4 g/dL (3.5-5.0); Calcium 9.1 mg/dL (8.4-10.2); Potassium 3.8 mmol/L (3.5-5.1); Total Bilirubin 0.8 mg/dL (0.2-1.3)
[2018-11-29] MEDS: traMADol 50 MG TAB PO PRN ×2 (11:36→19:00)
[2018-11-29] MEDS ORDERED: LACTULOSE 20 GM/30 ML CUP PO ONE (11:45)
[2018-11-29] MEDS ORDERED: HYDROcodone/APAP 7.5-325MG 1 EACH TAB PO PRN (11:47)
--- NOTE | 2018-11-29 12:35 | P.PN ---
Subjective Progress Note Date: 11/29/18 This is a 78-year-old female, patient of Dr. Tobar. 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 Patient presents to the emergency room with complaints of right leg pain and swelling. Patient reports symptoms started about 2 weeks ago after a fall. She reports she was walking in her house and was rushing to get her things together to go visit her son in the hospital. She fell landing on her right knee. She initially went to the ER and had x-rays obtained which were negative for any fracture. And then she had to go back to the ER because she started having increasing's redness in the area as well as bruising and blisterlike formation with edema. At that time they started her on Bactrim also her PCP had given her increase in her Lasix. Patient took the Bactrim for 2 days with no improvement. She reports increase in swelling in her knee bruising and redness down in from the knee and into the tibia area. She came into the emergency room for further evaluation and treatment. Dopplers were obtained of the legs and there were negative bilaterally for any DVTs with suboptimal imaging. X-ray of the right tibia fibula every second showed no fracture. White count on admission was 11.4 which has normalized to 8.5. Hemoglobin is 11.2-10.1 and creatinine 1.21 down to 1.13. Bactrim was discontinued just was started on Kefzol in the ER. Infectious disease will be consulted. Patient does report a history of COPD and has been having a cough chest x-ray is negative for any acute changes. She is requesting pulmonary consult she usually sees Dr. Mendez in the office. Consult has been placed for Dr. Mcneal who is on-call this week. Patient denies any fever, chills, sweats, nausea or vomiting, bowel movement changes or urinary symptoms. Denies any chest pain or shortness of breath. She was found have evidence of a urinary tract infection culture has been obtained. On 11/29/2018 patient is currently alert and oriented 3 sitting up in chair. This time patient is still complaining of some leg discomfort. Patient denies chest pain or shortness breath. Patient denies nausea vomiting or diarrhea. Patient denies any urinary burning or frequency. Will add lactulose one-time order for constipation. Objective - Vital Signs Vital signs: Vital Signs Temp 98.0 F 11/29/18 07:45 Pulse 94 11/29/18 12:19 Resp 16 11/29/18 07:45 BP 103/58 11/29/18 07:45 Pulse Ox 92 L 11/29/18 07:45 Intake & Output 11/28/18 11/29/18 11/29/18 18:59 06:59 18:59 Intake Total 948 200 Output Total 1 Balance 948 199 Weight 111.4 kg Intake: Intake, IV Titration 200 Amount Sodium Chloride 0.9% 1, 200 000 ml @ 20 mls/hr IV . Q24H [facility] Rx#:[id number] Oral 948 Output: Urine 1 Other: Voiding Method Toilet Toilet Toilet # Voids 2 # Bowel Movements 0 - Exam Head normocephalic Neck supple Lungs a few scattered wheezes noted bilaterally Heart regular rate and rhythm S1-S2, no rub or gallop Abdomen is soft nontender nondistended positive bowel sounds no hepatosplenomegaly Extremities right leg is edematous. Swelling noted in the right knee large hematoma on the right knee. Tender with palpation and movement. Neuro alert and orientated to 3 - Labs CBC & Chem 7: 11/29/18 09:36 11/29/18 09:36 Labs: Abnormal Lab Results - Last 24 Hours (Table) 11/29/18 11/29/18 Range/Units 09:36 09:36 RBC 3.55 L (3.80-5.40) m/uL Hgb 11.0 L (11.4-16.0) gm/dL Sodium 136 L (137-145) mmol/L Glucose 155 H (74-99) mg/dL AST 38 H (14-36) U/L Total Protein 6.0 L (6.3-8.2) g/dL Albumin 3.4 L (3.5-5.0) g/dL Microbiology - Last 24 Hours (Table) 11/27/18 17:43 Urine Culture - Final Urine,Voided 11/27/18 14:27 Blood Culture - Preliminary Blood No Growth after 24 hours Assessment and Plan Assessment: 1. Right leg cellulitis and hematoma of the knee after a fall: Keep legs elevated. Continue the IV Kefzol 1 g every 8 hours. Consult infectious disease. X-ray of the right tibia fibula on ferrous echo was negative for any fractures. Venous Doppler bilateral lower extremities was suboptimal, findings negative for DVT 2. Acute kidney injury: Creatinine 1.21 on admission down to 1.13. Likely related to increase in diuretics and Bactrim. Bactrim was discontinued. Continue to monitor closely while on her home dose of Lasix. Fluids are currently KVO 3. UTI: Continue current antibiotics. Check urine culture. Patient asymptomatic. 4. Mild COPD exacerbation: Patient does have wheezing on exam. She does report cough. Chest x-ray showing no acute changes. Patient requesting pulmonary consult. She is a patient of Dr. Mendez. Resume inhalers. Add nebulizer treatments 5. History of chronic atrial fibrillation: Anticoagulated with eliquis 6. History of CVA 7. Prior history of daily alcohol use. Patient reports she does not drink as often anymore. Last alcoholic beverage was around Dhiraj time per patient 8. Hypertension 9. Hyperlipidemia 10. History of gastric antral ulcers requiring cauterization. Continue Protonix GI prophylaxis Protonix and DVT prophylaxis Eliquis Physical therapy consulted I performed an examination of the patient and discussed their management with the Nurse Practitioner. I have reviewed the Nurse Practitioner's notes and agree with the documented findings and plan of care
--- NOTE | 2018-11-29 17:02 | P.CNPUL ---
History of Present Illness Consult date: 11/29/18 Requesting physician: Dar Sung Reason for consult: other Chief complaint: Right knee cellulitis, swelling and pain History of present illness: This is a 78-year-old white female patient of Dr. Tobar, past medical history of hypertension, hyperlipidemia, COPD, previous history of CVA/TIA, atrial fibrillation, previous episodes of pneumonia, osteoarthritis. Patient presents to the hospital on 11/27/2018 for evaluation of right knee and right lower leg swelling, redness. Patient sustained a fall at home a week ago, he was mechanical in nature, no loss of consciousness, no lightheadedness or dizziness. Patient was rushing to the phone, she usually walks with a walker, and she lost her balance and fell on her right knee, sustaining an injury. The next day patient did come into the ER for evaluation, x-rays of the right knee were taken, which showed no acute fracture/dislocation, there was severe degenerative narrowing involving all components of the right knee. Overlying soft tissue appeared unremarkable. She and was sent home with some pain medications. That was on 11/17/2018. Patient came back to the emergency department on 11/25/2018 with complaints of worsening swelling of the right knee , and blister development. She was also having increased pain. Primary care physician increased patient's Lasix with the hopes of decreasing the swelling with no improvement. Patient denied any fevers, chills. No cough, no chest pain or dyspnea. Ultrasound was negative for any evidence of DVT in the right leg. Repeat x-ray of the right leg showed some soft tissue edema otherwise no acute abnormality. Chest x-ray showed no acute process. Patient was sent home on oral Bactrim DS for the cellulitis in the right lower extremity. Despite the treatment the pain and swelling in the right leg not improve, and patient came back for further evaluation. Venous Doppler of bilateral lower extremities were negative for DVTs. Chest x-ray on cardiomegaly without acute pulmonary process. Lab work on admission showed white blood cell count of 11.4 , hemoglobin of 11.2, sodium was 136, potassium is 4.0, chloride is 97, B1 is 21 and creatinine was 1.21, proBNP was 3210. Patient was started on IV Kefzol, and admitted for inpatient treatment. She does have a mild cough, and some wheezing, in no acute distress, room air pulse ox is 92%, a baseline patient is not oxygen dependent. Her maintenance inhalers include Spiriva and Symbicort and nebulilzed treatments. Review of Systems All systems: negative Constitutional: Denies chills, Denies fever Eyes: denies blurred vision, denies pain Ears, nose, mouth and throat: Denies headache, Denies sore throat Cardiovascular: Denies chest pain, Denies shortness of breath Respiratory: Reports cough with sputum, Reports wheezing, Denies cough Gastrointestinal: Denies abdominal pain, Denies diarrhea, Denies nausea, Denies vomiting Genitourinary: Denies dysuria, Denies hematuria Musculoskeletal: Denies myalgias Integumentary: Denies pruritus, Denies rash Neurological: Denies numbness, Denies weakness Psychiatric: Denies anxiety, Denies depression Endocrine: Denies fatigue, Denies weight change Past Medical History Past Medical History: Atrial Fibrillation, COPD, CVA/TIA, Hyperlipidemia, Hypertension, Osteoarthritis (OA), Pneumonia Additional Past Medical History / Comment(s): ETOH stated drinks 1-2 a day but has'nt drank in 1.5 weeks. 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 History of Any Multi-Drug Resistant Organisms: None Reported Past Surgical History: Back Surgery, Hysterectomy, Orthopedic Surgery, Tonsillectomy Additional Past Surgical History / Comment(s): BILATERAL HIP replacments, lt KNEE replacment, right SHOULDER SURGERY, hedy cataracts, enucleation of lt eye with implant Past Anesthesia/Blood Transfusion Reactions: No Reported Reaction Past Psychological History: No Psychological Hx Reported Smoking Status: Former smoker Past Alcohol Use History: Rare Past Drug Use History: None Reported - Past Family History Mother Family Medical History: Myocardial Infarction ([place]) Father Family Medical History: Cancer Medications and Allergies Home Medications Medication Instructions Recorded Confirmed Type Aspirin EC [Ecotrin Low Dose] 81 mg PO DAILY #60 tablet. 07/23/15 11/27/18 Rx Metoprolol Tartrate [Lopressor] 50 mg PO TID #90 tab 07/23/15 11/27/18 Rx Albuterol Nebulized [Ventolin 2.5 mg INHALATION RT-QID PRN 07/25/15 11/27/18 History Nebulized] Atorvastatin [Lipitor] 40 mg PO HS 07/25/15 11/27/18 History Budesonide-Formot 160-4.5 Mcg 2 puff INHALATION RT-BID #60 puff 07/29/15 Rx [Symbicort 160-4.5 Mcg Inhaler] Acetaminophen/Diphenhydramine 1 tab PO HS PRN 01/16/17 11/27/18 History [Tylenol PM 500-25mg] Lisinopril [Zestril] 5 mg PO DAILY 01/16/17 11/27/18 History Melatonin 3 mg PO HS 01/16/17 11/27/18 History Pantoprazole [Protonix] 40 mg PO BID #60 tablet.dr 01/21/17 11/27/18 Rx Potassium Chloride ER [K-Dur 20] 20 meq PO DAILY #30 tab 01/21/17 11/27/18 Rx Tiotropium 18 Mcg/Puff [Spiriva] 1 puff INHALATION RT-DAILY inhaler 01/21/17 Rx Apixaban [Eliquis] 5 mg PO BID 11/17/18 11/27/18 History Cholecalciferol [Vitamin D3] 1,000 unit PO DAILY 11/17/18 11/27/18 History Ferrous Sulfate [Feosol] 325 mg PO DAILY 11/17/18 11/27/18 History Montelukast [Singulair] 10 mg PO HS 11/17/18 11/27/18 History Furosemide [Lasix] 40 mg PO BID 11/25/18 11/27/18 History Sulfamethox-Tmp 800-160Mg [Bactrim 2 each PO Q12HR #40 tab 11/25/18 11/27/18 Rx DS 800-160 mg] traMADol HCL [Ultram] 50 mg PO Q6HR PRN 11/25/18 11/27/18 History Allergies Allergy/AdvReac Type Severity Reaction Status Date / Time No Known Allergies Allergy Verified 11/25/18 15:58 Physical Exam Vitals: Vital Signs Temp Pulse Pulse Resp BP Pulse Ox 11/29/18 16:09 97.8 F 108 H 16 106/59 11/29/18 12:19 94 11/29/18 12:12 93 11/29/18 09:07 92 11/29/18 08:58 90 11/29/18 07:45 98.0 F 103 H 16 103/58 92 L 11/28/18 23:00 97.8 F 99 17 115/59 94 L 11/28/18 19:37 89 11/28/18 19:30 98.0 F 100 18 111/76 93 L 11/28/18 19:29 98 Intake and Output 11/29/18 11/29/18 11/29/18 06:59 14:59 22:59 Intake Total 200 Balance 200 Intake: Intake, IV Titration 200 Amount Sodium Chloride 0.9% 1, 200 000 ml @ 20 mls/hr IV . Q24H [facility] Rx#:[id number] Other: Voiding Method Toilet Toilet # Voids 3 Weight 111.4 kg GENERAL EXAM: Alert, pleasant, 78-year-old white female patient, comfortable in no apparent distress. HEAD: Normocephalic/atraumatic. EYES: Normal reaction of pupils, equal size. Conjunctiva pink, sclera white. NOSE: Clear with pink turbinates. THROAT: No erythema or exudates. NECK: No masses, no JVD, no thyroid enlargement, no adenopathy. CHEST: No chest wall deformity. Symmetrical expansion. LUNGS: Equal air entry with a few scattered wheezes and rhonchi CVS: Irregular rate and rhythm, normal S1 and S2, no gallops, no murmurs, no rubs ABDOMEN: Soft, nontender. No hepatosplenomegaly, normal bowel sounds, no guarding or rigidity. EXTREMITIES: No clubbing, edema in the right knee and right lower extremity, with bruising, redness, on the right knee MUSCULOSKELETAL: Muscle strength and tone normal. SPINE: No scoliosis or deformity SKIN: No rashes CENTRAL NERVOUS SYSTEM: Alert and oriented -3. No focal deficits, tone is normal in all 4 extremities. PSYCHIATRIC: Alert and oriented -3. Appropriate affect. Intact judgment and insight. Results - Laboratory Findings CBC and BMP: 11/29/18 09:36 11/29/18 09:36 PT/INR, D-dimer PT 10.9 sec (9.0-12.0) 11/27/18 14:27 INR 1.0 (<1.2) 11/27/18 14:27 Abnormal lab findings: Abnormal Labs 11/27/18 11/27/18 11/27/18 14:27 14:27 17:43 WBC 11.4 H RBC 3.62 L Hgb 11.2 L Hct Plt Count 462 H Neutrophils # 8.9 H Sodium 136 L Chloride 97 L Carbon Dioxide BUN 21 H Creatinine 1.21 H Glucose 111 H AST 43 H Total Protein Albumin Ur Leukocyte Esterase Large H Urine WBC 17 H 11/28/18 11/28/18 11/29/18 06:57 06:57 09:36 WBC RBC 3.38 L 3.55 L Hgb 10.1 L 11.0 L Hct 32.6 L Plt Count Neutrophils # Sodium 135 L Chloride Carbon Dioxide 32 H BUN 18 H Creatinine 1.13 H Glucose AST 40 H Total Protein 5.7 L Albumin 3.3 L Ur Leukocyte Esterase Urine WBC 11/29/18 09:36 WBC RBC Hgb Hct Plt Count Neutrophils # Sodium 136 L Chloride Carbon Dioxide BUN Creatinine Glucose 155 H AST 38 H Total Protein 6.0 L Albumin 3.4 L Ur Leukocyte Esterase Urine WBC - Diagnostic Findings Chest x-ray: report reviewed, image reviewed Additional studies: Venous Dopplers of bilateral lower extremities reviewed Assessment and Plan Plan: Assessment: #1. Right leg and knee cellulitis, failed outpatient treatment #2. Mechanical fall a week ago sustaining injury to the right leg #3. Mild exacerbation of COPD #4. Chronic A. fib on oral anticoagulation #5. Acute kidney injury improving #6. History of CVA/TIA #7. Hypertension, hyperlipidemia #8. History of chronic congestive heart failure #9. History of bleeding gastric ulcers, status post cauterization Plan: Continue with current medical treatment, antibiotics, nebulized bronchodilators , Symbicort. And is anticoagulated for her A. fib, vital signs are stable, no fever or chill. ID service is managing the antibiotics. She is on oral diuretics, renal profile is improving. We'll continue to follow I performed a history & physical examination of the patient and discussed their management with my nurse practitioner, Meena Clark. I reviewed the nurse practitioner's note and agree with the documented findings and plan of care. Lung sounds are positive for some scattered wheezes. The findings and the impression was discussed with the patient. I attest to the documentation by the nurse practitioner. Time with Patient: Greater than 30
--- NOTE | 2018-11-29 17:08 | P.CONS ---
History of Present Illness - Reason for Consult Consult date: 11/28/18 Right leg cellulitis Requesting physician: Dar Sung - Chief Complaint Right leg pain and redness x 1 week - History of Present Illness Patient is a 78-year-old female with a past medical history significant for atrial fibrillation on anti-Coagulation in the form of Eliquis, the patient did have a fall about 2 weeks ago and the patient was trying to hurry things up patient did land on her right leg with significant bruising to the left leg and knee area, patient says she has been seen in the ER and has been treated with an oral antibiotic in the form of Bactrim DS however the patient did not have any improvement she continued to have more swelling redness and pain of the right leg that prompted her to come back into the ER, patient currently denies having any high-grade fever or chills she's been complaining of pain to the right leg is mostly dull aching 4-5 out of 10 and no radiation she did have significant swelling as well as bruising but no open skin or any drainage patient has been evaluated by the ER physician, on arrival to the ER the patient has been afebrile and remains to be afebrile the patient did have elevated white count of 11.4 creatinine was 1.21 the patient was started on cefazolin infectious disease was consulted for further recommendation regarding antibiotic therapy Review of Systems Review of system Constitutional: The patient denies any fever or rigors or chills, the patient does complain of weakness. Eyes: No complaint ENT: No complaint Respiratory: No complaint Cardiovascular: No complaint Gastrointestinal: No complaint Genitourinary: No complaint Musculoskeletal: As per history of present illness Integumentary: As per history of present illness Endocrine : No complaint Psycologial : No complaint Neurological: No complaint. Past Medical History Past Medical History: Atrial Fibrillation, COPD, CVA/TIA, Hyperlipidemia, Hypertension, Osteoarthritis (OA), Pneumonia Additional Past Medical History / Comment(s): ETOH stated drinks 1-2 a day but has'nt drank in 1.5 weeks. 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 History of Any Multi-Drug Resistant Organisms: None Reported Past Surgical History: Back Surgery, Hysterectomy, Orthopedic Surgery, Tonsillectomy Additional Past Surgical History / Comment(s): BILATERAL HIP replacments, lt KNEE replacment, right SHOULDER SURGERY, hedy cataracts, enucleation of lt eye with implant Past Anesthesia/Blood Transfusion Reactions: No Reported Reaction Past Psychological History: No Psychological Hx Reported Smoking Status: Former smoker Past Alcohol Use History: Rare Past Drug Use History: None Reported - Past Family History Mother Family Medical History: Myocardial Infarction ([place]) Father Family Medical History: Cancer Medications and Allergies Home Medications Medication Instructions Recorded Confirmed Type Aspirin EC [Ecotrin Low Dose] 81 mg PO DAILY #60 tablet. 07/23/15 11/27/18 Rx Metoprolol Tartrate [Lopressor] 50 mg PO TID #90 tab 07/23/15 11/27/18 Rx Albuterol Nebulized [Ventolin 2.5 mg INHALATION RT-QID PRN 07/25/15 11/27/18 History Nebulized] Atorvastatin [Lipitor] 40 mg PO HS 07/25/15 11/27/18 History Budesonide-Formot 160-4.5 Mcg 2 puff INHALATION RT-BID #60 puff 07/29/15 Rx [Symbicort 160-4.5 Mcg Inhaler] Acetaminophen/Diphenhydramine 1 tab PO HS PRN 01/16/17 11/27/18 History [Tylenol PM 500-25mg] Lisinopril [Zestril] 5 mg PO DAILY 01/16/17 11/27/18 History Melatonin 3 mg PO HS 01/16/17 11/27/18 History Pantoprazole [Protonix] 40 mg PO BID #60 tablet. 01/21/17 11/27/18 Rx Potassium Chloride ER [K-Dur 20] 20 meq PO DAILY #30 tab 01/21/17 11/27/18 Rx Tiotropium 18 Mcg/Puff [Spiriva] 1 puff INHALATION RT-DAILY inhaler 01/21/17 Rx Apixaban [Eliquis] 5 mg PO BID 11/17/18 11/27/18 History Cholecalciferol [Vitamin D3] 1,000 unit PO DAILY 11/17/18 11/27/18 History Ferrous Sulfate [Feosol] 325 mg PO DAILY 11/17/18 11/27/18 History Montelukast [Singulair] 10 mg PO HS 11/17/18 11/27/18 History Furosemide [Lasix] 40 mg PO BID 11/25/18 11/27/18 History Sulfamethox-Tmp 800-160Mg [Bactrim 2 each PO Q12HR #40 tab 11/25/18 11/27/18 Rx DS 800-160 mg] traMADol HCL [Ultram] 50 mg PO Q6HR PRN 11/25/18 11/27/18 History Allergies Allergy/AdvReac Type Severity Reaction Status Date / Time No Known Allergies Allergy Verified 11/25/18 15:58 Physical Exam Vitals: Vital Signs Temp Pulse Pulse Resp BP Pulse Ox 11/28/18 19:37 89 11/28/18 19:30 98.0 F 100 18 111/76 93 L 11/28/18 19:29 98 11/28/18 16:27 99 11/28/18 16:17 97 11/28/18 16:05 98.2 F 108 H 18 102/54 96 11/28/18 16:00 97.7 F 83 16 103/65 92 L 11/28/18 09:03 98 11/28/18 08:45 100 11/28/18 08:00 17 11/28/18 07:00 97.7 F 105 H 17 130/87 94 L Intake and Output 11/28/18 11/28/18 11/29/18 14:59 22:59 06:59 Intake Total 622 326 Output Total 1 Balance 622 325 Intake: Oral 622 326 Output: Urine 1 Other: Voiding Method Toilet # Voids 2 # Bowel Movements 0 General: The patient is awake and alert, in no distress. Skin: Right leg did have significant swelling minimal redness with the bruise to the right knee area no open area or any drainage. Eye: Pupils are equal, round, there is normal conjunctiva bilaterally. Ears, nose, mouth and throat: There are moist mucous membranes and no oral lesions. Neck: The neck is supple, there is no thyromegaly. Cardiovascular: S1-S2 regular rate and rhythm. No murmur. Respiratory: Unlabored breathing clear to auscultation bilaterally Gastrointestinal: Soft, non-distended, non-tender abdomen without masses or organomegaly noted. Neurological: There are no obvious motor or sensory deficits. Coordination appears grossly intact. Speech is normal. Psychiatric: Patient is awake and alert and oriented 3, appropriate mood & affect, normal judgment. Results CBC & Chem 7: 11/29/18 09:36 11/29/18 09:36 Labs: Abnormal Lab Results - Last 24 Hours (Table) 11/28/18 11/28/18 Range/Units 06:57 06:57 RBC 3.38 L (3.80-5.40) m/uL Hgb 10.1 L (11.4-16.0) gm/dL Hct 32.6 L (34.0-46.0) % Sodium 135 L (137-145) mmol/L Carbon Dioxide 32 H (22-30) mmol/L BUN 18 H (7-17) mg/dL Creatinine 1.13 H (0.52-1.04) mg/dL AST 40 H (14-36) U/L Total Protein 5.7 L (6.3-8.2) g/dL Albumin 3.3 L (3.5-5.0) g/dL Microbiology - Last 24 Hours (Table) 11/27/18 17:43 Urine Culture - Final Urine,Voided 11/27/18 14:27 Blood Culture - Preliminary Blood No Growth after 24 hours Assessment and Plan Assessment: Patient with acute right lower extremity cellulitis this started with a fall the patient did have a bruise to the right knee area in a patient who do have a diffuse swelling and redness likely representing a streptococcal cellulitis this seemed to have not responded very well to the outpatient Bactrim DS therapy patient did have borderline kidney function and high risk of nephrotoxicity from the vancomycin, currently with no evidence of any abscess Plan: 1- cefazolin dose to be adjusted up to 2 g every 8 hours 2- miguel the area of the redness 3- Krishna wrap from just above the toe to below the knee to be changed daily We will follow on clinical condition to further adjust medication if needed Time with Patient: Greater than 30
[2018-11-29] MEDS: MONTELUKAST 10 MG TAB PO SCH (22:15)
[2018-11-29] MEDS: MELATONIN 3 MG TABLET PO SCH (22:15)
[2018-11-29] MEDS: ATORVASTATIN 40 MG TAB PO SCH (22:16)
--- NOTE | 2018-11-29 23:17 | PN ---
PROGRESS NOTE DATE OF SERVICE: 11/29/2018. REASON FOR FOLLOWUP: Right lower extremity cellulitis. INTERVAL HISTORY: The patient is currently afebrile. She is breathing comfortably. Still complaining of pain to the right leg area. The patient still unable to tolerate the Krishna wrap to right . No chest pain, and shortness of breath, occasional cough. PHYSICAL EXAMINATION: Blood pressure 106/71 with a pulse of 108, temperature 97.9. She is 98% on room air. General description is an elderly female up in the chair in no distress. Respiratory system: Unlabored breathing. Clear to auscultation anteriorly. Heart S1-S2 regular rate and rhythm. Abdomen soft, no tenderness. Right leg with some swelling with minimal redness drainage. LABS: Hemoglobin 11, white count 7.2 with a BUN of 17, creatinine 1.1. DIAGNOSTIC IMPRESSION AND PLAN: Patient with right lower extremity cellulitis with bruise after the patient did have a fall. The patient is currently covered with Cefazolin. Krishna wrap to be applied not as tight for patient discomfort and . Continue supportive care. MMODL / IJN: [id number] /
[2018-11-30] MEDS: ceFAZolin IN SWFI 2 GM/20 ML SYRINGE IVP SCH ×3 (00:16→16:01)
[2018-11-30] MEDS: CHOLECALCIFEROL 1,000 UNIT TAB PO SCH (08:43)
[2018-11-30] MEDS: FERROUS SULFATE 325 MG TAB PO SCH (08:43)
[2018-11-30] MEDS: METOPROLOL TARTRATE 50 MG TAB PO SCH ×3 (08:43→20:22)
[2018-11-30] MEDS: APIXABAN 5 MG TAB PO SCH ×2 (08:44→20:19)
[2018-11-30] MEDS: ASPIRIN 81 MG PO SCH (08:44)
[2018-11-30] MEDS: POTASSIUM CHLORIDE ER 20 MEQ TAB.ER PO SCH (08:44)
[2018-11-30] MEDS: PANTOPRAZOLE 40 MG TABLET PO SCH ×2 (08:44→20:19)
[2018-11-30] MEDS: DOCUSATE 100 MG CAP PO SCH ×2 (08:44→20:19)
[2018-11-30] MEDS: LISINOPRIL 5 MG TAB PO SCH (08:44)
[2018-11-30] MEDS: FUROSEMIDE 40 MG TAB PO SCH (08:52)
[2018-11-30] MEDS: SYMBICORT 160-4.5 MCG INHALER INHALATION SCH ×2 (08:52→19:40)
[2018-11-30] MEDS: IPRATROPIUM-ALBUTEROL 3 ML NEB INHALATION SCH ×4 (08:52→19:40)
[2018-11-30] MEDS ORDERED: LACTULOSE 20 GM/30 ML CUP PO ONE (09:00)
[2018-11-30 09:52] LABS: Basophils % (A) 0 %; Eosinophils # (A) 0.2 k/uL (0-0.7); Eosinophils % (A) 2 %; HCT 33.9 % (34.0-46.0); HGB 10.5 gm/dL (11.4-16.0); Hypochromasia Slight; Lymphocytes # (A) 1.1 k/uL (1.0-4.8); Lymphocytes % (A) 13 %; MCH 30.8 pg (25.0-35.0); MCHC 31.1 g/dL (31.0-37.0); MCV 99.2 fL (80.0-100.0); Macrocytosis Slight; Mean Platelet Volume 7.1; Monocytes # (A) 0.5 k/uL (0-1.0); Monocytes % (A) 6 %; Neutrophils # (A) 6.5 k/uL (1.3-7.7); Neutrophils % (A) 78 %; Platelet Count 400 k/uL (150-450); RBC 3.42 m/uL (3.80-5.40); RDW 15.3 % (11.5-15.5); WBC 8.4 k/uL (3.8-10.6)
[2018-11-30 10:20] LABS: Albumin 3.2 g/dL (3.5-5.0); Potassium 4.6 mmol/L (3.5-5.1); Total Bilirubin 0.9 mg/dL (0.2-1.3); Total Protein 5.8 g/dL (6.3-8.2)
[2018-11-30] MEDS: traMADol 50 MG TAB PO PRN ×2 (10:33→22:40)
--- NOTE | 2018-11-30 12:09 | P.PN ---
Subjective Progress Note Date: 11/30/18 This is a 78-year-old female, patient of Dr. Tobar. 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 Patient presents to the emergency room with complaints of right leg pain and swelling. Patient reports symptoms started about 2 weeks ago after a fall. She reports she was walking in her house and was rushing to get her things together to go visit her son in the hospital. She fell landing on her right knee. She initially went to the ER and had x-rays obtained which were negative for any fracture. And then she had to go back to the ER because she started having increasing's redness in the area as well as bruising and blisterlike formation with edema. At that time they started her on Bactrim also her PCP had given her increase in her Lasix. Patient took the Bactrim for 2 days with no improvement. She reports increase in swelling in her knee bruising and redness down in from the knee and into the tibia area. She came into the emergency room for further evaluation and treatment. Dopplers were obtained of the legs and there were negative bilaterally for any DVTs with suboptimal imaging. X-ray of the right tibia fibula every second showed no fracture. White count on admission was 11.4 which has normalized to 8.5. Hemoglobin is 11.2-10.1 and creatinine 1.21 down to 1.13. Bactrim was discontinued just was started on Kefzol in the ER. Infectious disease will be consulted. Patient does report a history of COPD and has been having a cough chest x-ray is negative for any acute changes. She is requesting pulmonary consult she usually sees Dr. Mendez in the office. Consult has been placed for Dr. Mcneal who is on-call this week. Patient denies any fever, chills, sweats, nausea or vomiting, bowel movement changes or urinary symptoms. Denies any chest pain or shortness of breath. She was found have evidence of a urinary tract infection culture has been obtained. On 11/29/2018 patient is currently alert and oriented 3 sitting up in chair. This time patient is still complaining of some leg discomfort. Patient denies chest pain or shortness breath. Patient denies nausea vomiting or diarrhea. Patient denies any urinary burning or frequency. Will add lactulose one-time order for constipation. 11/30/2018 patient reporting some minimal improvement in her right leg swelling. Still remains on IV antibiotics. She is complaining of pain in the skinfold area behind the right knee. Evidence of yeast. Nystatin powder has been ordered. Patient did have a bowel movement with lactulose yesterday. Denies any chest pain or worsening shortness breath. Objective - Vital Signs Vital signs: Vital Signs Temp 97.9 F 11/30/18 07:00 Pulse 100 11/30/18 09:10 Resp 14 11/30/18 07:02 BP 108/54 11/30/18 07:00 Pulse Ox 95 11/30/18 07:00 Intake & Output 11/29/18 11/30/18 11/30/18 18:59 06:59 18:59 Intake Total 200 Balance 200 Intake: Intake, IV Titration 200 Amount Sodium Chloride 0.9% 1, 200 000 ml @ 20 mls/hr IV . Q24H [facility] Rx#:[id number] Other: Voiding Method Toilet Toilet # Voids 3 2 - Exam Head normocephalic Neck supple Lungs a few scattered wheezes noted bilaterally Heart regular rate and rhythm S1-S2, no rub or gallop Abdomen is soft nontender nondistended positive bowel sounds no hepatosplenomegaly Extremities right leg is edematous. Swelling noted in the right knee large hematoma on the right knee. Tender with palpation and movement. Neuro alert and orientated to 3 - Labs CBC & Chem 7: 11/30/18 08:16 11/30/18 08:16 Labs: Abnormal Lab Results - Last 24 Hours (Table) 11/30/18 11/30/18 Range/Units 08:16 08:16 RBC 3.42 L (3.80-5.40) m/uL Hgb 10.5 L (11.4-16.0) gm/dL Hct 33.9 L (34.0-46.0) % Glucose 141 H (74-99) mg/dL AST 38 H (14-36) U/L Total Protein 5.8 L (6.3-8.2) g/dL Albumin 3.2 L (3.5-5.0) g/dL Microbiology - Last 24 Hours (Table) 11/27/18 14:27 Blood Culture - Preliminary Blood No Growth after 48 hours Assessment and Plan Assessment: 1. Right leg cellulitis and hematoma of the knee after a fall: Keep legs elevated. Continue the IV Kefzol 1 g every 8 hours. Consult infectious disease. X-ray of the right tibia fibula on ferrous echo was negative for any fractures. Venous Doppler bilateral lower extremities was suboptimal, findings negative for DVT. Add nystatin powder for skin folds behind right knee 2. Acute kidney injury: Creatinine 1.21 on admission down to 1.13. Likely related to increase in diuretics and Bactrim. Bactrim was discontinued. Continue to monitor closely while on her home dose of Lasix. Fluids are currently KVO. Kidney function has normalized 3. UTI: Urine culture negative. Patient asymptomatic. 4. Mild COPD exacerbation: Patient does have wheezing on exam. She does report cough. Chest x-ray showing no acute changes. Patient requesting pulmonary consult. She is a patient of Dr. Mendez. Resume inhalers. Add nebulizer treatments 5. History of chronic atrial fibrillation: Anticoagulated with eliquis 6. History of CVA 7. Prior history of daily alcohol use. Patient reports she does not drink as often anymore. Last alcoholic beverage was around [place] time per patient 8. Hypertension 9. Hyperlipidemia 10. History of gastric antral ulcers requiring cauterization. Continue Protonix 11. Mild protein calorie malnutrition: Add ensure 1 can twice a day 12. Anemia check iron studies GI prophylaxis Protonix and DVT prophylaxis Eliquis I performed an examination of the patient and discussed their management with the physician Manager Trade Marketing. I have reviewed the Physician Manager Trade Marketing's notes and agree with the documented findings and plan of care
--- NOTE | 2018-11-30 15:26 | P.PN ---
Subjective Progress Note Date: 11/30/18 Principal diagnosis: Right leg and knee cellulitis, mild exacerbation of COPD This is a 78-year-old white female patient of Dr. Tobar, past medical history of hypertension, hyperlipidemia, COPD, previous history of CVA/TIA, atrial fibrillation, previous episodes of pneumonia, osteoarthritis. Patient presents to the hospital on 11/27/2018 for evaluation of right knee and right lower leg swelling, redness. Patient sustained a fall at home a week ago, he was mechanical in nature, no loss of consciousness, no lightheadedness or dizziness. Patient was rushing to the phone, she usually walks with a walker, and she lost her balance and fell on her right knee, sustaining an injury. The next day patient did come into the ER for evaluation, x-rays of the right knee were taken, which showed no acute fracture/dislocation, there was severe degenerative narrowing involving all components of the right knee. Overlying soft tissue appeared unremarkable. She and was sent home with some pain medications. That was on 11/17/2018. Patient came back to the emergency department on 11/25/2018 with complaints of worsening swelling of the right knee , and blister development. She was also having increased pain. Primary care physician increased patient's Lasix with the hopes of decreasing the swelling with no improvement. Patient denied any fevers, chills. No cough, no chest pain or dyspnea. Ultrasound was negative for any evidence of DVT in the right leg. Repeat x-ray of the right leg showed some soft tissue edema otherwise no acute abnormality. Chest x-ray showed no acute process. Patient was sent home on oral Bactrim DS for the cellulitis in the right lower extremity. Despite the treatment the pain and swelling in the right leg not improve, and patient came back for further evaluation. Venous Doppler of bilateral lower extremities were negative for DVTs. Chest x-ray on cardiomegaly without acute pulmonary process. Lab work on admission showed white blood cell count of 11.4 , hemoglobin of 11.2, sodium was 136, potassium is 4.0, chloride is 97, B1 is 21 and creatinine was 1.21, proBNP was 3210. Patient was started on IV Kefzol, and admitted for inpatient treatment. She does have a mild cough, and some wheezing, in no acute distress, room air pulse ox is 92%, a baseline patient is not oxygen dependent. Her maintenance inhalers include Spiriva and Symbicort and nebulilzed treatments. On Nov 30 2018 patient seen in follow-up on medical surgical floor. She is resting in the recliner, she has been ambulating, the right knee swelling seems to be stable, but right knee cellulitis is slightly less red and warm to touch. There is a scab on the right knee. No difficulty breathing, patient is on room air, sats is 94-95%, she is afebrile, respirations are nonlabored, minimal end expiratory wheezes, no rhonchi on today's exam. She is breathing comfortably, today's labs have been reviewed, white blood cell count is 8.4, hemoglobin is 10.5, electrodes and renal profile are within normal limits. Current any antibiotic coverage includes cefazolin, she is on breathing treatments, and Symbicort. Blood and urine cultures showed no growth. Objective - Vital Signs Vital signs: Vital Signs Temp 97.9 F 11/30/18 07:00 Pulse 100 11/30/18 12:17 Resp 14 11/30/18 07:02 BP 108/54 11/30/18 07:00 Pulse Ox 95 11/30/18 07:00 Intake & Output 11/29/18 11/30/18 11/30/18 18:59 06:59 18:59 Intake Total 200 160 Balance 200 160 Intake: Intake, IV Titration 200 160 Amount Sodium Chloride 0.9% 1, 200 160 000 ml @ 20 mls/hr IV . Q24H [facility] Rx#:[id number] Other: Voiding Method Toilet Toilet # Voids 3 2 2 - Exam GENERAL EXAM: Alert, pleasant, 78-year-old white female patient, comfortable in no apparent distress. HEAD: Normocephalic/atraumatic. EYES: Normal reaction of pupils, equal size. Conjunctiva pink, sclera white. NOSE: Clear with pink turbinates. THROAT: No erythema or exudates. NECK: No masses, no JVD, no thyroid enlargement, no adenopathy. CHEST: No chest wall deformity. Symmetrical expansion. LUNGS: Equal air entry with a minimal end expiratory wheezes CVS: Irregular rate and rhythm, normal S1 and S2, no gallops, no murmurs, no rubs ABDOMEN: Soft, nontender. No hepatosplenomegaly, normal bowel sounds, no guarding or rigidity. EXTREMITIES: No clubbing, edema in the right knee and right lower extremity, with bruising, redness, on the right knee MUSCULOSKELETAL: Muscle strength and tone normal. SPINE: No scoliosis or deformity SKIN: No rashes CENTRAL NERVOUS SYSTEM: Alert and oriented -3. No focal deficits, tone is normal in all 4 extremities. PSYCHIATRIC: Alert and oriented -3. Appropriate affect. Intact judgment and insight. - Labs CBC & Chem 7: 11/30/18 08:16 11/30/18 08:16 Labs: Abnormal Lab Results - Last 24 Hours (Table) 11/30/18 11/30/18 Range/Units 08:16 08:16 RBC 3.42 L (3.80-5.40) m/uL Hgb 10.5 L (11.4-16.0) gm/dL Hct 33.9 L (34.0-46.0) % Glucose 141 H (74-99) mg/dL AST 38 H (14-36) U/L Total Protein 5.8 L (6.3-8.2) g/dL Albumin 3.2 L (3.5-5.0) g/dL Microbiology - Last 24 Hours (Table) 11/27/18 14:27 Blood Culture - Preliminary Blood No Growth after 48 hours Assessment and Plan Plan: Assessment: #1. Right leg and knee cellulitis, failed outpatient treatment #2. Mechanical fall a week ago sustaining injury to the right leg #3. Mild exacerbation of COPD, improving #4. Chronic A. fib on oral anticoagulation #5. Acute kidney injury improving #6. History of CVA/TIA #7. Hypertension, hyperlipidemia #8. History of chronic congestive heart failure #9. History of bleeding gastric ulcers, status post cauterization Plan: Continue oral diuretics, continue with antibiotics per ID service recommendation , right knee appears to be slightly less red and warm, less tender to touch. Continue nebulized bronchodilators, Symbicort, minimal wheezing on today's exam , patient is on room air, no fever or chills, she is tolerating ambulation within the room, will continue to follow. I performed a history & physical examination of the patient and discussed their management with my nurse practitioner, Meena Clark. I reviewed the nurse practitioner's note and agree with the documented findings and plan of care. Lung sounds are positive for some scattered wheezes. The findings and the impression was discussed with the patient. I attest to the documentation by the nurse practitioner. Time with Patient: Less than 30
[2018-11-30] MEDS: FUROSEMIDE 20 MG TAB PO SCH (16:01)
[2018-11-30] MEDS: NYSTATIN 100,000 UNIT/GM POWD 15 GM TOPICAL SCH ×2 (16:01→22:40)
[2018-11-30] MEDS: SODIUM CHLORIDE 0.9% 1,000 ML IV SCH (17:25)
[2018-11-30 19:13] LABS: Iron Saturation 14.81 (12.00-45.00)
[2018-11-30] MEDS: MONTELUKAST 10 MG TAB PO SCH (20:19)
[2018-11-30] MEDS: ATORVASTATIN 40 MG TAB PO SCH (20:34)
[2018-11-30] MEDS: MELATONIN 3 MG TABLET PO SCH (22:42)
[2018-12-01] MEDS: ceFAZolin IN SWFI 2 GM/20 ML SYRINGE IVP SCH ×4 (00:59→23:39)
[2018-12-01] MEDS: HYDROmorphone 0.5 MG/0.5 ML SYRINGE IVP PRN (03:24)
[2018-12-01 07:37] LABS: Basophils % (A) 0 %; Eosinophils # (A) 0.2 k/uL (0-0.7); Eosinophils % (A) 2 %; HCT 33.3 % (34.0-46.0); HGB 10.4 gm/dL (11.4-16.0); Hypochromasia Slight; Lymphocytes # (A) 1.2 k/uL (1.0-4.8); Lymphocytes % (A) 14 %; MCH 30.9 pg (25.0-35.0); MCHC 31.3 g/dL (31.0-37.0); MCV 98.7 fL (80.0-100.0); Macrocytosis Slight; Mean Platelet Volume 6.9; Monocytes # (A) 0.6 k/uL (0-1.0); Monocytes % (A) 7 %; Neutrophils # (A) 6.6 k/uL (1.3-7.7); Neutrophils % (A) 75 %; Platelet Count 392 k/uL (150-450); RBC 3.38 m/uL (3.80-5.40); RDW 15.3 % (11.5-15.5); WBC 8.9 k/uL (3.8-10.6)
[2018-12-01 07:53] LABS: Albumin 3.1 g/dL (3.5-5.0); Potassium 4.3 mmol/L (3.5-5.1); Total Bilirubin 0.7 mg/dL (0.2-1.3); Total Protein 5.6 g/dL (6.3-8.2)
--- NOTE | 2018-12-01 07:55 | PN ---
PROGRESS NOTE DATE OF SERVICE: 11/30/2018 REASON FOR FOLLOWUP: Acute right leg hematoma and cellulitis. INTERVAL HISTORY: The patient is afebrile. The patient did mention slight improvement of pain. Patient denies having any chest pain or shortness of breath, no cough. No abdominal pain and no diarrhea. PHYSICAL EXAMINATION: Blood pressure 104/65 with a pulse of 93, temperature 98.2, she is 97% on room air. General description is an elderly female, up in the chair in no distress. RESPIRATORY SYSTEM: Unlabored breathing clear to auscultation anteriorly. HEART: S1, S2. Regular rate and rhythm. ABDOMEN: Soft, no tenderness. Right leg swelling is slightly decreased and still have an evidence of a hematoma. LABS: Hemoglobin is 10.5, white count 8.4 with a BUN of 16, creatinine 0.83. Blood culture has been negative. DIAGNOSTIC IMPRESSION AND PLAN: Patient with right lower extremity cellulitis with hematoma to the right knee area after a fall. The patient is slowly responding to IV antibiotic therapy, seems to be not able tolerate the Krishna wrap which would have helped cut some of the swelling down. If the pain persists, then clinically will discuss with the admitting team whether ortho evaluation is possible. Drainage of that hematoma will benefit the patient. Continue supportive care. MMODL / IJN: [id number] /
[2018-12-01] MEDS: SYMBICORT 160-4.5 MCG INHALER INHALATION SCH ×2 (08:13→20:03)
[2018-12-01] MEDS: IPRATROPIUM-ALBUTEROL 3 ML NEB INHALATION SCH ×2 (08:13→11:49)
[2018-12-01] MEDS: DOCUSATE 100 MG CAP PO SCH ×2 (08:37→20:26)
[2018-12-01] MEDS: NYSTATIN 100,000 UNIT/GM POWD 15 GM TOPICAL SCH ×3 (08:37→23:39)
[2018-12-01] MEDS: FUROSEMIDE 40 MG TAB PO SCH (08:37)
[2018-12-01] MEDS: CHOLECALCIFEROL 1,000 UNIT TAB PO SCH (08:37)
[2018-12-01] MEDS: POTASSIUM CHLORIDE ER 20 MEQ TAB.ER PO SCH (08:37)
[2018-12-01] MEDS: PANTOPRAZOLE 40 MG TABLET PO SCH ×2 (08:37→20:26)
[2018-12-01] MEDS: METOPROLOL TARTRATE 50 MG TAB PO SCH ×3 (08:37→20:26)
[2018-12-01] MEDS: ASPIRIN 81 MG PO SCH (08:37)
[2018-12-01] MEDS: APIXABAN 5 MG TAB PO SCH ×2 (08:38→20:26)
[2018-12-01] MEDS: LISINOPRIL 5 MG TAB PO SCH (08:38)
[2018-12-01] MEDS: FERROUS SULFATE 325 MG TAB PO SCH (08:38)
--- NOTE | 2018-12-01 09:16 | PN ---
PROGRESS NOTE DATE OF SERVICE: 11/30/2018 REASON FOR FOLLOWUP: Right leg hematoma and cellulitis. INTERVAL HISTORY: The patient is afebrile. The patient did mention slight improvement in her pain. The patient denies having any chest pain. No shortness of breath or cough. No abdominal pain and no diarrhea. PHYSICAL EXAMINATION: On examination, blood pressure 104/65 with a pulse of 93, temperature 98.2. She is 97% on room air. General description is an elderly female up in the chair in no distress. RESPIRATORY SYSTEM: Unlabored breathing, clear to auscultation anteriorly. HEART: S1, S2. Regular rate and rhythm. ABDOMEN: Soft, no tenderness. Right leg swelling slightly decreased and still have evidence of hematoma. LABS: Hemoglobin 10.5, white count 8.4 with a BUN of 16, creatinine 0.83. Blood culture has been negative. DIAGNOSTIC IMPRESSION AND PLAN: Patient with right lower extremity cellulitis with hematoma to the right knee area after a fall. The patient is slowly responding to IV antibiotic therapy seems to be not able to tolerate the Krishna wrap which have helped cut some of the swelling down. If the pain persists in recover will discuss with the primary admitting team whether ortho evaluation and and possible drainage of the that hematoma will benefit the patient. Continue with supportive care. MMODL / IJN: [id number] /
[2018-12-01] MEDS: traMADol 50 MG TAB PO PRN ×2 (11:52→20:42)
[2018-12-01 11:53] VITALS: BMI 46.4
[2018-12-01] MEDS ORDERED: methylPREDNISolone SOD SUCCI 125 MG/2 ML VIAL IV STA (15:07)
--- NOTE | 2018-12-01 15:12 | P.PN ---
Subjective Progress Note Date: 12/01/18 This is a 78-year-old female, patient of Dr. Tobar. 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 Patient presents to the emergency room with complaints of right leg pain and swelling. Patient reports symptoms started about 2 weeks ago after a fall. She reports she was walking in her house and was rushing to get her things together to go visit her son in the hospital. She fell landing on her right knee. She initially went to the ER and had x-rays obtained which were negative for any fracture. And then she had to go back to the ER because she started having increasing's redness in the area as well as bruising and blisterlike formation with edema. At that time they started her on Bactrim also her PCP had given her increase in her Lasix. Patient took the Bactrim for 2 days with no improvement. She reports increase in swelling in her knee bruising and redness down in from the knee and into the tibia area. She came into the emergency room for further evaluation and treatment. Dopplers were obtained of the legs and there were negative bilaterally for any DVTs with suboptimal imaging. X-ray of the right tibia fibula every second showed no fracture. White count on admission was 11.4 which has normalized to 8.5. Hemoglobin is 11.2-10.1 and creatinine 1.21 down to 1.13. Bactrim was discontinued just was started on Kefzol in the ER. Infectious disease will be consulted. Patient does report a history of COPD and has been having a cough chest x-ray is negative for any acute changes. She is requesting pulmonary consult she usually sees Dr. Mendez in the office. Consult has been placed for Dr. Mcneal who is on-call this week. Patient denies any fever, chills, sweats, nausea or vomiting, bowel movement changes or urinary symptoms. Denies any chest pain or shortness of breath. She was found have evidence of a urinary tract infection culture has been obtained. On 11/29/2018 patient is currently alert and oriented 3 sitting up in chair. This time patient is still complaining of some leg discomfort. Patient denies chest pain or shortness breath. Patient denies nausea vomiting or diarrhea. Patient denies any urinary burning or frequency. Will add lactulose one-time order for constipation. 11/30/2018 patient reporting some minimal improvement in her right leg swelling. Still remains on IV antibiotics. She is complaining of pain in the skinfold area behind the right knee. Evidence of yeast. Nystatin powder has been ordered. Patient did have a bowel movement with lactulose yesterday. Denies any chest pain or worsening shortness breath. 12/01/2018 patient complaining of right great toe pain. There is some redness in the knuckle area. Uric acid level is normal. However this is still likely gout. She'll be started on IV Solu-Medrol 125 mg IV 1 and then colchicine 0.6 mg twice a day. Patient has been tachycardic heart rate in the high 120s during nebulizer treatments. Nebulized treatments will be switched as needed. She remains on telemetry. Last heart rate was 93. Patient denies any chest pain. Shortness of breath is improving. Denies any bowel movement changes or urinary symptoms. Objective - Vital Signs Vital signs: Vital Signs Temp 97.9 F 12/01/18 14:56 Pulse 93 12/01/18 14:56 Resp 14 12/01/18 14:56 BP 104/68 12/01/18 14:56 Pulse Ox 92 L 12/01/18 14:56 Intake & Output 11/30/18 12/01/18 12/01/18 18:59 06:59 18:59 Intake Total 160 240 Balance 160 240 Weight 111.4 kg Intake: Intake, IV Titration 160 Amount Sodium Chloride 0.9% 1, 160 000 ml @ 20 mls/hr IV . Q24H [facility] Rx#:[id number] Oral 240 Other: Voiding Method Toilet # Voids 2 1 1 - Exam Head normocephalic Neck supple Lungs a few scattered wheezes noted bilaterally Heart regular rate and rhythm S1-S2, no rub or gallop Abdomen is soft nontender nondistended positive bowel sounds no hepatosplenomegaly Extremities right leg is edematous. Swelling noted in the right knee large hematoma on the right knee. Tender with palpation and movement. Right great toe redness and pain Neuro alert and orientated to 3 - Labs CBC & Chem 7: 12/01/18 07:01 12/01/18 07:01 Labs: Abnormal Lab Results - Last 24 Hours (Table) 11/30/18 12/01/18 12/01/18 Range/Units 08:16 07:01 07:01 RBC 3.38 L (3.80-5.40) m/uL Hgb 10.4 L (11.4-16.0) gm/dL Hct 33.3 L (34.0-46.0) % Sodium 136 L (137-145) mmol/L Glucose 108 H (74-99) mg/dL Iron 44 L (50-170) ug/dL Total Protein 5.6 L (6.3-8.2) g/dL Albumin 3.1 L (3.5-5.0) g/dL Microbiology - Last 24 Hours (Table) 11/27/18 14:27 Blood Culture - Preliminary Blood No Growth after 72 hours Assessment and Plan Assessment: 1. Right leg cellulitis and hematoma of the knee after a fall: Keep legs elevated. Continue the IV Kefzol 1 g every 8 hours. Consult infectious disease. X-ray of the right tibia fibula on ferrous echo was negative for any fractures. Venous Doppler bilateral lower extremities was suboptimal, findings negative for DVT. Add nystatin powder for skin folds behind right knee 2. Acute kidney injury: Creatinine 1.21 on admission down to 1.13. Likely related to increase in diuretics and Bactrim. Bactrim was discontinued. Continue to monitor closely while on her home dose of Lasix. Fluids are currently KVO. Kidney function has normalized 3. UTI: Urine culture negative. Patient asymptomatic. 4. Mild COPD exacerbation: Patient does have wheezing on exam. She does report cough. Chest x-ray showing no acute changes. Patient requesting pulmonary consult. She is a patient of Dr. Mendez. Resume inhalers. Change nebulizers to as needed 5. History of chronic atrial fibrillation: Anticoagulated with eliquis. Continue metoprolol. Heart rate has been around 129 during nebulizer treatments. Again nebulizer treatments have been adjusted to just as needed. Continue with telemetry monitoring. 6. History of CVA 7. Prior history of daily alcohol use. Patient reports she does not drink as often anymore. Last alcoholic beverage was around [place] time per patient 8. Hypertension 9. Hyperlipidemia 10. History of gastric antral ulcers requiring cauterization. Continue Protonix 11. Mild protein calorie malnutrition: Add ensure 1 can twice a day 12. Iron deficiency anemia continue iron supplement 13. Acute gout in the right great toe. Give Solu-Medrol 125 mg IV 1 and start colchicine 0.6 mg twice a day GI prophylaxis Protonix and DVT prophylaxis Sy I performed an examination of the patient and discussed their management with the physician Medical Office Receptionist Assistant. I have reviewed the Physician Medical Office Receptionist Assistant's notes and agree with the documented findings and plan of care
[2018-12-01] MEDS: FUROSEMIDE 20 MG TAB PO SCH (15:26)
--- NOTE | 2018-12-01 16:16 | P.PN ---
Subjective Progress Note Date: 12/01/18 Principal diagnosis: Right leg and knee cellulitis, mild exacerbation of COPD This is a 78-year-old white female patient of Dr. Tobar, past medical history of hypertension, hyperlipidemia, COPD, previous history of CVA/TIA, atrial fibrillation, previous episodes of pneumonia, osteoarthritis. Patient presents to the hospital on 11/27/2018 for evaluation of right knee and right lower leg swelling, redness. Patient sustained a fall at home a week ago, he was mechanical in nature, no loss of consciousness, no lightheadedness or dizziness. Patient was rushing to the phone, she usually walks with a walker, and she lost her balance and fell on her right knee, sustaining an injury. The next day patient did come into the ER for evaluation, x-rays of the right knee were taken, which showed no acute fracture/dislocation, there was severe degenerative narrowing involving all components of the right knee. Overlying soft tissue appeared unremarkable. She and was sent home with some pain medications. That was on 11/17/2018. Patient came back to the emergency department on 11/25/2018 with complaints of worsening swelling of the right knee , and blister development. She was also having increased pain. Primary care physician increased patient's Lasix with the hopes of decreasing the swelling with no improvement. Patient denied any fevers, chills. No cough, no chest pain or dyspnea. Ultrasound was negative for any evidence of DVT in the right leg. Repeat x-ray of the right leg showed some soft tissue edema otherwise no acute abnormality. Chest x-ray showed no acute process. Patient was sent home on oral Bactrim DS for the cellulitis in the right lower extremity. Despite the treatment the pain and swelling in the right leg not improve, and patient came back for further evaluation. Venous Doppler of bilateral lower extremities were negative for DVTs. Chest x-ray on cardiomegaly without acute pulmonary process. Lab work on admission showed white blood cell count of 11.4 , hemoglobin of 11.2, sodium was 136, potassium is 4.0, chloride is 97, B1 is 21 and creatinine was 1.21, proBNP was 3210. Patient was started on IV Kefzol, and admitted for inpatient treatment. She does have a mild cough, and some wheezing, in no acute distress, room air pulse ox is 92%, a baseline patient is not oxygen dependent. Her maintenance inhalers include Spiriva and Symbicort and nebulilzed treatments. On Nov 30 2018 patient seen in follow-up on medical surgical floor. She is resting in the recliner, she has been ambulating, the right knee swelling seems to be stable, but right knee cellulitis is slightly less red and warm to touch. There is a scab on the right knee. No difficulty breathing, patient is on room air, sats is 94-95%, she is afebrile, respirations are nonlabored, minimal end expiratory wheezes, no rhonchi on today's exam. She is breathing comfortably, today's labs have been reviewed, white blood cell count is 8.4, hemoglobin is 10.5, electrodes and renal profile are within normal limits. Current any antibiotic coverage includes cefazolin, she is on breathing treatments, and Symbicort. Blood and urine cultures showed no growth. On 12/01/2018 patient seen in follow-up. patient is seen in follow-up on medical surgical floor. She is sitting up in the recliner, in no acute distress , no difficulties breathing, no chest pain, vital signs are stable, her right knee still remains red, and swollen, and she developed redness, swelling and tenderness over right second metatarsal joint of the great toe. uric acid was within normal limits at 6.4. colchicine was added by the attending physician, patient remains on oral Lasix, she is receiving IV Kefzol, urine and blood cultures are negative. Objective - Vital Signs Vital signs: Vital Signs Temp 97.9 F 12/01/18 14:56 Pulse 93 12/01/18 14:56 Resp 14 12/01/18 14:56 BP 104/68 12/01/18 14:56 Pulse Ox 92 L 12/01/18 14:56 Intake & Output 11/30/18 12/01/18 12/01/18 18:59 06:59 18:59 Intake Total 160 240 Balance 160 240 Weight 111.4 kg Intake: Intake, IV Titration 160 Amount Sodium Chloride 0.9% 1, 160 000 ml @ 20 mls/hr IV . Q24H BOO Rx#:[id number] Oral 240 Other: Voiding Method Toilet # Voids 2 1 1 - Exam GENERAL EXAM: Alert, pleasant, 78-year-old white female patient, comfortable in no apparent distress. HEAD: Normocephalic/atraumatic. EYES: Normal reaction of pupils, equal size. Conjunctiva pink, sclera white. NOSE: Clear with pink turbinates. THROAT: No erythema or exudates. NECK: No masses, no JVD, no thyroid enlargement, no adenopathy. CHEST: No chest wall deformity. Symmetrical expansion. LUNGS: Equal air entry, with no wheezing, no rhonchi CVS: Irregular rate and rhythm, normal S1 and S2, no gallops, no murmurs, no rubs ABDOMEN: Soft, nontender. No hepatosplenomegaly, normal bowel sounds, no guarding or rigidity. EXTREMITIES: No clubbing, edema in the right knee and right lower extremity, with bruising, redness, on the right knee MUSCULOSKELETAL: Muscle strength and tone normal. SPINE: No scoliosis or deformity SKIN: No rashes CENTRAL NERVOUS SYSTEM: Alert and oriented -3. No focal deficits, tone is normal in all 4 extremities. PSYCHIATRIC: Alert and oriented -3. Appropriate affect. Intact judgment and insight. - Labs CBC & Chem 7: 12/01/18 07:01 12/01/18 07:01 Labs: Abnormal Lab Results - Last 24 Hours (Table) 11/30/18 12/01/18 12/01/18 Range/Units 08:16 07:01 07:01 RBC 3.38 L (3.80-5.40) m/uL Hgb 10.4 L (11.4-16.0) gm/dL Hct 33.3 L (34.0-46.0) % Sodium 136 L (137-145) mmol/L Glucose 108 H (74-99) mg/dL Iron 44 L (50-170) ug/dL Total Protein 5.6 L (6.3-8.2) g/dL Albumin 3.1 L (3.5-5.0) g/dL Microbiology - Last 24 Hours (Table) 11/27/18 14:27 Blood Culture - Preliminary Blood No Growth after 72 hours Assessment and Plan Plan: Assessment: #1. Right leg and knee cellulitis, failed outpatient treatment #2. Mechanical fall a week ago sustaining injury to the right leg #3. Mild exacerbation of COPD, improving #4. Chronic A. fib on oral anticoagulation #5. Acute kidney injury improving #6. History of CVA/TIA #7. Hypertension, hyperlipidemia #8. History of chronic congestive heart failure #9. History of bleeding gastric ulcers, status post cauterization Plan: Continue with current medical treatment, no difficulty breathing, and knee pain is better controlled, patient is able to ambulate bathroom, tolerated activity fairly well. Still has some swelling, redness and tenderness, patient is being started on oral colchicine. Continue with nebulized bronchodilators and Symbicort. I performed a history & physical examination of the patient and discussed their management with my nurse practitioner, Meena Clark. I reviewed the nurse practitioner's note and agree with the documented findings and plan of care. Lung sounds are clear. The findings and the impression was discussed with the patient. I attest to the documentation by the nurse practitioner. Time with Patient: Less than 30
[2018-12-01] MEDS: MONTELUKAST 10 MG TAB PO SCH (20:26)
[2018-12-01] MEDS: ATORVASTATIN 40 MG TAB PO SCH (20:26)
[2018-12-01] MEDS: COLCHICINE 0.6 MG EACH PO SCH (20:29)
[2018-12-01] MEDS: MELATONIN 3 MG TABLET PO SCH (20:42)
[2018-12-02] MEDS: traMADol 50 MG TAB PO PRN ×2 (02:46→20:32)
--- NOTE | 2018-12-02 04:46 | PN ---
PROGRESS NOTE DATE OF SERVICE: 12/01/2018 REASON FOR FOLLOWUP: Right leg hematoma and cellulitis. INTERVAL HISTORY: The patient is afebrile. She is feeling better. Breathing comfortably. The right leg swelling and redness has slightly decreased. Denies having any chest pain, shortness of breath or cough. PHYSICAL EXAMINATION: Blood pressure 126/70 with a pulse of 105, temperature 98.1, she is 93% on room air. GENERAL DESCRIPTION: An elderly female up in the chair in no distress. RESPIRATORY SYSTEM: Unlabored breathing. Clear to auscultation anteriorly. HEART: S1, S2. Regular rate and rhythm. ABDOMEN: Soft, no tenderness. Right knee area with a bruise. The leg redness is improved. LABS: Hemoglobin is 10.4, white count 8.9 with a BUN of 16, creatinine 0.78. DIAGNOSTIC IMPRESSION AND PLAN: Patient with a right leg hematoma with cellulitis. Patient at this time slowly responding to the cephazolin. Will continue ( ) with oral Keflex along with Krishna wrap to keep swelling down. Continue supportive care thank condition. MMODL / IJN: [id number] /
[2018-12-02] MEDS: IPRATROPIUM-ALBUTEROL 3 ML NEB INHALATION PRN (08:02)
[2018-12-02] MEDS: SYMBICORT 160-4.5 MCG INHALER INHALATION SCH ×2 (08:02→20:41)
[2018-12-02 08:34] LABS: Basophils % (A) 0 %; Eosinophils % (A) 0 %; HCT 35.6 % (34.0-46.0); HGB 11.2 gm/dL (11.4-16.0); Hypochromasia Slight; Lymphocytes # (A) 0.6 k/uL (1.0-4.8); Lymphocytes % (A) 6 %; MCH 30.5 pg (25.0-35.0); MCHC 31.4 g/dL (31.0-37.0); MCV 97.4 fL (80.0-100.0); Mean Platelet Volume 6.7; Monocytes # (A) 0.2 k/uL (0-1.0); Monocytes % (A) 2 %; Neutrophils # (A) 10.1 k/uL (1.3-7.7); Neutrophils % (A) 92 %; Platelet Count 474 k/uL (150-450); RBC 3.66 m/uL (3.80-5.40)
[2018-12-02 08:44] LABS: Albumin 3.8 g/dL (3.5-5.0); Calcium 9.7 mg/dL (8.4-10.2); Potassium 4.5 mmol/L (3.5-5.1); Total Bilirubin 0.9 mg/dL (0.2-1.3); Total Protein 6.6 g/dL (6.3-8.2)
[2018-12-02] MEDS: ceFAZolin IN SWFI 2 GM/20 ML SYRINGE IVP SCH ×3 (08:46→23:38)
[2018-12-02] MEDS: COLCHICINE 0.6 MG EACH PO SCH ×2 (08:47→20:34)
[2018-12-02] MEDS: POTASSIUM CHLORIDE ER 20 MEQ TAB.ER PO SCH (08:48)
[2018-12-02] MEDS: ASPIRIN 81 MG PO SCH (08:48)
[2018-12-02] MEDS: METOPROLOL TARTRATE 50 MG TAB PO SCH ×3 (08:48→21:24)
[2018-12-02] MEDS: DOCUSATE 100 MG CAP PO SCH ×2 (08:48→20:34)
[2018-12-02] MEDS: APIXABAN 5 MG TAB PO SCH ×2 (08:48→20:33)
[2018-12-02] MEDS: PANTOPRAZOLE 40 MG TABLET PO SCH ×2 (08:48→20:34)
[2018-12-02] MEDS: FUROSEMIDE 40 MG TAB PO SCH (08:48)
[2018-12-02] MEDS: CHOLECALCIFEROL 1,000 UNIT TAB PO SCH (08:48)
[2018-12-02] MEDS: NYSTATIN 100,000 UNIT/GM POWD 15 GM TOPICAL SCH ×3 (08:51→20:32)
[2018-12-02] MEDS: LISINOPRIL 5 MG TAB PO SCH (08:52)
[2018-12-02] MEDS: FERROUS SULFATE 325 MG TAB PO SCH (08:53)
[2018-12-02 13:09] LABS: Magnesium 1.8 mg/dL (1.6-2.3); Potassium 4.5 mmol/L (3.5-5.1)
[2018-12-02] MEDS ORDERED: MAGNESIUM SULFATE-D5W PMX 1 GM in DEXTROSE/WATER 1 100ML.BAG IVPB ONE (15:23)
[2018-12-02] MEDS: FUROSEMIDE 20 MG TAB PO SCH (15:25)
--- NOTE | 2018-12-02 15:30 | P.CRDCN ---
History of Present Illness Consult date: 12/02/18 Requesting physician: Dar Sung Reason for Consult (text): 8 beat run VT, Afib Chief complaint: s/p fall History of present illness: This is a pleasant 78-year-old female patient who follows with for cardiology. She has a past medical history of hypertension, hyperlipidemia, CVA in the past, chronic atrial fibrillation. She Was initially admitted after falling and developing right lower extremity cellulitis. She was noted to have acute kidney injury which has improved. We were asked to see the patient in consultation due to a 8 beat run of nonsustained ventricular tachycardia this morning. Potassium is 4.5 today and magnesium 1.8. Her BUN and creatinine have improved at 20 and 0.77. She was asymptomatic at the time of the arrhythmia. She's had no complaints of palpitations, dizziness, lightheadedness , near syncope or syncope. She's had no chest discomfort. She does have stable mild dyspnea on exertion. She also has occasional lower extremity edema. Blood pressure is stable but her heart rate is not very well controlled running 100 to 120s. She is currently on Eliquis 5 mg by mouth twice a day, aspirin 81 mg by mouth daily, Lasix 40 mg in the morning and 20 mg in the afternoon, lisinopril 5 mg by mouth daily and Lopressor 50 mg by mouth 3 times a day. Past Medical History Past Medical History: Atrial Fibrillation, COPD, CVA/TIA, Hyperlipidemia, Hypertension, Osteoarthritis (OA), Pneumonia Additional Past Medical History / Comment(s): ETOH stated drinks 1-2 a day but has'nt drank in 1.5 weeks. 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 History of Any Multi-Drug Resistant Organisms: None Reported Past Surgical History: Back Surgery, Hysterectomy, Orthopedic Surgery, Tonsillectomy Additional Past Surgical History / Comment(s): BILATERAL HIP replacments, lt KNEE replacment, right SHOULDER SURGERY, hedy cataracts, enucleation of lt eye with implant Past Anesthesia/Blood Transfusion Reactions: No Reported Reaction Past Psychological History: No Psychological Hx Reported Smoking Status: Former smoker Past Alcohol Use History: Rare Past Drug Use History: None Reported - Past Family History Mother Family Medical History: Myocardial Infarction (MD) Father Family Medical History: Cancer Medications and Allergies Home Medications Medication Instructions Recorded Confirmed Type Aspirin EC [Ecotrin Low Dose] 81 mg PO DAILY #60 tablet. 07/23/15 11/27/18 Rx Metoprolol Tartrate [Lopressor] 50 mg PO TID #90 tab 07/23/15 11/27/18 Rx Albuterol Nebulized [Ventolin 2.5 mg INHALATION RT-QID PRN 07/25/15 11/27/18 History Nebulized] Atorvastatin [Lipitor] 40 mg PO HS 07/25/15 11/27/18 History Budesonide-Formot 160-4.5 Mcg 2 puff INHALATION RT-BID #60 puff 07/29/15 Rx [Symbicort 160-4.5 Mcg Inhaler] Acetaminophen/Diphenhydramine 1 tab PO HS PRN 01/16/17 11/27/18 History [Tylenol PM 500-25mg] Lisinopril [Zestril] 5 mg PO DAILY 01/16/17 11/27/18 History Melatonin 3 mg PO HS 01/16/17 11/27/18 History Pantoprazole [Protonix] 40 mg PO BID #60 tablet. 01/21/17 11/27/18 Rx Potassium Chloride ER [K-Dur 20] 20 meq PO DAILY #30 tab 01/21/17 11/27/18 Rx Tiotropium 18 Mcg/Puff [Spiriva] 1 puff INHALATION RT-DAILY inhaler 01/21/17 Rx Apixaban [Eliquis] 5 mg PO BID 11/17/18 11/27/18 History Cholecalciferol [Vitamin D3] 1,000 unit PO DAILY 11/17/18 11/27/18 History Ferrous Sulfate [Feosol] 325 mg PO DAILY 11/17/18 11/27/18 History Montelukast [Singulair] 10 mg PO HS 11/17/18 11/27/18 History Furosemide [Lasix] 40 mg PO BID 11/25/18 11/27/18 History Sulfamethox-Tmp 800-160Mg [Bactrim 2 each PO Q12HR #40 tab 11/25/18 11/27/18 Rx DS 800-160 mg] traMADol HCL [Ultram] 50 mg PO Q6HR PRN 11/25/18 11/27/18 History Allergies Allergy/AdvReac Type Severity Reaction Status Date / Time No Known Allergies Allergy Verified 11/25/18 15:58 Physical Exam Vitals: Vital Signs Temp Pulse Pulse Pulse Resp BP Pulse Ox 12/02/18 14:44 98.4 F 93 16 121/82 95 12/02/18 08:44 112 H 16 105/68 93 L 12/02/18 08:13 110 H 12/02/18 08:02 104 H 12/02/18 08:00 115 H 12/02/18 07:00 97.7 F 115 H 16 99/63 93 L 12/02/18 03:56 95 17 12/01/18 23:45 95 17 12/01/18 23:00 97.5 F L 95 17 112/69 92 L 12/01/18 20:37 98.1 F 105 H 18 126/70 93 L Intake and Output 12/02/18 12/02/18 12/02/18 06:59 14:59 22:59 Intake Total 480 Balance 480 Intake: Oral 480 Other: # Voids 2 3 PHYSICAL EXAMINATION: HEENT: Head is atraumatic, normocephalic. Pupils equal, round. Neck is supple. There is no elevated jugular venous pressure. HEART EXAMINATION: Heart sounds irregularly irregular, S1 and S2 with a systolic murmur. CHEST EXAMINATION: Lungs reveal diminished air entry bilateral lower lobes. No chest wall tenderness is noted on palpation or with deep breathing. ABDOMEN: Soft, obese, nontender. Bowel sounds are heard. No organomegaly noted. EXTREMITIES: 2+ peripheral pulses with trace bilateral ankle edema. Right lower extremity with evidence of cellulitis. Right foot and ankle wrapped with Krishna wrap. NEUROLOGIC patient is awake, alert and oriented x3. . Results 12/02/18 07:45 12/02/18 12:18 Cardiac Enzymes 12/02/18 Range/Units 07:45 AST 34 (14-36) U/L CBC 12/02/18 Range/Units 07:45 WBC 11.0 H (3.8-10.6) k/uL RBC 3.66 L (3.80-5.40) m/uL Hgb 11.2 L (11.4-16.0) gm/dL Hct 35.6 (34.0-46.0) % Plt Count 474 H (150-450) k/uL Comprehensive Metabolic Panel 12/02/18 12/02/18 Range/Units 07:45 12:18 Sodium 137 (137-145) mmol/L Potassium 4.5 4.5 (3.5-5.1) mmol/L Chloride 101 (98-107) mmol/L Carbon Dioxide 28 (22-30) mmol/L BUN 20 H (7-17) mg/dL Creatinine 0.77 (0.52-1.04) mg/dL Glucose 174 H (74-99) mg/dL Calcium 9.7 (8.4-10.2) mg/dL AST 34 (14-36) U/L ALT 20 (9-52) U/L Alkaline Phosphatase 107 (38-126) U/L Total Protein 6.6 (6.3-8.2) g/dL Albumin 3.8 (3.5-5.0) g/dL Current Medications Generic Name Dose Route Start Last Admin Trade Name Freq PRN Reason Stop Dose Admin Acetaminophen 650 mg 11/27/18 16:56 Tylenol Tab PO Q6HR PRN Mild Pain or Fever > 100.5 Albuterol/Ipratropium 3 ml 11/28/18 12:44 12/02/18 08:02 Duoneb 0.5 Mg-3 Mg/3 Ml Soln INHALATION 3 ml RT-Q2H PRN Administration Shortness Of Breath Or Wheezing Apixaban 5 mg 11/28/18 09:00 12/02/18 08:48 Eliquis PO 5 mg BID BOO Administration Aspirin 81 mg 11/28/18 09:00 12/02/18 08:48 Aspirin PO 81 mg DAILY BOO Administration Atorvastatin Calcium 40 mg 11/28/18 21:00 12/01/18 20:26 Lipitor PO 40 mg HS BOO Administration Budesonide/Formoterol Fumarate 2 puff 11/28/18 08:00 12/02/18 08:02 Symbicort 160-4.5 Mcg Inhaler INHALATION 2 puff RT-BID BOO Administration Cefazolin Sodium 2 gm 11/29/18 00:00 12/02/18 08:46 Kefzol IVP 2 gm Q8HR BOO Administration Cholecalciferol 1,000 unit 11/28/18 09:00 12/02/18 08:48 Vitamin D3 PO 1,000 unit DAILY [facility] Administration Colchicine 0.6 mg 12/01/18 21:00 12/02/18 08:47 Colcrys PO 0.6 mg BID [facility] Administration Docusate Sodium 100 mg 11/28/18 21:00 12/02/18 08:48 Colace PO 100 mg BID BOO Administration Ferrous Sulfate 325 mg 11/28/18 09:00 12/02/18 08:53 Feosol PO 325 mg DAILY BOO Administration Furosemide 40 mg 11/29/18 09:00 12/02/18 08:48 Lasix PO 40 mg DAILY BOO Administration Furosemide 20 mg 11/30/18 16:00 12/01/18 15:26 Lasix PO 20 mg DAILY@1600 [facility] Administration Hydromorphone HCl 0.5 mg 11/28/18 20:42 12/01/18 03:24 Dilaudid IVP 0.5 mg Q3HR PRN Administration Pain Lisinopril 5 mg 11/28/18 09:00 12/02/18 08:52 Zestril PO Not Given DAILY [facility] Melatonin 3 mg 11/28/18 01:36 12/01/18 20:42 Melatonin PO 3 mg HS [facility] Administration Metoprolol Tartrate 75 mg 12/02/18 16:00 Lopressor PO TID BOO Montelukast Sodium 10 mg 11/28/18 01:37 12/01/18 20:26 Singulair PO 10 mg HS [facility] Administration Naloxone HCl 0.2 mg 11/27/18 16:56 Narcan IV Q2M PRN Opioid Reversal Nystatin 1 applic 11/30/18 16:00 12/02/18 08:51 Mycostatin Powder TOPICAL 1 applic TID [facility] Administration Pantoprazole Sodium 40 mg 11/28/18 09:00 12/02/18 08:48 Protonix PO 40 mg BID [facility] Administration Potassium Chloride 20 meq 11/28/18 09:00 12/02/18 08:48 K-Dur 20 PO 20 meq DAILY [facility] Administration Tramadol HCl 50 mg 11/28/18 01:35 12/02/18 02:46 Ultram PO 50 mg Q6HR PRN Administration Pain Intake and Output 12/02/18 12/02/18 12/02/18 06:59 14:59 22:59 Intake Total 480 Balance 480 Intake: Oral 480 Other: # Voids 2 3 12/02/18 07:45 12/02/18 12:18 Assessment and Plan Assessment: #1 brief nonsustained ventricular tachycardia #2 lower extremity cellulitis #3 acute kidney injury, improved #4 chronic atrial fibrillation #5 hypertension #6 hyperlipidemia #7 obesity Plan: From cardiology's perspective, we will increase metoprolol to 75 mg by mouth 3 times a day. We will give 1 g of magnesium sulfate. We will obtain a 2-D echo with Doppler to assess LV systolic function. We will get a BMP and magnesium level in the morning. Further recommendations to follow. REGISTERED NURSE RENAL note has been reviewed, I agree with a documented findings and plan of care. Patient was seen and examined.
--- NOTE | 2018-12-02 15:32 | P.PN ---
Subjective Progress Note Date: 12/02/18 This is a 78-year-old female, patient of Dr. Tobar. 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 Patient presents to the emergency room with complaints of right leg pain and swelling. Patient reports symptoms started about 2 weeks ago after a fall. She reports she was walking in her house and was rushing to get her things together to go visit her son in the hospital. She fell landing on her right knee. She initially went to the ER and had x-rays obtained which were negative for any fracture. And then she had to go back to the ER because she started having increasing's redness in the area as well as bruising and blisterlike formation with edema. At that time they started her on Bactrim also her PCP had given her increase in her Lasix. Patient took the Bactrim for 2 days with no improvement. She reports increase in swelling in her knee bruising and redness down in from the knee and into the tibia area. She came into the emergency room for further evaluation and treatment. Dopplers were obtained of the legs and there were negative bilaterally for any DVTs with suboptimal imaging. X-ray of the right tibia fibula every second showed no fracture. White count on admission was 11.4 which has normalized to 8.5. Hemoglobin is 11.2-10.1 and creatinine 1.21 down to 1.13. Bactrim was discontinued just was started on Kefzol in the ER. Infectious disease will be consulted. Patient does report a history of COPD and has been having a cough chest x-ray is negative for any acute changes. She is requesting pulmonary consult she usually sees Dr. Mendez in the office. Consult has been placed for Dr. Mcneal who is on-call this week. Patient denies any fever, chills, sweats, nausea or vomiting, bowel movement changes or urinary symptoms. Denies any chest pain or shortness of breath. She was found have evidence of a urinary tract infection culture has been obtained. On 11/29/2018 patient is currently alert and oriented 3 sitting up in chair. This time patient is still complaining of some leg discomfort. Patient denies chest pain or shortness breath. Patient denies nausea vomiting or diarrhea. Patient denies any urinary burning or frequency. Will add lactulose one-time order for constipation. 11/30/2018 patient reporting some minimal improvement in her right leg swelling. Still remains on IV antibiotics. She is complaining of pain in the skinfold area behind the right knee. Evidence of yeast. Nystatin powder has been ordered. Patient did have a bowel movement with lactulose yesterday. Denies any chest pain or worsening shortness breath. 12/01/2018 patient complaining of right great toe pain. There is some redness in the knuckle area. Uric acid level is normal. However this is still likely gout. She'll be started on IV Solu-Medrol 125 mg IV 1 and then colchicine 0.6 mg twice a day. Patient has been tachycardic heart rate in the high 120s during nebulizer treatments. Nebulized treatments will be switched as needed. She remains on telemetry. Last heart rate was 93. Patient denies any chest pain. Shortness of breath is improving. Denies any bowel movement changes or urinary symptoms. On 12/02/2018 patient is improving gradually redness in the right lower extremity knee and pretibial area is improving pain in the right big toe is improving patient still having significant tachycardia at rest cardiology consultation was requested again to reevaluate Objective - Vital Signs Vital signs: Vital Signs Temp 98.4 F 12/02/18 14:44 Pulse 93 12/02/18 14:44 Resp 16 12/02/18 14:44 BP 121/82 12/02/18 14:44 Pulse Ox 95 12/02/18 14:44 Intake & Output 12/01/18 12/02/18 12/02/18 18:59 06:59 18:59 Intake Total 480 Balance 480 Weight 111.4 kg Intake: Oral 480 Other: Voiding Method Toilet # Voids 1 2 3 - Exam Head normocephalic and atraumatic Neck supple no JVD no goiter Lungs a few scattered wheezes noted bilaterally Heart regular rate and rhythm S1-S2, no rub or gallop Abdomen is soft nontender nondistended positive bowel sounds no hepatosplenomegaly Extremities right leg is edematous. Swelling noted in the right knee large hematoma on the right knee. Tender with palpation and movement. Right great toe redness and pain Neuro alert and orientated to 3 - Labs CBC & Chem 7: 12/02/18 07:45 12/02/18 12:18 Labs: Abnormal Lab Results - Last 24 Hours (Table) 12/02/18 12/02/18 Range/Units 07:45 07:45 WBC 11.0 H (3.8-10.6) k/uL RBC 3.66 L (3.80-5.40) m/uL Hgb 11.2 L (11.4-16.0) gm/dL Plt Count 474 H (150-450) k/uL Neutrophils # 10.1 H (1.3-7.7) k/uL Lymphocytes # 0.6 L (1.0-4.8) k/uL BUN 20 H (7-17) mg/dL Glucose 174 H (74-99) mg/dL Microbiology - Last 24 Hours (Table) 11/27/18 14:27 Blood Culture - Preliminary Blood No Growth after 96 hours Assessment and Plan Plan: 1. Right leg cellulitis and hematoma of the knee after a fall: Keep legs elevated. Continue the IV Kefzol 1 g every 8 hours. Consult infectious disease. X-ray of the right tibia fibula on ferrous echo was negative for any fractures. Venous Doppler bilateral lower extremities was suboptimal, findings negative for DVT. Add nystatin powder for skin folds behind right knee 2. Acute kidney injury: Creatinine 1.21 on admission down to 1.13. Likely related to increase in diuretics and Bactrim. Bactrim was discontinued. Continue to monitor closely while on her home dose of Lasix. Fluids are currently KVO. Kidney function has normalized 3. UTI: Urine culture negative. Patient asymptomatic. 4. Mild COPD exacerbation: Patient does have wheezing on exam. She does report cough. Chest x-ray showing no acute changes. Patient requesting pulmonary consult. She is a patient of Dr. Mendez. Resume inhalers. Change nebulizers to as needed 5. History of chronic atrial fibrillation: Anticoagulated with eliquis. Continue metoprolol. Heart rate has been around 129 during nebulizer treatments. Again nebulizer treatments have been adjusted to just as needed. Continue with telemetry monitoring. 6. History of CVA 7. Prior history of daily alcohol use. Patient reports she does not drink as often anymore. Last alcoholic beverage was around Dhiraj time per patient 8. Hypertension 9. Hyperlipidemia 10. History of gastric antral ulcers requiring cauterization. Continue Protonix 11. Mild protein calorie malnutrition: Add ensure 1 can twice a day 12. Iron deficiency anemia continue iron supplement 13. Acute gout in the right great toe. Give Solu-Medrol 125 mg IV 1 and start colchicine 0.6 mg twice a day GI prophylaxis Protonix and DVT prophylaxis Eliquis
--- NOTE | 2018-12-02 15:53 | PN ---
PROGRESS NOTE DATE OF SERVICE: 12/02/2018. REASON FOR FOLLOWUP: Right leg cellulitis. INTERVAL HISTORY: The patient is currently afebrile. She is breathing comfortably. Denies having any chest pain or any cough. No abdominal pain or diarrhea. PHYSICAL EXAMINATION: Blood pressure is 121/82 with a pulse of 93, temperature 98.4. She is 95% on room air. General description is an elderly female up in the chair in no distress. Respiratory system: Unlabored breathing. Clear to auscultation anteriorly. Heart: S1, S2. Regular rate and rhythm. Abdomen soft, no tenderness. Right leg swelling and redness improved. She did have a hematoma on the right knee area with no worsening. DIAGNOSTIC IMPRESSION AND PLAN: Patient with right leg cellulitis. The patient did have evidence of a hematoma of the right knee. PLAN: At this time is to continue the patient on cefazolin with a plan to finish therapy with oral Keflex, mild Krishna to keep the swelling down. Continue supportive care. MMODL / IJN: [id number] /
[2018-12-02] MEDS: MONTELUKAST 10 MG TAB PO SCH (20:32)
[2018-12-02] MEDS: ATORVASTATIN 40 MG TAB PO SCH (20:33)
[2018-12-02] MEDS: MELATONIN 3 MG TABLET PO SCH (20:34)
[2018-12-02] MEDS: HYDROmorphone 0.5 MG/0.5 ML SYRINGE IVP PRN (22:42)
[2018-12-03] MEDS: traMADol 50 MG TAB PO PRN ×2 (03:56→14:49)
[2018-12-03 07:18] LABS: Basophils % (A) 0 %; Eosinophils # (A) 0.2 k/uL (0-0.7); Eosinophils % (A) 2 %; HCT 33.9 % (34.0-46.0); HGB 10.9 gm/dL (11.4-16.0); Hypochromasia Slight; Lymphocytes # (A) 1.9 k/uL (1.0-4.8); Lymphocytes % (A) 18 %; MCH 31.7 pg (25.0-35.0); MCHC 32.1 g/dL (31.0-37.0); MCV 98.6 fL (80.0-100.0); Macrocytosis Slight; Mean Platelet Volume 6.4; Monocytes # (A) 0.6 k/uL (0-1.0); Monocytes % (A) 6 %; Neutrophils # (A) 7.4 k/uL (1.3-7.7); Neutrophils % (A) 73 %; Platelet Count 460 k/uL (150-450); RBC 3.43 m/uL (3.80-5.40); RDW 15.6 % (11.5-15.5); WBC 10.2 k/uL (3.8-10.6)
[2018-12-03 07:40] LABS: Albumin 3.4 g/dL (3.5-5.0); Calcium 9.1 mg/dL (8.4-10.2); Magnesium 1.9 mg/dL (1.6-2.3); Potassium 4.2 mmol/L (3.5-5.1); Total Bilirubin 0.6 mg/dL (0.2-1.3)
[2018-12-03] MEDS: SYMBICORT 160-4.5 MCG INHALER INHALATION SCH ×2 (08:08→19:51)
[2018-12-03] MEDS: ceFAZolin IN SWFI 2 GM/20 ML SYRINGE IVP SCH ×2 (08:16→14:49)
[2018-12-03] MEDS: APIXABAN 5 MG TAB PO SCH ×2 (08:17→21:19)
[2018-12-03] MEDS: FERROUS SULFATE 325 MG TAB PO SCH (08:17)
[2018-12-03] MEDS: POTASSIUM CHLORIDE ER 20 MEQ TAB.ER PO SCH (08:17)
[2018-12-03] MEDS: PANTOPRAZOLE 40 MG TABLET PO SCH ×2 (08:17→21:20)
[2018-12-03] MEDS: CHOLECALCIFEROL 1,000 UNIT TAB PO SCH (08:18)
[2018-12-03] MEDS: NYSTATIN 100,000 UNIT/GM POWD 15 GM TOPICAL SCH ×3 (08:18→21:20)
[2018-12-03] MEDS: FUROSEMIDE 40 MG TAB PO SCH (08:18)
[2018-12-03] MEDS: ASPIRIN 81 MG PO SCH (08:18)
[2018-12-03] MEDS: DOCUSATE 100 MG CAP PO SCH ×2 (08:18→21:07)
[2018-12-03] MEDS: LISINOPRIL 5 MG TAB PO SCH (08:18)
[2018-12-03] MEDS: COLCHICINE 0.6 MG EACH PO SCH ×2 (08:26→21:20)
[2018-12-03] MEDS: METOPROLOL TARTRATE 50 MG TAB PO SCH ×3 (08:26→21:20)
[2018-12-03] MEDS ORDERED: methylPREDNISolone SOD SUCCI 125 MG/2 ML VIAL IV STA (12:38)
--- NOTE | 2018-12-03 12:38 | P.PN ---
Subjective Progress Note Date: 12/03/18 This is a 78-year-old female, patient of Dr. Tobar. 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 Patient presents to the emergency room with complaints of right leg pain and swelling. Patient reports symptoms started about 2 weeks ago after a fall. She reports she was walking in her house and was rushing to get her things together to go visit her son in the hospital. She fell landing on her right knee. She initially went to the ER and had x-rays obtained which were negative for any fracture. And then she had to go back to the ER because she started having increasing's redness in the area as well as bruising and blisterlike formation with edema. At that time they started her on Bactrim also her PCP had given her increase in her Lasix. Patient took the Bactrim for 2 days with no improvement. She reports increase in swelling in her knee bruising and redness down in from the knee and into the tibia area. She came into the emergency room for further evaluation and treatment. Dopplers were obtained of the legs and there were negative bilaterally for any DVTs with suboptimal imaging. X-ray of the right tibia fibula every second showed no fracture. White count on admission was 11.4 which has normalized to 8.5. Hemoglobin is 11.2-10.1 and creatinine 1.21 down to 1.13. Bactrim was discontinued just was started on Kefzol in the ER. Infectious disease will be consulted. Patient does report a history of COPD and has been having a cough chest x-ray is negative for any acute changes. She is requesting pulmonary consult she usually sees Dr. Mendez in the office. Consult has been placed for Dr. Mcneal who is on-call this week. Patient denies any fever, chills, sweats, nausea or vomiting, bowel movement changes or urinary symptoms. Denies any chest pain or shortness of breath. She was found have evidence of a urinary tract infection culture has been obtained. On 11/29/2018 patient is currently alert and oriented 3 sitting up in chair. This time patient is still complaining of some leg discomfort. Patient denies chest pain or shortness breath. Patient denies nausea vomiting or diarrhea. Patient denies any urinary burning or frequency. Will add lactulose one-time order for constipation. 11/30/2018 patient reporting some minimal improvement in her right leg swelling. Still remains on IV antibiotics. She is complaining of pain in the skinfold area behind the right knee. Evidence of yeast. Nystatin powder has been ordered. Patient did have a bowel movement with lactulose yesterday. Denies any chest pain or worsening shortness breath. 12/01/2018 patient complaining of right great toe pain. There is some redness in the knuckle area. Uric acid level is normal. However this is still likely gout. She'll be started on IV Solu-Medrol 125 mg IV 1 and then colchicine 0.6 mg twice a day. Patient has been tachycardic heart rate in the high 120s during nebulizer treatments. Nebulized treatments will be switched as needed. She remains on telemetry. Last heart rate was 93. Patient denies any chest pain. Shortness of breath is improving. Denies any bowel movement changes or urinary symptoms. On 12/02/2018 patient is improving gradually redness in the right lower extremity knee and pretibial area is improving pain in the right big toe is improving patient still having significant tachycardia at rest cardiology consultation was requested again to reevaluate On 12/03/2018 patient is complaining of more pain in the right foot with redness in the base of the right big to she is also complaining of generalized malaise and poor sleep last night, otherwise no complaints, cardiology increased dose of metoprolol yesterday to 75 mg by mouth 3 times daily, heart rate is down to 80-85 today Objective - Vital Signs Vital signs: Vital Signs Temp 97.5 F L 12/03/18 06:52 Pulse 80 12/03/18 07:03 Resp 14 12/03/18 06:52 BP 122/73 12/03/18 06:52 Pulse Ox 93 L 12/03/18 06:52 Intake & Output 12/02/18 12/03/18 12/03/18 18:59 06:59 18:59 Intake Total 480 300 Balance 480 300 Intake: Intake, IV Titration 100 Amount Magnesium Sulfate-D5w Pmx 100 1 gm In Dextrose/Water 1 100ml.bag @ 100 mls/hr IVPB ONCE ONE Rx#: [id number] Oral 480 200 Other: # Voids 3 1 - Exam Head normocephalic and atraumatic Neck supple no JVD no goiter Lungs a few scattered wheezes noted bilaterally Heart regular rate and rhythm S1-S2, no rub or gallop Abdomen is soft nontender nondistended positive bowel sounds no hepatosplenomegaly Extremities right leg is edematous. Swelling noted in the right knee large hematoma on the right knee. Tender with palpation and movement. Right great toe redness and pain Neuro alert and orientated to 3 - Labs CBC & Chem 7: 12/03/18 06:30 12/03/18 06:30 Labs: Abnormal Lab Results - Last 24 Hours (Table) 12/03/18 12/03/18 Range/Units 06:30 06:30 RBC 3.43 L (3.80-5.40) m/uL Hgb 10.9 L (11.4-16.0) gm/dL Hct 33.9 L (34.0-46.0) % RDW 15.6 H (11.5-15.5) % Plt Count 460 H (150-450) k/uL BUN 26 H (7-17) mg/dL Total Protein 6.0 L (6.3-8.2) g/dL Albumin 3.4 L (3.5-5.0) g/dL Microbiology - Last 24 Hours (Table) 11/27/18 14:27 Blood Culture - Preliminary Blood No Growth after 120 hours Assessment and Plan Plan: 1. Right leg cellulitis and hematoma of the knee after a fall: Keep legs elevated. Continue the IV Kefzol 1 g every 8 hours. Consult infectious disease. X-ray of the right tibia fibula on ferrous echo was negative for any fractures. Venous Doppler bilateral lower extremities was suboptimal, findings negative for DVT. Add nystatin powder for skin folds behind right knee 2. Acute kidney injury: Creatinine 1.21 on admission down to 1.13. Likely related to increase in diuretics and Bactrim. Bactrim was discontinued. Continue to monitor closely while on her home dose of Lasix. Fluids are currently KVO. Kidney function has normalized 3. UTI: Urine culture negative. Patient asymptomatic. 4. Mild COPD exacerbation: Patient does have wheezing on exam. She does report cough. Chest x-ray showing no acute changes. Patient requesting pulmonary consult. She is a patient of Dr. Mendez. Resume inhalers. Change nebulizers to as needed 5. History of chronic atrial fibrillation: Anticoagulated with eliquis. Continue metoprolol. Heart rate has been around 129 during nebulizer treatments. Again nebulizer treatments have been adjusted to just as needed. Continue with telemetry monitoring. 6. History of CVA 7. Prior history of daily alcohol use. Patient reports she does not drink as often anymore. Last alcoholic beverage was around Dhiraj time per patient 8. Hypertension 9. Hyperlipidemia 10. History of gastric antral ulcers requiring cauterization. Continue Protonix 11. Mild protein calorie malnutrition: Add ensure 1 can twice a day 12. Iron deficiency anemia continue iron supplement 13. Acute gout in the right great toe. Give Solu-Medrol 125 mg IV 1 and start colchicine 0.6 mg twice a day, patient is having pain again will give 1 more dose of IV Solu-Medrol and monitor patient may be switched to prednisone for a few days after that GI prophylaxis Protonix and DVT prophylaxis Eliquis
--- NOTE | 2018-12-03 13:30 | PN ---
PROGRESS NOTE Mrs. Blankenship is a 78-year-old female who presented with cellulitis of the right leg, had a history of chronic atrial fibrillation and had a run of nonsustained ventricular tachycardia yesterday. She is feeling well this morning. She denies any chest pain. She still has some soreness in the right leg. Her breathing is stable. No dizziness. No palpitation. No nausea. She continued on metoprolol tartrate 75 mg three times a day, Lipitor 40 mg daily, Eliquis 5 mg twice a day, lisinopril 5 mg daily in addition to her antibiotics. PHYSICAL EXAMINATION: Blood pressure 122/70 with a heart rate in the 80s. LUNGS: Clear. HEART: Irregular regular. S1, S2. No S3. No rub. ABDOMEN: Soft, obese, nontender. EXTREMITIES: Erythema noted on the right side. Dressing in place. LAB DATA: Revealed BUN and creatinine 26 and 0.82. Potassium 4.2, hemoglobin of 10.9. IMPRESSION: 1. Cellulitis, being treated. 2. Atrial fibrillation, chronic, persistent, rate control, anticoagulated. 3. One episode of nonsustained ventricular tachycardia. 4. Hyperlipidemia. 5. History of stroke. RECOMMENDATION: Will proceed with an echocardiogram tomorrow. If her rate is stable and she has no further arrhythmia, then no further cardiac workup will be needed. She will follow with her primary catalogue maker as an outpatient. GRICELDA / CALEB: [id number] /
[2018-12-03] MEDS: FUROSEMIDE 20 MG TAB PO SCH (14:49)
[2018-12-03] MEDS: MELATONIN 3 MG TABLET PO SCH (21:20)
[2018-12-03] MEDS: ATORVASTATIN 40 MG TAB PO SCH (21:20)
[2018-12-03] MEDS: MONTELUKAST 10 MG TAB PO SCH (21:20)
[2018-12-03] MEDS: HYDROmorphone 0.5 MG/0.5 ML SYRINGE IVP PRN (22:23)
[2018-12-04] MEDS: ceFAZolin IN SWFI 2 GM/20 ML SYRINGE IVP SCH ×3 (00:10→16:52)
--- NOTE | 2018-12-04 01:09 | PN ---
PROGRESS NOTE DATE OF SERVICE: 12/03/2017. REASON FOR FOLLOWUP: Right knee wound hematoma and right leg cellulitis. INTERVAL HISTORY: The patient is currently afebrile. She is breathing comfortably. Denies any chest pain or any cough. Right leg swelling. Pain has improved. No abdominal pain. No diarrhea. PHYSICAL EXAMINATION: Her blood pressure is 123/80 with a pulse of 89, temperature 98 she is 94% on room air description is elderly female up in the chair in no distress. Respiratory system: Unlabored breathing clear to auscultation anteriorly heart S1, S2 , regular rate and rhythm in this patient who falls with bruise to the right knee area. The patient seems to have shown clinical improvement LABS: Hemoglobin is 10.9, white count 10.2 with a BUN of 22, creatinine 0.82. DIAGNOSTIC IMPRESSION AND PLAN: Patient with acute right lower extremity cellulitis in this patient who did have a fall with bruise to the right knee area. The patient seemed to have shown clinical improvement with Cefazolin. Cefazolin to continue for now. Continue with supportive care. MMODL / IJN: [id number] /
[2018-12-04] MEDS: traMADol 50 MG TAB PO PRN ×2 (05:05→16:57)
[2018-12-04 07:48] LABS: Basophils % (A) 0 %; Eosinophils # (A) 0.1 k/uL (0-0.7); Eosinophils % (A) 1 %; HCT 35.3 % (34.0-46.0); HGB 11.1 gm/dL (11.4-16.0); Hypochromasia Slight; Lymphocytes # (A) 0.9 k/uL (1.0-4.8); Lymphocytes % (A) 8 %; MCHC 31.6 g/dL (31.0-37.0); MCV 98.2 fL (80.0-100.0); Macrocytosis Slight; Mean Platelet Volume 6.9; Monocytes # (A) 0.5 k/uL (0-1.0); Monocytes % (A) 5 %; Neutrophils # (A) 9.7 k/uL (1.3-7.7); Neutrophils % (A) 86 %; Platelet Count 464 k/uL (150-450); RBC 3.59 m/uL (3.80-5.40); WBC 11.3 k/uL (3.8-10.6)
[2018-12-04 07:51] LABS: Albumin 3.8 g/dL (3.5-5.0); Calcium 9.5 mg/dL (8.4-10.2); Potassium 4.6 mmol/L (3.5-5.1); Total Bilirubin 0.6 mg/dL (0.2-1.3); Total Protein 6.6 g/dL (6.3-8.2)
[2018-12-04] MEDS: SYMBICORT 160-4.5 MCG INHALER INHALATION SCH (07:55)
[2018-12-04] MEDS: IPRATROPIUM-ALBUTEROL 3 ML NEB INHALATION PRN (07:55)
[2018-12-04] MEDS ORDERED: predniSONE 20 MG TAB PO SCH (09:00)
--- NOTE | 2018-12-04 10:48 | ECHOF ---
Referral Reason:NSVT MEASUREMENTS -------- HEIGHT: 154.9 cm WEIGHT: 111.1 kg BP: 123/83 RVIDd: 3.2 cm (< 3.3) IVSd: 1.2 cm (0.6 - 1.1) LVIDd: 4.7 cm (3.9 - 5.3) LVPWd: 1.1 cm (0.6 - 1.1) IVSs: 1.5 cm LVIDs: 3.6 cm LVPWs: 1.4 cm LA Diam: 4.2 cm (2.7 - 3.8) LAESV Index (A-L): 37.08 ml/m Ao Diam: 3.3 cm (2.0 - 3.7) AV Cusp: 1.9 cm (1.5 - 2.6) MV EXCURSION: 22.560 mm (> 18.000) MV EF SLOPE: 74 mm/s (70 - 150) EPSS: 1.0 cm RAP: 15.00 mmHg RVSP: 44.70 mmHg FINDINGS -------- Atrial fibrillation. This was a technically adequate study. The left ventricular size is normal. There is borderline concentric left ventricular hypertrophy. Overall left ventricular systolic function is mild-moderately impaired with, an EF between 40 - 45 % . The right ventricle is normal in size. LA is moderately dilated 34-39 ml/m2 The right atrium is normal in size. There is mild aortic valve sclerosis. Mild mitral annular calcification present. Mild mitral regurgitation is present. Mild tricuspid regurgitation present. There is mild pulmonary hypertension. The right ventricular systolic pressure, as measured by Doppler, is 44.70mmHg. Trace/mild (physiologic) pulmonic regurgitation. The aortic root size is normal. The inferior vena cava is dilated with no significant inspiratory collapse which is consistent estima adrianna right atrial pressure of >15 mmHg. There is no pericardial effusion. CONCLUSIONS -------- 1. Atrial fibrillation. 2. This was a technically adequate study. 3. The left ventricular size is normal. 4. There is borderline concentric left ventricular hypertrophy. 5. Overall left ventricular systolic function is mild-moderately impaired with, an EF between 40 - 45 %. 6. The right ventricle is normal in size. 7. LA is moderately dilated 34-39 ml/m2 8. The right atrium is normal in size. 9. There is mild aortic valve sclerosis. 10. Mild mitral annular calcification present. 11. Mild mitral regurgitation is present. 12. Mild tricuspid regurgitation present. 13. There is mild pulmonary hypertension. 14. The right ventricular systolic pressure, as measured by Doppler, is 44.70mmHg. 15. Trace/mild (physiologic) pulmonic regurgitation. 16. The aortic root size is normal. 17. The inferior vena cava is dilated with no significant inspiratory collapse which is consistent es timated right atrial pressure of >15 mmHg. 18. There is no pericardial effusion. TEAM MANAGER: Jocelyn Rodas RDCS
[2018-12-04] MEDS: POTASSIUM CHLORIDE ER 20 MEQ TAB.ER PO SCH (12:03)
[2018-12-04] MEDS: LISINOPRIL 5 MG TAB PO SCH (12:03)
[2018-12-04] MEDS: APIXABAN 5 MG TAB PO SCH (12:03)
[2018-12-04] MEDS: COLCHICINE 0.6 MG EACH PO SCH (12:03)
[2018-12-04] MEDS: FERROUS SULFATE 325 MG TAB PO SCH (12:03)
[2018-12-04] MEDS: DOCUSATE 100 MG CAP PO SCH (12:03)
[2018-12-04] MEDS: PANTOPRAZOLE 40 MG TABLET PO SCH (12:03)
[2018-12-04] MEDS: METOPROLOL TARTRATE 50 MG TAB PO SCH ×2 (12:04→16:57)
[2018-12-04] MEDS: CHOLECALCIFEROL 1,000 UNIT TAB PO SCH (12:04)
[2018-12-04] MEDS: FUROSEMIDE 40 MG TAB PO SCH (12:04)
[2018-12-04] MEDS: NYSTATIN 100,000 UNIT/GM POWD 15 GM TOPICAL SCH ×2 (12:10→16:56)
--- NOTE | 2018-12-04 12:27 | P.DS ---
Providers Date of admission: 11/27/18 16:09 Expected date of discharge: 12/04/18 Attending physician: Dar Sung Consults: 11/28/18 12:01 Consult Physician Routine Consulting Provider: Barbara Mcneal Consult Reason/Comments: COPD, patient known to Dr. Mendez Do you want consulting provider notified?: Yes Consult Physician Routine Consulting Provider: Radha Lamb Consult Reason/Comments: right leg cellulitis Do you want consulting provider notified?: Yes 12/02/18 11:34 Consult Physician Routine Consulting Provider: Radha Cruz Consult Reason/Comments: run of 8 PVC's, atrial fibrillation Do you want consulting provider notified?: Yes Primary care physician: Alia Tobar Hospital Course: Discharge diagnosis 1. Right leg cellulitis and hematoma of the knee after a fall: Keep legs elevated. X-ray of the right tibia fibula on ferrous echo was negative for any fractures. Venous Doppler bilateral lower extremities was suboptimal, findings negative for DVT. Add nystatin powder for skin folds behind right knee. Infectious diseases recommending Keflex 500 mg 3 times a day for 7 more days 2. Acute kidney injury: Creatinine 1.21 on admission down to 1.13. Likely related to increase in diuretics and Bactrim. Bactrim was discontinued. Continue to monitor closely while on her home dose of Lasix. Fluids are currently KVO. Kidney function has normalized 3. UTI: Urine culture negative. Patient asymptomatic. 4. Mild COPD exacerbation: Patient does have wheezing on exam. She does report cough. Chest x-ray showing no acute changes. Patient requesting pulmonary consult. She is a patient of Dr. Mendez. Resume inhalers. Change nebulizers to as needed 5. History of chronic atrial fibrillation: Anticoagulated with eliquis. Continue metoprolol. Heart rate has been around 129 during nebulizer treatments. Again nebulizer treatments have been adjusted to just as needed. Continue with telemetry monitoring. 6. History of CVA 7. Prior history of daily alcohol use. Patient reports she does not drink as often anymore. Last alcoholic beverage was around Dhiraj time per patient 8. Hypertension 9. Hyperlipidemia 10. History of gastric antral ulcers requiring cauterization. Continue Protonix 11. Mild protein calorie malnutrition: Add ensure 1 can twice a day 12. Iron deficiency anemia continue iron supplement 13. Acute gout in the right great toe. Give Solu-Medrol 125 mg IV 1 and start colchicine 0.6 mg twice a day, patient is having pain again will give 1 more dose of IV Solu-Medrol and monitor patient may be switched to prednisone for a few days after that 14. One episode of nonsustained ventricular tachycardia. Evaluated by cardiology. They've increased her metoprolol to 75 mg 3 times a day. Echo shows an EF of 40-45%. Hospital course This is a 78-year-old female, patient of Dr. Tobar. 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 Patient presents to the emergency room with complaints of right leg pain and swelling. Patient reports symptoms started about 2 weeks ago after a fall. She reports she was walking in her house and was rushing to get her things together to go visit her son in the hospital. She fell landing on her right knee. She initially went to the ER and had x-rays obtained which were negative for any fracture. And then she had to go back to the ER because she started having increasing's redness in the area as well as bruising and blisterlike formation with edema. At that time they started her on Bactrim also her PCP had given her increase in her Lasix. Patient took the Bactrim for 2 days with no improvement. She reports increase in swelling in her knee bruising and redness down in from the knee and into the tibia area. She came into the emergency room for further evaluation and treatment. Dopplers were obtained of the legs and there were negative bilaterally for any DVTs with suboptimal imaging. X-ray of the right tibia fibula every second showed no fracture. White count on admission was 11.4 which has normalized to 8.5. Hemoglobin is 11.2-10.1 and creatinine 1.21 down to 1.13. Bactrim was discontinued just was started on Kefzol in the ER. Infectious disease will be consulted. Patient does report a history of COPD and has been having a cough chest x-ray is negative for any acute changes. She is requesting pulmonary consult she usually sees Dr. Mendez in the office. Consult has been placed for Dr. Mcneal who is on-call this week. Patient denies any fever, chills, sweats, nausea or vomiting, bowel movement changes or urinary symptoms. Denies any chest pain or shortness of breath. She was found have evidence of a urinary tract infection culture has been obtained. On 11/29/2018 patient is currently alert and oriented 3 sitting up in chair. This time patient is still complaining of some leg discomfort. Patient denies chest pain or shortness breath. Patient denies nausea vomiting or diarrhea. Patient denies any urinary burning or frequency. Will add lactulose one-time order for constipation. 11/30/2018 patient reporting some minimal improvement in her right leg swelling. Still remains on IV antibiotics. She is complaining of pain in the skinfold area behind the right knee. Evidence of yeast. Nystatin powder has been ordered. Patient did have a bowel movement with lactulose yesterday. Denies any chest pain or worsening shortness breath. 12/01/2018 patient complaining of right great toe pain. There is some redness in the knuckle area. Uric acid level is normal. However this is still likely gout. She'll be started on IV Solu-Medrol 125 mg IV 1 and then colchicine 0.6 mg twice a day. Patient has been tachycardic heart rate in the high 120s during nebulizer treatments. Nebulized treatments will be switched as needed. She remains on telemetry. Last heart rate was 93. Patient denies any chest pain. Shortness of breath is improving. Denies any bowel movement changes or urinary symptoms. On 12/02/2018 patient is improving gradually redness in the right lower extremity knee and pretibial area is improving pain in the right big toe is improving patient still having significant tachycardia at rest cardiology consultation was requested again to reevaluate On 12/03/2018 patient is complaining of more pain in the right foot with redness in the base of the right big to she is also complaining of generalized malaise and poor sleep last night, otherwise no complaints, cardiology increased dose of metoprolol yesterday to 75 mg by mouth 3 times daily, heart rate is down to 80-85 today 12/04/2018 patient is medically stable for discharge. She's been cleared by consulting physicians. Her heart rate has improved with increasing the metoprolol. Cardiology would like her to follow-up with her securities dealer within a week. She's had no further episodes of nonsustained atrial tachycardia. Patient aspirin was also discontinued by cardiology during this session. She was treated for a right leg cellulitis and hematoma. Hemoglobin has remained stable. She was treated with IV Kefzol. Infectious diseases recommending Keflex for one more week. Swelling and redness have improved greatly. Patient also developed gout in the right great toe was treated with steroids and colchicine. We'll continue the treatment. She's been educated on the gout appropriate diet. She's up and ambulating without difficulty. Home care has been arranged. She is medically stable for discharge. Please refer to chart for any further details. I performed an examination of the patient and discussed their management with the physician Desktop Publishing Operator. I have reviewed the Physician Desktop Publishing Operator's notes and agree with the documented findings and plan of care Patient Condition at Discharge: Stable Plan - Discharge Summary Discharge Rx Participant: No New Discharge Prescriptions: New Cephalexin [Keflex] 500 mg PO Q8HR #21 cap Colchicine [Colcrys] 0.6 mg PO BID #60 each Furosemide [Lasix] 40 mg PO DAILY tab Furosemide [Lasix] 20 mg PO DAILY@1600 tab Metoprolol Tartrate [Lopressor] 75 mg PO TID #90 tab Nystatin 100,000 Unit/gm Powd [Mycostatin Powder] 1 applic TOPICAL TID #1 can predniSONE 10 mg PO DIRECTED #21 tab Continue Albuterol Nebulized [Ventolin Nebulized] 2.5 mg INHALATION RT-QID PRN PRN Reason: Shortness Of Breath Atorvastatin [Lipitor] 40 mg PO HS Budesonide-Formot 160-4.5 Mcg [Symbicort 160-4.5 Mcg Inhaler] 2 puff INHALATION RT-BID #60 puff Acetaminophen/Diphenhydramine [Tylenol PM 500-25mg] 1 tab PO HS PRN PRN Reason: Insomnia Lisinopril [Zestril] 5 mg PO DAILY Melatonin 3 mg PO HS Pantoprazole [Protonix] 40 mg PO BID #60 tablet.dr Potassium Chloride ER [K-Dur 20] 20 meq PO DAILY #30 tab Tiotropium 18 Mcg/Puff [Spiriva] 1 puff INHALATION RT-DAILY inhaler Cholecalciferol [Vitamin D3] 1,000 unit PO DAILY Montelukast [Singulair] 10 mg PO HS Apixaban [Eliquis] 5 mg PO BID Ferrous Sulfate [Feosol] 325 mg PO DAILY traMADol HCL [Ultram] 50 mg PO Q6HR PRN #12 tablet PRN Reason: Pain Discontinued Metoprolol Tartrate [Lopressor] 50 mg PO TID #90 tab Aspirin EC [Ecotrin Low Dose] 81 mg PO DAILY #60 tablet. Furosemide [Lasix] 40 mg PO BID Sulfamethox-Tmp 800-160Mg [Bactrim DS 800-160 mg] 2 each PO Q12HR #40 tab Discharge Medication List Albuterol Nebulized [Ventolin Nebulized] 2.5 mg INHALATION RT-QID PRN 07/25/15 [ History] Atorvastatin [Lipitor] 40 mg PO HS 07/25/15 [History] Budesonide-Formot 160-4.5 Mcg [Symbicort 160-4.5 Mcg Inhaler] 2 puff INHALATION RT-BID #60 puff 07/29/15 [Rx] Acetaminophen/Diphenhydramine [Tylenol PM 500-25mg] 1 tab PO HS PRN 01/16/17 [ History] Lisinopril [Zestril] 5 mg PO DAILY 01/16/17 [History] Melatonin 3 mg PO HS 01/16/17 [History] Pantoprazole [Protonix] 40 mg PO BID #60 tablet. 01/21/17 [Rx] Potassium Chloride ER [K-Dur 20] 20 meq PO DAILY #30 tab 01/21/17 [Rx] Tiotropium 18 Mcg/Puff [Spiriva] 1 puff INHALATION RT-DAILY inhaler 01/21/17 [ Rx] Apixaban [Eliquis] 5 mg PO BID 11/17/18 [History] Cholecalciferol [Vitamin D3] 1,000 unit PO DAILY 11/17/18 [History] Ferrous Sulfate [Feosol] 325 mg PO DAILY 11/17/18 [History] Montelukast [Singulair] 10 mg PO HS 11/17/18 [History] Cephalexin [Keflex] 500 mg PO Q8HR #21 cap 12/04/18 [Rx] Colchicine [Colcrys] 0.6 mg PO BID #60 each 12/04/18 [Rx] Furosemide [Lasix] 20 mg PO DAILY@1600 tab 12/04/18 [Rx] Furosemide [Lasix] 40 mg PO DAILY tab 12/04/18 [Rx] Metoprolol Tartrate [Lopressor] 75 mg PO TID #90 tab 12/04/18 [Rx] Nystatin 100,000 Unit/gm Powd [Mycostatin Powder] 1 applic TOPICAL TID #1 can [Rx] predniSONE 10 mg PO DIRECTED #21 tab 12/04/18 [Rx] traMADol HCL [Ultram] 50 mg PO Q6HR PRN #12 tablet 12/04/18 [Rx] Follow up Appointment(s)/Referral(s): [facility], [NON-STAFF] - Alia Tobar MD [Primary Care Provider] - 3 Days Patient Instructions/Handouts: Gout (GEN) Activity/Diet/Wound Care/Special Instructions: Follow up with her securities dealer in 1 week Diet cardiac Activity as tolerated Discharge Disposition: HOME WITH HOME HEALTH SERVICES
--- NOTE | 2018-12-04 12:37 | P.PN ---
Subjective This is a pleasant 78-year-old female past medical history significant for chronic persistent atrial fibrillation on residential anti- coagulation, hypertension, dyslipidemia and chronic systolic heart failure. She follows with Dr. Ovalles in [facility] for cardiology. We are following her for a run of non-sustained VT noted on telemetry. Echocardiogram obtained reveals impaired LV systolic function with EF 40-45%, moderate mitral calcification and mildly thickened aortic valve. No change from previous echo. Telemetry tracings reviewed, no further VT. laboratory data reviewed, WBC 11.3, hemoglobin 11.1, platelets 464, sodium 138, potassium 4.6, creatinine 0.78, magnesium yesterday 1.9. Blood pressure 131/86 herat rate 100 afebrile. She is seen and examined sitting up in the chair in no acute distress. She denies chest pain, shortness of breath, dizziness or palpitations. She is hoping for discharge home today. GENERAL: Well-appearing, well-nourished and in no acute distress. NECK: Supple without JVD or thyromegaly. LUNGS: Breath sounds clear to auscultation bilaterally. Respiration equal and unlabored. No wheezes, rales or rhonchi. HEART: Irregular rate and rhythm without murmurs, rubs or gallops. S1 and S2 heard. EXTREMITIES: Normal range of motion, erythema to right lower extremity with scabbing noted to the right knee and lower anterior leg, dressings in place. Left leg with no redness or edema. ASSESSMENT Lower extremity cellulitis, right Chronic persistent atrial fibrillation on long-term anticoagulation with controlled ventricular response Nonsustained ventricular tachycardia Hypertension Dyslipidemia Chronic systolic heart failure currently euvolemic History of CVA in the past PLAN Stable from a cardiac perspective. Continue Lopressor, Lipitor, Eliquis and lisinopril. Follow-up with her primary senior java j2ee developer upon discharge. Recommend she undergo stress testing as an outpatient once her cellulitis has resolved. Patient has been updated on the plan of care. Nurse Practitioner note has been reviewed, I agree with a documented findings and plan of care. Patient was seen and examined. Objective - Vital Signs Vital signs: Vital Signs Temp 97.5 F L 12/04/18 11:08 Pulse 100 12/04/18 11:08 Resp 18 12/04/18 11:08 BP 131/86 02/11/19 11:08 Pulse Ox 96 12/04/18 11:08 Intake & Output 12/03/18 12/04/18 12/04/18 18:59 06:59 18:59 Intake Total 250 Balance 250 Intake: Oral 250 Other: # Voids 2 1 - Labs CBC & Chem 7: 12/04/18 06:48 12/04/18 06:48 Labs: Abnormal Lab Results - Last 24 Hours (Table) 12/04/18 12/04/18 Range/Units 06:48 06:48 WBC 11.3 H (3.8-10.6) k/uL RBC 3.59 L (3.80-5.40) m/uL Hgb 11.1 L (11.4-16.0) gm/dL Plt Count 464 H (150-450) k/uL Neutrophils # 9.7 H (1.3-7.7) k/uL Lymphocytes # 0.9 L (1.0-4.8) k/uL Carbon Dioxide 32 H (22-30) mmol/L BUN 27 H (7-17) mg/dL Glucose 120 H (74-99) mg/dL Microbiology - Last 24 Hours (Table) 11/27/18 14:27 Blood Culture - Final Blood No Growth after 144 hours
[2018-12-04 16:44] VITALS: BP 132/86; PULSE 97; RESP 12; TEMP 98.1
[2018-12-04] MEDS: FUROSEMIDE 20 MG TAB PO SCH (16:57)
--- NOTE | 2018-12-04 17:22 | PN ---
PROGRESS NOTE DATE OF SERVICE: 12/04/2018 REASON FOR FOLLOWUP: Right lower extremity cellulitis. INTERVAL HISTORY: The patient is currently afebrile. She is breathing comfortably. The patient denies having any chest pain or any cough. No abdominal pain or any diarrhea. PHYSICAL EXAMINATION: Blood pressure is 131/86, pulse of 100, temperature 97.5. She is 96% on room air. General description is an elderly female up in the bed in no distress. RESPIRATORY SYSTEM: Unlabored breathing. Clear to auscultation anteriorly. HEART: S1, S2. Regular rate and rhythm. ABDOMEN: Soft. No tenderness. Right knee with the area of the bruise, but the leg's redness has improved. LABS: Hemoglobin 11.1, white count 11.3. DIAGNOSTIC IMPRESSION AND PLAN: Patient with acute right lower extremity cellulitis in this patient who did have a right knee bruise after a fall. Patient at this time to be switched over to Keflex 500 mg 3 times a day for another week with close outpatient followup, with Krishna wrap to keep the swelling down. Continue with supportive care. MMODL / IJN: [id number] /
== END 2018-12-04 18:35 | disposition home health service (06) | DRG 603 ==
LOC: EC 12:29 → 4SSUR 16:09
PROVIDERS: ADMIT Internal Medicine; ATTEND Internal Medicine
DX: L03.115 Cellulitis of right lower limb (principal); E44.1 Mild protein-calorie malnutrition; I47.2 Ventricular tachycardia; I48.1 Persistent atrial fibrillation; I50.22 Chronic systolic (congestive) heart failure; J44.1 Chronic obstructive pulmonary disease with (acute) exacerbation; N17.9 Acute kidney failure, unspecified; N39.0 Urinary tract infection, site not specified; Z68.42 Body mass index [BMI] 45.0-49.9, adult; I11.0 Hypertensive heart disease with heart failure; D50.9 Iron deficiency anemia, unspecified; E66.9 Obesity, unspecified; E78.5 Hyperlipidemia, unspecified; I49.3 Ventricular premature depolarization; K59.00 Constipation, unspecified; M10.9 Gout, unspecified; S80.01XA Contusion of right knee, initial encounter; M19.90 Unspecified osteoarthritis, unspecified site; N39.3 Stress incontinence (female) (male); Q13.81 Rieger anomaly; Z79.01 Long term (current) use of anticoagulants; Z79.51 Long term (current) use of inhaled steroids; Z79.82 Long term (current) use of aspirin; Z79.899 Other long term (current) drug therapy; Z87.11 Personal history of peptic ulcer disease; Z87.891 Personal history of nicotine dependence; Z90.710 Acquired absence of both cervix and uterus; Z87.01 Personal history of pneumonia (recurrent); I69.992 Facial weakness following unspecified cerebrovascular disease; Z96.643 Presence of artificial hip joint, bilateral; Z96.652 Presence of left artificial knee joint; Z98.42 Cataract extraction status, left eye; Z98.41 Cataract extraction status, right eye; Z96.1 Presence of intraocular lens; Z80.9 Family history of malignant neoplasm, unspecified; Z82.49 Family history of ischemic heart disease and other diseases of the circulatory system; W01.0XXA Fall on same level from slipping, tripping and stumbling without subsequent striking against object, initial encounter; Y92.009 Unspecified place in unspecified non-institutional (private) residence as the place of occurrence of the external cause
CPT/HCPCS: 36415; 71046; 80053; 81001; 82728; 83540; 83550; 83605; 83735; 83880; 84132; 84550; 85025; 85610; 85730; 87040; 87086; 93306; 93970; 94640; 96365; 99284; 99285

== ENCOUNTER 2018-12-12 11:25 | Inpatient (IN) | payer MEDICARE, BC ==
[2018-12-12] MEDS ORDERED: SODIUM CHLORIDE 0.9% 1,000 ML IV STA (11:44)
[2018-12-12] MEDS ORDERED: SODIUM CHLORIDE 0.9% 500 ML 500 ML IV STA (11:44)
[2018-12-12] MEDS ORDERED: methylPREDNISolone SOD SUCCI 125 MG/2 ML VIAL IV STA (11:44)
[2018-12-12] MEDS ORDERED: IPRATROPIUM-ALBUTEROL 3 ML NEB INHALATION STA (11:44)
--- NOTE | 2018-12-12 11:47 | ED ---
General Adult HPI - General Chief complaint: Shortness of Breath Stated complaint: YADIRA Time Seen by Provider: 12/12/18 11:30 Source: patient, RN notes reviewed, old records reviewed Mode of arrival: wheelchair Limitations: no limitations - History of Present Illness Initial comments: Patient is a 78-year-old female who presents emergency Department today with complaints of difficulty in breathing. She has history of COPD. She states that she sees Dr. Moreno. She reports that last night she develop worsening coughing and shortness of breath. Patient states that she was scared to go to sleep at night fear for difficulty breathing and she would not wake up. She does not typically wear oxygen. She is a former smoker. She has a history of heart disease and CHF. Patient reports that she was recently discharged from the hospital for right leg cellulitis after a fall. She reports that her leg is doing better. Patient states that she has been using her pain medication as prescribed from discharge. Patient states that she called her gas adjuster and advised her to come in here. - Related Data Home Medications Medication Instructions Recorded Confirmed Albuterol Nebulized [Ventolin 2.5 mg INHALATION RT-QID PRN 07/25/15 12/12/18 Nebulized] Atorvastatin [Lipitor] 40 mg PO HS 07/25/15 12/12/18 Acetaminophen/Diphenhydramine 1 tab PO HS PRN 01/16/17 12/12/18 [Tylenol PM 500-25mg] Lisinopril [Zestril] 5 mg PO DAILY 01/16/17 12/12/18 Melatonin 3 mg PO HS 01/16/17 12/12/18 Apixaban [Eliquis] 5 mg PO BID 11/17/18 12/12/18 Cholecalciferol [Vitamin D3] 1,000 unit PO DAILY 11/17/18 12/12/18 Ferrous Sulfate [Feosol] 325 mg PO DAILY 11/17/18 12/12/18 Montelukast [Singulair] 10 mg PO HS 11/17/18 12/12/18 Previous Rx's Medication Instructions Recorded Budesonide-Formot 160-4.5 Mcg 2 puff INHALATION RT-BID #60 puff 07/29/15 [Symbicort 160-4.5 Mcg Inhaler] Pantoprazole [Protonix] 40 mg PO BID #60 tablet. 01/21/17 Potassium Chloride ER [K-Dur 20] 20 meq PO DAILY #30 tab 01/21/17 Tiotropium 18 Mcg/Puff [Spiriva] 1 puff INHALATION RT-DAILY inhaler 01/21/17 Cephalexin [Keflex] 500 mg PO Q8HR #21 cap 12/04/18 Colchicine [Colcrys] 0.6 mg PO BID #60 each 12/04/18 Furosemide [Lasix] 20 mg PO DAILY@1600 tab 12/04/18 Furosemide [Lasix] 40 mg PO DAILY tab 12/04/18 Metoprolol Tartrate [Lopressor] 75 mg PO TID #90 tab 12/04/18 Nystatin 100,000 Unit/gm Powd 1 applic TOPICAL TID #1 can 12/04/18 [Mycostatin Powder] predniSONE 10 mg PO DIRECTED #21 tab 12/04/18 traMADol HCL [Ultram] 50 mg PO Q6HR PRN #12 tablet 12/04/18 Allergies Allergy/AdvReac Type Severity Reaction Status Date / Time No Known Allergies Allergy Verified 12/12/18 11:51 Review of Systems ROS Statement: Those systems with pertinent positive or pertinent negative responses have been documented in the HPI. ROS Other: All systems not noted in ROS Statement are negative. Past Medical History Past Medical History: Atrial Fibrillation, COPD, CVA/TIA, Hyperlipidemia, Hypertension, Osteoarthritis (OA), Pneumonia Additional Past Medical History / Comment(s): ETOH stated drinks 1-2 a day but has'nt drank in 1.5 weeks. 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 History of Any Multi-Drug Resistant Organisms: None Reported Past Surgical History: Back Surgery, Hysterectomy, Orthopedic Surgery, Tonsillectomy Additional Past Surgical History / Comment(s): BILATERAL HIP replacments, lt KNEE replacment, right SHOULDER SURGERY, hedy cataracts, enucleation of lt eye with implant Past Anesthesia/Blood Transfusion Reactions: No Reported Reaction Past Psychological History: No Psychological Hx Reported Smoking Status: Former smoker Past Alcohol Use History: Rare Past Drug Use History: None Reported - Past Family History Mother Family Medical History: Myocardial Infarction ([place]) Father Family Medical History: Cancer General Exam - General Exam Comments Initial Comments: 78-year-old female. Alert and oriented. No significant distress. Limitations: no limitations General appearance: alert, in no apparent distress Head exam: Present: atraumatic, normocephalic, normal inspection Eye exam: Present: normal appearance, PERRL, EOMI. Absent: scleral icterus, conjunctival injection, periorbital swelling ENT exam: Present: normal exam, mucous membranes moist. Absent: normal oropharynx Neck exam: Present: normal inspection. Absent: tenderness, meningismus, lymphadenopathy Respiratory exam: Present: wheezes (Diffuse wheezing and rhonchi throughout bilateral lung partida), rhonchi. Absent: normal lung sounds bilaterally, respiratory distress, rales, stridor Cardiovascular Exam: Present: regular rate, normal rhythm, normal heart sounds. Absent: systolic murmur, diastolic murmur, rubs, gallop, clicks GI/Abdominal exam: Present: soft, normal bowel sounds. Absent: distended, tenderness, guarding, rebound, rigid Extremities exam: Present: normal inspection, full ROM, normal capillary refill , other (Patient has healing cellulitic changes over the right lower leg. No signs of active infection. No skin drainage. Bilateral 2+ pitting edema ). Absent: tenderness, pedal edema, joint swelling, calf tenderness Back exam: Present: normal inspection Neurological exam: Present: alert, oriented X3, CN II-XII intact Psychiatric exam: Present: normal affect, normal mood Skin exam: Present: warm, dry, intact, normal color. Absent: rash Course Vital Signs 12/12/18 12/12/18 12/12/18 11:28 12:34 12:36 Temperature 97.7 F Pulse Rate 77 72 Respiratory 18 20 24 Rate Blood Pressure 113/70 O2 Sat by Pulse 96 Oximetry 12/12/18 12/12/18 12:59 13:00 Temperature Pulse Rate 88 74 Respiratory 22 Rate Blood Pressure 106/75 O2 Sat by Pulse 97 Oximetry Medical Decision Making - Medical Decision Making 78-year-old female presents to return today with worsening shortness of breath. Recently admitted for right leg cellulitis. At this time Patient has diffuse wheezing and rhonchi noted throughout all lung partida. On ambulation patient's pulse ox was 89-90% on room air upon arrival. Patient was started on IV fluids and lab work was obtained. Lab work was reviewed relatively normal. BNP is mildly elevated 2830. Patient chest x-ray shows no significant changes. She is also currently on Lasix. Due to the significant wheezing and rhonchi Patient was given a double DuoNeb treatment and IV steroids. After treatment she continues to have significant wheezing. Patient's case discussed with Dr. Rodríguez who discussed the case with Dr. Sung. He agrees for admission with consults to Dr. Mendez. On reevaluation Patient was being evaluated by Alexandra Enamorado, PAC. Continue IV steroids and breathing treatments. - Lab Data Result diagrams: 12/12/18 12:35 12/12/18 12:35 Lab Results 12/12/18 12/12/18 12/12/18 Range/Units 12:35 12:35 12:35 WBC 6.1 (3.8-10.6) k/uL RBC 4.08 (3.80-5.40) m/uL Hgb 12.8 (11.4-16.0) gm/dL Hct 40.1 (34.0-46.0) % MCV 98.2 (80.0-100.0) fL MCH 31.4 (25.0-35.0) pg MCHC 32.0 (31.0-37.0) g/dL RDW 15.1 (11.5-15.5) % Plt Count 337 (150-450) k/uL Neutrophils % (Manual) 67 % Band Neutrophils % 2 % Lymphocytes % (Manual) 14 % Monocytes % (Manual) 16 % Eosinophils % (Manual) 1 % Neutrophils # (Manual) 4.20 (1.3-7.7) k/uL Lymphocytes # (Manual) 0.85 L (1.0-4.8) k/uL Monocytes # (Manual) 0.98 (0-1.0) k/uL Eosinophils # (Manual) 0.06 (0-0.7) k/uL Nucleated RBCs 0 (0-0) /100 WBC Manual Slide Review Performed RBC Morphology Normal Macrocytosis Slight PT (9.0-12.0) sec INR (<1.2) APTT (22.0-30.0) sec Sodium 138 (137-145) mmol/L Potassium 3.7 (3.5-5.1) mmol/L Chloride 98 (98-107) mmol/L Carbon Dioxide 32 H (22-30) mmol/L Anion Gap 8 mmol/L BUN 17 (7-17) mg/dL Creatinine 0.87 (0.52-1.04) mg/dL Est GFR (CKD-EPI)AfAm 73 (>60 ml/min/1.73 sqM) Est GFR (CKD-EPI)NonAf 64 (>60 ml/min/1.73 sqM) Glucose 116 H (74-99) mg/dL Calcium 9.3 (8.4-10.2) mg/dL Magnesium 1.8 (1.6-2.3) mg/dL Total Bilirubin 0.8 (0.2-1.3) mg/dL AST 39 H (14-36) U/L ALT 38 (9-52) U/L Alkaline Phosphatase 108 (38-126) U/L Total Creatine Kinase 59 (30-135) U/L CK-MB (CK-2) 2.7 H (0.0-2.4) ng/mL CK-MB (CK-2) Rel Index 4.6 Troponin I <0.012 (0.000-0.034) ng/mL NT-Pro-B Natriuret Pep pg/mL Total Protein 6.5 (6.3-8.2) g/dL Albumin 4.0 (3.5-5.0) g/dL 12/12/18 12/12/18 Range/Units 12:35 12:35 WBC (3.8-10.6) k/uL RBC (3.80-5.40) m/uL Hgb (11.4-16.0) gm/dL Hct (34.0-46.0) % MCV (80.0-100.0) fL MCH (25.0-35.0) pg MCHC (31.0-37.0) g/dL RDW (11.5-15.5) % Plt Count (150-450) k/uL Neutrophils % (Manual) % Band Neutrophils % % Lymphocytes % (Manual) % Monocytes % (Manual) % Eosinophils % (Manual) % Neutrophils # (Manual) (1.3-7.7) k/uL Lymphocytes # (Manual) (1.0-4.8) k/uL Monocytes # (Manual) (0-1.0) k/uL Eosinophils # (Manual) (0-0.7) k/uL Nucleated RBCs (0-0) /100 WBC Manual Slide Review RBC Morphology Macrocytosis PT 11.0 (9.0-12.0) sec INR 1.0 (<1.2) APTT 24.6 (22.0-30.0) sec Sodium (137-145) mmol/L Potassium (3.5-5.1) mmol/L Chloride (98-107) mmol/L Carbon Dioxide (22-30) mmol/L Anion Gap mmol/L BUN (7-17) mg/dL Creatinine (0.52-1.04) mg/dL Est GFR (CKD-EPI)AfAm (>60 ml/min/1.73 sqM) Est GFR (CKD-EPI)NonAf (>60 ml/min/1.73 sqM) Glucose (74-99) mg/dL Calcium (8.4-10.2) mg/dL Magnesium (1.6-2.3) mg/dL Total Bilirubin (0.2-1.3) mg/dL AST (14-36) U/L ALT (9-52) U/L Alkaline Phosphatase (38-126) U/L Total Creatine Kinase (30-135) U/L CK-MB (CK-2) (0.0-2.4) ng/mL CK-MB (CK-2) Rel Index Troponin I (0.000-0.034) ng/mL NT-Pro-B Natriuret Pep 2830 pg/mL Total Protein (6.3-8.2) g/dL Albumin (3.5-5.0) g/dL - Radiology Data Radiology results: report reviewed EKG shows atrial fibrillation, inferior infarct age undetermined. Anteroseptal infarct. Abnormal EKG. Ventricular rate of 71 beats were minute period. Vitals and sex. QRS ration 84. QT QTc is 46/441 ms. No evidence of ST elevation. Disposition Clinical Impression: COPD exacerbation, Shortness of breath dyspnea Disposition: ADMITTED IP TO THIS HOSP Condition: Stable Is patient prescribed a controlled substance at d/c from ED?: No Referrals: Alia Tobar MD [Primary Care Provider] - 1-2 days Time of Disposition: 14:31
--- NOTE | 2018-12-12 13:11 | XR ---
EXAMINATION TYPE: XR chest 2V DATE OF EXAM: 12/12/2018 COMPARISON: 11/27/2018 HISTORY: Difficulty breathing with cough and shortness of breath since last night. History of COPD. TECHNIQUE: Frontal and lateral views of the chest are obtained. FINDINGS: There is an enlarged cardiac mediastinal silhouette is seen on the prior. Chronic parenchy mal change is similar to the prior. No new suspicious consolidation, pleural effusion or pneumothorax is seen. Partial visualization of a right shoulder arthroplasty and moderate left shoulder arthropat hy are seen. Moderate multilevel degenerative changes of the spine are also noted. IMPRESSION: No acute cardiopulmonary process.
[2018-12-12 13:29] LABS: Calcium 9.3 mg/dL (8.4-10.2); Magnesium 1.8 mg/dL (1.6-2.3); Potassium 3.7 mmol/L (3.5-5.1); Total Bilirubin 0.8 mg/dL (0.2-1.3); Total Protein 6.5 g/dL (6.3-8.2)
[2018-12-12 13:40] LABS: Creatine Kinase 59 U/L (30-135)
[2018-12-12 13:41] LABS: HCT 40.1 % (34.0-46.0); HGB 12.8 gm/dL (11.4-16.0); MCH 31.4 pg (25.0-35.0); MCV 98.2 fL (80.0-100.0); Macrocytosis Slight; Mean Platelet Volume 7.1; Partial Thromboplastin Time 24.6 sec (22.0-30.0); Platelet Count 337 k/uL (150-450); RBC 4.08 m/uL (3.80-5.40); RDW 15.1 % (11.5-15.5); WBC 6.1 k/uL (3.8-10.6)
[2018-12-12 13:54] LABS: Creatine Kinase MB 2.7 ng/mL (0.0-2.4); Troponin I <0.012 ng/mL (0.000-0.034)
[2018-12-12 14:03] LABS: Band Neutrophils % 2 %; Eosinophils # (M) 0.06 k/uL (0-0.7); Lymphocytes # (M) 0.85 k/uL (1.0-4.8); Monocytes # (M) 0.98 k/uL (0-1.0); Neutrophils % (M) 67 %; Nucleated Red Blood Cells 0 /100 WBC (0-0); Total Cells Counted 100
[2018-12-12] MEDS ORDERED: IPRATROPIUM-ALBUTEROL 3 ML NEB INHALATION PRN (14:31)
[2018-12-12] MEDS ORDERED: diphenhydrAMINE 25 MG CAP PO PRN (14:33)
[2018-12-12] MEDS ORDERED: ALBUTEROL NEBULIZED 2.5 MG/3 ML INHALATION PRN (14:33)
[2018-12-12] MEDS ORDERED: traMADol 50 MG TAB PO PRN (14:33)
[2018-12-12 14:36] LABS: Appearance,Urine Clear (Clear); Bilirubin,Urine Negative (Negative); Blood,Urine Negative (Negative); Color,Urine Colorless; Glucose,Urine (UA) Negative (Negative); Ketones,Urine Negative (Negative); Leukocyte Esterase,Urine Negative (Negative); Nitrite,Urine Negative (Negative); Protein,Urine Negative (Negative); Specific Gravity,Urine 1.003 (1.001-1.035); Urobilinogen,Urine <2.0 mg/dL (<2.0)
[2018-12-12] MEDS ORDERED: ACETAMINOPHEN TAB 500 MG TAB PO PRN (14:37)
[2018-12-12] MEDS ORDERED: predniSONE 10 MG TAB PO SCH (14:45)
--- NOTE | 2018-12-12 15:46 | P.HPIM ---
History of Present Illness H&P Date: 12/12/18 Chief Complaint: Shortness of breath This is a 78-year-old female, patient of Dr. Tobar. 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 Patient was just hospitalized earlier in November at [facility] for a right leg cellulitis and hematoma after a fall. She was discharged home with Keflex. Also at that time she had a mild COPD exacerbation. Her metoprolol was increased to 75 mg 3 times a day cardiology due to an episode of nonsustained ventricular tachycardia. Patient reports that the metoprolol was then again increased by her PCP up to 100 mg. She reports he last night she had sudden coughing and shortness of breath. Cough was slightly productive. She was worried to go to sleep. She denies any chest pain, fever, chills or sweats. She came into the emergency room for further evaluation and treatment. Chest x-ray was negative EKG had shown atrial fibrillation with a controlled heart rate 71. She is wheezy with coarse breath sounds. She was started on IV Solu-Medrol and nebulizer treatments in the ER. Her heel splitter, Dr. Mendez has been consulted. Patient also noted that she's been on Ultram which is also a new medication that can cause respiratory depression. Patient denies any fever, chills, sweats, nausea or vomiting, bowel movement changes or urinary symptoms. Troponins negative Review of Systems Please refer to HPI otherwise unremarkable Past Medical History Past Medical History: Atrial Fibrillation, COPD, CVA/TIA, Hyperlipidemia, Hypertension, Osteoarthritis (OA), Pneumonia Additional Past Medical History / Comment(s): ETOH history, she reports she has not had alcoholic beverage since around [place]. 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 History of Any Multi-Drug Resistant Organisms: None Reported Past Surgical History: Back Surgery, Hysterectomy, Orthopedic Surgery, Tonsillectomy Additional Past Surgical History / Comment(s): BILATERAL HIP replacments, lt KNEE replacment, right SHOULDER SURGERY, hedy cataracts, enucleation of lt eye with implant Past Anesthesia/Blood Transfusion Reactions: No Reported Reaction Past Psychological History: No Psychological Hx Reported Smoking Status: Former smoker Past Alcohol Use History: Rare Past Drug Use History: None Reported - Past Family History Mother Family Medical History: Myocardial Infarction ([place]) Father Family Medical History: Cancer Medications and Allergies Home Medications Medication Instructions Recorded Confirmed Type Albuterol Nebulized [Ventolin 2.5 mg INHALATION RT-QID PRN 07/25/15 12/12/18 History Nebulized] Atorvastatin [Lipitor] 40 mg PO HS 07/25/15 12/12/18 History Budesonide-Formot 160-4.5 Mcg 2 puff INHALATION RT-BID #60 puff 07/29/15 Rx [Symbicort 160-4.5 Mcg Inhaler] Acetaminophen/Diphenhydramine 1 tab PO HS PRN 01/16/17 12/12/18 History [Tylenol PM 500-25mg] Lisinopril [Zestril] 5 mg PO DAILY 01/16/17 12/12/18 History Melatonin 3 mg PO HS 01/16/17 12/12/18 History Pantoprazole [Protonix] 40 mg PO BID #60 tablet.dr 01/21/17 12/12/18 Rx Potassium Chloride ER [K-Dur 20] 20 meq PO DAILY #30 tab 01/21/17 12/12/18 Rx Tiotropium 18 Mcg/Puff [Spiriva] 1 puff INHALATION RT-DAILY inhaler 01/21/17 Rx Apixaban [Eliquis] 5 mg PO BID 11/17/18 12/12/18 History Cholecalciferol [Vitamin D3] 1,000 unit PO DAILY 11/17/18 12/12/18 History Ferrous Sulfate [Feosol] 325 mg PO DAILY 11/17/18 12/12/18 History Montelukast [Singulair] 10 mg PO HS 11/17/18 12/12/18 History Cephalexin [Keflex] 500 mg PO Q8HR #21 cap 12/04/18 12/12/18 Rx Colchicine [Colcrys] 0.6 mg PO BID #60 each 12/04/18 12/12/18 Rx Furosemide [Lasix] 20 mg PO DAILY@1600 tab 12/04/18 12/12/18 Rx Furosemide [Lasix] 40 mg PO DAILY tab 12/04/18 12/12/18 Rx Metoprolol Tartrate [Lopressor] 75 mg PO TID #90 tab 12/04/18 12/12/18 Rx Nystatin 100,000 Unit/gm Powd 1 applic TOPICAL TID #1 can 12/04/18 12/12/18 Rx [Mycostatin Powder] predniSONE 10 mg PO DIRECTED #21 tab 12/04/18 12/12/18 Rx traMADol HCL [Ultram] 50 mg PO Q6HR PRN #12 tablet 12/04/18 12/12/18 Rx Allergies Allergy/AdvReac Type Severity Reaction Status Date / Time No Known Allergies Allergy Verified 12/12/18 11:51 Physical Exam Vitals: Vital Signs Temp Pulse Resp BP Pulse Ox 12/12/18 14:54 98.2 F 85 20 110/72 93 L 12/12/18 13:00 74 22 106/75 97 12/12/18 12:59 88 12/12/18 12:36 24 12/12/18 12:34 72 20 12/12/18 11:28 97.7 F 77 18 113/70 96 Intake and Output 12/12/18 12/12/18 12/12/18 06:59 14:59 22:59 Other: Weight 107.955 kg Head normocephalic Neck supple Lungs scattered wheezing with few coarse breath sounds Heart regular rate and rhythm S1-S2, no rub or gallop Abdomen is soft nontender nondistended positive bowel sounds no hepatosplenomegaly Extremities right knee improving hematoma and cellulitis. Decrease in swelling. Right great toe gout improving Neuro alert and orientated to 3 Results CBC & Chem 7: 12/12/18 12:35 12/12/18 12:35 Labs: Abnormal Lab Results - Last 24 Hours (Table) 12/12/18 12/12/18 12/12/18 Range/Units 12:35 12:35 12:35 Lymphocytes # (Manual) 0.85 L (1.0-4.8) k/uL Carbon Dioxide 32 H (22-30) mmol/L Glucose 116 H (74-99) mg/dL AST 39 H (14-36) U/L CK-MB (CK-2) 2.7 H (0.0-2.4) ng/mL Assessment and Plan Assessment: 1. Acute COPD exacerbation: Patient started on Solu-Medrol 60 mg IV every 6 hours and nebulizer treatments. Consult pulmonary service. Concerns that her beta mihaela and Ultram may have exacerbated her COPD. At this time, cut the metoprolol back to 75 mg 3 times a day from 100 mg 3 times a day. Also discontinue the Ultram. We'll add [place] for pain control 2. Acute tracheobronchitis: No evidence of pneumonia on chest x-ray. Add Rocephin 1 g daily 3. Chronic persistent atrial fibrillation anticoagulated with Eliquis 4. Right leg cellulitis and hematoma of the knee after a fall with recent hospitalization earlier in November. Patient completed antibiotics of Keflex 5. History of CVA 6. Prior history of daily alcohol use. Patient reports she does not drink as often anymore. Last alcoholic beverage was around [place] 7. Hypertension 8. Hyperlipidemia 9. History of gastric antral ulcers requiring cauterization. Continue Protonix 10. Iron deficiency anemia continue iron supplement 11. Recent gout attack in the right great toe continue colchicine 12. Previous episode of nonsustained ventricular tachycardia tachycardia on last admission cardiology had increased metoprolol to 75 mg 3 times a day. 13. Known history of chronic systolic congestive heart failure. No evidence of exacerbation. Previous echo November had shown EF of 40-45 GI prophylaxis Protonix and DVT prophylaxis Eliquis Time with Patient: Greater than 30 (Greater than 50% of the total time spent in counseling and coordination of care. I performed an examination of the patient and discussed their management with the physician Senior Principal Software Engineer. I have reviewed the Physician Senior Principal Software Engineer's notes and agree with the documented findings and plan of care)
[2018-12-12] MEDS ORDERED: CEPHALEXIN 500 MG CAP PO SCH (16:00)
[2018-12-12] MEDS: NYSTATIN 100,000 UNIT/GM POWD 15 GM TOPICAL SCH ×2 (16:42→21:44)
[2018-12-12] MEDS: METOPROLOL TARTRATE 25 MG TAB PO SCH ×2 (17:41→21:47)
[2018-12-12] MEDS: methylPREDNISolone SOD SUCCI 125 MG/2 ML VIAL IV SCH (17:41)
[2018-12-12] MEDS: PANTOPRAZOLE 40 MG TABLET PO SCH (17:42)
[2018-12-12] MEDS: FUROSEMIDE 20 MG TAB PO SCH (17:42)
[2018-12-12] MEDS: SYMBICORT 160-4.5 MCG INHALER INHALATION SCH (20:05)
[2018-12-12 21:30] LABS: Glucose,Whole Blood 234 mg/dL (75-99)
[2018-12-12] MEDS: COLCHICINE 0.6 MG EACH PO SCH (21:46)
[2018-12-12] MEDS: APIXABAN 5 MG TAB PO SCH (21:46)
[2018-12-12] MEDS: ATORVASTATIN 40 MG TAB PO SCH (21:46)
[2018-12-12] MEDS: MONTELUKAST 10 MG TAB PO SCH (21:46)
[2018-12-12] MEDS: guaiFENesin 600 MG TABLET.ER PO SCH (21:46)
[2018-12-12] MEDS: MELATONIN 3 MG TABLET PO SCH (21:47)
[2018-12-12] MEDS: INSULIN ASPART (NovoLOG) 100 UNIT/ML VIAL SQ SCH (21:48)
[2018-12-12] MEDS: HYDROcodone/APAP 5-325MG 1 EACH TAB PO PRN (21:50)
[2018-12-13] MEDS: methylPREDNISolone SOD SUCCI 125 MG/2 ML VIAL IV SCH ×6 (00:02→23:57)
[2018-12-13 01:23] LABS: Hemoglobin A1C 6.2 % (4.0-6.0)
[2018-12-13] MEDS: HYDROcodone/APAP 5-325MG 1 EACH TAB PO PRN ×3 (05:06→23:44)
[2018-12-13 07:12] LABS: Basophils % (A) 0 %; Eosinophils % (A) 1 %; HCT 38.2 % (34.0-46.0); Hypochromasia Slight; Lymphocytes # (A) 0.4 k/uL (1.0-4.8); Lymphocytes % (A) 9 %; MCH 31.5 pg (25.0-35.0); MCHC 31.4 g/dL (31.0-37.0); MCV 100.1 fL (80.0-100.0); Macrocytosis Slight; Monocytes # (A) 0.1 k/uL (0-1.0); Monocytes % (A) 3 %; Neutrophils # (A) 3.7 k/uL (1.3-7.7); Neutrophils % (A) 86 %; Platelet Count 322 k/uL (150-450); RBC 3.81 m/uL (3.80-5.40); RDW 14.9 % (11.5-15.5); WBC 4.3 k/uL (3.8-10.6)
[2018-12-13 07:26] LABS: Glucose,Whole Blood 176 mg/dL (75-99)
[2018-12-13 07:26] LABS: Albumin 3.5 g/dL (3.5-5.0); Calcium 8.5 mg/dL (8.4-10.2); Potassium 3.8 mmol/L (3.5-5.1); Total Bilirubin 0.8 mg/dL (0.2-1.3)
[2018-12-13] MEDS: INSULIN ASPART (NovoLOG) 100 UNIT/ML VIAL SQ SCH ×4 (07:37→21:05)
[2018-12-13] MEDS: PANTOPRAZOLE 40 MG TABLET PO SCH ×2 (07:39→17:38)
[2018-12-13] MEDS: SYMBICORT 160-4.5 MCG INHALER INHALATION SCH ×2 (09:06→20:51)
[2018-12-13] MEDS: IPRATROPIUM 0.5 MG/2.5 ML NEBU INHALATION SCH ×4 (09:06→20:51)
[2018-12-13] MEDS: LISINOPRIL 5 MG TAB PO SCH (10:49)
[2018-12-13] MEDS: FUROSEMIDE 40 MG TAB PO SCH (10:49)
[2018-12-13] MEDS: FERROUS SULFATE 325 MG TAB PO SCH (10:49)
[2018-12-13] MEDS: METOPROLOL TARTRATE 25 MG TAB PO SCH ×3 (10:49→21:05)
[2018-12-13] MEDS: POTASSIUM CHLORIDE ER 20 MEQ TAB.ER PO SCH (10:49)
[2018-12-13] MEDS: CHOLECALCIFEROL 1,000 UNIT TAB PO SCH (10:49)
[2018-12-13] MEDS: guaiFENesin 600 MG TABLET.ER PO SCH ×2 (10:49→21:05)
[2018-12-13] MEDS: APIXABAN 5 MG TAB PO SCH ×2 (10:49→21:05)
[2018-12-13] MEDS: COLCHICINE 0.6 MG EACH PO SCH ×2 (10:50→21:05)
[2018-12-13] MEDS: NYSTATIN 100,000 UNIT/GM POWD 15 GM TOPICAL SCH ×3 (10:53→21:06)
[2018-12-13 11:33] LABS: Glucose,Whole Blood 231 mg/dL (75-99)
--- NOTE | 2018-12-13 13:02 | P.PN ---
Subjective Progress Note Date: 12/13/18 This is a 78-year-old female, patient of Dr. Tobar. 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 Patient was just hospitalized earlier in November at [facility] for a right leg cellulitis and hematoma after a fall. She was discharged home with Keflex. Also at that time she had a mild COPD exacerbation. Her metoprolol was increased to 75 mg 3 times a day cardiology due to an episode of nonsustained ventricular tachycardia. Patient reports that the metoprolol was then again increased by her PCP up to 100 mg. She reports he last night she had sudden coughing and shortness of breath. Cough was slightly productive. She was worried to go to sleep. She denies any chest pain, fever, chills or sweats. She came into the emergency room for further evaluation and treatment. Chest x-ray was negative EKG had shown atrial fibrillation with a controlled heart rate 71. She is wheezy with coarse breath sounds. She was started on IV Solu-Medrol and nebulizer treatments in the ER. Her billboard installer, Dr. Mendez has been consulted. Patient also noted that she's been on Ultram which is also a new medication that can cause respiratory depression. Patient denies any fever, chills, sweats, nausea or vomiting, bowel movement changes or urinary symptoms. Troponins negative On 12/13/2018 patient is alert and oriented 3 currently sitting up in chair. Patient reports significant improvement with breathing. Patient remains on IV steroids and IV antibiotics. Pulmonary services are following. At this time patient denies chest pain or shortness of breath. Patient denies nausea vomiting or diarrhea. Patient denies any urinary burning or frequency Objective - Vital Signs Vital signs: Vital Signs Temp 98.5 F 12/13/18 10:55 Pulse 84 12/13/18 09:23 Resp 16 12/13/18 07:30 BP 135/93 12/13/18 07:30 Pulse Ox 95 12/13/18 09:09 Intake & Output 12/12/18 12/13/18 12/13/18 18:59 06:59 18:59 Intake Total 1250 480 Balance 1250 480 Weight 107.955 kg Intake: Intake, IV Titration 1250 Amount Sodium Chloride 0.9% 1, 1250 000 ml @ 100 mls/hr IV . Q10H STA Rx#:[id number] Oral 480 Other: Voiding Method Toilet Toilet Toilet # Voids 2 - Exam Head normocephalic Neck supple Lungs scattered wheezing with few coarse breath sounds Heart regular rate and rhythm S1-S2, no rub or gallop Abdomen is soft nontender nondistended positive bowel sounds no hepatosplenomegaly Extremities right knee improving hematoma and cellulitis. Decrease in swelling. Right great toe gout improving Neuro alert and orientated to 3 - Labs CBC & Chem 7: 12/13/18 06:33 12/13/18 06:33 Labs: Abnormal Lab Results - Last 24 Hours (Table) 12/12/18 12/12/18 12/12/18 Range/Units 12:35 12:35 12:35 MCV (80.0-100.0) fL Lymphocytes # (1.0-4.8) k/uL Lymphocytes # (Manual) 0.85 L (1.0-4.8) k/uL Carbon Dioxide 32 H (22-30) mmol/L BUN (7-17) mg/dL Glucose 116 H (74-99) mg/dL POC Glucose (mg/dL) (75-99) mg/dL Hemoglobin A1c (4.0-6.0) % AST 39 H (14-36) U/L CK-MB (CK-2) 2.7 H (0.0-2.4) ng/mL Total Protein (6.3-8.2) g/dL 12/12/18 12/12/18 12/13/18 Range/Units 18:21 21:29 06:33 MCV 100.1 H (80.0-100.0) fL Lymphocytes # 0.4 L (1.0-4.8) k/uL Lymphocytes # (Manual) (1.0-4.8) k/uL Carbon Dioxide (22-30) mmol/L BUN (7-17) mg/dL Glucose (74-99) mg/dL POC Glucose (mg/dL) 234 H (75-99) mg/dL Hemoglobin A1c 6.2 H (4.0-6.0) % AST (14-36) U/L CK-MB (CK-2) (0.0-2.4) ng/mL Total Protein (6.3-8.2) g/dL 12/13/18 12/13/18 12/13/18 Range/Units 06:33 07:14 11:29 MCV (80.0-100.0) fL Lymphocytes # (1.0-4.8) k/uL Lymphocytes # (Manual) (1.0-4.8) k/uL Carbon Dioxide (22-30) mmol/L BUN 21 H (7-17) mg/dL Glucose 157 H (74-99) mg/dL POC Glucose (mg/dL) 176 H 231 H (75-99) mg/dL Hemoglobin A1c (4.0-6.0) % AST (14-36) U/L CK-MB (CK-2) (0.0-2.4) ng/mL Total Protein 6.0 L (6.3-8.2) g/dL Assessment and Plan Assessment: 1. Acute COPD exacerbation: Patient started on Solu-Medrol 60 mg IV every 6 hours and nebulizer treatments. Consult pulmonary service. Concerns that her beta mihaela and Ultram may have exacerbated her COPD. At this time, cut the metoprolol back to 75 mg 3 times a day from 100 mg 3 times a day. Also discontinue the Ultram. We'll add [place] for pain control. The stem patient remains on IV steroids and antibiotic 2. Acute tracheobronchitis: No evidence of pneumonia on chest x-ray. Add Rocephin 1 g daily 3. Chronic persistent atrial fibrillation anticoagulated with Eliquis 4. Right leg cellulitis and hematoma of the knee after a fall with recent hospitalization earlier in November. Patient completed antibiotics of Keflex 5. History of CVA 6. Prior history of daily alcohol use. Patient reports she does not drink as often anymore. Last alcoholic beverage was around [place] 7. Hypertension 8. Hyperlipidemia 9. History of gastric antral ulcers requiring cauterization. Continue Protonix 10. Iron deficiency anemia continue iron supplement 11. Recent gout attack in the right great toe continue colchicine 12. Previous episode of nonsustained ventricular tachycardia tachycardia on last admission cardiology had increased metoprolol to 75 mg 3 times a day. 13. Known history of chronic systolic congestive heart failure. No evidence of exacerbation. Previous echo November had shown EF of 40-45 GI prophylaxis Protonix and DVT prophylaxis Eliquis I performed an examination of the patient and discussed their management with the Nurse Practitioner. I have reviewed the Nurse Practitioner's notes and agree with the documented findings and plan of care
[2018-12-13 17:15] LABS: Glucose,Whole Blood 119 mg/dL (75-99)
[2018-12-13] MEDS: FUROSEMIDE 20 MG TAB PO SCH (17:19)
--- NOTE | 2018-12-13 18:02 | P.CNPUL ---
History of Present Illness Consult date: 12/13/18 Reason for consult: dyspnea, COPD History of present illness: This is 78-year-old female patient, morbidly obese with known history of COPD, previous history of CVA with right facial droop, chronic atrial fibrillation, hypertension, hyperlipidemia, who is coming in for some increased shortness of breath. Note that the patient has been maintained on a combination of Symbicort and Spiriva on outpatient basis. She was in the hospital back in November 2018. At that time the patient had a fall and she had increased swelling in the right lower extremity and surrounding cellulitis. Note that she usually walks without a walker and she lost her balance and she fell on her knee and she sustained injury to her knee and the right lower extremity. The x- ray of the knee that was taken showed no acute dislocation or fracture. The patient was found to have severe degenerative arthritis and narrowing all of the components of the right knee. The overlying soft tissue appeared unremarkable. She was treated with antibiotics and she was sent home with some pain killers. Note that during the earlier hospitalization, the patient did not have any respiratory distress. Also, the ultrasound Doppler of the right lower extremity was negative for DVT. X-ray of the right lower extremity showed some soft tissue edema. The chest x-ray was negative for an acute process. The patient reports that the right lower extremity cellulitis and swelling is improved. She is also taking allopurinol knowing that she had some pain in the metatarsophalangeal joint corresponding with an acute gouty attack. At the time of discharge, the patient was given Keflex 500 mg 3 times a day. She was asked to continue the Lasix 40 mg in the morning and 20 mg naps are normal. She was given a prednisone burst taper. She was also asked to continue her routine respiratory medications. Note that the patient is also on long-term and to coagulation with Eliquis. Currently she is having increased dyspnea cough chest tightness and wheezing. No acute processes on the most recent chest x-ray. The patient has right shoulder arthroplasty and moderate left shoulder arthroplasty and moderate multilevel degenerative changes involving the spine. Review of Systems All systems: negative Constitutional: Denies chills, Denies fever Eyes: denies blurred vision, denies pain Ears, nose, mouth and throat: Denies headache, Denies sore throat Cardiovascular: Denies chest pain, inrease shortness of breath Respiratory: Reports cough with sputum, Reports wheezing and cough Gastrointestinal: Denies abdominal pain, Denies diarrhea, Denies nausea, Denies vomiting Genitourinary: Denies dysuria, Denies hematuria Musculoskeletal: Denies myalgias Integumentary: Denies pruritus, Denies rash Neurological: Denies numbness, Denies weakness Psychiatric: Denies anxiety, Denies depression Endocrine: Denies fatigue, Denies weight change Past Medical History Past Medical History: Atrial Fibrillation, COPD, CVA/TIA, Hyperlipidemia, Hypertension, Osteoarthritis (OA), Pneumonia Additional Past Medical History / Comment(s): COPD, CVA, hypertension, hyperlipidemia, osteoarthritis, chronic atrial fibrillation, gout, history of fall, right lower extremity cellulitis, history of alcoholism, history of right facial droop, urinary incontinence, 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 History of Any Multi-Drug Resistant Organisms: None Reported Past Surgical History: Back Surgery, Hysterectomy, Orthopedic Surgery, Tonsillectomy Additional Past Surgical History / Comment(s): BILATERAL HIP replacments, lt KNEE replacment, right SHOULDER SURGERY, hedy cataracts, enucleation of lt eye with implant Past Anesthesia/Blood Transfusion Reactions: No Reported Reaction Past Psychological History: No Psychological Hx Reported Smoking Status: Former smoker Past Alcohol Use History: Rare Additional Past Alcohol Use History / Comment(s): STATES HAS 2 WHISKEY AND WATER DRINKS EACH EVENING Past Drug Use History: None Reported - Past Family History Mother Family Medical History: Myocardial Infarction ([place]) Father Family Medical History: Cancer Medications and Allergies Home Medications Medication Instructions Recorded Confirmed Type Albuterol Nebulized [Ventolin 2.5 mg INHALATION RT-QID PRN 07/25/15 12/12/18 History Nebulized] Atorvastatin [Lipitor] 40 mg PO HS 07/25/15 12/12/18 History Budesonide-Formot 160-4.5 Mcg 2 puff INHALATION RT-BID #60 puff 07/29/15 Rx [Symbicort 160-4.5 Mcg Inhaler] Acetaminophen/Diphenhydramine 1 tab PO HS PRN 01/16/17 12/12/18 History [Tylenol PM 500-25mg] Lisinopril [Zestril] 5 mg PO DAILY 01/16/17 12/12/18 History Melatonin 3 mg PO HS 01/16/17 12/12/18 History Pantoprazole [Protonix] 40 mg PO BID #60 tablet. 01/21/17 12/12/18 Rx Potassium Chloride ER [K-Dur 20] 20 meq PO DAILY #30 tab 01/21/17 12/12/18 Rx Tiotropium 18 Mcg/Puff [Spiriva] 1 puff INHALATION RT-DAILY inhaler 01/21/17 Rx Apixaban [Eliquis] 5 mg PO BID 11/17/18 12/12/18 History Cholecalciferol [Vitamin D3] 1,000 unit PO DAILY 11/17/18 12/12/18 History Ferrous Sulfate [Feosol] 325 mg PO DAILY 11/17/18 12/12/18 History Montelukast [Singulair] 10 mg PO HS 11/17/18 12/12/18 History Cephalexin [Keflex] 500 mg PO Q8HR #21 cap 12/04/18 12/12/18 Rx Colchicine [Colcrys] 0.6 mg PO BID #60 each 12/04/18 12/12/18 Rx Furosemide [Lasix] 20 mg PO DAILY@1600 tab 12/04/18 12/12/18 Rx Furosemide [Lasix] 40 mg PO DAILY tab 12/04/18 12/12/18 Rx Metoprolol Tartrate [Lopressor] 75 mg PO TID #90 tab 12/04/18 12/12/18 Rx Nystatin 100,000 Unit/gm Powd 1 applic TOPICAL TID #1 can 12/04/18 12/12/18 Rx [Mycostatin Powder] predniSONE 10 mg PO DIRECTED #21 tab 12/04/18 12/12/18 Rx traMADol HCL [Ultram] 50 mg PO Q6HR PRN #12 tablet 12/04/18 12/12/18 Rx Allergies Allergy/AdvReac Type Severity Reaction Status Date / Time No Known Allergies Allergy Verified 12/12/18 11:51 Physical Exam Vitals: Vital Signs Temp Pulse Pulse Resp BP Pulse Ox 12/13/18 17:30 80 12/13/18 17:20 84 12/13/18 14:28 98.7 F 72 16 125/71 102 H 12/13/18 10:55 98.5 F 12/13/18 09:23 84 12/13/18 09:09 80 95 12/13/18 07:30 81 16 135/93 95 12/12/18 23:00 97.7 F 72 17 108/73 95 12/12/18 20:17 84 12/12/18 20:08 86 12/12/18 19:05 97.4 F L 115 H 17 121/78 95 Intake and Output 12/13/18 12/13/18 12/13/18 06:59 14:59 22:59 Intake Total 900 960 Balance 900 960 Intake: Intake, IV Titration 900 Amount Sodium Chloride 0.9% 1, 900 000 ml @ 100 mls/hr IV . Q10H STA Rx#:[id number] Oral 960 Other: Voiding Method Toilet Toilet # Voids 2 GENERAL EXAM: Alert, pleasant, 78-year-old white female patient, comfortable in no apparent distress. HEAD: Normocephalic/atraumatic. EYES: Normal reaction of pupils, equal size. Conjunctiva pink, sclera white. NOSE: Clear with pink turbinates. THROAT: No erythema or exudates. NECK: No masses, no JVD, no thyroid enlargement, no adenopathy. CHEST: No chest wall deformity. Symmetrical expansion. LUNGS: Equal air entry with a few scattered wheezes and rhonchi CVS: Irregular rate and rhythm, normal S1 and S2, no gallops, no murmurs, no rubs ABDOMEN: Soft, nontender. No hepatosplenomegaly, normal bowel sounds, no guarding or rigidity. EXTREMITIES: No clubbing, edema in the right knee and right lower extremity, with bruising, redness, on the right knee and the cellulitis is also improving. MUSCULOSKELETAL: Muscle strength and tone normal. SPINE: No scoliosis or deformity SKIN: No rashes CENTRAL NERVOUS SYSTEM: Alert and oriented -3. No focal deficits, tone is normal in all 4 extremities. PSYCHIATRIC: Alert and oriented -3. Appropriate affect. Intact judgment and insight. Results - Laboratory Findings CBC and BMP: 12/13/18 06:33 12/13/18 06:33 PT/INR, D-dimer PT 11.0 sec (9.0-12.0) 12/12/18 12:35 INR 1.0 (<1.2) 12/12/18 12:35 Abnormal lab findings: Abnormal Labs 12/12/18 12/12/18 12/12/18 12:35 12:35 12:35 MCV Lymphocytes # Lymphocytes # (Manual) 0.85 L Carbon Dioxide 32 H BUN Glucose 116 H POC Glucose (mg/dL) Hemoglobin A1c AST 39 H CK-MB (CK-2) 2.7 H Total Protein 12/12/18 12/12/18 12/13/18 18:21 21:29 06:33 MCV 100.1 H Lymphocytes # 0.4 L Lymphocytes # (Manual) Carbon Dioxide BUN Glucose POC Glucose (mg/dL) 234 H Hemoglobin A1c 6.2 H AST CK-MB (CK-2) Total Protein 12/13/18 12/13/18 12/13/18 06:33 07:14 11:29 MCV Lymphocytes # Lymphocytes # (Manual) Carbon Dioxide BUN 21 H Glucose 157 H POC Glucose (mg/dL) 176 H 231 H Hemoglobin A1c AST CK-MB (CK-2) Total Protein 6.0 L 12/13/18 17:03 MCV Lymphocytes # Lymphocytes # (Manual) Carbon Dioxide BUN Glucose POC Glucose (mg/dL) 119 H Hemoglobin A1c AST CK-MB (CK-2) Total Protein - Diagnostic Findings Chest x-ray: image reviewed Assessment and Plan Plan: Assessment 1 acute COPD exacerbation with secondary shortness of breath 2 right lower extremity cellulitis, improving 3 mechanical injury/fall to the right lower extremity 4 chronic atrial fibrillation maintained on long-term and to coagulation with Eliquis 5 history of CVA/TIA 6 hypertension 7 hyperlipidemia 8 CHF, mildly impaired LV function with an ejection fraction of 40-45% and moderate pulmonary hypertension with a PA pressure of 44. 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 11 gout involving the right foot Plan DuoNeb nebulized treatments around the clock. IV Solu Medrol 60 every 6 hours. Cystic antibiotics IV Rocephin. Continue oral Lasix. Chest x-ray was reviewed and there is no acute abnormalities. Resume outpatient medications. We'll continue to follow.
[2018-12-13 20:31] LABS: Glucose,Whole Blood 153 mg/dL (75-99)
[2018-12-13] MEDS: MONTELUKAST 10 MG TAB PO SCH (21:05)
[2018-12-13] MEDS: MELATONIN 3 MG TABLET PO SCH (21:05)
[2018-12-13] MEDS: ATORVASTATIN 40 MG TAB PO SCH (21:05)
[2018-12-14] MEDS: methylPREDNISolone SOD SUCCI 125 MG/2 ML VIAL IV SCH ×3 (05:16→17:45)
[2018-12-14 07:35] LABS: Glucose,Whole Blood 169 mg/dL (75-99)
[2018-12-14] MEDS: SYMBICORT 160-4.5 MCG INHALER INHALATION SCH ×2 (07:42→20:16)
[2018-12-14] MEDS: IPRATROPIUM 0.5 MG/2.5 ML NEBU INHALATION SCH ×4 (07:44→20:16)
[2018-12-14 08:09] LABS: Basophils % (A) 0 %; Eosinophils # (A) 0.1 k/uL (0-0.7); Eosinophils % (A) 1 %; HCT 39.9 % (34.0-46.0); HGB 12.8 gm/dL (11.4-16.0); Hypochromasia Slight; Lymphocytes # (A) 0.4 k/uL (1.0-4.8); Lymphocytes % (A) 4 %; MCH 32.1 pg (25.0-35.0); MCHC 32.2 g/dL (31.0-37.0); MCV 99.8 fL (80.0-100.0); Macrocytosis Slight; Mean Platelet Volume 7.3; Monocytes # (A) 0.2 k/uL (0-1.0); Monocytes % (A) 2 %; Neutrophils % (A) 92 %; Platelet Count 330 k/uL (150-450); RBC 3.99 m/uL (3.80-5.40); WBC 9.8 k/uL (3.8-10.6)
[2018-12-14 08:13] LABS: Total Bilirubin 0.7 mg/dL (0.2-1.3); Total Protein 6.7 g/dL (6.3-8.2)
[2018-12-14] MEDS: INSULIN ASPART (NovoLOG) 100 UNIT/ML VIAL SQ SCH ×4 (08:29→21:58)
[2018-12-14] MEDS: POTASSIUM CHLORIDE ER 20 MEQ TAB.ER PO SCH (08:30)
[2018-12-14] MEDS: guaiFENesin 600 MG TABLET.ER PO SCH ×2 (08:30→22:07)
[2018-12-14] MEDS: PANTOPRAZOLE 40 MG TABLET PO SCH ×2 (08:30→18:24)
[2018-12-14] MEDS: LISINOPRIL 5 MG TAB PO SCH (08:30)
[2018-12-14] MEDS: COLCHICINE 0.6 MG EACH PO SCH ×2 (08:30→22:06)
[2018-12-14] MEDS: APIXABAN 5 MG TAB PO SCH ×2 (08:30→22:07)
[2018-12-14] MEDS: FUROSEMIDE 40 MG TAB PO SCH (08:30)
[2018-12-14] MEDS: CHOLECALCIFEROL 1,000 UNIT TAB PO SCH (08:30)
[2018-12-14] MEDS: METOPROLOL TARTRATE 25 MG TAB PO SCH ×3 (08:30→22:06)
[2018-12-14] MEDS: FERROUS SULFATE 325 MG TAB PO SCH (08:31)
[2018-12-14] MEDS: NYSTATIN 100,000 UNIT/GM POWD 15 GM TOPICAL SCH ×3 (08:35→22:45)
--- NOTE | 2018-12-14 12:25 | P.PN ---
Subjective Progress Note Date: 12/14/18 This is a 78-year-old female, patient of Dr. Tobar. 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 Patient was just hospitalized earlier in November at [facility] for a right leg cellulitis and hematoma after a fall. She was discharged home with Keflex. Also at that time she had a mild COPD exacerbation. Her metoprolol was increased to 75 mg 3 times a day cardiology due to an episode of nonsustained ventricular tachycardia. Patient reports that the metoprolol was then again increased by her PCP up to 100 mg. She reports he last night she had sudden coughing and shortness of breath. Cough was slightly productive. She was worried to go to sleep. She denies any chest pain, fever, chills or sweats. She came into the emergency room for further evaluation and treatment. Chest x-ray was negative EKG had shown atrial fibrillation with a controlled heart rate 71. She is wheezy with coarse breath sounds. She was started on IV Solu-Medrol and nebulizer treatments in the ER. Her carrier packer, Dr. Mendez has been consulted. Patient also noted that she's been on Ultram which is also a new medication that can cause respiratory depression. Patient denies any fever, chills, sweats, nausea or vomiting, bowel movement changes or urinary symptoms. Troponins negative On 12/13/2018 patient is alert and oriented 3 currently sitting up in chair. Patient reports significant improvement with breathing. Patient remains on IV steroids and IV antibiotics. Pulmonary services are following. At this time patient denies chest pain or shortness of breath. Patient denies nausea vomiting or diarrhea. Patient denies any urinary burning or frequency 12/14/2018 patient reporting some improvement in her shortness of breath. She is still having some wheezing. She is on IV steroids and breathing treatments. She has been up and ambulating in the hallway. She doesn't feel quite ready for discharge. She's also complaining of muscle cramping in her right leg. Muscle relaxer ordered. She's complaining of thrush-like discomfort in her mouth nystatin swish and swallow ordered. Patient complaining of a left molar pain no evidence of any abscess. She knows that the tooth needs to be pulled she'll be following up with dentist outpatient. Also complaining of a fleshy finding in the right eye no vision changes. Objective - Vital Signs Vital signs: Vital Signs Temp 97.7 F 12/14/18 07:06 Pulse 84 12/14/18 11:28 Resp 16 12/14/18 07:06 BP 150/90 12/14/18 07:06 Pulse Ox 96 12/14/18 07:44 Intake & Output 12/13/18 12/14/18 12/14/18 18:59 06:59 18:59 Intake Total 1183 Balance 1183 Intake: Oral 1183 Other: Voiding Method Toilet Toilet # Voids 1 - Exam Head normocephalic Neck supple Lungs scattered expiratory wheezing noted bilaterally Heart irregular rhythm Abdomen is soft nontender nondistended positive bowel sounds no hepatosplenomegaly Extremities no edema. Right knee hematoma Neuro alert and orientated to 3 - Labs CBC & Chem 7: 12/14/18 07:24 12/14/18 07:24 Labs: Abnormal Lab Results - Last 24 Hours (Table) 12/13/18 12/13/18 12/14/18 Range/Units 17:03 20:19 07:22 Neutrophils # (1.3-7.7) k/uL Lymphocytes # (1.0-4.8) k/uL BUN (7-17) mg/dL Glucose (74-99) mg/dL POC Glucose (mg/dL) 119 H 153 H 169 H (75-99) mg/dL AST (14-36) U/L 12/14/18 12/14/18 Range/Units 07:24 07:24 Neutrophils # 9.0 H (1.3-7.7) k/uL Lymphocytes # 0.4 L (1.0-4.8) k/uL BUN 26 H (7-17) mg/dL Glucose 168 H (74-99) mg/dL POC Glucose (mg/dL) (75-99) mg/dL AST 45 H (14-36) U/L Assessment and Plan Assessment: 1. Acute COPD exacerbation: Patient started on Solu-Medrol 60 mg IV every 6 hours and nebulizer treatments. Consult pulmonary service. Concerns that her beta mihaela and Ultram may have exacerbated her COPD. metoprolol has been cut back to 75 mg 3 times a day from 100 mg 3 times a day during this admission. Also discontinue the Ultram. We'll add [place] for pain control 2. Acute tracheobronchitis: No evidence of pneumonia on chest x-ray. Add Rocephin 1 g daily 3. Chronic persistent atrial fibrillation anticoagulated with Eliquis 4. Right leg cellulitis and hematoma of the knee after a fall with recent hospitalization earlier in November. Patient completed antibiotics of Keflex 5. History of CVA 6. Prior history of daily alcohol use. Patient reports she does not drink as often anymore. Last alcoholic beverage was around [place] 7. Hypertension 8. Hyperlipidemia 9. History of gastric antral ulcers requiring cauterization. Continue Protonix 10. Iron deficiency anemia continue iron supplement 11. Recent gout attack in the right great toe continue colchicine 12. Previous episode of nonsustained ventricular tachycardia tachycardia on last admission cardiology had increased metoprolol to 75 mg 3 times a day. 13. Known history of chronic systolic congestive heart failure. No evidence of exacerbation. Previous echo November had shown EF of 40-45 14 muscle spasming in the right leg add Flexeril 15. Possible oral thrush add mycelex [place] 16. Encourage patient follow-up with her dentist outpatient regarding her left molar pain 17. Elevated AST discontinue Lipitor. Repeat LFTs in a.m. Consult physical therapy. Increase activity Anticipate discharge tomorrow. GI prophylaxis Protonix and DVT prophylaxis Eliquis I performed an examination of the patient and discussed their management with the physician Scrub Nurse. I have reviewed the Physician Scrub Nurse's notes and agree with the documented findings and plan of care
[2018-12-14 12:43] LABS: Glucose,Whole Blood 188 mg/dL (75-99)
[2018-12-14] MEDS: CYCLOBENZAPRINE 10 MG TAB PO PRN (12:55)
--- NOTE | 2018-12-14 15:31 | P.PN ---
Subjective Progress Note Date: 12/14/18 Principal diagnosis: Acute exacerbation of chronic obstructive pulmonary disease. This is 78-year-old female patient, morbidly obese with known history of COPD, previous history of CVA with right facial droop, chronic atrial fibrillation, hypertension, hyperlipidemia, who is coming in for some increased shortness of breath. Note that the patient has been maintained on a combination of Symbicort and Spiriva on outpatient basis. She was in the hospital back in November 2018. At that time the patient had a fall and she had increased swelling in the right lower extremity and surrounding cellulitis. Note that she usually walks without a walker and she lost her balance and she fell on her knee and she sustained injury to her knee and the right lower extremity. The x- ray of the knee that was taken showed no acute dislocation or fracture. The patient was found to have severe degenerative arthritis and narrowing all of the components of the right knee. The overlying soft tissue appeared unremarkable. She was treated with antibiotics and she was sent home with some pain killers. Note that during the earlier hospitalization, the patient did not have any respiratory distress. Also, the ultrasound Doppler of the right lower extremity was negative for DVT. X-ray of the right lower extremity showed some soft tissue edema. The chest x-ray was negative for an acute process. The patient reports that the right lower extremity cellulitis and swelling is improved. She is also taking allopurinol knowing that she had some pain in the metatarsophalangeal joint corresponding with an acute gouty attack. At the time of discharge, the patient was given Keflex 500 mg 3 times a day. She was asked to continue the Lasix 40 mg in the morning and 20 mg naps are normal. She was given a prednisone burst taper. She was also asked to continue her routine respiratory medications. Note that the patient is also on long-term and to coagulation with Eliquis. Currently she is having increased dyspnea cough chest tightness and wheezing. No acute processes on the most recent chest x-ray. The patient has right shoulder arthroplasty and moderate left shoulder arthroplasty and moderate multilevel degenerative changes involving the spine. The patient is seen today for very 2018 in follow-up on the regular medical floor. She is currently sitting up in a chair at the bedside. She is awake and alert in no acute distress. She is maintaining good O2 saturations in the 90s on room air. She's been afebrile. Hemodynamically stable. White count 9.8. Hemoglobin 12.8. Creatinine 0.83. She has been maintained on DuoNeb inhalations, Symbicort, IV Solu-Medrol, Singulair and ceftriaxone. Her only complaint is that of some ongoing right lower extremity discomfort. Objective - Vital Signs Vital signs: Vital Signs Temp 97.9 F 12/14/18 14:35 Pulse 80 12/14/18 15:22 Resp 16 12/14/18 14:35 BP 153/88 12/14/18 14:35 Pulse Ox 96 12/14/18 14:35 Intake & Output 12/13/18 12/14/18 12/14/18 18:59 06:59 18:59 Intake Total 1183 300 Balance 1183 300 Intake: Oral 1183 Other 300 Other: Voiding Method Toilet Toilet # Voids 1 3 - Exam GENERAL EXAM: Alert, active, comfortable in no apparent distress. HEAD: Normocephalic. EYES: Normal reaction of pupils, equal size. NOSE: Clear with pink turbinates. THROAT: No erythema or exudates. NECK: No masses, no JVD. CHEST: No chest wall deformity. LUNGS: Equal air entry with no crackles, wheeze, rhonchi or dullness. CVS: S1 and S2 normal with no audible murmur, regular rhythm. ABDOMEN: No hepatosplenomegaly, normal bowel sounds, no guarding or rigidity. SPINE: No scoliosis or deformity SKIN: No rashes improving cellulitis of the right lower extremity. CENTRAL NERVOUS SYSTEM: No focal deficits, tone is normal in all 4 extremities. EXTREMITIES: There is no peripheral edema. Still some edema of the right knee. No clubbing, no cyanosis. Peripheral pulses are intact. - Labs CBC & Chem 7: 12/14/18 07:24 12/14/18 07:24 Labs: Abnormal Lab Results - Last 24 Hours (Table) 12/13/18 12/13/18 12/14/18 Range/Units 17:03 20: 07:22 Neutrophils # (1.3-7.7) k/uL Lymphocytes # (1.0-4.8) k/uL BUN (7-17) mg/dL Glucose (74-99) mg/dL POC Glucose (mg/dL) 119 H 153 H 169 H (75-99) mg/dL AST (14-36) U/L 12/14/18 12/14/18 12/14/18 Range/Units 07:24 07:24 12:32 Neutrophils # 9.0 H (1.3-7.7) k/uL Lymphocytes # 0.4 L (1.0-4.8) k/uL BUN 26 H (7-17) mg/dL Glucose 168 H (74-99) mg/dL POC Glucose (mg/dL) 188 H (75-99) mg/dL AST 45 H (14-36) U/L Assessment and Plan Assessment: Assessment 1 acute COPD exacerbation with secondary shortness of breath 2 right lower extremity cellulitis, improving 3 mechanical injury/fall to the right lower extremity 4 chronic atrial fibrillation maintained on long-term and to coagulation with Eliquis 5 history of CVA/TIA 6 hypertension 7 hyperlipidemia 8 CHF, mildly impaired LV function with an ejection fraction of 40-45% and moderate pulmonary hypertension with a PA pressure of 44. 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 11 gout involving the right foot Plan The patient was seen and evaluated by Dr. Mcneal. She is improved today as compared to yesterday. We'll continue with her current treatment plan. We will increase her activity as tolerated. We'll continue to follow make further recommendations based on her clinical status. I, the cosigning physician, performed a history & physical examination of the patient. Lungs sounds with faint end expiratory wheeze. Maintaining good O2 saturations in the 90s on room air. I discussed the assessment and plan of care with my nurse practitioner, Basia Espinoza. I attest to the above note as dictated by her.
[2018-12-14] MEDS: FUROSEMIDE 20 MG TAB PO SCH (15:45)
[2018-12-14] MEDS: CLOTRIMAZOLE TROCHE 10 MG TROCHE MUCOUS MEM SCH ×2 (15:45→22:06)
[2018-12-14 17:29] LABS: Glucose,Whole Blood 111 mg/dL (75-99)
[2018-12-14] MEDS: MONTELUKAST 10 MG TAB PO SCH (22:07)
[2018-12-14] MEDS: MELATONIN 3 MG TABLET PO SCH (22:07)
[2018-12-14] MEDS: HYDROcodone/APAP 5-325MG 1 EACH TAB PO PRN (22:07)
[2018-12-15] MEDS: CLOTRIMAZOLE TROCHE 10 MG TROCHE MUCOUS MEM SCH ×3 (00:21→09:18)
[2018-12-15] MEDS: methylPREDNISolone SOD SUCCI 125 MG/2 ML VIAL IV SCH ×3 (00:21→11:07)
[2018-12-15] MEDS: CYCLOBENZAPRINE 10 MG TAB PO PRN (01:51)
[2018-12-15 07:51] VITALS: BP 139/89; RESP 17; TEMP 97.6
[2018-12-15] MEDS: SYMBICORT 160-4.5 MCG INHALER INHALATION SCH (08:44)
[2018-12-15] MEDS: IPRATROPIUM 0.5 MG/2.5 ML NEBU INHALATION SCH ×2 (08:44→11:54)
[2018-12-15 09:17] LABS: Basophils % (A) 0 %; Eosinophils # (A) 0.1 k/uL (0-0.7); Eosinophils % (A) 1 %; HCT 37.5 % (34.0-46.0); Hypochromasia Slight; Lymphocytes # (A) 0.5 k/uL (1.0-4.8); Lymphocytes % (A) 6 %; MCHC 32.1 g/dL (31.0-37.0); MCV 99.6 fL (80.0-100.0); Macrocytosis Slight; Mean Platelet Volume 7.7; Monocytes # (A) 0.3 k/uL (0-1.0); Monocytes % (A) 3 %; Neutrophils # (A) 8.1 k/uL (1.3-7.7); Neutrophils % (A) 90 %; Platelet Count 261 k/uL (150-450); RBC 3.76 m/uL (3.80-5.40)
[2018-12-15] MEDS: FERROUS SULFATE 325 MG TAB PO SCH (09:17)
[2018-12-15] MEDS: PANTOPRAZOLE 40 MG TABLET PO SCH (09:17)
[2018-12-15] MEDS: APIXABAN 5 MG TAB PO SCH (09:17)
[2018-12-15] MEDS: FUROSEMIDE 40 MG TAB PO SCH (09:17)
[2018-12-15] MEDS: LISINOPRIL 5 MG TAB PO SCH (09:17)
[2018-12-15] MEDS: METOPROLOL TARTRATE 25 MG TAB PO SCH (09:17)
[2018-12-15] MEDS: guaiFENesin 600 MG TABLET.ER PO SCH (09:17)
[2018-12-15] MEDS: CHOLECALCIFEROL 1,000 UNIT TAB PO SCH (09:18)
[2018-12-15] MEDS: INSULIN ASPART (NovoLOG) 100 UNIT/ML VIAL SQ SCH ×2 (09:18→13:35)
[2018-12-15] MEDS: POTASSIUM CHLORIDE ER 20 MEQ TAB.ER PO SCH (09:18)
[2018-12-15] MEDS: COLCHICINE 0.6 MG EACH PO SCH (09:19)
[2018-12-15] MEDS: NYSTATIN 100,000 UNIT/GM POWD 15 GM TOPICAL SCH (09:20)
[2018-12-15 09:30] LABS: Albumin 3.7 g/dL (3.5-5.0); Calcium 8.8 mg/dL (8.4-10.2); Potassium 3.5 mmol/L (3.5-5.1); Total Bilirubin 0.7 mg/dL (0.2-1.3); Total Protein 6.2 g/dL (6.3-8.2)
[2018-12-15 12:05] LABS: Glucose,Whole Blood 148 mg/dL (75-99)
[2018-12-15 12:05] LABS: Glucose,Whole Blood 152 mg/dL (75-99)
[2018-12-15 12:07] VITALS: PULSE 77
--- NOTE | 2018-12-15 13:20 | P.DS ---
Providers Date of admission: 12/14/18 15:11 Expected date of discharge: 12/15/18 Attending physician: Dar Sung Consults: 12/12/18 15:22 Consult Physician Routine Consulting Provider: Master Mendez Consult Reason/Comments: COPD exacerbation Do you want consulting provider notified?: Yes Primary care physician: Alia Tobar Hospital Course: Discharge diagnosis 1. Acute COPD exacerbation: Patient will continue a prednisone taper and nebulizer treatments. Concerns that her beta mihaela and Ultram may have exacerbated her COPD. metoprolol has been cut back to 75 mg 3 times a day from 100 mg 3 times a day during this admission. Also discontinue the Ultram. We'll add Whitsett for pain control for her right knee hematoma 2. Acute tracheobronchitis: No evidence of pneumonia on chest x-ray. Continue Ceftin for 5 more days 3. Chronic persistent atrial fibrillation anticoagulated with Eliquis 4. Right leg cellulitis and hematoma of the knee after a fall with recent hospitalization earlier in November. Patient completed antibiotics of Keflex 5. History of CVA 6. Prior history of daily alcohol use. Patient reports she does not drink as often anymore. Last alcoholic beverage was around Dhiraj 7. Hypertension 8. Hyperlipidemia 9. History of gastric antral ulcers requiring cauterization. Continue Protonix 10. Iron deficiency anemia continue iron supplement 11. Recent gout attack in the right great toe continue colchicine 12. Previous episode of nonsustained ventricular tachycardia tachycardia on last admission cardiology had increased metoprolol to 75 mg 3 times a day. 13. Known history of chronic systolic congestive heart failure. No evidence of exacerbation. Previous echo November had shown EF of 40-45 14 muscle spasming in the right leg add Flexeril 15. Fleshy growth noted in right eye. Encouraged patient to follow-up with staff nurse anesthetist 16. Encourage patient follow-up with her dentist outpatient regarding her left molar pain 17. Elevated AST discontinue Lipitor. Repeat AST has decreased from 45-37. We 'll continue holding patient's Lipitor and have her repeat liver enzymes in the office with Dr. Tobar in 1 week Hospital course This is a 78-year-old female, patient of Dr. Tobar. 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 Patient was just hospitalized earlier in November at [facility] for a right leg cellulitis and hematoma after a fall. She was discharged home with Keflex. Also at that time she had a mild COPD exacerbation. Her metoprolol was increased to 75 mg 3 times a day cardiology due to an episode of nonsustained ventricular tachycardia. Patient reports that the metoprolol was then again increased by her PCP up to 100 mg. She reports he last night she had sudden coughing and shortness of breath. Cough was slightly productive. She was worried to go to sleep. She denies any chest pain, fever, chills or sweats. She came into the emergency room for further evaluation and treatment. Chest x-ray was negative EKG had shown atrial fibrillation with a controlled heart rate 71. She is wheezy with coarse breath sounds. She was started on IV Solu-Medrol and nebulizer treatments in the ER. Her [employer], Dr. Mendez has been consulted. Patient also noted that she's been on Ultram which is also a new medication that can cause respiratory depression. Patient denies any fever, chills, sweats, nausea or vomiting, bowel movement changes or urinary symptoms. Troponins negative On 12/13/2018 patient is alert and oriented 3 currently sitting up in chair. Patient reports significant improvement with breathing. Patient remains on IV steroids and IV antibiotics. Pulmonary services are following. At this time patient denies chest pain or shortness of breath. Patient denies nausea vomiting or diarrhea. Patient denies any urinary burning or frequency 12/14/2018 patient reporting some improvement in her shortness of breath. She is still having some wheezing. She is on IV steroids and breathing treatments. She has been up and ambulating in the hallway. She doesn't feel quite ready for discharge. She's also complaining of muscle cramping in her right leg. Muscle relaxer ordered. She's complaining of thrush-like discomfort in her mouth nystatin swish and swallow ordered. Patient complaining of a left molar pain no evidence of any abscess. She knows that the tooth needs to be pulled she'll be following up with dentist outpatient. Also complaining of a fleshy finding in the right eye no vision changes. 12/15/2018 patient's shortness of breath and wheezing are showing improvement. She's been cleared by pulmonary service for discharge. Recommend the patient continues a prednisone taper and 5 more days of Ceftin for COPD exacerbation and bronchitis. Continue with her nebulizer treatments. Patient follow-up with pulmonary service in 1 week. Patient also placed on muscle relaxer for her right leg spasming starting this admission. She has noted improvement. And has been given a prescription of Flexeril. Also with her COPD exacerbation her metoprolol was decreased back to 75 mg 3 times a day heart rate is controlled. And Ultram was also discontinued just in case that was contributing to her COPD exacerbation. She is on Whitsett for pain control now and is appears to be tolerating this. And is helping managing her knee pain from her hematoma. Patient had mildly elevated AST which is also trending down after discontinuing the Lipitor. Recommending that she stays off of the Lipitor and have a repeat LFT blood work completed in 1 week. She will follow up with Dr. Tobar to discuss when to restart the Lipitor. Patient's symptoms have improved she is medically stable for discharge. We'll have a polyp follow- up with her PCP and pulmonary service in 1 week. I performed an examination of the patient and discussed their management with the physician [employer]. I have reviewed the Physician [employer]'s notes and agree with the documented findings and plan of care Patient Condition at Discharge: Stable Plan - Discharge Summary Discharge Rx Participant: Yes New Discharge Prescriptions: New Cefuroxime Axetil [Ceftin] 500 mg PO BID 5 Days #10 tab Cyclobenzaprine [Flexeril] 10 mg PO BID PRN #20 tab PRN Reason: Muscle Spasm guaiFENesin [Mucinex] 1,200 mg PO Q12HR #10 tablet.er HYDROcodone/APAP 5-325MG [Wh[place]ett 5-325] 1 each PO Q6H PRN #12 tab PRN Reason: Pain predniSONE 10 mg PO DIRECTED #30 tab Continue Albuterol Nebulized [Ventolin Nebulized] 2.5 mg INHALATION RT-QID PRN PRN Reason: Shortness Of Breath Atorvastatin [Lipitor] 40 mg PO HS Budesonide-Formot 160-4.5 Mcg [Symbicort 160-4.5 Mcg Inhaler] 2 puff INHALATION RT-BID #60 puff Lisinopril [Zestril] 5 mg PO DAILY Melatonin 3 mg PO HS Pantoprazole [Protonix] 40 mg PO BID #60 tablet. Potassium Chloride ER [K-Dur 20] 20 meq PO DAILY #30 tab Tiotropium 18 Mcg/Puff [Spiriva] 1 puff INHALATION RT-DAILY inhaler Cholecalciferol [Vitamin D3] 1,000 unit PO DAILY Montelukast [Singulair] 10 mg PO HS Apixaban [Eliquis] 5 mg PO BID Ferrous Sulfate [Feosol] 325 mg PO DAILY Colchicine [Colcrys] 0.6 mg PO BID #60 each Furosemide [Lasix] 40 mg PO DAILY tab Furosemide [Lasix] 20 mg PO DAILY@1600 tab Metoprolol Tartrate [Lopressor] 75 mg PO TID #90 tab Nystatin 100,000 Unit/gm Powd [Mycostatin Powder] 1 applic TOPICAL TID #1 can Discontinued Acetaminophen/Diphenhydramine [Tylenol PM 500-25mg] 1 tab PO HS PRN PRN Reason: Insomnia Cephalexin [Keflex] 500 mg PO Q8HR #21 cap predniSONE 10 mg PO DIRECTED #21 tab traMADol HCL [Ultram] 50 mg PO Q6HR PRN #12 tablet PRN Reason: Pain Discharge Medication List Albuterol Nebulized [Ventolin Nebulized] 2.5 mg INHALATION RT-QID PRN 07/25/15 [ History] Atorvastatin [Lipitor] 40 mg PO HS 07/25/15 [History] Budesonide-Formot 160-4.5 Mcg [Symbicort 160-4.5 Mcg Inhaler] 2 puff INHALATION RT-BID #60 puff 07/29/15 [Rx] Lisinopril [Zestril] 5 mg PO DAILY 01/16/17 [History] Melatonin 3 mg PO HS 01/16/17 [History] Pantoprazole [Protonix] 40 mg PO BID #60 tablet. 01/21/17 [Rx] Potassium Chloride ER [K-Dur 20] 20 meq PO DAILY #30 tab 01/21/17 [Rx] Tiotropium 18 Mcg/Puff [Spiriva] 1 puff INHALATION RT-DAILY inhaler 01/21/17 [ Rx] Apixaban [Eliquis] 5 mg PO BID 11/17/18 [History] Cholecalciferol [Vitamin D3] 1,000 unit PO DAILY 11/17/18 [History] Ferrous Sulfate [Feosol] 325 mg PO DAILY 11/17/18 [History] Montelukast [Singulair] 10 mg PO HS 11/17/18 [History] Colchicine [Colcrys] 0.6 mg PO BID #60 each 12/04/18 [Rx] Furosemide [Lasix] 20 mg PO DAILY@1600 tab 12/04/18 [Rx] Furosemide [Lasix] 40 mg PO DAILY tab 12/04/18 [Rx] Metoprolol Tartrate [Lopressor] 75 mg PO TID #90 tab 12/04/18 [Rx] Nystatin 100,000 Unit/gm Powd [Mycostatin Powder] 1 applic TOPICAL TID #1 can [Rx] Cefuroxime Axetil [Ceftin] 500 mg PO BID 5 Days #10 tab 12/15/18 [Rx] Cyclobenzaprine [Flexeril] 10 mg PO BID PRN #20 tab 12/15/18 [Rx] HYDROcodone/APAP 5-325MG [[place] 5-325] 1 each PO Q6H PRN #12 tab 12/15/18 [Rx] guaiFENesin [Mucinex] 1,200 mg PO Q12HR #10 tablet.er 12/15/18 [Rx] predniSONE 10 mg PO DIRECTED #30 tab 12/15/18 [Rx] Follow up Appointment(s)/Referral(s): [facility], [NON-STAFF] - As Needed Alia Tobar MD [Primary Care Provider] - 1 Week Master Mendez DO [Doctor of Osteopathic Medicine] - 1 Week Activity/Diet/Wound Care/Special Instructions: Diet: cardiac Activity: as tolerated Discharge Disposition: HOME SELF-CARE
--- NOTE | 2018-12-15 14:13 | P.PN ---
Subjective Progress Note Date: 12/15/18 Principal diagnosis: Acute exacerbation of chronic obstructive pulmonary disease. This is 78-year-old female patient, morbidly obese with known history of COPD, previous history of CVA with right facial droop, chronic atrial fibrillation, hypertension, hyperlipidemia, who is coming in for some increased shortness of breath. Note that the patient has been maintained on a combination of Symbicort and Spiriva on outpatient basis. She was in the hospital back in November 2018. At that time the patient had a fall and she had increased swelling in the right lower extremity and surrounding cellulitis. Note that she usually walks without a walker and she lost her balance and she fell on her knee and she sustained injury to her knee and the right lower extremity. The x- ray of the knee that was taken showed no acute dislocation or fracture. The patient was found to have severe degenerative arthritis and narrowing all of the components of the right knee. The overlying soft tissue appeared unremarkable. She was treated with antibiotics and she was sent home with some pain killers. Note that during the earlier hospitalization, the patient did not have any respiratory distress. Also, the ultrasound Doppler of the right lower extremity was negative for DVT. X-ray of the right lower extremity showed some soft tissue edema. The chest x-ray was negative for an acute process. The patient reports that the right lower extremity cellulitis and swelling is improved. She is also taking allopurinol knowing that she had some pain in the metatarsophalangeal joint corresponding with an acute gouty attack. At the time of discharge, the patient was given Keflex 500 mg 3 times a day. She was asked to continue the Lasix 40 mg in the morning and 20 mg naps are normal. She was given a prednisone burst taper. She was also asked to continue her routine respiratory medications. Note that the patient is also on long-term and to coagulation with Eliquis. Currently she is having increased dyspnea cough chest tightness and wheezing. No acute processes on the most recent chest x-ray. The patient has right shoulder arthroplasty and moderate left shoulder arthroplasty and moderate multilevel degenerative changes involving the spine. The patient is seen today for very 2018 in follow-up on the regular medical floor. She is currently sitting up in a chair at the bedside. She is awake and alert in no acute distress. She is maintaining good O2 saturations in the 90s on room air. She's been afebrile. Hemodynamically stable. White count 9.8. Hemoglobin 12.8. Creatinine 0.83. She has been maintained on DuoNeb inhalations, Symbicort, IV Solu-Medrol, Singulair and ceftriaxone. Her only complaint is that of some ongoing right lower extremity discomfort. The patient is seen again today 12/15/2017 in follow-up on the regular medical floor. She is currently sitting up in chair at the bedside. Awake and alert in no acute distress. States her breathing is back to her baseline. Faint end expiratory wheeze. Otherwise stable. White count 9.0. Hemoglobin 12.0. Creatinine 0.85. She has been maintained on DuoNeb inhalations, Symbicort, steroids. Antibiotics in the form of ceftriaxone. Objective - Vital Signs Vital signs: Vital Signs Temp 97.6 F 12/15/18 07:00 Pulse 77 12/15/18 12:06 Resp 17 12/15/18 07:00 BP 139/89 12/15/18 07:00 Pulse Ox 95 12/15/18 07:00 Intake & Output 12/14/18 12/15/18 12/15/18 18:59 06:59 18:59 Intake Total 300 446 Balance 300 446 Intake: Oral 446 Other 300 Other: Voiding Method Toilet # Voids 3 2 - Exam GENERAL EXAM: Alert, active, comfortable in no apparent distress. HEAD: Normocephalic. EYES: Normal reaction of pupils, equal size. NOSE: Clear with pink turbinates. THROAT: No erythema or exudates. NECK: No masses, no JVD. CHEST: No chest wall deformity. LUNGS: Equal air entry with no crackles, wheeze, rhonchi or dullness. CVS: S1 and S2 normal with no audible murmur, regular rhythm. ABDOMEN: No hepatosplenomegaly, normal bowel sounds, no guarding or rigidity. SPINE: No scoliosis or deformity SKIN: No rashes improving cellulitis of the right lower extremity. CENTRAL NERVOUS SYSTEM: No focal deficits, tone is normal in all 4 extremities. EXTREMITIES: There is no peripheral edema. Still some edema of the right knee. No clubbing, no cyanosis. Peripheral pulses are intact. - Labs CBC & Chem 7: 12/15/18 08:10 12/15/18 08:10 Labs: Abnormal Lab Results - Last 24 Hours (Table) 12/14/18 12/15/18 12/15/18 Range/Units 17:02 08:10 08:10 RBC 3.76 L (3.80-5.40) m/uL Neutrophils # 8.1 H (1.3-7.7) k/uL Lymphocytes # 0.5 L (1.0-4.8) k/uL BUN 29 H (7-17) mg/dL Glucose 200 H (74-99) mg/dL POC Glucose (mg/dL) 111 H (75-99) mg/dL AST 37 H (14-36) U/L Total Protein 6.2 L (6.3-8.2) g/dL 12/15/18 12/15/18 Range/Units 09:00 11:43 RBC (3.80-5.40) m/uL Neutrophils # (1.3-7.7) k/uL Lymphocytes # (1.0-4.8) k/uL BUN (7-17) mg/dL Glucose (74-99) mg/dL POC Glucose (mg/dL) 152 H 148 H (75-99) mg/dL AST (14-36) U/L Total Protein (6.3-8.2) g/dL Assessment and Plan Assessment: Assessment 1 acute COPD exacerbation with secondary shortness of breath 2 right lower extremity cellulitis, improving 3 mechanical injury/fall to the right lower extremity 4 chronic atrial fibrillation maintained on long-term and to coagulation with Eliquis 5 history of CVA/TIA 6 hypertension 7 hyperlipidemia 8 CHF, mildly impaired LV function with an ejection fraction of 40-45% and moderate pulmonary hypertension with a PA pressure of 44. 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 11 gout involving the right foot Plan The patient was seen and evaluated by Dr. Mcneal. She is cleared for discharge from the pulmonary standpoint. Complete her course of antibiotics. Complete a prednisone burst and taper. Continue DuoNeb's and Symbicort. Follow -up in our office in 1-2 weeks' time. She is encouraged to call sooner with any recurrence of symptoms or other questions or concerns. I, the cosigning physician, performed a history & physical examination of the patient. Lungs sounds with faint end expiratory wheeze. Maintaining good O2 saturations in the 90s on room air. I discussed the assessment and plan of care with my nurse practitioner, Basia Espinoza. I attest to the above note as dictated by her.
== END 2018-12-15 14:46 | disposition home health service (06) | DRG 191 ==
LOC: EC 11:25 → 4SSUR 14:41 → OBSVTOIN 12-14 15:11
PROVIDERS: ADMIT Internal Medicine; ATTEND Internal Medicine
DX: J44.0 Chronic obstructive pulmonary disease with (acute) lower respiratory infection (principal); I50.22 Chronic systolic (congestive) heart failure; I48.1 Persistent atrial fibrillation; Z68.42 Body mass index [BMI] 45.0-49.9, adult; I47.2 Ventricular tachycardia; B37.0 Candidal stomatitis; I27.20 Pulmonary hypertension, unspecified; I11.0 Hypertensive heart disease with heart failure; E66.01 Morbid (severe) obesity due to excess calories; J44.1 Chronic obstructive pulmonary disease with (acute) exacerbation; J20.9 Acute bronchitis, unspecified; S80.01XA Contusion of right knee, initial encounter; M10.9 Gout, unspecified; K25.9 Gastric ulcer, unspecified as acute or chronic, without hemorrhage or perforation; D50.9 Iron deficiency anemia, unspecified; M19.90 Unspecified osteoarthritis, unspecified site; E78.5 Hyperlipidemia, unspecified; K08.89 Other specified disorders of teeth and supporting structures; I69.392 Facial weakness following cerebral infarction; R73.9 Hyperglycemia, unspecified; D49.89 Neoplasm of unspecified behavior of other specified sites; T38.0X5A Adverse effect of glucocorticoids and synthetic analogues, initial encounter; R32 Unspecified urinary incontinence; F10.21 Alcohol dependence, in remission; Z87.891 Personal history of nicotine dependence; Z79.01 Long term (current) use of anticoagulants; Z79.51 Long term (current) use of inhaled steroids; Z79.52 Long term (current) use of systemic steroids; Z79.899 Other long term (current) drug therapy; Z90.710 Acquired absence of both cervix and uterus; Z96.611 Presence of right artificial shoulder joint; Z90.01 Acquired absence of eye; Z96.643 Presence of artificial hip joint, bilateral; Z96.652 Presence of left artificial knee joint; Z97.0 Presence of artificial eye; Z98.42 Cataract extraction status, left eye; Z98.41 Cataract extraction status, right eye; Z82.49 Family history of ischemic heart disease and other diseases of the circulatory system; Z80.9 Family history of malignant neoplasm, unspecified
CPT/HCPCS: 36415; 71046; 80053; 81003; 82550; 82553; 83036; 83605; 83735; 83880; 84484; 85025; 85610; 85730; 93005; 94640; 94760; 96361; 96374; 99285

== ENCOUNTER 2020-02-23 15:06 | Emergency (ER) | payer MEDICARE, BC ==
[2020-02-23 15:13] VITALS: RESP 18
--- NOTE | 2020-02-23 15:33 | ED ---
General Adult HPI - General Chief complaint: Fall Stated complaint: Fall Time Seen by Provider: 02/23/20 15:10 Source: patient, EMS, RN notes reviewed, old records reviewed Mode of arrival: EMS Limitations: no limitations - History of Present Illness Initial comments: This is an 79-year-old female who states she tripped and fell while going to her bathroom. Patient states she has left hip pain down to her left knee. Patient states the knee hurts the most. Patient states she has had bilateral hip replacements. Patient states she did not hit her head she did not hurt her neck. Patient has no headache denies any neck pain with movement. Patient denies any numbness weakness. Patient denies any back pain. Patient denies any chest pain. Patient denies any upper extremity pain. Patient's only complaint is in the area of the hip to the knee on the right. Patient is on eliquis. - Related Data Home Medications Medication Instructions Recorded Confirmed Albuterol Nebulized [Ventolin 2.5 mg INHALATION RT-QID PRN 07/25/15 12/12/18 Nebulized] Lisinopril [Zestril] 5 mg PO DAILY 01/16/17 12/12/18 Melatonin 3 mg PO HS 01/16/17 12/12/18 Apixaban [Eliquis] 5 mg PO BID 11/17/18 12/12/18 Cholecalciferol [Vitamin D3 (25 1,000 unit PO DAILY 11/17/18 12/12/18 Mcg = 1000 Iu)] Ferrous Sulfate [Feosol] 325 mg PO DAILY 11/17/18 12/12/18 Montelukast [Singulair] 10 mg PO HS 11/17/18 12/12/18 Previous Rx's Medication Instructions Recorded Budesonide-Formot 160-4.5 Mcg 2 puff INHALATION RT-BID #60 puff 07/29/15 [Symbicort 160-4.5 Mcg Inhaler] Pantoprazole [Protonix] 40 mg PO BID #60 tablet. 01/21/17 Potassium Chloride ER [K-Dur 20] 20 meq PO DAILY #30 tab 01/21/17 Tiotropium 18 Mcg/Puff [Spiriva] 1 puff INHALATION RT-DAILY inhaler 01/21/17 Colchicine [Colcrys] 0.6 mg PO BID #60 each 12/04/18 Furosemide [Lasix] 20 mg PO DAILY@1600 tab 12/04/18 Furosemide [Lasix] 40 mg PO DAILY tab 12/04/18 Metoprolol Tartrate [Lopressor] 75 mg PO TID #90 tab 12/04/18 Nystatin 100,000 Unit/gm Powd 1 applic TOPICAL TID #1 can 12/04/18 [Mycostatin Powder] Cefuroxime Axetil [Ceftin] 500 mg PO BID 5 Days #10 tab 12/15/18 Cyclobenzaprine [Flexeril] 10 mg PO BID PRN #20 tab 12/15/18 HYDROcodone/APAP 5-325MG [Rand 1 each PO Q6H PRN #12 tab 12/15/18 5-325] guaiFENesin [Mucinex] 1,200 mg PO Q12HR #10 tablet.er 12/15/18 predniSONE 10 mg PO DIRECTED #30 tab 12/15/18 Allergies Allergy/AdvReac Type Severity Reaction Status Date / Time No Known Allergies Allergy Verified 02/23/20 15:13 Review of Systems ROS Statement: Those systems with pertinent positive or pertinent negative responses have been documented in the HPI. ROS Other: All systems not noted in ROS Statement are negative. 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 History of Any Multi-Drug Resistant Organisms: None Reported Past Surgical History: Back Surgery, Hysterectomy, Orthopedic Surgery, Tonsillectomy Additional Past Surgical History / Comment(s): BILATERAL HIP replacments, lt KNEE replacment, right SHOULDER SURGERY, hedy cataracts, enucleation of lt eye with implant Past Anesthesia/Blood Transfusion Reactions: No Reported Reaction Past Psychological History: No Psychological Hx Reported Smoking Status: Former smoker Past Alcohol Use History: Rare Past Drug Use History: None Reported - Past Family History Mother Family Medical History: Myocardial Infarction (HI) Father Family Medical History: Cancer General Exam - General Exam Comments Initial Comments: GENERAL: Patient is well-developed and well-nourished. Patient is nontoxic and well- hydrated and is in moderate distress. ENT: Neck is soft and supple. No significant lymphadenopathy is noted. Oropharynx is clear. Moist mucous membranes. Neck has full range of motion without eliciting any pain. EYES: The sclera were anicteric and conjunctiva were pink and moist. Extraocular movements were intact and pupils were equal round and reactive to light. Eyelids were unremarkable. PULMONARY: Unlabored respirations. Good breath sounds bilaterally. No audible rales rhonchi or wheezing was noted. CARDIOVASCULAR: There is a regular rate and rhythm without any murmurs gallops or rubs. ABDOMEN: Soft and nontender with normal bowel sounds. SKIN: Skin is clear with no lesions or rashes and otherwise unremarkable. NEUROLOGIC: Patient is alert and oriented x3. Cranial nerves II through XII are grossly intact. Motor and sensory are also intact. Normal speech, volume and content. Symmetrical smile. MUSCULOSKELETAL: Patient is unable to move the right leg at the hip or knee secondary to pain. Patient has quite a bit of pain to palpation of the lateral knee as well as just superior to the knee as well. Patient has minimal pain in the right hip. Yin gray has a good radial pulse on the right. I found it slightly by palpation and had a good pulse with Doppler LYMPHATICS: No significant lymphadenopathy is noted PSYCHIATRIC: Normal psychiatric evaluation. Limitations: no limitations Course Vital Signs 02/23/20 15:08 Temperature 97.9 F Pulse Rate 95 Respiratory 18 Rate Blood Pressure 139/92 O2 Sat by Pulse 95 Oximetry Medical Decision Making - Medical Decision Making EKG shows atrial fibrillation at 81 bpm QRS is 94 Q-T intervals 416 QTC is 43. Patient's EKG shows no ST segment elevation or depression. X-ray of the femur shows a slightly displaced impacted distal femur fracture in the supracondylar region. I spoke with Dr. Dominique he did not think it was the type of surgery that would be best done here he preferred the patient be transferred to a trauma center for [address] [place] [address]. I spoke with Dr. Booth at [facility] he accepted the patient I will be transferred the patient to [facility]. - Lab Data Result diagrams: 02/23/20 15:35 Lab Results 02/23/20 Range/Units 15:35 Sodium 138 (137-145) mmol/L Potassium 3.7 (3.5-5.1) mmol/L Chloride 100 (98-107) mmol/L Carbon Dioxide 32 H (22-30) mmol/L Anion Gap 6 mmol/L BUN 18 H (7-17) mg/dL Creatinine 0.81 (0.52-1.04) mg/dL Est GFR (CKD-EPI)AfAm 80 (>60 ml/min/1.73 sqM) Est GFR (CKD-EPI)NonAf 69 (>60 ml/min/1.73 sqM) Glucose 146 H (74-99) mg/dL Calcium 9.2 (8.4-10.2) mg/dL Total Bilirubin 0.6 (0.2-1.3) mg/dL AST 35 (14-36) U/L ALT 19 (4-34) U/L Alkaline Phosphatase 104 (38-126) U/L Total Protein 6.7 (6.3-8.2) g/dL Albumin 4.0 (3.5-5.0) g/dL Disposition Clinical Impression: Femur fracture Disposition: OTHER INSTITUTION NOT DEFINED Referrals: Alia Tobar MD [Primary Care Provider] - 1-2 days Time of Disposition: 17:09 - Out of Hospital Transfer - Req. Specs Out of Hospital Transfer - Requested Specifics: Other Emergency Center ([facility])
[2020-02-23] MEDS ORDERED: HYDROmorphone 1 MG/ML 1 ML SYRINGE IM STA (15:36)
[2020-02-23] MEDS ORDERED: HYDROmorphone 0.5 MG/0.5 ML SYRINGE IVP STA ×3 (15:37→18:32)
--- NOTE | 2020-02-23 16:29 | XR ---
EXAMINATION TYPE: XR pelvis AP view DATE OF EXAM: 02/23/2020 COMPARISON: NONE HISTORY: Pain after falling TECHNIQUE: Single view FINDINGS: The pelvic ring is intact. There is bilateral hip prosthesis. There is some lucency around the right prosthetic acetabulum. Sacroiliac joints are intact. IMPRESSION: There is some bone loss around the prosthetic right acetabulum could relate to some chron ic instability. No acute fracture seen.
--- NOTE | 2020-02-23 16:31 | XR ---
EXAMINATION TYPE: XR femur RT DATE OF EXAM: 02/23/2020 COMPARISON: NONE HISTORY: Pain TECHNIQUE: 6 views FINDINGS: There is right hip prosthesis. I see no fracture of the prosthesis. There is comminuted supracondylar fracture of the right femur. There is significant arthritic disease at the knee joint. IMPRESSION: Mildly displaced and impacted comminuted supracondylar fracture of the right femur. Moder ately severe osteoarthritis right hip joint.
--- NOTE | 2020-02-23 16:32 | XR ---
EXAMINATION TYPE: XR chest 1V DATE OF EXAM: 02/23/2020 COMPARISON: 12/12/2018 HISTORY: Cough TECHNIQUE: FINDINGS: There is no heart failure nor confluent pneumonic infiltrate. Costophrenic angles are clear . Thoracic aorta is atheromatous. There is right shoulder prosthesis. IMPRESSION: No active cardiopulmonary disease. Normal heart. No significant change.
[2020-02-23 16:33] LABS: Calcium 9.2 mg/dL (8.4-10.2); Potassium 3.7 mmol/L (3.5-5.1); Total Bilirubin 0.6 mg/dL (0.2-1.3); Total Protein 6.7 g/dL (6.3-8.2)
[2020-02-23] MEDS ORDERED: DILTIAZEM DRIP BOLUS FROM BAG 1 MG SOLN IV ONE (17:18)
[2020-02-23] MEDS ORDERED: DILTIAZEM 125 MG in SODIUM CHLORIDE 0.9% 100 ML IV SCH (17:30)
[2020-02-23 17:34] LABS: Basophils % (A) 0 %; Eosinophils # (A) 0.1 k/uL (0-0.7); Eosinophils % (A) 0 %; HCT 43.4 % (34.0-46.0); Lymphocytes # (A) 1.1 k/uL (1.0-4.8); Lymphocytes % (A) 6 %; MCH 31.1 pg (25.0-35.0); MCHC 32.3 g/dL (31.0-37.0); MCV 96.4 fL (80.0-100.0); Mean Platelet Volume 8.2; Monocytes # (A) 0.6 k/uL (0-1.0); Monocytes % (A) 3 %; Neutrophils # (A) 16.7 k/uL (1.3-7.7); Neutrophils % (A) 90 %; Platelet Count 324 k/uL (150-450); RBC 4.51 m/uL (3.80-5.40); RDW 13.1 % (11.5-15.5); WBC 18.6 k/uL (3.8-10.6)
[2020-02-23 17:38] LABS: Partial Thromboplastin Time 24.6 sec (22.0-30.0); Prothrombin Time 10.6 sec (9.0-12.0)
[2020-02-23] MEDS ORDERED: ONDANSETRON 4 MG/2 ML VIAL IVP STA (18:33)
[2020-02-23 18:49] VITALS: BP 134/89; PULSE 82; TEMP 98
== END 2020-02-23 18:51 | disposition other institution (70) ==
LOC: EC 15:06
DX: S72.451A Displaced supracondylar fracture without intracondylar extension of lower end of right femur, initial encounter for closed fracture (principal); I48.20 Chronic atrial fibrillation, unspecified; J44.9 Chronic obstructive pulmonary disease, unspecified; M19.90 Unspecified osteoarthritis, unspecified site; I10 Essential (primary) hypertension; M10.9 Gout, unspecified; Z79.899 Other long term (current) drug therapy; Z79.51 Long term (current) use of inhaled steroids; Z79.01 Long term (current) use of anticoagulants; Z87.891 Personal history of nicotine dependence; Z86.73 Personal history of transient ischemic attack (TIA), and cerebral infarction without residual deficits; Z96.643 Presence of artificial hip joint, bilateral; Z96.652 Presence of left artificial knee joint; W01.0XXA Fall on same level from slipping, tripping and stumbling without subsequent striking against object, initial encounter; Y93.89 Activity, other specified; Y92.009 Unspecified place in unspecified non-institutional (private) residence as the place of occurrence of the external cause
CPT/HCPCS: 99285; 96374; 96375; 96376 ×2; 36415; 93005; 80053; 85025; 85610; 85730; 72170; 73552; 71045; L1830; J2405; J1170

== ENCOUNTER → 2020-08-25 | Outpatient (CLI) | payer MEDICARE, BC ==
--- NOTE | 2020-08-27 13:32 | P.ARTDOP ---
Arterial Doppler LOWER EXTREMITY ARTERIAL DOPPLER: DATE OF SERVICE: 08/25/2020 Reason for study: Calf ulcer. Doppler waveforms: Multiphasic bilaterally throughout, except the right dorsalis pedis and digital which seemed blunted. Pulse volume recording: []. Pressure gradients: Only at the toe level. Ankle-brachial indices: Greater than 1 bilaterally. Toe brachial indices: 0.45 on the right, 0.34 on the left Impression: Normal study proximally. Decreased toe pressures and waveforms could be a peripheral vasospastic phenomenon or less likely distal disease. Clinical correlation recommended..
== END | disposition home or self-care (01) ==
LOC: RADUSWWP 13:50
PROVIDERS: ATTEND Family Medicine
DX: M79.661 Pain in right lower leg (principal); S72.301G Unspecified fracture of shaft of right femur, subsequent encounter for closed fracture with delayed healing
CPT/HCPCS: 93922